=== PATIENT | male | born 1935 | race Caucasian/White ===

== ENCOUNTER 2016-10-04 14:57 | Inpatient (IN) | payer MEDICARE, OTHER ==
[~2016-10-04] VITALS: Ht 172.7 cm; Wt 110.2 kg
[~2016-10-04 14:57] MED LIST: AMLO2.5T PO; ASPI-869 PO; BACL10TA PO; CARV25TA2 PO; DIGO125T PO; DONE10TA4 PO; DUTA0.5C PO; ESOM40CA PO; FURO40TA5 PO; LISI10TA5 PO; METH10TA7 PO; ROSU20TA PO; ZOLP10TA2 PO
--- NOTE | 2016-10-04 15:04 | NUR ---
PT FAUSTINO FROM HOME TO ER BED 09. C/O CHEST PAIN X 3 DAYS. BLE ALSO NOTED. WAS GIVEN ASP AND NITRO ADDRESSING MACHINE OPERATOR W/ NO RELIEFE. GOWNED AND PLACED ON MONITOR. SATTING LOW 90'S. placed O2@2l/min. CHILEAN SPEAKING. AWAITING MD HERR.
--- NOTE | 2016-10-04 15:06 | NUR ---
DR BOB AT BEDSIDE FOR EVAL.
[2016-10-04 15:14] LABS: BASOPHILS # (AUTO) 0.3 /CMM (0.0-0.2); BASOPHILS % (AUTO) 2.5 % (0.0-2.0); EOSINOPHILS # (AUTO) 0.3 /CMM (0.0-0.7); EOSINOPHILS % (AUTO) 3.4 % (0.0-6.0); HEMATOCRIT 55 % (39-51); HEMOGLOBIN 17.7 g/dL (13.5-17.5); LYMPHOCYTES # (AUTO) 1.9 /CMM (0.8-4.8); LYMPHOCYTES % (AUTO) 18.5 % (20.0-44.0); MEAN CORPUSCULAR HEMOGLOBIN 30 PG (26.0-33.0); MEAN CORPUSCULAR HGB CONC 32 g/dl (31.0-36.0); MEAN CORPUSCULAR VOLUME 93 fL (80-96); MONOCYTES # (AUTO) 0.9 /CMM (0.1-1.30); NEUTROPHILS # (AUTO) 6.7 /CMM (1.8-8.9); NEUTROPHILS % (AUTO) 66.6 % (43.0-81.0); PLATELET COUNT (AUTO) 164 /CMM (150-450); RDW COEFFICIENT OF VARIATION 13.3 (11.5-15.0); RED BLOOD CELL COUNT(AUTO) 5.87 MIL/uL (4.5-6.0); WHITE BLOOD COUNT (AUTO) 10.1 K/uL (4.3-11.0)
--- NOTE | 2016-10-04 15:26 | NUR ---
RADIOLOGY AT BEDSIDE FOR CHEST XRAY.
[2016-10-04 15:29] LABS: INR 1.11 (0.87-1.13); PROTHROMBIN TIME 11.6 SECS (9.5-12.7)
[2016-10-04 15:32] LABS: TROPONIN I < 0.017 ng/mL (0.00-0.056)
[2016-10-04 15:37] LABS: ALANINE AMINOTRANSFERASE 27 U/L (12-78); ALBUMIN 3.5 g/dL (3.4-5.0); ALKALINE PHOSPHATASE 83 U/L (46-116); ASPARTATE AMINOTRANSFERASE 19 U/L (15-37); B-TYPE NATRIURETIC PEPTIDE 554 PG/ML (0-125); BILIRUBIN,DIRECT 0.1 mg/dL (0.0-0.2); BILIRUBIN,TOTAL 0.3 mg/dL (0.2-1.0); CALCIUM, SERUM 9.1 mg/dL (8.5-10.1); CARBON DIOXIDE 34 mmol/L (21-32); CHLORIDE 105 mmol/L (98-107); CREATININE 1.4 mg/dL (0.6-1.3); GLUCOSE 106 mg/dL (74-106); POTASSIUM 4.4 mmol/L (3.5-5.1); SODIUM SERUM 142 mmol/L (136-145); TOTAL PROTEIN, SERUM 7.5 g/dL (6.4-8.2); UREA NITROGEN, BLOOD 25 mg/dL (7-18)
[2016-10-04 16:00] VITALS: BP 135/72
[2016-10-04] MEDS ORDERED: FUROSEMIDE 40 MG/4 ML VIAL ONE (16:25)
[2016-10-04] MEDS ORDERED: FUROSEMIDE 40 MG/4 ML VIAL IV ONE (16:30)
--- NOTE | 2016-10-04 16:36 | NUR ---
REPORT GIVEN TO FELI. PT AWAITING TRANSFER TO FLOOR.
[2016-10-04 17:12] VITALS: BP 135/72
--- NOTE | 2016-10-04 17:15 | NUR ---
HYDROELECTRIC COMPONENT MACHINIST INITIAL NOTES RECEIVED REPORT AND PT FROM ER NURSE, A&O X4 CITIZEN OF [place] SPEAKING, ON 4L NC SAT ABOVE 93%, NO SOB OR ACUTE DISTRESS, NO CHEST PAIN NOTED NO WOUNDS PRESENT, ON TELE MON SR WITH HR 78, LT AC 18G IV INTACT, ALL NEEDS MET, SIDE RAILS X2, BED LOW AND LOCKED, CALL LIGHT WITHIN REACH, ADMISSION PACKET COMPELTE WILL CONTINUE TO MONITOR.
[2016-10-04] MEDS ORDERED: ALBUTEROL FS 2.5 MG/0.5 ML VIAL.NEB NEB PRN (18:00)
[2016-10-04] MEDS ORDERED: ACETAMINOPHEN 325 MG TABLET PO PRN (18:00)
[2016-10-04] MEDS ORDERED: MAGNESIUM HYDROXIDE 30 ML UDC PO PRN (18:00)
[2016-10-04] MEDS ORDERED: MAG HYDROX/AL HYDROX/SIMETH 30 ML UDC PO PRN (18:00)
[2016-10-04] MEDS ORDERED: ZOLPIDEM TARTRATE 5 MG TABLET PO PRN (18:00)
[2016-10-04] MEDS ORDERED: HYDROCODONE/APAP 5/325MG 1 EACH TABLET PO PRN (18:00)
[2016-10-04] MEDS ORDERED: IPRATROPIUM NEB FS 0.5 MG/2.5 ML AMPUL.NEB NEB PRN (18:00)
[2016-10-04] MEDS ORDERED: ONDANSETRON HCL/PF 4 MG/2 ML VIAL IVP PRN (18:00)
[2016-10-04] MEDS ORDERED: Z GUARD REMEDY 2 OZ OINT TP PRN (18:00)
[2016-10-04] MEDS ORDERED: WARF2TAB57 PO (18:03)
[2016-10-04] MEDS ORDERED: OLME1TAB2 PO (18:04)
[2016-10-04] MEDS ORDERED: NEBI10TA2 PO (18:09)
--- NOTE | 2016-10-04 18:21 | NUR ---
AUTOMATION SPECIALIST ENDING NOTES PT STABLE WITH NO ACUTE CHANGES NOTED, ALL NEEDS MET, WILL ENDORSE TO PM NURSE.
[2016-10-04] MEDS: FUROSEMIDE 40 MG/4 ML VIAL IV SCH (18:43)
--- NOTE | 2016-10-04 19:35 | NUR ---
POWDERED SUGAR SUPERVISOR INITIAL NOTE PT RECEIVED SLEEPING IN BED AND EASILY AROUSABLE. A/O X4 AND DANISH/SOUTH AFRICAN SPEAKING. ON 4L OF O2 VIA NC, WELL TOLERATED AND SATING WELL. TELE-SINUS RHYTHM 80'S. NO C/O CHEST NOTED AT THIS TIME. NO SOB NOTED. IV SITE LAC #18 SL, FLUSHING WELL, INTACT AND CLEAN. CALL LIGHT WITHIN REACH AT ALL TIMES. WILL CONTINUE TO MONITOR.
[2016-10-04 20:00] VITALS: BP 117/81
[2016-10-04] MEDS: DIGOXIN 0.125 MG TABLET PO SCH (20:40)
[2016-10-04] MEDS: ZOLPIDEM TARTRATE 10 MG TABLET PO SCH (22:05)
[2016-10-04] MEDS: ATORVASTATIN 40 MG TABLET PO SCH (22:05)
[2016-10-04] MEDS: ENOXAPARIN SODIUM 40 MG/0.4 ML DISP.SYRIN SQ SCH (22:06)
[2016-10-05] VITALS (7 sets, daily range): BP systolic 101–146; BP diastolic 54–89
--- NOTE | 2016-10-05 06:30 | NUR ---
CRM ADMINISTRATOR CLOSING NOTE PT REMAINED STABLE DURING SHIFT. SATING WELL. NO SOB NOTED. NO C/O PAIN AT THIS TIME. CALL LIGHT WITHIN REACH AT ALL TIMES. WILL ENDORSE TO NEXT SHIFT FOR WENDY.
--- NOTE | 2016-10-05 07:15 | NUR ---
BOAT DISPATCHER INITIAL NOTES RECEIVED REPORT FROM PM NURSE, A&O X4 AUSTRALIAN AND SPEAKING, NO SOB OR ACUTE DISTRESS, ON 4L NC SAT ABOVE 92%, ON TELE MON ST 115, LT AC 18 G IV SITE INTACT AND PATENT, ALL NEEDS MET, ALL SAFETY MEASURES INITIATED, SIDE RAILS X2, BED LOW AND LOCKED,CALL LIGHT WITHIN REACH, WILL CONTINUE TO MONITOR.
[2016-10-05 08:04] LABS: BASOPHILS % (AUTO) 0.3 % (0.0-2.0); EOSINOPHILS # (AUTO) 0.2 /CMM (0.0-0.7); EOSINOPHILS % (AUTO) 1.8 % (0.0-6.0); HEMATOCRIT 55 % (39-51); HEMOGLOBIN 17.2 g/dL (13.5-17.5); LYMPHOCYTES # (AUTO) 1.2 /CMM (0.8-4.8); MEAN CORPUSCULAR HEMOGLOBIN 30 PG (26.0-33.0); MEAN CORPUSCULAR HGB CONC 32 g/dl (31.0-36.0); MEAN CORPUSCULAR VOLUME 95 fL (80-96); MONOCYTES # (AUTO) 0.8 /CMM (0.1-1.30); MONOCYTES % (AUTO) 7.6 % (2.0-12.0); NEUTROPHILS # (AUTO) 8.1 /CMM (1.8-8.9); NEUTROPHILS % (AUTO) 78.3 % (43.0-81.0); PLATELET COUNT (AUTO) 160 /CMM (150-450); RDW COEFFICIENT OF VARIATION 13.9 (11.5-15.0); RED BLOOD CELL COUNT(AUTO) 5.71 MIL/uL (4.5-6.0); WHITE BLOOD COUNT (AUTO) 10.4 K/uL (4.3-11.0)
[2016-10-05 08:24] LABS: CALCIUM, SERUM 8.7 mg/dL (8.5-10.1); CREATININE 1.4 mg/dL (0.6-1.3); MAGNESIUM 1.9 mg/dL (1.8-2.4); PHOSPHORUS 4.5 mg/dL (2.5-4.9)
[2016-10-05 08:29] LABS: THYROID STIMULATING HORMONE 0.377 uIU/mL (0.358-3.74)
--- NOTE | 2016-10-05 08:51 | NUR ---
G REMAINS PENDING FROM 10/04/16 @ 7484. REPORTED TO NURSE, LINDA. STATES SHE WILL FOLLOW UP WITH .
[2016-10-05] MEDS: ASPIRIN EC 325 MG TABLET.DR PO SCH (09:00)
[2016-10-05] MEDS: DIGOXIN 0.125 MG TABLET PO SCH (09:00)
[2016-10-05] MEDS: FUROSEMIDE 40 MG/4 ML VIAL IV SCH ×2 (09:01→16:14)
[2016-10-05] MEDS: PANTOPRAZOLE 40 MG TABLET.DR PO SCH (09:02)
[2016-10-05] MEDS: DUTASTERIDE (0.5 MG) 0.5 MG CAPSULE PO SCH (09:02)
[2016-10-05] MEDS: METHIMAZOLE (5MG) 5 MG TABLET PO SCH (09:03)
[2016-10-05] MEDS: LISINOPRIL (10MG) 10 MG TABLET PO SCH (09:03)
[2016-10-05 09:28] LABS: ABG BASE EXCESS 6.7 mmol/L; ABG OXYGEN SATURATION 94.2 % (92.0-98.5); ABG PH 7.299 (7.350-7.450); ABG PO2 74.1 mmHg (75.0-100.0); ABG TOTAL HEMOGLOBIN 17.6 G/dL (13.5-18.0); AaDO2 93.3 mmHg; COHb 1.8 % (0.5-1.5); MetHb 0.4 % (0.0-1.5); O2Hb 92.1 % (94.0-97.0); SITE, ABG Right Radial; VENT MODE, BG nasal cannula
--- NOTE | 2016-10-05 09:33 | NUR ---
ABG results reported to nurse.
--- NOTE | 2016-10-05 18:54 | NUR ---
RN MS ENDING NOTES PT STABLE WITH NO ACUTE DISTRESS, ALL DUE MEDS GIVEN, ALL NEEDS MET, IV SITE INTACT, WILL ENDORSE TO PM NURSE.
--- NOTE | 2016-10-05 20:00 | NUR ---
MS RN NOTES , RECEIVED PTS ON BED AWAKE ALERT , BULGARIAN SPEAKING , ABLE TO MAKE NEEDS KNOWN ,AMBULATORY NO SOB NO DISTRESS NOTED DENIES PAIN AT THIS TIME,ON O2 AT 4LITERS VIA NC TOLERATING WELL WITH O2 SAT OF 94%, V/S STABLE AFEBRILE. HOB ELEVATED FOR ASPIRATION PRECAUTION, ALL DUE MEDS GIVEN ORDERED , ALL NEEDS ATTENDED TOO CALL LIGHT WITHIN REACH, KEPT PTS SAFE ,CLEAN DRY AND COMFORTABLE.WILL CONTINUE TO MONITOR PTS.
[2016-10-05] MEDS: ENOXAPARIN SODIUM 40 MG/0.4 ML DISP.SYRIN SQ SCH (20:46)
[2016-10-05] MEDS: ATORVASTATIN 40 MG TABLET PO SCH (21:09)
[2016-10-05] MEDS: ZOLPIDEM TARTRATE 10 MG TABLET PO SCH (23:37)
[2016-10-06 04:00] VITALS: BP 119/59
--- NOTE | 2016-10-06 06:36 | NUR ---
MS RN NOTES PTS ON BED AWAKE AND RESPONSIVE , REMAINS ON 02 AT 4 LITERS VIA NC . NO SOB NO DISTRESS NOTED DENIES PAIN at this time, v/s stable afebrile ,no significant change noted , will endorse torn day shift for continuity of care.
--- NOTE | 2016-10-06 07:30 | NUR ---
RN NOTE RECEIVED PT FROM PM NURSE. PT A/O X4 PT ON NC 4L. IV L AC G# 18 FLUSHED PATENT AND INTACT. WILL CONTINUE TO MONITOR. ALL SAFETY MEASURES IN PLACE.
[2016-10-06 08:00] VITALS: BP 128/67
[2016-10-06] MEDS: FUROSEMIDE 40 MG/4 ML VIAL IV SCH (08:38)
[2016-10-06 08:39] VITALS: BP 128/67
[2016-10-06] MEDS: LISINOPRIL (10MG) 10 MG TABLET PO SCH (08:39)
[2016-10-06] MEDS: DUTASTERIDE (0.5 MG) 0.5 MG CAPSULE PO SCH (08:39)
[2016-10-06] MEDS: METHIMAZOLE (5MG) 5 MG TABLET PO SCH (08:39)
[2016-10-06] MEDS: DIGOXIN 0.125 MG TABLET PO SCH (08:39)
[2016-10-06] MEDS: ASPIRIN EC 325 MG TABLET.DR PO SCH (08:39)
[2016-10-06] MEDS: PANTOPRAZOLE 40 MG TABLET.DR PO SCH (08:40)
[2016-10-06] MEDS ORDERED: methylPREDNISolone SOD SUCC 40 MG/ML VIAL IV SCH (10:00)
[2016-10-06] MEDS ORDERED: LEVOFLOXACIN 750 MG /D5W 150ML 750 MG in PREMIX 1 EA IV SCH (11:00)
[2016-10-06] MEDS ORDERED: LEVO750T21 PO (12:16)
[2016-10-06] MEDS ORDERED: PRED20TA PO (12:16)
[2016-10-06] MEDS ORDERED: IV NS 0.9% 250 ML IV ONE (13:29)
[2016-10-06] MEDS ORDERED: IV SET PRIMARY PUMP SET 1 EA INFUS.SET MC ONE (13:30)
[2016-10-06] MEDS ORDERED: SECONDARY IV SET 1 EA INFUS.SET MC ONE (13:30)
--- NOTE | 2016-10-06 16:21 | NUR ---
TILE SETTER NOTE PT DC TO HOME AT BEDSIDE. PT TRANSFERRED VIA PRIVATE CAR. IV REMOVED ID BAND REMOVED. ALL DC INSTRUCTIONS GIVEN TO . BELONGINGS LIST SIGNED AND ALL QUESTIONS ANSWERED. PT CLEAN AND DRY, CHANGED INTO PERSONAL CLOTHING AND WHEELED OUT
== END 2016-10-06 16:13 | disposition home or self-care (01) | DRG 291 ==
LOC: ER 14:58 → TELE1 17:02 → MEDSG1 10-05 15:45
DX: I13.0 Hypertensive heart and chronic kidney disease with heart failure and stage 1 through stage 4 chronic kidney disease, or unspecified chronic kidney disease (principal); I50.43 Acute on chronic combined systolic (congestive) and diastolic (congestive) heart failure; N17.0 Acute kidney failure with tubular necrosis; J96.21 Acute and chronic respiratory failure with hypoxia; J96.22 Acute and chronic respiratory failure with hypercapnia; J44.1 Chronic obstructive pulmonary disease with (acute) exacerbation; E87.4 Mixed disorder of acid-base balance; N18.9 Chronic kidney disease, unspecified; E11.22 Type 2 diabetes mellitus with diabetic chronic kidney disease; F17.210 Nicotine dependence, cigarettes, uncomplicated; K21.9 Gastro-esophageal reflux disease without esophagitis; E78.5 Hyperlipidemia, unspecified; Z90.5 Acquired absence of kidney; Z86.718 Personal history of other venous thrombosis and embolism; E66.9 Obesity, unspecified; Z95.2 Presence of prosthetic heart valve
CPT/HCPCS: 36415; 36600; 71010-TC; 80048-TC; 80061-TC; 80076-TC; 80162-TC; 83735-TC; 83880; 84100-TC; 84443-TC; 84484-TC; 85025-TC; 85730-TC; 93307-TC; 97001-TC; A4216; A4606; J1650; J1940; J1956; J2920; J7050; Z7610

== ENCOUNTER 2016-11-17 16:25 | Inpatient (IN) | payer MEDICARE, OTHER ==
[~2016-11-17] VITALS: Ht 165.1 cm; Wt 111.6 kg
[~2016-11-17 16:25] MED LIST changes: -CARV25TA2 PO; +LEVO750T21 PO; +NEBI10TA2 PO; +OLME1TAB2 PO; +PRED20TA PO; +WARF2TAB57 PO
[2016-11-17] MEDS ORDERED: NITROGLYCERIN PACKET 1 GM PACKET TD ONE (16:30)
[2016-11-17] MEDS ORDERED: ASPIRIN 325 MG TABLET PO ONE (16:30)
[2016-11-17] MEDS ORDERED: FUROSEMIDE 40 MG/4 ML VIAL IV ONE (16:30)
--- NOTE | 2016-11-17 16:30 | NUR ---
PT BIBA C/O SOB X 1 WEEK, PT IS A/OX4 HAVING DIFFICULTY BREATHING, PT WAS GIVEN 1 SPRAY OF NITRO PRIOR TO ARRIVAL BY EMS, IV PLACED PRIRO TO ARRIVAL, PT ON MONITOR, RT AND MD AT BEDSIDE, PT IN GOWN, LAB IN ROOM TO DRAW, MD MADE AWARE WILL CONTINUE TO MONITOR.
[2016-11-17] MEDS ORDERED: ASPIRIN 325 MG TABLET ONE (16:35)
[2016-11-17] MEDS ORDERED: FUROSEMIDE 40 MG/4 ML VIAL ONE (16:35)
[2016-11-17] MEDS ORDERED: NITROGLYCERIN PACKET 1 GM PACKET ONE (16:35)
[2016-11-17 16:51] LABS: CALCIUM, SERUM 8.8 mg/dL (8.5-10.1); CARBON DIOXIDE 32 mmol/L (21-32); CHLORIDE 105 mmol/L (98-107); CREATININE 1.5 mg/dL (0.6-1.3); GLUCOSE 188 mg/dL (74-106); POTASSIUM 4.1 mmol/L (3.5-5.1); SODIUM SERUM 142 mmol/L (136-145); UREA NITROGEN, BLOOD 30 mg/dL (7-18)
[2016-11-17 16:53] LABS: BASOPHILS % (AUTO) 0.2 % (0.0-2.0); EOSINOPHILS # (AUTO) 0.2 /CMM (0.0-0.7); EOSINOPHILS % (AUTO) 1.7 % (0.0-6.0); HEMATOCRIT 46 % (39-51); HEMOGLOBIN 15.2 g/dL (13.5-17.5); LYMPHOCYTES # (AUTO) 1.4 /CMM (0.8-4.8); LYMPHOCYTES % (AUTO) 13.1 % (20.0-44.0); MEAN CORPUSCULAR HEMOGLOBIN 30 PG (26.0-33.0); MEAN CORPUSCULAR HGB CONC 33 g/dl (31.0-36.0); MEAN CORPUSCULAR VOLUME 92 fL (80-96); MONOCYTES % (AUTO) 9.4 % (2.0-12.0); NEUTROPHILS % (AUTO) 75.6 % (43.0-81.0); PLATELET COUNT (AUTO) 128 /CMM (150-450); RDW COEFFICIENT OF VARIATION 14.6 (11.5-15.0); RED BLOOD CELL COUNT(AUTO) 5.04 MIL/uL (4.5-6.0); WHITE BLOOD COUNT (AUTO) 10.6 K/uL (4.3-11.0)
[2016-11-17 16:57] LABS: INR 1.14 (0.87-1.13)
[2016-11-17 16:58] LABS: TROPONIN I < 0.017 ng/mL (0.00-0.056)
[2016-11-17 17:03] LABS: ALANINE AMINOTRANSFERASE 24 U/L (12-78); ALKALINE PHOSPHATASE 62 U/L (46-116); ASPARTATE AMINOTRANSFERASE 18 U/L (15-37); B-TYPE NATRIURETIC PEPTIDE 663 PG/ML (0-125); BILIRUBIN,DIRECT 0.1 mg/dL (0.0-0.2); BILIRUBIN,TOTAL 0.4 mg/dL (0.2-1.0); TOTAL PROTEIN, SERUM 6.9 g/dL (6.4-8.2)
[2016-11-17] MEDS ORDERED: DUTA1CPM PO (17:10)
--- NOTE | 2016-11-17 17:15 | NUR ---
PT BP DROPPED, MADE AWARE, MD LEDBETTER STATES TO DC THE NITRO PASTE, NITRO PASTE TAKEN OFF, PT ON MONTIOR, PT FAMILY AT BEDSIDE WILL CONTINUE TO MONITOR.
--- NOTE | 2016-11-17 17:22 | NUR ---
CALLED NURSING SUP. FOR TELE BED
--- NOTE | 2016-11-17 17:49 | NUR ---
TELE1/RN REPORT FROM ER ERECIVED REPORT FROM ER NURSE CANDACE MARTINEZ PT TO BE ADMITTED FOR CHF, UNDER THE CARE OF DR. LYNCH. AWAITING FOR PT'S ARRIVAL.
[2016-11-17 19:00] VITALS: BP 111/73
--- NOTE | 2016-11-17 19:02 | NUR ---
TELE1/STREAMING MEDIA SPECIALIST TO TELE1 PT ARRIVED VIA GURNEY FROM ER. PT AMBULATED WITH STEADY GAIT TO BED. A/O X 4, GREEK SPEAKING. PT REFUSED OXYGEN, SATURATING @ 86%, WITH DIMINISHED LUNG SOUNDS. ON TELE WITH SINUS RHYTHM, HR 93. IV FLUSHED PATENT WITH GOOD BLOOD RETURN, PATENT WITH NO S/S OF INFECTION. PT NOTED WITH BILATERAL LOWER NON-PITTING EDEMA. ADMISSION PROTOCOLS COMPLETED. CL WITHIN REACHED AND SAFETY MAINTAINED. PT SEEN & EXAMINED BY DR. LYNCH WITH VERBAL ORDERS TO START PT ON HEPARIN DRIP FOR NON ACUTE CORONARY SYNDROMES, NO BOLUS AND BLOOD DRAW IN AM FOR TSH. ORDERS NOTED AND CARRIED. Addendum: 11/17/16 at 1920 by JOSUÉ DWYER RN ADDENDUM: DR. LYNCH WANTS TO START PT ON HEPARIN DRIP, NO BOLUS, TO START BASE ON 90 KG EVEN PT IS OVER 100 KG AND SIGNED OFF INFUSION SCALE.
--- NOTE | 2016-11-17 19:20 | NUR ---
TELE1/RN AM SHIFT END NOTES NO ACUTE CHANGE OF CONDITION NOTED SINCE PT ARRIVED THIS EVENING, WAS SEEN BY DR. LYNCH. PT TO START ON HEPARIN DRIP IN PM SHIFT. NEEDS MET. PT ENDORSED TO PM NURSE TO CONTINUE CARE. CL WITHIN REACHED AND SAFETY MAINTAINED.
[2016-11-17] MEDS: FUROSEMIDE 40 MG/4 ML VIAL IV SCH (19:45)
[2016-11-17] MEDS: WARFARIN SODIUM 5 MG TABLET PO SCH (19:47)
--- NOTE | 2016-11-17 19:50 | NUR ---
RN INITIAL NOTES RECEIVED REPORT FROM PREVIOUS SHIFT. PATIENT ADMITTED FOR CHF WITH HX OF AORTIC VALVE REPLACEMENT AND TO START ON HEPARIN GTT ORDERED BY DR. LYNCH. ADMINISTERED LASIX TO PATIENT AND COUMADIN ORDERED. WILL MONITOR PATIENT'S I&O CLOSELY. PATIENT ABLE TO COMPLY WITH USE OF O2 THERAPY VIA NC AT 2LPM, PATIENT'S SATURATION MONITORED AND NOTED TO BE 95%, PATIENT'S LUNGS ARE CLEAR ON AUSCULTATION. SR ON TELE, HR OF 95. PATIENT IS DIAPHORETIC, AFEBRILE AT 98.1, ROOM CHANGES MADE APPROPRIATE. L HAND G18, FLUSHED, PATENT WITH NO SIGNS OF INFILTRATION. PATIENT'S NEEDS ANTICIPATED AND MET. SAFETY AND COMFORT ENSURED. BED IN LOW AND LOCKED POSITION. CALL LIGHT IN REACH. WILL MONITOR.
[2016-11-17 20:00] VITALS: BP 115/74
--- NOTE | 2016-11-17 20:00 | NUR ---
RN NOTES FOLLOWED UP AND COORDINATED WITH PHARMACY REGARDING THE PATIENT'S HEPARIN GTT ORDERED. SPOKE WITH MICHELLE. FAXED OVER THE HEPARIN INFUSION PROTOCOL SHEET SIGNED BY DR. LYNCH.
[2016-11-17] MEDS ORDERED: IV SET PRIMARY PUMP SET 1 EA INFUS.SET MC ONE (20:31)
[2016-11-17] MEDS: HEPARIN INFUSION/D5W 500 ML IV PRN (20:37)
--- NOTE | 2016-11-17 20:50 | NUR ---
RN NOTES HEPARIN GTT STARTED ORDERED AT 1600u/hr, 32ml/hr ON PATIENT'S L HAND G18. PATIENT IN BED SLEEPING COMFORTABLY. SATURATING AT 95% ON 2LPM OF O2 VIA NC. VS: 110/64, 98. EASILY AROUSABLE WITH VERBAL AND TACTILE STIMULI. PTT ORDERED PER PROTOCOL.
[2016-11-18] VITALS: BP 110/71
[2016-11-18 02:46] LABS: BASOPHILS # (AUTO) 0.1 /CMM (0.0-0.2); BASOPHILS % (AUTO) 0.5 % (0.0-2.0); EOSINOPHILS # (AUTO) 0.3 /CMM (0.0-0.7); EOSINOPHILS % (AUTO) 2.7 % (0.0-6.0); HEMATOCRIT 46 % (39-51); HEMOGLOBIN 15.2 g/dL (13.5-17.5); LYMPHOCYTES # (AUTO) 1.6 /CMM (0.8-4.8); LYMPHOCYTES % (AUTO) 16.3 % (20.0-44.0); MEAN CORPUSCULAR HEMOGLOBIN 30 PG (26.0-33.0); MEAN CORPUSCULAR HGB CONC 33 g/dl (31.0-36.0); MEAN CORPUSCULAR VOLUME 93 fL (80-96); MONOCYTES # (AUTO) 0.9 /CMM (0.1-1.30); MONOCYTES % (AUTO) 9.5 % (2.0-12.0); NEUTROPHILS # (AUTO) 6.9 /CMM (1.8-8.9); PLATELET COUNT (AUTO) 124 /CMM (150-450); RED BLOOD CELL COUNT(AUTO) 4.99 MIL/uL (4.5-6.0); WHITE BLOOD COUNT (AUTO) 9.7 K/uL (4.3-11.0)
[2016-11-18 03:03] LABS: CHOLESTEROL 256 mg/dL (<200); CREATINE KINASE, TOTAL 49 U/L (39-308); HDL CHOLESTEROL 42 mg/dL (40-60); LDL 184 mg/dL (0-99); TRIGLYCERIDES 99 mg/dL (30-150)
[2016-11-18 03:04] LABS: ALANINE AMINOTRANSFERASE 28 U/L (12-78); ALBUMIN 2.9 g/dL (3.4-5.0); ALKALINE PHOSPHATASE 59 U/L (46-116); ASPARTATE AMINOTRANSFERASE 16 U/L (15-37); BILIRUBIN,TOTAL 0.6 mg/dL (0.2-1.0); CALCIUM, SERUM 8.7 mg/dL (8.5-10.1); CARBON DIOXIDE 36 mmol/L (21-32); CHLORIDE 104 mmol/L (98-107); CREATININE 1.5 mg/dL (0.6-1.3); GLUCOSE 137 mg/dL (74-106); POTASSIUM 4.2 mmol/L (3.5-5.1); SODIUM SERUM 145 mmol/L (136-145); TOTAL PROTEIN, SERUM 6.8 g/dL (6.4-8.2); TROPONIN I < 0.017 ng/mL (0.00-0.056); UREA NITROGEN, BLOOD 29 mg/dL (7-18)
[2016-11-18] MEDS: HEPARIN INFUSION/D5W 500 ML IV PRN ×2 (03:17→12:33)
--- NOTE | 2016-11-18 03:26 | NUR ---
RN NOTES PATIENT'S PTT RESULTED AT 0300. PTT VALUE AT 41. INCREASED HEPARIN GTT BY 200u/hr. PATIENT IS NOW RECEIVING HEPARIN AT 1800u/hr, 36ml/hr. COSIGNED BY ANOTHER RN, ASHLYN.
[2016-11-18 04:00] VITALS: BP 95/59
--- NOTE | 2016-11-18 06:26 | NUR ---
RN CLOSING NOTES PATIENT MONITORED CLOSELY OVERNIGHT. PATIENT'S O2 TITRATED ACCORDINGLY PER PATIENT'S NEEDS. PATIENT CURRENTLY ON 3LPM OF O2 VIA NC, SATURATION AT 97%. PATIENT OBSERVED TO OCCASIONALLY REMOVE O2 THERAPY AND PATIENT DESATURATES TO THE HIGH 80s%, ENCOURAGED COMPLIANCE WITH O2 THERAPY WITH HELP. HEPARIN AT 1800u/hr AT 36ml/hr. I&O MONITORED, NOTED. REMAINS SR AT HR OF 90s. PATIENT'S NEEDS ANTICIPATED AND MET. SAFETY AND COMFORT ENSURED. BED IN LOW AND LOCKED POSITION. CALL LIGHT IN REACH. WILL ENDORSE ACCORDINGLY FOR CONTINUITY OF CARE.
[2016-11-18 08:00] VITALS: BP 107/64
[2016-11-18] MEDS: FUROSEMIDE 40 MG/4 ML VIAL IV SCH (08:03)
[2016-11-18] MEDS: SPIRONOLACTONE 25 MG TABLET PO SCH (08:03)
[2016-11-18] MEDS ORDERED: FUROSEMIDE 40 MG TABLET PO SCH (09:00)
[2016-11-18 09:31] LABS: INR 1.11 (0.87-1.13)
[2016-11-18 12:00] VITALS: BP 97/50
[2016-11-18] MEDS ORDERED: HEPARIN SODIUM,PORCINE/PF 50 UNIT/5 ML DISP.SYRIN IV ONE (12:30)
[2016-11-18] MEDS ORDERED: HEPARIN SODIUM, PORCINE 5000 UNITS/1 ML VIAL IV ONE (13:00)
--- NOTE | 2016-11-18 13:45 | NUR ---
-reviewed heparin order and protocol with dr. Magdalena dr. confirmed ok to give bolus 3600 units and increase to 2000 units/hr. no bleeding noted from any orifices. -also gave pharmacy 3 home medications, receipt in chart.
[2016-11-18 16:00] VITALS: BP 106/72
[2016-11-18] MEDS: WARFARIN SODIUM 5 MG TABLET PO SCH (16:49)
--- NOTE | 2016-11-18 18:44 | NUR ---
ENTERED ORDER FOR WRONG PATIENT
[2016-11-18 18:47] LABS: INR 1.14 (0.87-1.13); PROTHROMBIN TIME 12.3 SECS (9.5-12.7)
--- NOTE | 2016-11-18 19:21 | NUR ---
decreased heparin drip to 1820 units/hr at this time, per protocol and order to recheck coag study at 0120 for ptt result of 73
[2016-11-18] MEDS: DUTASTERIDE PO SCH (19:25)
[2016-11-18] MEDS: TAMSULOSIN HCL PO SCH (19:25)
--- NOTE | 2016-11-18 19:30 | NUR ---
REVENUE CYCLE ADMINISTRATOR INITIAL NOTES RECEIVED PATIENT AWAKE A/OX4, ABLE TO MAKE NEEDS KNOWN. DENIES PAIN OR DISCOMFORT AT THIS TIME. NO RESPIRATORY DISTRESS NOTED ON 2LPMO2 VIA NC. ON TELE MONITOR SINUS RHYTHM 90. ON HEPARIN DRIP AT 1820 UNITS/HR. NO S/S OF BLEEDING NOTED. HOB ELEVATED. SIDE RAILS UP AND LOCKED. BED KEPT AT LOWEST POSITION. CALL LIGHT KEPT WITHIN EASY REACH, WILL CONTINUE TO MONITOR.
[2016-11-18 20:00] VITALS: BP_SYST 113; BP_DIAS 68; BP_DIAS 74
[2016-11-19] VITALS: BP 105/67
[2016-11-19 02:00] LABS: INR 1.13 (0.87-1.13); PROTHROMBIN TIME 12.2 SECS (9.5-12.7)
--- NOTE | 2016-11-19 02:00 | NUR ---
RECEIVED PTT RESULT OF 64, ON HEPARIN DRIP AT 1820 UNITS/HR. NO CHANGE IN RATE PER PROTOCOL, VERIFIED WITH CHARGE NURSE.
[2016-11-19] MEDS: HEPARIN INFUSION/D5W 500 ML IV PRN ×2 (02:19→16:42)
[2016-11-19 04:00] VITALS: BP 111/56
--- NOTE | 2016-11-19 06:08 | NUR ---
GROUP LEADER SEMICONDUCTOR TESTING NOTES PATIENT C/O HEADACHE, NO PRN PAIN MEDICATION NOTED. INFORMED DR. PARIKH, WITH ORDERS FOR TYLENOL 650MG PO Q6H PRN.
[2016-11-19] MEDS ORDERED: ACETAMINOPHEN 325 MG TABLET ONE (06:10)
[2016-11-19] MEDS: ACETAMINOPHEN 325 MG TABLET PO PRN ×2 (06:16→20:18)
--- NOTE | 2016-11-19 07:30 | NUR ---
PERINATAL TECH INITIAL NOTES REPORT RECEIVED VIA PM RN/ PT PRESENTS AWAKE A/OX4, ABLE TO MAKE NEEDS KNOWN. PT AMBULATES WITHOUT DISTRESS. PT DENIES PAIN OR DISCOMFORT AT THIS TIME. NO RESPIRATORY DISTRESS NOTED ON 2L WITH MIST O2 VIA NC. ON TELE MONITOR SINUS RHYTHM 97. ON HEPARIN DRIP AT 1820 UNITS/HR SETTING NOT CHANGED VIA PROTOCOL. NO S/S OF BLEEDING NOTED. HOB ELEVATED. SIDE RAILS UP AND LOCKED. BED KEPT AT LOWEST POSITION. CALL LIGHT KEPT WITHIN EASY REACH, WILL CONTINUE TO MONITOR.
[2016-11-19 08:00] VITALS: BP 92/57
[2016-11-19 08:04] LABS: ALANINE AMINOTRANSFERASE 27 U/L (12-78); ALBUMIN 2.8 g/dL (3.4-5.0); ALKALINE PHOSPHATASE 57 U/L (46-116); ASPARTATE AMINOTRANSFERASE 14 U/L (15-37); BASOPHILS % (AUTO) 0.5 % (0.0-2.0); BILIRUBIN,TOTAL 0.5 mg/dL (0.2-1.0); CALCIUM, SERUM 8.6 mg/dL (8.5-10.1); CARBON DIOXIDE 33 mmol/L (21-32); CHLORIDE 100 mmol/L (98-107); CREATININE 1.3 mg/dL (0.6-1.3); EOSINOPHILS # (AUTO) 0.2 /CMM (0.0-0.7); EOSINOPHILS % (AUTO) 2.6 % (0.0-6.0); GLUCOSE 125 mg/dL (74-106); HEMATOCRIT 45 % (39-51); HEMOGLOBIN 15.1 g/dL (13.5-17.5); LYMPHOCYTES # (AUTO) 1.2 /CMM (0.8-4.8); LYMPHOCYTES % (AUTO) 14.6 % (20.0-44.0); MAGNESIUM 1.9 mg/dL (1.8-2.4); MEAN CORPUSCULAR HEMOGLOBIN 31 PG (26.0-33.0); MEAN CORPUSCULAR HGB CONC 33 g/dl (31.0-36.0); MEAN CORPUSCULAR VOLUME 92 fL (80-96); MONOCYTES # (AUTO) 0.8 /CMM (0.1-1.30); MONOCYTES % (AUTO) 9.7 % (2.0-12.0); NEUTROPHILS # (AUTO) 5.7 /CMM (1.8-8.9); NEUTROPHILS % (AUTO) 72.6 % (43.0-81.0); PHOSPHORUS 3.4 mg/dL (2.5-4.9); PLATELET COUNT (AUTO) 132 /CMM (150-450); POTASSIUM 4.6 mmol/L (3.5-5.1); RDW COEFFICIENT OF VARIATION 13.8 (11.5-15.0); RED BLOOD CELL COUNT(AUTO) 4.88 MIL/uL (4.5-6.0); SODIUM SERUM 140 mmol/L (136-145); TOTAL PROTEIN, SERUM 6.9 g/dL (6.4-8.2); UREA NITROGEN, BLOOD 28 mg/dL (7-18); WHITE BLOOD COUNT (AUTO) 7.9 K/uL (4.3-11.0)
[2016-11-19] MEDS: OLMESARTAN PO SCH (08:59)
[2016-11-19] MEDS: FUROSEMIDE 40 MG/4 ML VIAL IV SCH (08:59)
[2016-11-19] MEDS: NEBIVOLOL HCL 10 MG PO SCH (08:59)
[2016-11-19] MEDS: HYDROCHLOROTHIAZIDE PO SCH (08:59)
[2016-11-19] MEDS: SPIRONOLACTONE 25 MG TABLET PO SCH (08:59)
[2016-11-19] MEDS: TAMSULOSIN HCL PO SCH (09:00)
[2016-11-19] MEDS: DUTASTERIDE PO SCH (09:00)
[2016-11-19 16:00] VITALS: BP 104/62
[2016-11-19] MEDS: WARFARIN SODIUM 5 MG TABLET PO SCH (16:40)
--- NOTE | 2016-11-19 18:51 | NUR ---
BEATER TENDER CLOSING NOTES PT AWAKE A/OX4, ABLE TO MAKE NEEDS KNOWN THROUGHOUT SHIFT. PT AMBULATES WITHOUT DISTRESS. PT DENIES PAIN OR DISCOMFORT AT THIS TIME. NO RESPIRATORY DISTRESS NOTED ON 2L WITH MIST O2 VIA NC. ON TELE MONITOR SINUS RHYTHM 98. ON HEPARIN DRIP AT 1820 UNITS/HR SETTING NOT CHANGED VIA PROTOCOL. NO S/S OF BLEEDING NOTED. HOB ELEVATED PT SUPINE . SIDE RAILS UP AND LOCKED. BED KEPT AT LOWEST POSITION. CALL LIGHT KEPT WITHIN EASY REACH, WILL CONTINUE TO MONITOR.
--- NOTE | 2016-11-19 19:42 | NUR ---
RN INITIAL NOTE RECEIVED PT IN NO ACUTE DISTRESS IN BED. PT IS A/O X 4 AND ABLE TO MAKE NEEDS KNOWN. PT IS ON O2 VIA NC @ 3LPM AND TOLERATING WELL WITH O2 SAT @ 95%. PT DENIES ANY SOB, DIFFICULTY BREATHING OR PAIN AT THIS TIME. PT HAS L HAND 18G THAT IS CLEAN DRY INTACT AND PATENT WITH HEPARINE GTT @ 1820 UNITS/HR. NO S/S OF BLEEDING NOTED. BED IN LOW LOCK POSITION WITH RIALS UP X 2. CALL LIGHT WITHIN REACH AND ALL SAFETY MEASURES ENSURED AND CARRIED OUT. WILL CONTINUE TO MONITOR FOR ANY CHANGES IN CONDITION.
[2016-11-19 20:00] VITALS: BP 100/50
[2016-11-20 02:34] LABS: INR 1.12 (0.87-1.13); PROTHROMBIN TIME 12.1 SECS (9.5-12.7)
[2016-11-20 04:00] VITALS: BP 94/45
--- NOTE | 2016-11-20 06:53 | NUR ---
RN CLOSING NOTE RECEIVED PT IN NO ACUTE DISTRESS IN BED. PT DID NOT HAVE ANY SIGNIFICANT CHANGE IN CONDITION DURING SHIFT. PT REMOVED MULTIPLE IV'S AND RAIN CATHETER. REQUESTED AND RECEIVED ORDERS FOR SITTER AT BEDSIDE. WILL ENDORSE TO AM RN FOR CONTINUITY OF CARE. Addendum: 11/20/16 at 0656 by ADAN MAYBERRY RN CHARTED FOR WRONG PT. PLEASE DISMISS NOTE
--- NOTE | 2016-11-20 06:56 | NUR ---
RN CLOSING NOTE PT REMAINS IN NO ACUTE DISTRESS IN BED. PT DID NOT HAVE ANY SIGNIFICANT CHANGE IN CONDITION DURING SHIFT. ALL NEEDS MET ALL ORDERS CARRIED OUT. WILL ENDORSE TO AM RN FOR CONTINUITY OF CARE.
[2016-11-20 07:06] LABS: CALCIUM, SERUM 8.7 mg/dL (8.5-10.1); CARBON DIOXIDE 36 mmol/L (21-32); CHLORIDE 101 mmol/L (98-107); CREATININE 1.5 mg/dL (0.6-1.3); GLUCOSE 121 mg/dL (74-106); MAGNESIUM 2.2 mg/dL (1.8-2.4); PHOSPHORUS 4.1 mg/dL (2.5-4.9); POTASSIUM 4.5 mmol/L (3.5-5.1); SODIUM SERUM 139 mmol/L (136-145); UREA NITROGEN, BLOOD 30 mg/dL (7-18)
[2016-11-20 07:12] LABS: BASOPHILS % (AUTO) 0.3 % (0.0-2.0); EOSINOPHILS # (AUTO) 0.3 /CMM (0.0-0.7); EOSINOPHILS % (AUTO) 3.9 % (0.0-6.0); HEMATOCRIT 45 % (39-51); LYMPHOCYTES # (AUTO) 1.7 /CMM (0.8-4.8); MEAN CORPUSCULAR HEMOGLOBIN 31 PG (26.0-33.0); MEAN CORPUSCULAR HGB CONC 33 g/dl (31.0-36.0); MEAN CORPUSCULAR VOLUME 93 fL (80-96); MONOCYTES # (AUTO) 0.8 /CMM (0.1-1.30); MONOCYTES % (AUTO) 9.5 % (2.0-12.0); NEUTROPHILS # (AUTO) 5.3 /CMM (1.8-8.9); NEUTROPHILS % (AUTO) 65.3 % (43.0-81.0); PLATELET COUNT (AUTO) 136 /CMM (150-450); RDW COEFFICIENT OF VARIATION 14.4 (11.5-15.0); RED BLOOD CELL COUNT(AUTO) 4.87 MIL/uL (4.5-6.0); WHITE BLOOD COUNT (AUTO) 8.2 K/uL (4.3-11.0)
[2016-11-20] MEDS: HEPARIN INFUSION/D5W 500 ML IV PRN ×2 (07:23→22:07)
--- NOTE | 2016-11-20 07:30 | NUR ---
RN INITIAL NOTE. RECEIVED REPORT FROM ADAN JONES SHIFT. PT A/O X4 BURUNDIAN SPEAKING. PT MS. NC @3 L NO S/S OF SOB. L HAND #18G HEPARIN DRIP RUNNING @ 1820 UNITS/HR . NPO- AWAITING LEXISCAN . WILL CONTINUE TO MONITOR CLOSELY. ALL SAFETY MEASURES IN PLACE.
[2016-11-20 08:00] VITALS: BP 120/63
[2016-11-20] MEDS ORDERED: REGADENOSON 0.4 MG/5 ML DISP.SYRIN IVP ONE (08:00)
--- NOTE | 2016-11-20 09:00 | NUR ---
RN NOTE LEXISCAN CANCELLED TODAY DUE TO PT EATING BREAKFAST. PT AND AWARE.
[2016-11-20] MEDS: HYDROCHLOROTHIAZIDE PO SCH (09:02)
[2016-11-20] MEDS: SPIRONOLACTONE 25 MG TABLET PO SCH (09:02)
[2016-11-20] MEDS: DUTASTERIDE PO SCH (09:02)
[2016-11-20] MEDS: NEBIVOLOL HCL 10 MG PO SCH (09:02)
[2016-11-20] MEDS: OLMESARTAN PO SCH (09:02)
[2016-11-20] MEDS: FUROSEMIDE 40 MG/4 ML VIAL IV SCH (09:02)
[2016-11-20] MEDS: TAMSULOSIN HCL PO SCH (09:02)
[2016-11-20 12:00] VITALS: BP 91/53
--- NOTE | 2016-11-20 13:26 | NUR ---
RN NOTE SPOKE TO DR. TSE DOES NOT WANT HEPARIN DRIP TO BE STOPPED FOR REST TEST TODAY AND LEXISCAN TOMORROW.
--- NOTE | 2016-11-20 13:45 | NUR ---
RN NOTE ACCOMPANIED PT VIA WHEELCHAIR FOR REST TEST WITH [facility]. IV INTACT HEPARIN RUNNING.
--- NOTE | 2016-11-20 14:05 | NUR ---
RN NOTE RETURNED FROM REST TEST. PT RESTING COMFORTABLY.
[2016-11-20 16:00] VITALS: BP 110/55
[2016-11-20] MEDS: WARFARIN SODIUM 5 MG TABLET PO SCH (17:51)
--- NOTE | 2016-11-20 19:26 | NUR ---
RN CLOSING NOTE REPORT GIVEN TO FERNANDA MALONE PM SHIFT FOR WENDY. PT A/O X4 MALTESE SPEAKING. PT MS. NC @3 L NO S/S OF SOB. L HAND #18G HEPARIN DRIP RUNNING @ 1820 UNITS/HR . ALL SAFETY MEASURES IN PLACE. ALL ORDERS CARRIED OUT AND ALL MEDICATION GIVEN.
[2016-11-20 20:43] VITALS: BP 107/61
[2016-11-21 02:01] LABS: INR 1.17 (0.87-1.13); PROTHROMBIN TIME 12.6 SECS (9.5-12.7)
[2016-11-21 04:00] VITALS: BP 97/60
[2016-11-21 07:04] LABS: CALCIUM, SERUM 9.1 mg/dL (8.5-10.1); CARBON DIOXIDE 36 mmol/L (21-32); CHLORIDE 99 mmol/L (98-107); CREATININE 1.3 mg/dL (0.6-1.3); GLUCOSE 112 mg/dL (74-106); POTASSIUM 4.5 mmol/L (3.5-5.1); SODIUM SERUM 141 mmol/L (136-145); UREA NITROGEN, BLOOD 28 mg/dL (7-18)
[2016-11-21 08:00] VITALS: BP 113/68
--- NOTE | 2016-11-21 08:00 | NUR ---
MS1/RN AM SHIFT INITIAL NOTES RECEIVED PT AWAKE SITTING IN BED. NO ACUTE CHANGE OF CONDITION NOTED. PT A/O X 4, CITIZEN OF [place] SPEAKING, UNDERSTANDS [place]LE [place], DENIES ANY DISCOMFORT. PT ON 2L O2 DAVION N/C SATURATING @ 95%, LUNG SOUNDS CLEAR. WITH ON GOING IV INFUSION OF HEPARIN @ 1820 UNITS/HR. IV SITE IS PATENT WITH N O S/S OF INFECTION. PT ON NPO STATUS FOR A SCHEDULED LEXISCAN THIS MORNING. PT IS COMFORTABLE. SCHEDULED P.O MEDS TO BE HELD UNTIL THE FIRST PART OF THE TEST IS COMPLETED. CL WITHIN REACHED AND SAFETY MAINTAINED. ON GOING MONITORING.
[2016-11-21] MEDS: FUROSEMIDE 40 MG/4 ML VIAL IV SCH (08:22)
[2016-11-21] MEDS: NEBIVOLOL HCL 10 MG PO SCH (09:59)
[2016-11-21] MEDS: SPIRONOLACTONE 25 MG TABLET PO SCH (09:59)
[2016-11-21] MEDS: HYDROCHLOROTHIAZIDE PO SCH (09:59)
[2016-11-21] MEDS: DUTASTERIDE PO SCH (09:59)
[2016-11-21] MEDS: TAMSULOSIN HCL PO SCH (09:59)
[2016-11-21] MEDS: OLMESARTAN PO SCH (09:59)
--- NOTE | 2016-11-21 12:00 | NUR ---
MS1/RN STRESS TEST - COMPLETED STRESS TEST COMPLETED, PT BACK TO ROOM. TOLERATED PROCEDURE. ON GOING MONITORING.
[2016-11-21] MEDS: FUROSEMIDE 80 MG TABLET PO SCH (12:08)
[2016-11-21] MEDS: HEPARIN INFUSION/D5W 500 ML IV PRN (13:11)
--- NOTE | 2016-11-21 15:29 | NUR ---
MS1/CHIP SILO TENDER - HELD DISCHARGE HELD D/T PT'S INR HAS NOT REACHED THERAPEUTIC RANGE. LAB DRAW SCHEDULED IN AM. MONITORING CONTINUED.
[2016-11-21 16:00] VITALS: BP 105/63
[2016-11-21] MEDS: WARFARIN SODIUM 5 MG TABLET PO SCH (16:13)
[2016-11-21 20:00] VITALS: BP 90/59
--- NOTE | 2016-11-22 01:44 | NUR ---
MS-1/FAISAL REPORT TO [facility] FOR CONT OF CARE.
[2016-11-22] MEDS ORDERED: IV SET PRIMARY PUMP SET 1 EA INFUS.SET MC ONE (03:12)
[2016-11-22] MEDS: HEPARIN INFUSION/D5W 500 ML IV PRN ×2 (03:31→16:18)
[2016-11-22 04:00] VITALS: BP 102/67
[2016-11-22 06:43] LABS: BASOPHILS % (AUTO) 0.4 % (0.0-2.0); EOSINOPHILS # (AUTO) 0.4 /CMM (0.0-0.7); EOSINOPHILS % (AUTO) 4.7 % (0.0-6.0); HEMATOCRIT 45 % (39-51); LYMPHOCYTES # (AUTO) 1.5 /CMM (0.8-4.8); MEAN CORPUSCULAR HEMOGLOBIN 31 PG (26.0-33.0); MEAN CORPUSCULAR HGB CONC 33 g/dl (31.0-36.0); MEAN CORPUSCULAR VOLUME 92 fL (80-96); MONOCYTES # (AUTO) 0.7 /CMM (0.1-1.30); MONOCYTES % (AUTO) 9.7 % (2.0-12.0); NEUTROPHILS # (AUTO) 4.8 /CMM (1.8-8.9); NEUTROPHILS % (AUTO) 65.2 % (43.0-81.0); PLATELET COUNT (AUTO) 182 /CMM (150-450); RDW COEFFICIENT OF VARIATION 14.4 (11.5-15.0); WHITE BLOOD COUNT (AUTO) 7.4 K/uL (4.3-11.0)
[2016-11-22 06:49] LABS: INR 1.35 (0.87-1.13); PROTHROMBIN TIME 14.7 SECS (9.5-12.7)
[2016-11-22 07:00] LABS: CALCIUM, SERUM 9.6 mg/dL (8.5-10.1); CARBON DIOXIDE 37 mmol/L (21-32); CHLORIDE 100 mmol/L (98-107); CREATININE 1.3 mg/dL (0.6-1.3); GLUCOSE 118 mg/dL (74-106); POTASSIUM 4.1 mmol/L (3.5-5.1); SODIUM SERUM 143 mmol/L (136-145); UREA NITROGEN, BLOOD 31 mg/dL (7-18)
--- NOTE | 2016-11-22 07:15 | NUR ---
RN INITIAL NOTE PT RECEIVED IN BED RESTING. AWAKE, ALERT AND ORIENTED. NO S/S OF PAIN OR DISCOMFORT. PRIMARILY INDONESIAN/ THAI SPEAKING. ABLE TO MAKE NEEDS KNOWN. RESPIRATIONS ARE EVEN AND UNLABORED. NO S/S OF RESPIRATORY DISTRESS OR SOB. SATING WELL ON ROOM AIR. SKIN IS WARM AND DRY TO TOUCH. IV SITES FLUSHED AND PATENT. DRESSING C/D/I. SAFETY PRECAUTIONS IN PLACE, BED IN LOCKED, LOW POSITION WITH TWO SIDE RAILS UP. CALL LIGHT AND BELONGINGS WITHIN EASY REACH. WILL CONTINUE TO MONITOR
--- NOTE | 2016-11-22 07:32 | NUR ---
RN NOTES REMAINED IN STABLE CONDITION CONTINUE ON HEPARIN DRIP ORDERED. NO SIGNIFICANT CHANGES SHOWS. KEPT PT CLEAN AND DRY. ENDORSED CONTINUITY OF CARE TO AM NURSE
[2016-11-22 08:00] VITALS: BP 100/65
[2016-11-22] MEDS: SPIRONOLACTONE 25 MG TABLET PO SCH (08:34)
[2016-11-22] MEDS: FUROSEMIDE 80 MG TABLET PO SCH (08:34)
[2016-11-22] MEDS: NEBIVOLOL HCL 10 MG PO SCH (12:42)
[2016-11-22] MEDS: TAMSULOSIN HCL PO SCH (12:42)
[2016-11-22] MEDS: HYDROCHLOROTHIAZIDE PO SCH (12:42)
[2016-11-22] MEDS: OLMESARTAN PO SCH (12:42)
[2016-11-22] MEDS: DUTASTERIDE PO SCH (12:42)
[2016-11-22 16:00] VITALS: BP_SYST 83; BP_SYST 91; BP_DIAS 50; BP_DIAS 57
[2016-11-22] MEDS: WARFARIN SODIUM 5 MG TABLET PO SCH (16:20)
--- NOTE | 2016-11-22 19:28 | NUR ---
RN CLOSING NOTE ALL MD ORDERS CARRIED OUT. PATIENT KEPT CLEAN AND DRY. SAFETY PRECAUTIONS IN PLACE AT ALL TIMES. REPORT WILL BE GIVEN TO PM RN FOR WENDY
[2016-11-22 20:00] VITALS: BP 85/59
--- NOTE | 2016-11-22 20:00 | NUR ---
MS RN NOTES BP 85/49. PLACED IN [place] POSITION. DENIES ANY PAIN OR DISCOMFORT AT THIS TIME. PT HAD DIURETICS AND BP MEDS DURING THE DAY. AUTOMOTIVE LOT ATTENDANT NOTIFIED. WILL CONTINUE TO MONITOR.
[2016-11-23 04:00] VITALS: BP 84/51
--- NOTE | 2016-11-23 04:00 | NUR ---
MS RN NOTES BP 84/51. PLACED IN [place] POSITION. DENIES ANY PAIN OR DISCOMFORT AT THIS TIME. [employer] INTERNS[employer] NOTIFIED. WILL CONTINUE TO MONITOR.
[2016-11-23 06:22] LABS: BASOPHILS % (AUTO) 0.4 % (0.0-2.0); EOSINOPHILS # (AUTO) 0.4 /CMM (0.0-0.7); HEMATOCRIT 46 % (39-51); LYMPHOCYTES # (AUTO) 1.7 /CMM (0.8-4.8); LYMPHOCYTES % (AUTO) 22.5 % (20.0-44.0); MEAN CORPUSCULAR HEMOGLOBIN 30 PG (26.0-33.0); MEAN CORPUSCULAR HGB CONC 33 g/dl (31.0-36.0); MEAN CORPUSCULAR VOLUME 93 fL (80-96); MONOCYTES # (AUTO) 0.8 /CMM (0.1-1.30); MONOCYTES % (AUTO) 11.2 % (2.0-12.0); NEUTROPHILS # (AUTO) 4.5 /CMM (1.8-8.9); NEUTROPHILS % (AUTO) 60.9 % (43.0-81.0); PLATELET COUNT (AUTO) 193 /CMM (150-450); RED BLOOD CELL COUNT(AUTO) 4.95 MIL/uL (4.5-6.0); WHITE BLOOD COUNT (AUTO) 7.4 K/uL (4.3-11.0)
[2016-11-23 06:32] LABS: CALCIUM, SERUM 9.5 mg/dL (8.5-10.1); CARBON DIOXIDE 37 mmol/L (21-32); CHLORIDE 100 mmol/L (98-107); CREATININE 1.4 mg/dL (0.6-1.3); GLUCOSE 117 mg/dL (74-106); POTASSIUM 4.4 mmol/L (3.5-5.1); SODIUM SERUM 141 mmol/L (136-145); UREA NITROGEN, BLOOD 33 mg/dL (7-18)
--- NOTE | 2016-11-23 06:38 | NUR ---
MS RN NOTES AWAKE & RESPONSIVE. NOT IN ANY DISTRESS. NO SOB NOTED. DENIES ANY PAIN OR DISCOMFORT AT THIS TIME. WITH HEPARIN DRIP INFUSING WELL. MONITORED ACCORDINGLY. CALL LIGHT WITHIN REACH. BED IN LOWEST POSITION. SR UP X 2 FOR SAFETY. WILL ENDORSE TO NEXT SHIFT.
[2016-11-23 06:39] LABS: INR 1.51 (0.87-1.13); PROTHROMBIN TIME 16.6 SECS (9.5-12.7)
[2016-11-23] MEDS: HEPARIN INFUSION/D5W 500 ML IV PRN (07:06)
[2016-11-23 08:00] VITALS: BP_SYST 85; BP_SYST 95; BP_DIAS 57
[2016-11-23] MEDS: SPIRONOLACTONE 25 MG TABLET PO SCH (09:00)
[2016-11-23] MEDS: NEBIVOLOL HCL 10 MG PO SCH (09:00)
[2016-11-23] MEDS: OLMESARTAN PO SCH (09:00)
[2016-11-23] MEDS: HYDROCHLOROTHIAZIDE PO SCH (09:00)
[2016-11-23] MEDS: DUTASTERIDE PO SCH (09:42)
[2016-11-23] MEDS: TAMSULOSIN HCL PO SCH (09:42)
[2016-11-23] MEDS: ACETAMINOPHEN 325 MG TABLET PO PRN (09:47)
[2016-11-23] MEDS ORDERED: IV NS 0.9% 1,000 ML IV PRN (11:18)
[2016-11-23] MEDS ORDERED: RIVA10TA PO (11:22)
[2016-11-23] MEDS ORDERED: SPIR25TA PO (11:22)
[2016-11-23 12:00] VITALS: BP 72/41
[2016-11-23] MEDS ORDERED: IV NS 0.9% 500 ML IV ONE (12:00)
[2016-11-23] MEDS ORDERED: IV SET PRIMARY PUMP SET 1 EA INFUS.SET MC ONE (12:08)
[2016-11-23 14:00] VITALS: BP 90/42
[2016-11-23 16:00] VITALS: BP 87/47
[2016-11-23] MEDS ORDERED: PNEUMOCOCCAL 23-VAL P-SAC VAC 0.5 ML VIAL SQ ONE (16:00)
[2016-11-23 17:00] VITALS: BP 90/42
[2016-11-23] MEDS: WARFARIN SODIUM 5 MG TABLET PO SCH (17:02)
--- NOTE | 2016-11-23 17:30 | NUR ---
RN NOTES PT DISCHARGED HOME WITH ON ROOM AIR, AMBULATORY, STABLE, PRESCRIPTION LIST AND DISCHARGE INSTRUCTIONS PROVIDED TO PT AND , THAT PT NEEDS TO F/UP WITH TAILORING TEACHER AND PCP, VERBALIZED UNDERSTANDING. EXIT CARE DONE, PNEUMONIA VACCINE GIVEN, BELONGINGS AND HOME MEDS PROVIDED, BELONGINGS LIST SIGN, IV LINES AND ID BAND REMOVED, PT VOIDED. LEFT VIA OWN TRANSPORTATION.
== END 2016-11-23 18:19 | disposition home or self-care (01) | DRG 291 ==
LOC: ER 16:27 → TELE1 17:46 → MEDSG1 11-19 10:07
PROVIDERS: ADMIT Internal Medicine; ATTEND Internal Medicine
DX: I13.0 Hypertensive heart and chronic kidney disease with heart failure and stage 1 through stage 4 chronic kidney disease, or unspecified chronic kidney disease (principal); I50.33 Acute on chronic diastolic (congestive) heart failure; D68.59 Other primary thrombophilia; Z68.41 Body mass index [BMI] 40.0-44.9, adult; N18.9 Chronic kidney disease, unspecified; E66.01 Morbid (severe) obesity due to excess calories; I25.10 Atherosclerotic heart disease of native coronary artery without angina pectoris; Z86.718 Personal history of other venous thrombosis and embolism; G47.33 Obstructive sleep apnea (adult) (pediatric); Z95.2 Presence of prosthetic heart valve; Z90.5 Acquired absence of kidney; Z86.73 Personal history of transient ischemic attack (TIA), and cerebral infarction without residual deficits; N40.0 Benign prostatic hyperplasia without lower urinary tract symptoms; I48.91 Unspecified atrial fibrillation; J44.9 Chronic obstructive pulmonary disease, unspecified; K21.9 Gastro-esophageal reflux disease without esophagitis; F17.210 Nicotine dependence, cigarettes, uncomplicated; Z79.899 Other long term (current) drug therapy; Z95.1 Presence of aortocoronary bypass graft; Z79.01 Long term (current) use of anticoagulants; E05.80 Other thyrotoxicosis without thyrotoxic crisis or storm
CPT/HCPCS: 36415; 71010-TC; 80048-TC; 80053-TC; 80061-TC; 80076-TC; 82306; 82550-TC; 83735-TC; 83880; 84100-TC; 84439-TC; 84443-TC; 84484-TC; 85025-TC; 85610-TC; 85730-TC; 90732; 94799-TC; 97001-TC; A4606; A9502; J1642; J1644; J1940; J2785; J7040; Z7610

== ENCOUNTER 2017-01-15 13:13 | Inpatient (IN) | payer MEDICARE, OTHER ==
[~2017-01-15] VITALS: Ht 162.6 cm; Wt 115.2 kg
[~2017-01-15 13:13] MED LIST changes: -AMLO2.5T PO; -ASPI-869 PO; -BACL10TA PO; -DIGO125T PO; -DONE10TA4 PO; -DUTA0.5C PO; +DUTA1CPM PO; -ESOM40CA PO; -FURO40TA5 PO; -LEVO750T21 PO; -LISI10TA5 PO; -METH10TA7 PO; -NEBI10TA2 PO; -PRED20TA PO; +RIVA10TA PO; -ROSU20TA PO; +SPIR25TA PO; -WARF2TAB57 PO; -ZOLP10TA2 PO
[2017-01-15] MEDS ORDERED: NITROGLYCERIN PACKET 1 GM PACKET ONE (13:44)
[2017-01-15] MEDS ORDERED: FUROSEMIDE 40 MG/4 ML VIAL ONE (13:44)
[2017-01-15] MEDS ORDERED: ASPIRIN 81 MG TAB.CHEW ONE (13:45)
[2017-01-15 13:46] LABS: BASOPHILS % (AUTO) 0.6 % (0.0-2.0); EOSINOPHILS # (AUTO) 0.3 /CMM (0.0-0.7); EOSINOPHILS % (AUTO) 3.3 % (0.0-6.0); HEMATOCRIT 49 % (39-51); HEMOGLOBIN 15.5 g/dL (13.5-17.5); LYMPHOCYTES # (AUTO) 1.7 /CMM (0.8-4.8); LYMPHOCYTES % (AUTO) 20.6 % (20.0-44.0); MEAN CORPUSCULAR HEMOGLOBIN 30 PG (26.0-33.0); MEAN CORPUSCULAR HGB CONC 32 g/dl (31.0-36.0); MEAN CORPUSCULAR VOLUME 95 fL (80-96); MONOCYTES # (AUTO) 0.6 /CMM (0.1-1.30); MONOCYTES % (AUTO) 7.9 % (2.0-12.0); NEUTROPHILS # (AUTO) 5.5 /CMM (1.8-8.9); NEUTROPHILS % (AUTO) 67.6 % (43.0-81.0); PLATELET COUNT (AUTO) 201 /CMM (150-450); RDW COEFFICIENT OF VARIATION 14.6 (11.5-15.0); RED BLOOD CELL COUNT(AUTO) 5.16 MIL/uL (4.5-6.0); WHITE BLOOD COUNT (AUTO) 8.1 K/uL (4.3-11.0)
[2017-01-15 13:57] LABS: CALCIUM, SERUM 8.5 mg/dL (8.5-10.1); CARBON DIOXIDE 33 mmol/L (21-32); CHLORIDE 108 mmol/L (98-107); CREATININE 1.6 mg/dL (0.6-1.3); GLUCOSE 124 mg/dL (74-106); POTASSIUM 4.5 mmol/L (3.5-5.1); SODIUM SERUM 145 mmol/L (136-145); UREA NITROGEN, BLOOD 34 mg/dL (7-18)
[2017-01-15 13:59] LABS: INR 1.05 (0.87-1.13); PROTHROMBIN TIME 10.9 SECS (9.5-12.7)
[2017-01-15] MEDS ORDERED: NITROGLYCERIN PACKET 1 GM PACKET TD ONE (14:00)
[2017-01-15] MEDS ORDERED: FUROSEMIDE 40 MG/4 ML VIAL IV ONE (14:00)
[2017-01-15] MEDS ORDERED: ASPIRIN 81 MG TAB.CHEW PO ONE (14:00)
[2017-01-15 14:05] LABS: TROPONIN I < 0.017 ng/mL (0.00-0.056)
[2017-01-15 14:10] LABS: ALANINE AMINOTRANSFERASE 37 U/L (12-78); ALBUMIN 3.5 g/dL (3.4-5.0); ALKALINE PHOSPHATASE 69 U/L (46-116); ASPARTATE AMINOTRANSFERASE 18 U/L (15-37); B-TYPE NATRIURETIC PEPTIDE 412 PG/ML (0-125); BILIRUBIN,DIRECT 0.1 mg/dL (0.0-0.2); BILIRUBIN,TOTAL 0.5 mg/dL (0.2-1.0); TOTAL PROTEIN, SERUM 6.9 g/dL (6.4-8.2)
[2017-01-15] MEDS ORDERED: ZOLPIDEM TARTRATE 5 MG TABLET PO PRN (15:30)
[2017-01-15] MEDS ORDERED: ACETAMINOPHEN 325 MG TABLET PO PRN (15:30)
[2017-01-15] MEDS ORDERED: MAGNESIUM HYDROXIDE 30 ML UDC PO PRN (15:30)
[2017-01-15] MEDS ORDERED: ONDANSETRON HCL/PF 4 MG/2 ML VIAL IVP PRN (15:30)
[2017-01-15] MEDS ORDERED: MAG HYDROX/AL HYDROX/SIMETH 30 ML UDC PO PRN (15:30)
[2017-01-15] MEDS ORDERED: HYDROCODONE/APAP 5/325MG 1 EACH TABLET PO PRN (15:30)
[2017-01-15] MEDS ORDERED: Z GUARD REMEDY 2 OZ OINT TP PRN (15:30)
[2017-01-15 17:00] VITALS: BP 99/65
[2017-01-15 20:00] VITALS: BP 97/56
[2017-01-16] VITALS: BP 104/54
[2017-01-16 04:00] VITALS: BP 120/70
[2017-01-16 07:39] LABS: BASOPHILS % (AUTO) 0.3 % (0.0-2.0); EOSINOPHILS # (AUTO) 0.3 /CMM (0.0-0.7); EOSINOPHILS % (AUTO) 2.9 % (0.0-6.0); HEMATOCRIT 46 % (39-51); HEMOGLOBIN 14.8 g/dL (13.5-17.5); LYMPHOCYTES # (AUTO) 1.9 /CMM (0.8-4.8); LYMPHOCYTES % (AUTO) 21.2 % (20.0-44.0); MEAN CORPUSCULAR HEMOGLOBIN 31 PG (26.0-33.0); MEAN CORPUSCULAR HGB CONC 33 g/dl (31.0-36.0); MEAN CORPUSCULAR VOLUME 95 fL (80-96); MONOCYTES # (AUTO) 0.7 /CMM (0.1-1.30); MONOCYTES % (AUTO) 7.8 % (2.0-12.0); NEUTROPHILS # (AUTO) 6.1 /CMM (1.8-8.9); NEUTROPHILS % (AUTO) 67.8 % (43.0-81.0); PLATELET COUNT (AUTO) 169 /CMM (150-450); RDW COEFFICIENT OF VARIATION 15.1 (11.5-15.0); WHITE BLOOD COUNT (AUTO) 8.9 K/uL (4.3-11.0)
[2017-01-16 07:42] LABS: CALCIUM, SERUM 8.4 mg/dL (8.5-10.1); CARBON DIOXIDE 34 mmol/L (21-32); CHLORIDE 107 mmol/L (98-107); CREATININE 1.4 mg/dL (0.6-1.3); GLUCOSE 112 mg/dL (74-106); MAGNESIUM 1.9 mg/dL (1.8-2.4); PHOSPHORUS 3.9 mg/dL (2.5-4.9); POTASSIUM 4.7 mmol/L (3.5-5.1); SODIUM SERUM 145 mmol/L (136-145); UREA NITROGEN, BLOOD 30 mg/dL (7-18)
[2017-01-16 07:46] LABS: CHOLESTEROL 231 mg/dL (<200); HDL CHOLESTEROL 40 mg/dL (40-60); LDL 176 mg/dL (0-99); TRIGLYCERIDES 127 mg/dL (30-150)
[2017-01-16 08:00] VITALS: BP 106/79
[2017-01-16] MEDS: PANTOPRAZOLE 40 MG TABLET.DR PO SCH (08:05)
[2017-01-16] MEDS ORDERED: ALBUTEROL FS 2.5 MG/3 ML VIAL.NEB NEB PRN (08:30)
[2017-01-16] MEDS ORDERED: SPIRONOLACTONE 25 MG TABLET PO SCH (09:00)
[2017-01-16] MEDS ORDERED: RIVAROXABAN 10 MG TABLET PO SCH (09:00)
[2017-01-16] MEDS: CARVEDILOL 3.125 MG TABLET PO SCH ×2 (09:38→21:17)
[2017-01-16] MEDS: ASPIRIN 81 MG TAB.CHEW PO SCH (09:51)
[2017-01-16] MEDS: FUROSEMIDE 40 MG/4 ML VIAL IV SCH (09:52)
[2017-01-16 12:00] VITALS: BP 120/65
[2017-01-16] MEDS: methylPREDNISolone SOD SUCC 40 MG/ML VIAL IV SCH ×2 (12:32→16:38)
[2017-01-16] MEDS: BENICAR HCT PO SCH (12:32)
[2017-01-16 16:00] VITALS: BP 108/62
[2017-01-16] MEDS ORDERED: RIVAROXABAN 15 MG TABLET PO SCH (17:00)
[2017-01-16 20:00] VITALS: BP 119/61
[2017-01-16] MEDS ORDERED: ATORVASTATIN 40 MG TABLET PO SCH (22:00)
[2017-01-17] VITALS: BP 103/65
[2017-01-17 07:15] LABS: HEMATOCRIT 46 % (39-51); HEMOGLOBIN 15.3 g/dL (13.5-17.5); LYMPHOCYTES % (AUTO) 7.5 % (20.0-44.0); MEAN CORPUSCULAR HEMOGLOBIN 31 PG (26.0-33.0); MEAN CORPUSCULAR HGB CONC 33 g/dl (31.0-36.0); MEAN CORPUSCULAR VOLUME 95 fL (80-96); MONOCYTES # (AUTO) 0.2 /CMM (0.1-1.30); MONOCYTES % (AUTO) 1.6 % (2.0-12.0); NEUTROPHILS # (AUTO) 11.6 /CMM (1.8-8.9); NEUTROPHILS % (AUTO) 90.9 % (43.0-81.0); PLATELET COUNT (AUTO) 170 /CMM (150-450); RED BLOOD CELL COUNT(AUTO) 4.88 MIL/uL (4.5-6.0); WHITE BLOOD COUNT (AUTO) 12.8 K/uL (4.3-11.0)
[2017-01-17] MEDS: PANTOPRAZOLE 40 MG TABLET.DR PO SCH (07:30)
[2017-01-17 07:49] LABS: CALCIUM, SERUM 8.6 mg/dL (8.5-10.1); CARBON DIOXIDE 34 mmol/L (21-32); CHLORIDE 105 mmol/L (98-107); CREATININE 1.5 mg/dL (0.6-1.3); GLUCOSE 159 mg/dL (74-106); MAGNESIUM 1.8 mg/dL (1.8-2.4); PHOSPHORUS 2.7 mg/dL (2.5-4.9); POTASSIUM 4.7 mmol/L (3.5-5.1); SODIUM SERUM 143 mmol/L (136-145); UREA NITROGEN, BLOOD 34 mg/dL (7-18)
[2017-01-17 08:00] VITALS: BP 95/53
[2017-01-17 09:00] VITALS: BP 95/53
[2017-01-17] MEDS: CARVEDILOL 3.125 MG TABLET PO SCH (09:00)
[2017-01-17] MEDS: ASPIRIN 81 MG TAB.CHEW PO SCH (09:00)
[2017-01-17] MEDS: methylPREDNISolone SOD SUCC 40 MG/ML VIAL IV SCH ×2 (09:00→12:23)
[2017-01-17] MEDS: FUROSEMIDE 40 MG/4 ML VIAL IV SCH (09:00)
[2017-01-17] MEDS: BENICAR HCT PO SCH (09:00)
[2017-01-17] MEDS ORDERED: JALYN PO SCH (13:00)
[2017-01-17] MEDS ORDERED: FURO-145 PO (13:54)
== END 2017-01-17 15:45 | disposition home or self-care (01) | DRG 291 ==
LOC: ER 13:21 → TELE 14:46
PROVIDERS: ADMIT Internal Medicine; ATTEND Internal Medicine
DX: I13.0 Hypertensive heart and chronic kidney disease with heart failure and stage 1 through stage 4 chronic kidney disease, or unspecified chronic kidney disease (principal); I50.33 Acute on chronic diastolic (congestive) heart failure; J96.21 Acute and chronic respiratory failure with hypoxia; N17.0 Acute kidney failure with tubular necrosis; E44.0 Moderate protein-calorie malnutrition; J44.1 Chronic obstructive pulmonary disease with (acute) exacerbation; Z68.41 Body mass index [BMI] 40.0-44.9, adult; E66.9 Obesity, unspecified; E78.5 Hyperlipidemia, unspecified; F17.210 Nicotine dependence, cigarettes, uncomplicated; G47.33 Obstructive sleep apnea (adult) (pediatric); I25.10 Atherosclerotic heart disease of native coronary artery without angina pectoris; N40.0 Benign prostatic hyperplasia without lower urinary tract symptoms; N18.9 Chronic kidney disease, unspecified; K21.9 Gastro-esophageal reflux disease without esophagitis; Z86.718 Personal history of other venous thrombosis and embolism; Z90.5 Acquired absence of kidney; Z95.2 Presence of prosthetic heart valve
CPT/HCPCS: 36415; 71010-TC; 80048-TC; 80061-TC; 80076-TC; 83735-TC; 83880; 84100-TC; 84484-TC; 85025-TC; 85730-TC; 87081-TC; 97001-TC; A4606; J1940; J2920; Z7610

== ENCOUNTER 2017-05-31 09:19 | Inpatient (IN) | payer MEDICARE, OTHER ==
[~2017-05-31] VITALS: Ht 165.1 cm; Wt 109.3 kg
[~2017-05-31 09:19] MED LIST changes: +FURO-145 PO; +OLME1TAB19 PO; -OLME1TAB2 PO
--- NOTE | 2017-05-31 09:19 | NUR ---
L SIDED CHEST PAIN, RADIATING TO THE NECK X 2 DAYS. NAD NOTED. PT AAO X4, AMB WITH STEADY GAIT. RR EVEN AND UNLABORED. PENDING MD HERR.
[2017-05-31] MEDS ORDERED: ASPIRIN 81 MG TAB.CHEW PO ONE (10:00)
[2017-05-31] MEDS ORDERED: NITROGLYCERIN 0.4 MG/TAB BOTTLE SL ONE (10:00)
[2017-05-31 10:05] LABS: BASOPHILS % (AUTO) 0.1 % (0.0-2.0); EOSINOPHILS # (AUTO) 0.2 /CMM (0.0-0.7); EOSINOPHILS % (AUTO) 2.6 % (0.0-6.0); HEMATOCRIT 47 % (39-51); HEMOGLOBIN 15.1 g/dL (13.5-17.5); LYMPHOCYTES # (AUTO) 2.3 /CMM (0.8-4.8); LYMPHOCYTES % (AUTO) 30.1 % (20.0-44.0); MEAN CORPUSCULAR HEMOGLOBIN 30 PG (26.0-33.0); MEAN CORPUSCULAR HGB CONC 32 g/dl (31.0-36.0); MEAN CORPUSCULAR VOLUME 92 fL (80-96); MONOCYTES # (AUTO) 0.5 /CMM (0.1-1.30); MONOCYTES % (AUTO) 6.2 % (2.0-12.0); NEUTROPHILS # (AUTO) 4.7 /CMM (1.8-8.9); PLATELET COUNT (AUTO) 146 /CMM (150-450); RDW COEFFICIENT OF VARIATION 16.1 (11.5-15.0); RED BLOOD CELL COUNT(AUTO) 5.07 MIL/uL (4.5-6.0); WHITE BLOOD COUNT (AUTO) 7.7 K/uL (4.3-11.0)
[2017-05-31] MEDS ORDERED: ASPIRIN 81 MG TAB.CHEW ONE (10:12)
[2017-05-31] MEDS ORDERED: NITROGLYCERIN 0.4 MG/TAB BOTTLE ONE (10:12)
[2017-05-31 10:13] LABS: CALCIUM, SERUM 9.2 mg/dL (8.5-10.1); CARBON DIOXIDE 31 mmol/L (21-32); CHLORIDE 106 mmol/L (98-107); CREATININE 1.4 mg/dL (0.6-1.3); GLUCOSE 74 mg/dL (74-106); POTASSIUM 4.2 mmol/L (3.5-5.1); SODIUM SERUM 144 mmol/L (136-145); UREA NITROGEN, BLOOD 31 mg/dL (7-18)
[2017-05-31 10:20] LABS: ALANINE AMINOTRANSFERASE 36 U/L (12-78); ALBUMIN 3.1 g/dL (3.4-5.0); ALKALINE PHOSPHATASE 86 U/L (46-116); ASPARTATE AMINOTRANSFERASE 17 U/L (15-37); BILIRUBIN,DIRECT 0.1 mg/dL (0.0-0.2); BILIRUBIN,TOTAL 0.3 mg/dL (0.2-1.0); TOTAL PROTEIN, SERUM 7.4 g/dL (6.4-8.2)
[2017-05-31 10:24] LABS: INR 0.97 (0.87-1.13); PROTHROMBIN TIME 10.1 SECS (9.5-12.7)
[2017-05-31 10:29] LABS: TROPONIN I < 0.017 ng/mL (0.00-0.056)
[2017-05-31] MEDS ORDERED: LISI10TA5 PO (10:52)
[2017-05-31] MEDS ORDERED: SPIR25TA4 PO (10:52)
[2017-05-31] MEDS ORDERED: METH10TA7 PO (10:52)
[2017-05-31] MEDS ORDERED: UMEC1BLS IH (10:52)
[2017-05-31] MEDS ORDERED: RIVA10TA PO (10:52)
[2017-05-31] MEDS ORDERED: MECL12.582 PO (10:52)
[2017-05-31] MEDS ORDERED: COLC0.6T67 PO (10:52)
[2017-05-31] MEDS ORDERED: DIGO125T PO (10:52)
[2017-05-31] MEDS ORDERED: GLIM1TAB2 PO (10:52)
[2017-05-31] MEDS ORDERED: NEBI10TA2 PO (10:52)
[2017-05-31] MEDS ORDERED: DONE10TA44 PO (10:52)
[2017-05-31] MEDS ORDERED: FURO-144 PO (10:52)
[2017-05-31] MEDS ORDERED: OMEP1CAP25 PO (10:52)
[2017-05-31] MEDS ORDERED: ROSU20TA PO (10:52)
[2017-05-31] MEDS ORDERED: FUROSEMIDE 40 MG/4 ML VIAL ONE (10:58)
[2017-05-31 11:00] VITALS: BP 101/60
[2017-05-31] MEDS ORDERED: FUROSEMIDE 40 MG/4 ML VIAL IV ONE (11:00)
--- NOTE | 2017-05-31 11:05 | NUR ---
REPORT GIVEN TO RAMSEY DANG FOR WENDY
--- NOTE | 2017-05-31 11:06 | NUR ---
LASIX GIVEN ORDERED BP 134/82
[2017-05-31 11:40] VITALS: BP 128/70
--- NOTE | 2017-05-31 11:40 | NUR ---
RN NOTES: PATIENT ADMITTED FROM ED. NO SIGNS OF DISTRESS. PATIENT ALERT ORIENTED X3, KENYAN AND GIBRALTARIAN SPEAKING. SLIGHT SOB NOTED ON ROOM AIR. SPO2 AT 90-91. PATIENT IMPROVED WITH 2 L OF NASAL CANNULA WITH SPO2 OF 96%. PATIENT STATES HAVING MILD CHEST PAIN WELL ON THE NIPPLES. PATIENT SAYS NO WHEN ASKED IF "IT IS LIKE PRESSURE?" VS WNL. PATIENT AMBULATORY AND STEADY.
[2017-05-31] MEDS ORDERED: HYDROCODONE/APAP 5/325MG 1 EACH TABLET PO PRN (13:00)
[2017-05-31] MEDS ORDERED: Z GUARD REMEDY 2 OZ OINT TP PRN (13:00)
[2017-05-31] MEDS ORDERED: ACETAMINOPHEN 325 MG TABLET PO PRN (13:00)
[2017-05-31] MEDS ORDERED: MAG HYDROX/AL HYDROX/SIMETH 30 ML UDC PO PRN (13:00)
[2017-05-31] MEDS ORDERED: MECLIZINE HCL 12.5 MG TABLET PO PRN (13:00)
[2017-05-31] MEDS ORDERED: MAGNESIUM HYDROXIDE 30 ML UDC PO PRN (13:00)
[2017-05-31] MEDS ORDERED: ONDANSETRON HCL/PF 4 MG/2 ML VIAL IVP PRN (13:00)
--- NOTE | 2017-05-31 13:00 | NUR ---
RN NOTES: SPOKE WITH DAUGHTER AND PATIENT. PATIENT STATED HE WOULD LIKE TO BE FULL CODE. BENEFITS AND RISKS EXPLAINED AT LENGTH. ORDER CHANGED. DR ROSS IS AWARE.
--- NOTE | 2017-05-31 13:34 | NUR ---
RN NOTES: SPOKE WITH DAUGHTER AND PATIENT. PATIENT STATED HE WOULD LIKE TO BE FULL CODE. BENEFITS AND RISKS EXPLAINED AT LENGTH
[2017-05-31] MEDS: TAMSULOSIN 0.4 MG CAP.SR.24H PO SCH (14:00)
[2017-05-31] MEDS: DUTASTERIDE (0.5 MG) 0.5 MG CAPSULE PO SCH (14:00)
[2017-05-31] MEDS ORDERED: METHIMAZOLE 10 MG TABLET PO SCH (14:00)
[2017-05-31 16:00] VITALS: BP 110/69
--- NOTE | 2017-05-31 16:04 | NUR ---
RN NOTES: PATIENT STATES THAT CHEST PAIN HAS GOTTEN "WORSE" AND THAT IT IS STILL RADIATING TO LEFT SHOULDER. SR ON TELE MONITOR. VS WNL. NO SHORTNESS OF BREATH. PATIENT SWEATING PROFUSELY. BLOOD SUGAR [address] ROSS NOTIFIED. ORDERED TO GIVE PATIENT NITRO
[2017-05-31 16:26] VITALS: BP 105/65
--- NOTE | 2017-05-31 16:26 | NUR ---
RN NOTES: NITRO 0.4 MG SL GIVEN TO PATIENT AT 1621, AT 1626 PAIN ASSESSED, PATIENT STATES "FEELING BETTER" STATES THAT HE FEELS RELIEVED AND PAIN IS DECREASED TO 2/10 STILL SLIGHTLY RADIATING TO SHOULDER.
[2017-05-31] MEDS ORDERED: NITROGLYCERIN 0.4 MG/TAB BOTTLE SL PRN (16:30)
[2017-05-31] MEDS: DIGOXIN 0.125 MG TABLET PO SCH (16:45)
--- NOTE | 2017-05-31 17:51 | NUR ---
RN NOTES: PATIENT REFUSED FLOMAX AND DUTASTERIDE,STATING HE DOES NOT TAKE IT AT HOME. BENEFITS AND RISKS EXPLAINED. ATTEMPTED TO CONTACT PATIENT'S PRIMARY CARE PROVIDER VIA PHONE NUMBER OFFERED BY . NO ANSWER
--- NOTE | 2017-05-31 18:00 | NUR ---
RN NOTES: PATIENT EDUCATED DURING SHIFT TO URINATE IN URINAL FOR STRICT I&oS
[2017-05-31] MEDS: RIVAROXABAN 10 MG TABLET PO SCH (18:05)
[2017-05-31] MEDS: BLOOD SUGAR DIAGNOSTIC 1 EACH STRIP IN SCH ×2 (18:08→22:14)
--- NOTE | 2017-05-31 19:10 | NUR ---
RN NOTES: PATIENT AOX3. NO SIGNS OF DISTRESS. NONLBAORED BREATHING ON ROOM AIR. NO SIGNS OF DISTRESS. DENIES CHEST PAIN AT THE MOMENT. PATIENT CONSUMED DINNER. NO NAUSEA OR VOMITTING NOTED DURING SHIFT. NO SWEATING NOTED. SR ON TELE MONITOR. PATIENT ENCOURAGED TO TURN AND REPOSITION DURING SHIFT. KEPT CLEAN AND DRY. ACCORDING TO PATIENT AND , PATIENT DOES NOT TAKE INSULIN AT HOME. HE IS CURRENTLY REFUSING INSULIN. HE WOULD LIKE FOR HIS BLOOD SUGAR TO BE CHECKED ONLY. IV SITE ON RIGHT UPPER EXTREMITY PATENT AND INTACT. BED IN LOWEST LOCKED POSITION. ENDORSED TO NEXT SHIFT.
--- NOTE | 2017-05-31 19:40 | NUR ---
CONTRACT AGENT OPENING NOTES RECEIVED PATIENT RESTING IN BED, A & O X 4, NO SOB, NO DISTRESS NOTED. RESP EVEN & NON LABORED. ON O2 @ 2LPM FOR EASY BREATHING. BED IN [place] POSITION. ON TELE MONITORING WITH SINUS TACHYCARDIA 104/MINUTE. IV ACCESS TO RAC, INTACT PATENT. AMBULATORY, BRP TOLERATED. NO SWEATING, NO C/O CHEST PAIN OR ANY OTHER PAIN VERBALIZED BY THE PATIENT @ THIS TIME. BED IN LOWEST LOCKED POSITION. CALL LIGHT WITHIN REACH. OBSERVING CLOSELY.
[2017-05-31 20:00] VITALS: BP 94/60
[2017-05-31 20:15] VITALS: BP 109/68
[2017-05-31] MEDS ORDERED: ZOLPIDEM TARTRATE 5 MG TABLET PO PRN (22:00)
[2017-06-01] VITALS: BP 113/73
[2017-06-01 04:00] VITALS: BP 109/69
--- NOTE | 2017-06-01 06:29 | NUR ---
PRN TYLENOL GIVEN PT C/O HEADACHE, PRN TYLENOL GIVEN. WILL MONITOR FOR EFFECTIVENESS.
--- NOTE | 2017-06-01 06:52 | NUR ---
SCENIC DESIGNER CLOSING NOTES PT SLEPT INTERMITTENTLY, A & O X 4, NO SOB, NO DISTRESS NOTED. RESP EVEN & NON LABORED. ON O2 @ 2LPM FOR EASY BREATHING. BED IN [place] POSITION. PRN TYLENOL GIVEN FOR HEADACHE. ON TELE MONITORING WITH SINUS TACHYCARDIA 98/MINUTE. IV ACCESS TO RAC, INTACT PATENT. AMBULATORY, BRP TOLERATED. NO SWEATING, NO C/O CHEST PAIN NOTED. BED IN LOWEST LOCKED POSITION. CALL LIGHT WITHIN REACH. OBSERVING CLOSELY.
--- NOTE | 2017-06-01 07:00 | NUR ---
CLOSING NOTES WILL ENDORSE CONTINUITY OF CARE TO AM RN.
--- NOTE | 2017-06-01 07:30 | NUR ---
TREE DRILLER INITIAL NOTES RECEIVED PATIENT IN BED, AOX3, ROMANIAN SPEAKING WITH SOME [place], ON NASAL CANNULA 2L, STATED PAIN WHEN BREATHING, TEACHING DONE TO ELEVATE HEAD OF THE BED FOR EASIER BREATHIN AND OXYGEN, IV RAC 20 SL, CLEAN AND PATENT, ABLE TO AMBULATE, BED IN LOW AND LOCKED POSITION, CALL LIGHT WITHIN REACH, WILL CONTINUE TO MONITOR.
[2017-06-01 07:47] LABS: BASOPHILS % (AUTO) 0.1 % (0.0-2.0); EOSINOPHILS # (AUTO) 0.2 /CMM (0.0-0.7); HEMATOCRIT 46 % (39-51); HEMOGLOBIN 14.5 g/dL (13.5-17.5); LYMPHOCYTES # (AUTO) 1.6 /CMM (0.8-4.8); LYMPHOCYTES % (AUTO) 20.5 % (20.0-44.0); MEAN CORPUSCULAR HEMOGLOBIN 30 PG (26.0-33.0); MEAN CORPUSCULAR HGB CONC 32 g/dl (31.0-36.0); MEAN CORPUSCULAR VOLUME 94 fL (80-96); MONOCYTES # (AUTO) 0.5 /CMM (0.1-1.30); MONOCYTES % (AUTO) 6.2 % (2.0-12.0); NEUTROPHILS # (AUTO) 5.5 /CMM (1.8-8.9); NEUTROPHILS % (AUTO) 70.2 % (43.0-81.0); PLATELET COUNT (AUTO) 148 /CMM (150-450); RDW COEFFICIENT OF VARIATION 16.5 (11.5-15.0); RED BLOOD CELL COUNT(AUTO) 4.89 MIL/uL (4.5-6.0); WHITE BLOOD COUNT (AUTO) 7.9 K/uL (4.3-11.0)
[2017-06-01] MEDS: BLOOD SUGAR DIAGNOSTIC 1 EACH STRIP IN SCH ×4 (07:52→22:39)
--- NOTE | 2017-06-01 07:56 | NUR ---
WOUND CARE CONSULT: PT PRESENTS WITH LEFT LATERAL FOOT INTACT DEEP TISSUE INJURY AND LEFT LATERAL HEEL DRY ULCER, PRESENT ON ADMISSION. RECOMMENDATIONS MADE FOR SKIN PROTECTION AND CARE. DISCUSSED WITH NURSING STAFF. RECOMMEND DPM CONSULT. WILL SEE PRN. SMALLS IN AGREEMENT WITH PLAN OF CARE. Addendum: 06/01/17 at 0758 by ZARA HARRIS WNDNU Amended: Links added. Addendum: 06/01/17 at 0804 by ZARA HARRIS WNDNU CORRECTION: ABOVE SHOULD READ RT LATERAL FOOT AND RT LATERAL HEEL. PT COMPLAINS OF DISCOMFORT TO LEFT HALLUX. RECOMMEND DPM CONSULT.
[2017-06-01 08:00] VITALS: BP_SYST 100; BP_SYST 98; BP_DIAS 62; BP_DIAS 65
[2017-06-01 08:07] LABS: CHOLESTEROL 239 mg/dL (<200); HDL CHOLESTEROL 60 mg/dL (40-60); LDL 171 mg/dL (0-99); TRIGLYCERIDES 60 mg/dL (30-150)
[2017-06-01 08:09] LABS: CALCIUM, SERUM 9.3 mg/dL (8.5-10.1); CARBON DIOXIDE 33 mmol/L (21-32); CHLORIDE 105 mmol/L (98-107); CREATININE 1.2 mg/dL (0.6-1.3); GLUCOSE 103 mg/dL (74-106); MAGNESIUM 1.9 mg/dL (1.8-2.4); POTASSIUM 4.4 mmol/L (3.5-5.1); SODIUM SERUM 144 mmol/L (136-145); UREA NITROGEN, BLOOD 28 mg/dL (7-18)
[2017-06-01] MEDS ORDERED: LEVALBUTEROL HCL NEB 1.25 MG/0.5 ML VIAL.NEB IH SCH (08:30)
[2017-06-01] MEDS ORDERED: FUROSEMIDE 40 MG/4 ML VIAL IV SCH (09:00)
[2017-06-01] MEDS: LISINOPRIL (10MG) 10 MG TABLET PO SCH (09:00)
[2017-06-01] MEDS: SPIRONOLACTONE 25 MG TABLET PO SCH (09:00)
[2017-06-01] MEDS: TAMSULOSIN 0.4 MG CAP.SR.24H PO SCH (09:09)
[2017-06-01] MEDS: METHIMAZOLE (5MG) 5 MG TABLET PO SCH (09:09)
[2017-06-01] MEDS: DUTASTERIDE (0.5 MG) 0.5 MG CAPSULE PO SCH (09:09)
[2017-06-01] MEDS: GLIMEPIRIDE 1 MG TABLET PO SCH (09:09)
[2017-06-01] MEDS: ATORVASTATIN 40 MG TABLET PO SCH (09:10)
[2017-06-01] MEDS: DONEPEZIL 5 MG TABLET PO SCH (09:10)
[2017-06-01] MEDS: PANTOPRAZOLE 40 MG TABLET.DR PO SCH (09:10)
[2017-06-01] MEDS: FLUTICASONE/VILANTEROL 1 EACH BLST.W.DEV IH SCH (09:16)
--- NOTE | 2017-06-01 09:20 | NUR ---
MAINTENANCE DEPARTMENT TECHNICIAN NOTES PATIENT BLOOD PRESSURE MEDICATION HELD DUE TO DECREASED BP, PATIENT STATED HE IS SCARED TO OVERDOSE AND DOES NOT WANT TO TAKE. PER DR CARMENCITA OCHOA TO VERONICA ROMAN.
[2017-06-01] MEDS: IPRATROPIUM NEB FS 0.5 MG/2.5 ML AMPUL.NEB NEB SCH ×4 (11:48→23:31)
[2017-06-01] MEDS: ALBUTEROL FS 2.5 MG/3 ML VIAL.NEB NEB SCH ×4 (11:48→23:31)
[2017-06-01] MEDS: DIGOXIN 0.125 MG TABLET PO SCH (14:53)
[2017-06-01 16:00] VITALS: BP 95/66
[2017-06-01] MEDS: RIVAROXABAN 10 MG TABLET PO SCH (17:05)
--- NOTE | 2017-06-01 18:36 | NUR ---
STREETCAR CONDUCTOR NOTES PATIENT RESTING IN BED, NO SIGNS OF DISTRESS, ALL NEEDS ATTENDED TO ALL QUESTIONS ANSWERED, WILL IN ENDORSE TO WET SILK HANGER FOR CONTINUITY OF CARE.
--- NOTE | 2017-06-01 19:50 | NUR ---
RN INITIAL NOTES: RECEIVED REPORT FROM DAY RN NEEL. PT IN BED, AWAKE, A/O X4, RECEIVED PT WITH 8L VIA NC BUT NOTED THAT NASAL TUBING NOT CONNECTED TO THE FLOW METER. CLARIFIED ORDER FOR O2, PLACED PT ON 2L VIA NC, RESPIRATION EVEN AND UNLABORED. DENIES ANY CHEST PAIN AT THIS TIME, PT HAS IV ACCESS PATENT AND FLUSHING WELL ON HL. [place] DONE TODAY, PER AIR CONDITIONING INSTALLER SUPERVISOR NOTES "NEED OUTSIDE RECORD RE: CATH THORACIC SX". INFORMED PT REGARDING DVT PROPHYLAXIS, SCD, BUT PT REFUSED, SAFETY PRECAUTIONS FOR FALL INITIATED CALL LIGHT IN REACH WILL CONTINUE TO MONITOR
[2017-06-01 20:00] VITALS: BP 111/64
[2017-06-01] MEDS: ALBUTEROL FS 2.5 MG/0.5 ML VIAL.NEB NEB SCH ×2 (20:33→23:31)
--- NOTE | 2017-06-01 22:40 | NUR ---
BLOOD SUGAR CHECK: PERFORMED BLOOD SUGAR CHECK AND OBTAINED RESULT OF 188, NO COVERAGE GIVEN PER MD AND PER REPORT PT AND PT'S FAMILY DOESNT WANT INSULIN , EDUCATION PROVIDED TO THE PT.
[2017-06-02] MEDS: IPRATROPIUM NEB FS 0.5 MG/2.5 ML AMPUL.NEB NEB SCH ×5 (03:11→20:03)
[2017-06-02] MEDS: ALBUTEROL FS 2.5 MG/3 ML VIAL.NEB NEB SCH ×6 (03:11→20:04)
[2017-06-02] MEDS: BLOOD SUGAR DIAGNOSTIC 1 EACH STRIP IN SCH ×5 (06:16→23:54)
--- NOTE | 2017-06-02 06:16 | NUR ---
BLOOD SUGAR CHECK: BLOOD SUGAR CHECK AND OBTAIN RESULT OF 93, NO INSULIN COVERAGE PER MD, NO S/S OF HYPOGLYCEMIA NOTED ON THE PT. WILL CONTINUE TO MONITOR
--- NOTE | 2017-06-02 06:56 | NUR ---
RN CLOSING NOTES: PT IN BED, REMAINS A/O X4, ON 2L VIA NC, DENIES ANY SOB, NO CHEST PAIN REPORTED THROUGHOUT THE SHIFT. IV ACCESS REMAINS PATENT AND FLUSHING WELL, ON HL. VSS. AWAITING PODIATRY CONSULT. DRESSING REMAINS C/D/I. NEEDS ATTENDED. SAFETY PRECAUTIONS FOR FALL REMAINS ENGAGED, CALL LIGHT IN REACH, WILL ENDORSE TO DAY RN FOR WENDY.
--- NOTE | 2017-06-02 07:31 | NUR ---
RN OPENING NOTES RECEIVED PATIENT RESTING COMFORTABLY IN BED. AOX3 CYPRIOT/AMERICAN SPEAKING. ON 3LPM SATURATING AT 96%. RESPIRATIONS EVEN AND UNLABORED. COMPLAINING OF MILD CHEST PAIN. COMPLAINING OF MILD SOB. NO COMPLAINING OF ANY OTHER PAIN. RAC 18G PATENT AND INTACT. BED LOCKED IN THE LOWEST POSITION WITH SIDERAILS UP X2. CALL LIGHT WITHIN REACH, WILL CONTINUE TO MONITOR, ASSESS AND EDUCATE PATIENT THROUGHOUT SHIFT.
[2017-06-02 07:40] LABS: BASOPHILS % (AUTO) 0.1 % (0.0-2.0); EOSINOPHILS # (AUTO) 0.1 /CMM (0.0-0.7); EOSINOPHILS % (AUTO) 2.3 % (0.0-6.0); HEMATOCRIT 44 % (39-51); LYMPHOCYTES # (AUTO) 1.3 /CMM (0.8-4.8); LYMPHOCYTES % (AUTO) 21.7 % (20.0-44.0); MEAN CORPUSCULAR HEMOGLOBIN 30 PG (26.0-33.0); MEAN CORPUSCULAR HGB CONC 32 g/dl (31.0-36.0); MEAN CORPUSCULAR VOLUME 94 fL (80-96); MONOCYTES # (AUTO) 0.4 /CMM (0.1-1.30); NEUTROPHILS # (AUTO) 4.3 /CMM (1.8-8.9); NEUTROPHILS % (AUTO) 68.9 % (43.0-81.0); PLATELET COUNT (AUTO) 154 /CMM (150-450); RDW COEFFICIENT OF VARIATION 16.3 (11.5-15.0); RED BLOOD CELL COUNT(AUTO) 4.72 MIL/uL (4.5-6.0); WHITE BLOOD COUNT (AUTO) 6.2 K/uL (4.3-11.0)
[2017-06-02] MEDS ORDERED: LIDOCAINE 1% INJ 50 ML MDV IJ STA (07:53)
[2017-06-02 07:54] LABS: CALCIUM, SERUM 9.6 mg/dL (8.5-10.1); CARBON DIOXIDE 36 mmol/L (21-32); CHLORIDE 105 mmol/L (98-107); CREATININE 1.2 mg/dL (0.6-1.3); GLUCOSE 98 mg/dL (74-106); POTASSIUM 4.4 mmol/L (3.5-5.1); SODIUM SERUM 145 mmol/L (136-145); UREA NITROGEN, BLOOD 26 mg/dL (7-18)
[2017-06-02 08:00] VITALS: BP 153/86
[2017-06-02] MEDS ORDERED: NEBIVOLOL 10 MG PO SCH (08:00)
--- NOTE | 2017-06-02 08:00 | NUR ---
RN NOTES PATIENT TO HAVE RIGHT HEEL WOUND DEBRIDEMENT WITH DR. SANCHEZ. CONSENT SIGNED.
[2017-06-02 08:34] LABS: THYROID STIMULATING HORMONE 0.23 uIU/mL (0.358-3.74)
[2017-06-02] MEDS: ALBUTEROL FS 2.5 MG/0.5 ML VIAL.NEB NEB SCH ×4 (08:34→20:03)
[2017-06-02] MEDS ORDERED: methylPREDNISolone SOD SUCC 125 MG/2ML VIAL IV SCH (09:00)
[2017-06-02] MEDS: DONEPEZIL 5 MG TABLET PO SCH (11:21)
[2017-06-02] MEDS: GLIMEPIRIDE 1 MG TABLET PO SCH (11:22)
[2017-06-02] MEDS: DUTASTERIDE (0.5 MG) 0.5 MG CAPSULE PO SCH (11:22)
[2017-06-02] MEDS: LISINOPRIL (10MG) 10 MG TABLET PO SCH (11:22)
[2017-06-02] MEDS: SPIRONOLACTONE 25 MG TABLET PO SCH (11:22)
[2017-06-02] MEDS: ATORVASTATIN 40 MG TABLET PO SCH (11:22)
[2017-06-02] MEDS: PANTOPRAZOLE 40 MG TABLET.DR PO SCH (11:22)
[2017-06-02] MEDS: TAMSULOSIN 0.4 MG CAP.SR.24H PO SCH (11:22)
[2017-06-02] MEDS: FLUTICASONE/VILANTEROL 1 EACH BLST.W.DEV IH SCH (11:31)
[2017-06-02] MEDS: METHIMAZOLE (5MG) 5 MG TABLET PO SCH (11:32)
--- NOTE | 2017-06-02 12:00 | NUR ---
RN NOTES BS CHECK 205. NO COVERAGE GIVEN PER MD AND PER REPORT PT
--- NOTE | 2017-06-02 12:00 | NUR ---
RN NOTES DISCUSSED TO ADMIN Q4 2.5/3ML DOSE OF ALBUTEROL AND HOLD Q6 DOSE.
[2017-06-02] MEDS: DIGOXIN 0.125 MG TABLET PO SCH (12:54)
[2017-06-02 16:00] VITALS: BP 107/57
--- NOTE | 2017-06-02 18:00 | NUR ---
RN NOTES BS CHECK 311. NO COVERAGE GIVEN PER MD AND PER REPORT PT
[2017-06-02] MEDS: RIVAROXABAN 10 MG TABLET PO SCH (18:11)
--- NOTE | 2017-06-02 19:32 | NUR ---
RN CLOSING NOTES PATIENT RESTING COMFORTABLY IN BED. AOX3. IV ACCESS PATENT AND INTACT. NO ACUTE SIDSTRESS. SATURATING ADEQUATELY ON 3LPM. RESPIRATIONS EVEN AND UNLABORED. DR. ROSS UPDATED FAMILY. FAMILY AWARE OF CARE. BED LOCKED IN THE LOWEST POSITION WILL SIDE RAILS UPX2. CALL LIGHT WITHIN REACH. WILL ENDORSE TO NIGHT RN FOR WENDY.
--- NOTE | 2017-06-02 19:35 | NUR ---
MS RN OPENING NOTES RECEIVED PT ALERT, AWAKE,VERBALLY RESPONSIVE,ON O2 VIA N/C 3L/MIN, O2SAT 98%. DENIES ANY PAIN OR DISCOMFORT AT THIS TIME. IV ACCES INTACT,PATENT,NO S/SX OF INFILTRATION NOTED. CALL LIGHT WITHIN REACH.KEPT CLEAN AND COMFORTABLE.ATTENDED ALL NEEDS.WILL CONTINUE TO MONITOR ACCORDINGLY.
[2017-06-02 20:00] VITALS: BP 103/57
[2017-06-02 22:00] VITALS: BP 103/57
--- NOTE | 2017-06-02 22:00 | NUR ---
MS RN NOTES BLOOD GLUCOSE 379, NOTIFIED FLAKO VILLEGAS WITH NEW ORDER RECEIVED FOR MILD SLIDING SCALE, ORDER NOTED AND CARRIED OUT,PT REFUSING,OFFERED X3 EXPLAINED RISKS AND BENEFITS TO THE PATIENT,STILL REFUSING,PT ALERT,ORIENTED X4.WILL CONTINUE TO MONITOR ACCORDINGLY
[2017-06-02] MEDS ORDERED: INSULIN REGULAR, HUMAN 100 UNIT/ML 3 ML VIAL SQ PRN (23:00)
[2017-06-02] MEDS ORDERED: DEXTROSE 50%-WATER 50 ML DISP.SYRIN IV PRN (23:00)
[2017-06-03] MEDS: ALBUTEROL FS 2.5 MG/3 ML VIAL.NEB NEB SCH ×4 (00:15→10:51)
[2017-06-03] MEDS: IPRATROPIUM NEB FS 0.5 MG/2.5 ML AMPUL.NEB NEB SCH ×4 (00:15→10:51)
[2017-06-03] MEDS: ALBUTEROL FS 2.5 MG/0.5 ML VIAL.NEB NEB SCH ×2 (01:30→07:52)
[2017-06-03] MEDS: BLOOD SUGAR DIAGNOSTIC 1 EACH STRIP IN SCH ×2 (06:45→07:23)
[2017-06-03] MEDS: PANTOPRAZOLE 40 MG TABLET.DR PO SCH (06:45)
--- NOTE | 2017-06-03 06:55 | NUR ---
MS RN CLOSING NOTES IA IN BED AWAKE,ALERT,VERBALLY RESPONSIVE,ON O2 VIA NC AT 3L/MIN ,O2SAT 98%.DENIES ANY PAIN OT DISCOMFORT AT THIS TIME. BLOOD GLUCOSE 150,REFUSED ADMINISTRATION OF INSULIN,OFFEREDx3 EXPLAINED BENEFITS STILL REFUSING STATED "I AM OK"CALL LIGHT WITHIN REACH. WILL CONTINUE TO MONITOR ACCORDINGLY
[2017-06-03 07:39] LABS: BASOPHILS % (AUTO) 0.2 % (0.0-2.0); EOSINOPHILS % (AUTO) 0.2 % (0.0-6.0); HEMATOCRIT 41 % (39-51); HEMOGLOBIN 13.3 g/dL (13.5-17.5); LYMPHOCYTES # (AUTO) 0.9 /CMM (0.8-4.8); LYMPHOCYTES % (AUTO) 10.8 % (20.0-44.0); MEAN CORPUSCULAR HEMOGLOBIN 30 PG (26.0-33.0); MEAN CORPUSCULAR HGB CONC 32 g/dl (31.0-36.0); MEAN CORPUSCULAR VOLUME 93 fL (80-96); MONOCYTES # (AUTO) 0.4 /CMM (0.1-1.30); MONOCYTES % (AUTO) 5.2 % (2.0-12.0); NEUTROPHILS # (AUTO) 6.8 /CMM (1.8-8.9); NEUTROPHILS % (AUTO) 83.6 % (43.0-81.0); PLATELET COUNT (AUTO) 159 /CMM (150-450); RDW COEFFICIENT OF VARIATION 15.9 (11.5-15.0); RED BLOOD CELL COUNT(AUTO) 4.46 MIL/uL (4.5-6.0); WHITE BLOOD COUNT (AUTO) 8.1 K/uL (4.3-11.0)
[2017-06-03 07:56] LABS: CALCIUM, SERUM 9.5 mg/dL (8.5-10.1); CARBON DIOXIDE 31 mmol/L (21-32); CHLORIDE 105 mmol/L (98-107); CREATININE 1.1 mg/dL (0.6-1.3); GLUCOSE 133 mg/dL (74-106); POTASSIUM 4.7 mmol/L (3.5-5.1); SODIUM SERUM 140 mmol/L (136-145); UREA NITROGEN, BLOOD 28 mg/dL (7-18)
[2017-06-03 08:00] VITALS: BP 132/80
--- NOTE | 2017-06-03 08:12 | NUR ---
MS RN: INITIAL NOTE RECEIVED PT A/OX4. ZIMBABWEAN SPEAKING. CONTINENT BRP. AMBULATORY. S/P RIGHT FOOT DEBRIDEMENT ON 06/02/17. RT AC #18. NO IV FLUIDS RUNNING. SITE CLEAR AND PATENT. ON CARDIAC DIET. PER MORNING SHIFT. REFUSED INSULIN COVERAGE. ON TYLER AIR SATING AT 97%. NO DISTRESS NOTED. NO SOB NOTED. NO PAIN NOTED. RESTING COMFORTABLY IN BED. CALL LIGHT WITHIN REACH.
[2017-06-03 08:44] VITALS: BP 132/80
[2017-06-03] MEDS: GLIMEPIRIDE 1 MG TABLET PO SCH (08:44)
[2017-06-03] MEDS: SPIRONOLACTONE 25 MG TABLET PO SCH (08:44)
[2017-06-03] MEDS: TAMSULOSIN 0.4 MG CAP.SR.24H PO SCH (08:44)
[2017-06-03] MEDS: METHIMAZOLE (5MG) 5 MG TABLET PO SCH (08:44)
[2017-06-03] MEDS: LISINOPRIL (10MG) 10 MG TABLET PO SCH (08:44)
[2017-06-03] MEDS: FLUTICASONE/VILANTEROL 1 EACH BLST.W.DEV IH SCH (08:44)
[2017-06-03] MEDS: ATORVASTATIN 40 MG TABLET PO SCH (08:44)
[2017-06-03] MEDS: DUTASTERIDE (0.5 MG) 0.5 MG CAPSULE PO SCH (08:44)
[2017-06-03] MEDS: DONEPEZIL 5 MG TABLET PO SCH (08:45)
[2017-06-03] MEDS ORDERED: predniSONE 20 MG TABLET PO SCH (09:00)
[2017-06-03] MEDS ORDERED: IPRA0.2S9 NEB (09:20)
[2017-06-03] MEDS ORDERED: PRED20TA PO (09:20)
[2017-06-03] MEDS ORDERED: ALBU2.5V13 NEB (09:20)
--- NOTE | 2017-06-03 11:21 | NUR ---
MS RN: DISCHARGE NOTE PT D/C HOME WITH SELF CARE. A/OX4. TOOK ALL MEDICATIONS ON TIME. NO ADVERSE REACTIONS NOTED. NO PAIN NOTED. NO SOB NOTED. WOUND ON R FOOT DRESSING CHANGES AND COVERED ORDERED. POST DEBRIDEMENT PICTURES TAKEN AND PLACED IN CHART BEFORE D/C. RT AC #22 IV REMOVED. SITE CLEAR. NO REDNESS NOTED. NO INFILTRATION NOTED. ALL DISCHARGE INFORMATION EXPLAINED TO AND PATIENT. ALL DISCHARGE INFORMATIONS SIGNED BY . LEFT FACILITY WITH PRIVATE CAR. AMBULATORY WITH OUT ASSIST. ALL VALUABLES ACCOUNTED FOR.
== END 2017-06-03 11:45 | disposition home or self-care (01) | DRG 166 ==
LOC: ER 09:22 → TELE 10:57 → MED 06-01 09:58
PROVIDERS: ADMIT Family Medicine; ATTEND Family Medicine
PROC: 0JBQ0ZZ Excision of Right Foot Subcutaneous Tissue and Fascia, Open Approach (ICD-10-PCS; principal; 2017-06-02)
DX: R09.1 Pleurisy (principal); N17.0 Acute kidney failure with tubular necrosis; I50.33 Acute on chronic diastolic (congestive) heart failure; E11.51 Type 2 diabetes mellitus with diabetic peripheral angiopathy without gangrene; E11.621 Type 2 diabetes mellitus with foot ulcer; D68.9 Coagulation defect, unspecified; E44.1 Mild protein-calorie malnutrition; I11.0 Hypertensive heart disease with heart failure; E78.5 Hyperlipidemia, unspecified; E05.90 Thyrotoxicosis, unspecified without thyrotoxic crisis or storm; Z79.01 Long term (current) use of anticoagulants; L97.509 Non-pressure chronic ulcer of other part of unspecified foot with unspecified severity; Z79.899 Other long term (current) drug therapy; Z86.718 Personal history of other venous thrombosis and embolism; Z95.2 Presence of prosthetic heart valve; Z95.1 Presence of aortocoronary bypass graft; K21.9 Gastro-esophageal reflux disease without esophagitis; I25.10 Atherosclerotic heart disease of native coronary artery without angina pectoris; G47.33 Obstructive sleep apnea (adult) (pediatric); E66.01 Morbid (severe) obesity due to excess calories; J40 Bronchitis, not specified as acute or chronic; L60.0 Ingrowing nail
CPT/HCPCS: 36415; 71010-TC; 80048-TC; 80061-TC; 80076-TC; 80162-TC; 82306; 82962-TC; 83735-TC; 83880; 84100-TC; 84439-TC; 84443-TC; 84484-TC; 85025-TC; 85730-TC; 87081-TC; 93307-TC; 94799-TC; A6402; J1815; J1940; J2930; J3490; Z7610

== ENCOUNTER 2017-10-26 07:56 | Inpatient (IN) | payer MEDICARE, OTHER ==
[~2017-10-26] VITALS: Ht 165.1 cm; Wt 114.1 kg
[~2017-10-26 07:56] MED LIST changes: +ALBU2.5V13 NEB; +COLC0.6T67 PO; +DIGO125T PO; +DONE10TA44 PO; +FURO-144 PO; -FURO-145 PO; +GLIM1TAB2 PO; +IPRA0.2S9 NEB; +LISI10TA5 PO; +MECL12.582 PO; +METH10TA7 PO; +NEBI10TA2 PO; -OLME1TAB19 PO; +OMEP1CAP25 PO; +PRED20TA PO; +ROSU20TA PO; -SPIR25TA PO; +SPIR25TA6 PO; +UMEC1BLS IH
--- NOTE | 2017-10-26 08:02 | NUR ---
AAOX3, BIB C/O ON/OFF CHEST PAIN RADIATES TO BILATERAL SHOULDER FOR ABOUT 4-5 MONTHS. SPO2=88% ON RA UPON ARRIVAL TO ER. MILD RESP DISTRESS NOTED. SKIN IS WARM AND DRY. PLACED ON THE MONITOR AND NC AT 2L/MIN. AWAITING MD FOR EVAL.
--- NOTE | 2017-10-26 08:10 | NUR ---
NEW IV STARTED ON LEFT HAND, 20G. BLOOD DRAWN AND SENT TO LAB.
[2017-10-26] MEDS ORDERED: ASPIRIN 81 MG TAB.CHEW ONE (08:13)
[2017-10-26] MEDS ORDERED: NITROGLYCERIN 0.4 MG/TAB BOTTLE ONE (08:13)
[2017-10-26 08:20] LABS: BASOPHILS % (AUTO) 0.5 % (0.0-2.0); HEMATOCRIT 44 % (39-51); HEMOGLOBIN 14.5 g/dL (13.5-17.5); LYMPHOCYTES # (AUTO) 1.7 /CMM (0.8-4.8); LYMPHOCYTES % (AUTO) 21.1 % (20.0-44.0); MEAN CORPUSCULAR HGB CONC 33 g/dl (31.0-36.0); MEAN CORPUSCULAR VOLUME 92 fL (80-96); MONOCYTES # (AUTO) 0.7 /CMM (0.1-1.30); MONOCYTES % (AUTO) 9.1 % (2.0-12.0); NEUTROPHILS # (AUTO) 5.4 /CMM (1.8-8.9); NEUTROPHILS % (AUTO) 66.3 % (43.0-81.0); PLATELET COUNT (AUTO) 174 /CMM (150-450); RDW COEFFICIENT OF VARIATION 14.3 (11.5-15.0); RED BLOOD CELL COUNT(AUTO) 4.78 MIL/uL (4.5-6.0); WHITE BLOOD COUNT (AUTO) 8.1 K/uL (4.3-11.0)
--- NOTE | 2017-10-26 08:20 | NUR ---
BP 92/53, NITRO HELD AT THIS TIME. Addendum: 10/26/17 at 0829 by DON ONLY 1 DOSE GIVEN.
[2017-10-26 08:28] LABS: CARBON DIOXIDE 33 mmol/L (21-32); CHLORIDE 104 mmol/L (98-107); CREATININE 1.2 mg/dL (0.6-1.3); GLUCOSE 133 mg/dL (74-106); POTASSIUM 4.1 mmol/L (3.5-5.1); SODIUM SERUM 140 mmol/L (136-145); UREA NITROGEN, BLOOD 21 mg/dL (7-18)
[2017-10-26] MEDS ORDERED: ASPIRIN 325 MG TABLET PO ONE (08:30)
[2017-10-26] MEDS ORDERED: NITROGLYCERIN 0.4 MG/TAB BOTTLE SL ONE (08:30)
[2017-10-26 08:36] LABS: TROPONIN I < 0.017 ng/mL (0.00-0.056)
[2017-10-26 08:41] LABS: ALANINE AMINOTRANSFERASE 20 U/L (12-78); ALBUMIN 3.4 g/dL (3.4-5.0); ALKALINE PHOSPHATASE 69 U/L (46-116); ASPARTATE AMINOTRANSFERASE 11 U/L (15-37); B-TYPE NATRIURETIC PEPTIDE 285 PG/ML (0-125); BILIRUBIN,DIRECT 0.1 mg/dL (0.0-0.2); BILIRUBIN,TOTAL 0.5 mg/dL (0.2-1.0); TOTAL PROTEIN, SERUM 7.2 g/dL (6.4-8.2)
[2017-10-26] MEDS ORDERED: FUROSEMIDE 40 MG/4 ML VIAL ONE (08:53)
[2017-10-26] MEDS ORDERED: FUROSEMIDE 40 MG/4 ML VIAL IV ONE (09:00)
--- NOTE | 2017-10-26 10:32 | NUR ---
Report given to jolanta olmedo for argelia upon admission.
--- NOTE | 2017-10-26 10:40 | NUR ---
PATIENT TRANSPORTED TO [facility] VIA ACLS PROTOCOL. RNYORDAN TO PROVIDE WEND[facility].
[2017-10-26 11:00] VITALS: BP 115/68
[2017-10-26] MEDS ORDERED: HYDROCODONE/APAP 5/325MG 1 EACH TABLET PO PRN (11:00)
[2017-10-26] MEDS ORDERED: MAGNESIUM HYDROXIDE 30 ML UDC PO PRN (11:00)
[2017-10-26] MEDS ORDERED: ACETAMINOPHEN 325 MG TABLET PO PRN (11:00)
[2017-10-26] MEDS ORDERED: Z GUARD REMEDY 2 OZ OINT TP PRN (11:00)
[2017-10-26] MEDS ORDERED: ONDANSETRON HCL/PF 4 MG/2 ML VIAL IVP PRN (11:00)
--- NOTE | 2017-10-26 11:00 | NUR ---
TELE/RN OPENING NOTE PATIENT ALERT AND ORIENTED X4. DENIES SOB. RESPIRATION REGULAR AND UNLABORED. DENIES PAIN. ORIENTATION TO ROOM AND FLOOR IS PROVIDED. PATIENT VERBALIZED UNDERSTANDING. LEFT HAND G 20 PATENT AND SALINE LOCKED. BED LOW AND LOCKED. SIDE RAILS UP X2. CALL LIGHT WITHIN REACH. WILL CONTINUE TO MONITOR.
[2017-10-26] MEDS ORDERED: DIGOXIN 0.125 MG TABLET PO SCH (11:30)
[2017-10-26] MEDS ORDERED: MECLIZINE HCL 12.5 MG TABLET PO PRN (11:30)
[2017-10-26] MEDS ORDERED: BUMETANIDE INJ 4 MG in IV NS 0.9% 24 ML IV ONE (12:00)
[2017-10-26] MEDS: GLIMEPIRIDE 1 MG TABLET PO SCH (12:03)
[2017-10-26] MEDS ORDERED: BUMETANIDE INJ 8 MG in IV NS 0.9% 48 ML IV ONE (13:00)
[2017-10-26] MEDS: DIGOXIN 0.125 MG TABLET PO SCH (13:39)
[2017-10-26] MEDS: IPRATROPIUM NEB FS 0.5 MG/2.5 ML AMPUL.NEB NEB SCH ×2 (13:56→19:37)
[2017-10-26] MEDS: ALBUTEROL FS 2.5 MG/0.5 ML VIAL.NEB NEB SCH ×2 (13:56→19:37)
[2017-10-26 16:00] VITALS: BP 118/67
[2017-10-26 16:07] VITALS: BP 118/67
[2017-10-26] MEDS: RIVAROXABAN 10 MG TABLET PO SCH (16:21)
--- NOTE | 2017-10-26 18:31 | NUR ---
TELE/RN CLOSING NOTE PATIENT ALERT AND ORIENTED X4. DENIES SOB. RESPIRATION REGULAR AND UNLABORED. PATIENT ON O2 VIA NC AND SATURATION AT 98%. DENIES PAIN. CONTINENT ON BOWEL AND BLADDER. AMBULATES WITH STAND BY ASSIST. LEFT HAND G 20 PATENT AND SALINE LOCKED. BED LOW AND LOCKED. SIDE RAILS UP X2. CALL LIGHT WITHIN REACH. WILL CONTINUE TO MONITOR.
--- NOTE | 2017-10-26 19:40 | NUR ---
AS400 ANALYST NOTE: PATIENT RESTING IN BED, NO ACUTE DISTRESS NOTED. BREATHING EVEN AND UNLABORED, NO SOB NOTED. TELE READING SR 76. IV TO LEFT HAND IN PLACE. PATIENT DENIES CHEST PAIN AT THIS TIME. BED LOCKED AND IN LOWEST POSITION, CALL LIGHT IN REACH. WILL CONTINUE TO MONITOR.
[2017-10-26 20:00] VITALS: BP 134/76
[2017-10-27] VITALS: BP 115/68
[2017-10-27] MEDS: IPRATROPIUM NEB FS 0.5 MG/2.5 ML AMPUL.NEB NEB SCH ×4 (00:45→19:27)
[2017-10-27] MEDS: ALBUTEROL FS 2.5 MG/0.5 ML VIAL.NEB NEB SCH ×4 (00:45→19:27)
--- NOTE | 2017-10-27 03:00 | NUR ---
INTERNAL MEDICINE NURSE NOTE: PATIENT SLEEPING IN BED, NO ACUTE DISTRESS NOTED. BREATHING EVEN AND UNLABORED, NO SOB NOTED. BED LOCKED AND IN LOWEST POSITION, CALL LIGHT IN REACH. WILL CONTINUE TO MONITOR.
[2017-10-27 04:00] VITALS: BP 115/69
--- NOTE | 2017-10-27 06:10 | NUR ---
AUDIO VISUAL MANAGER NOTE: PATIENT RESTING IN BED, NO ACUTE DISTRESS NOTED. BREATHING EVEN AND UNLABORED, NO SOB NOTED. TELE READING SR 70'S. IV TO LEFT HAND IN PLACE. BED LOCKED AND IN LOWEST POSITION, CALL LIGHT IN REACH. WILL ENDORSE TO DAY NURSE TO CONTINUE WITH PLAN OF CARE.
[2017-10-27 06:43] LABS: BASOPHILS % (AUTO) 0.3 % (0.0-2.0); HEMATOCRIT 46 % (39-51); HEMOGLOBIN 15.3 g/dL (13.5-17.5); LYMPHOCYTES # (AUTO) 1.7 /CMM (0.8-4.8); LYMPHOCYTES % (AUTO) 19.1 % (20.0-44.0); MEAN CORPUSCULAR HGB CONC 33 g/dl (31.0-36.0); MEAN CORPUSCULAR VOLUME 93 fL (80-96); MONOCYTES # (AUTO) 0.8 /CMM (0.1-1.30); MONOCYTES % (AUTO) 8.9 % (2.0-12.0); NEUTROPHILS # (AUTO) 6.4 /CMM (1.8-8.9); NEUTROPHILS % (AUTO) 69.7 % (43.0-81.0); PLATELET COUNT (AUTO) 178 /CMM (150-450); RDW COEFFICIENT OF VARIATION 14.4 (11.5-15.0); RED BLOOD CELL COUNT(AUTO) 4.98 MIL/uL (4.5-6.0); WHITE BLOOD COUNT (AUTO) 9.1 K/uL (4.3-11.0)
--- NOTE | 2017-10-27 07:15 | NUR ---
RN OPEN NOTES RECEIVED REPORT FROM ORTHODONTIC TREATMENT COORDINATOR NURSE. PATIENT IS BED, AWAKE. NAURUAN / GREEK SPEAKING ONLY. NO SIGNS AND SYMPTOMS OF DISTRESS. BED IN LOW POSITION, LOCKED AND TWO SIDE RAILS ARE UP. CALL LIGHT WITHIN REACH FOR SAFETY. WILL CONTINUE TO ASSESS AND MONITOR PATIENT.
[2017-10-27 07:23] LABS: CALCIUM, SERUM 8.9 mg/dL (8.5-10.1); CARBON DIOXIDE 36 mmol/L (21-32); CHLORIDE 100 mmol/L (98-107); CREATININE 1.3 mg/dL (0.6-1.3); GLUCOSE 140 mg/dL (74-106); MAGNESIUM 1.6 mg/dL (1.8-2.4); PHOSPHORUS 4.8 mg/dL (2.5-4.9); POTASSIUM 3.9 mmol/L (3.5-5.1); SODIUM SERUM 142 mmol/L (136-145); UREA NITROGEN, BLOOD 29 mg/dL (7-18)
[2017-10-27 07:27] LABS: CHOLESTEROL 216 mg/dL (<200); HDL CHOLESTEROL 60 mg/dL (40-60); LDL 154 mg/dL (0-99); TRIGLYCERIDES 136 mg/dL (30-150)
[2017-10-27 08:00] VITALS: BP 112/79
[2017-10-27] MEDS: GLIMEPIRIDE 1 MG TABLET PO SCH (08:58)
[2017-10-27] MEDS: COLCHICINE 0.6 MG TABLET PO SCH (08:58)
[2017-10-27] MEDS: LISINOPRIL (10MG) 10 MG TABLET PO SCH (08:59)
[2017-10-27] MEDS: Magnesium 1GM/D5W 100ML PREMIX 100 ML IV SCH ×2 (09:58→10:57)
[2017-10-27] MEDS ORDERED: BUMETANIDE INJ 8 MG in IV NS 0.9% 48 ML IV ONE (10:00)
[2017-10-27] MEDS: ATORVASTATIN 10 MG TABLET PO SCH (10:09)
[2017-10-27] MEDS: DIGOXIN 0.125 MG TABLET PO SCH (12:02)
[2017-10-27 16:06] VITALS: BP 101/50
[2017-10-27] MEDS: RIVAROXABAN 10 MG TABLET PO SCH (17:17)
--- NOTE | 2017-10-27 18:06 | NUR ---
DR TSE MADE AWARE OF I&O. (500 ML INPUT. 400ML OUTPUT, PATIENT IS AT POSITIVE 100ML) NO NEW ORDERS RECEIVED.
--- NOTE | 2017-10-27 18:32 | NUR ---
RN CLOSING NOTES PATIENT IS IN BED. ALERT AND ORIENTED TO NAME, PLACE AND TIME. NO SIGNS AND SYMPTOMS OF DISTRESS. NO PAIN. RESPIRATION REGULAR AND UNLABORED. LEFT HAND 20G IS INTACT AND PATENT. PATIENT KEPT DRY, CLEAN AND SAFE. ALL NURSING CARE ANTICIPATED AND ATTENDED FOR. BED IS IN LOW POSITION, LOCKED AND TWO SIDE RAILS ARE UP. CALL LIGHT WITHIN REACH FOR SAFETY. WILL ENDORSE TO AVIATION ELECTRICAL TECHNICIAN NURSE TO [facility].
--- NOTE | 2017-10-27 19:45 | NUR ---
MS/RN OPENING NOTES PT RECEIVED AWAKE, RESTING COMFORTABLY IN BED. ON ROOM AIR, BREATHING EVEN AND UNLABORED. NO S/S OF SOB OR PAIN NOTED AT THIS TIME. BARBADIAN/SAMMARINESE SPEAKING ONLY. IV TO LEFT HAND PATENT AND INTACT. ON STRICT I&O. BED IN LOW/LOCKED POSITION WITH CALL LIGHT IN REACH. SIDE RAILS UPX2. WILL CONTINUE TO MONITOR
[2017-10-27 20:00] VITALS: BP 106/57
--- NOTE | 2017-10-27 23:39 | NUR ---
MS/RN NOTES PT C/O GENERALIZED PAIN. RECEIVED NORCO ORDERED. NOTIFIED DR. MARIA, NO NEW ORDERS.
[2017-10-28] MEDS: ALBUTEROL FS 2.5 MG/0.5 ML VIAL.NEB NEB SCH ×3 (01:23→13:30)
[2017-10-28] MEDS: IPRATROPIUM NEB FS 0.5 MG/2.5 ML AMPUL.NEB NEB SCH ×3 (01:23→13:30)
--- NOTE | 2017-10-28 07:01 | NUR ---
MS/RN CLOSING NOTES PT AWAKE, SITTING AT THE EDGE OF THE BED. REMAINS ON 3L O2 VIA NC, BREATHING EVEN AND UNLABORED. NO COMPLAINTS OF PAIN DURING REST OF THE SHIFT AFTER ADMINISTRATION OF NORCO. IV TO LEFT HAND PATENT AND INTACT. INTAKE AND OUTPUT NOTED AND RECORDED. NO SIGNIFICANT CHANGES OVERNIGHT. ALL NEEDS MET. SLEPT WELL DURING SHIFT. BED REMAINS IN LOW/LOCKED POSITION WITH CALL LIGHT IN REACH. SIDE RAILS UPX2. WILL ENDORSE TO DAY SHIFT RN WENDY.
[2017-10-28 07:12] LABS: CALCIUM, SERUM 8.9 mg/dL (8.5-10.1); CARBON DIOXIDE 34 mmol/L (21-32); CHLORIDE 99 mmol/L (98-107); CREATININE 1.9 mg/dL (0.6-1.3); GLUCOSE 125 mg/dL (74-106); MAGNESIUM 2.3 mg/dL (1.8-2.4); POTASSIUM 3.7 mmol/L (3.5-5.1); SODIUM SERUM 140 mmol/L (136-145); UREA NITROGEN, BLOOD 44 mg/dL (7-18)
--- NOTE | 2017-10-28 07:34 | NUR ---
RN OPEN NOTES RECEIVED REPORT FROM WINDOW COVERING SALES CONSULTANT NURSE. PATIENT IS BED, AWAKE. TANZANIAN / KITTITIAN SPEAKING ONLY. NO SIGNS AND SYMPTOMS OF DISTRESS. BED IN LOW POSITION, LOCKED AND TWO SIDE RAILS ARE UP. CALL LIGHT WITHIN REACH FOR SAFETY. WILL CONTINUE TO ASSESS AND MONITOR PATIENT.
[2017-10-28] MEDS: ATORVASTATIN 10 MG TABLET PO SCH (08:25)
[2017-10-28] MEDS: COLCHICINE 0.6 MG TABLET PO SCH (08:25)
[2017-10-28] MEDS: GLIMEPIRIDE 1 MG TABLET PO SCH (08:25)
[2017-10-28] MEDS: LISINOPRIL (10MG) 10 MG TABLET PO SCH (08:26)
[2017-10-28 08:45] VITALS: BP 99/62
[2017-10-28] MEDS ORDERED: CELECOXIB 100 MG CAPSULE PO SCH (09:30)
[2017-10-28] MEDS: DIGOXIN 0.125 MG TABLET PO SCH (11:59)
--- NOTE | 2017-10-28 14:29 | NUR ---
CONSULTANT NOTES DISCHARGE ORDER RECEIVED AND CARRIED OUT. PATIENT IS LEAVING IN A STABLE CONDITION. NO SIGNS AND SYMPTOMS OF DISTRESS. DENIED CHEST PAIN. ALL DISCHARGE INSTRUCTIONS EXPLAINED TO PATIENT AND . BOTH VERBALIZED UNDERSTANDING. ALL PERSONAL BELONGING WITH PATIENT AT TIME OF DISCHARGE. PATIENT SIGNED BOTH FORMS; PLACED IN THE CHART. MULTIDISCIPLINARY CLINIC APPOINTMENT SCHEDULED FOR 10/30 AT 1300. PATIENT ALREADY HAVE AN APPOINTMENT WITH DR TORRES AND WILL FOLLOW UP WITH HIS PRIMARY CARE PHYSICIAN WELL. NO NEW CONCERNS UPON DISCHARGE. IV SITE REMOVED. ID BAND REMOVED. PATIENT PICKED UP BY HIS VIA A PRIVATE CAR.
--- NOTE | 2017-10-28 15:28 | NUR ---
Pt on cardiac diet, BMI 41.6, class III obese. No family around during RD visit. Provided cardiac diet and weight management nutrition handouts at pt's bedside. Pt discharged today.
== END 2017-10-28 14:30 | disposition home or self-care (01) | DRG 291 ==
LOC: ER 07:57 → TELE 10:19 → MED 10-27 09:49
PROVIDERS: ADMIT Nurse Practitioner Acute Care; ATTEND Nurse Practitioner Acute Care
DX: I11.0 Hypertensive heart disease with heart failure (principal); E43 Unspecified severe protein-calorie malnutrition; E11.51 Type 2 diabetes mellitus with diabetic peripheral angiopathy without gangrene; Z79.01 Long term (current) use of anticoagulants; Z68.41 Body mass index [BMI] 40.0-44.9, adult; Z95.2 Presence of prosthetic heart valve; I25.10 Atherosclerotic heart disease of native coronary artery without angina pectoris; I50.33 Acute on chronic diastolic (congestive) heart failure; F17.200 Nicotine dependence, unspecified, uncomplicated; Z79.84 Long term (current) use of oral hypoglycemic drugs; K21.9 Gastro-esophageal reflux disease without esophagitis; E78.5 Hyperlipidemia, unspecified; M79.629 Pain in unspecified upper arm; T50.905A Adverse effect of unspecified drugs, medicaments and biological substances, initial encounter; Y92.009 Unspecified place in unspecified non-institutional (private) residence as the place of occurrence of the external cause; N64.4 Mastodynia; G47.33 Obstructive sleep apnea (adult) (pediatric); E66.01 Morbid (severe) obesity due to excess calories
CPT/HCPCS: 36415; 71045-TC; 80048-TC; 80061-TC; 80076-TC; 83735-TC; 83880; 84100-TC; 84484-TC; 85025-TC; 85652-TC; 87081-TC; 93307-TC; 94799-TC; A4216; A4606; J1940; J3475; J3490; J7030; J7050; Z7610

== ENCOUNTER 2017-10-30 13:08 | Outpatient (CLI) | payer MEDICARE, OTHER ==
[~2017-10-30 13:08] MED LIST changes: -PRED20TA PO
[2017-10-30 13:27] VITALS: BP 101/68
== END 2017-10-30 23:59 | disposition home or self-care (01) ==
LOC: MSC 13:08
PROVIDERS: ATTEND Internal Medicine
DX: J96.11 Chronic respiratory failure with hypoxia (principal); Z99.81 Dependence on supplemental oxygen; I11.0 Hypertensive heart disease with heart failure; I50.32 Chronic diastolic (congestive) heart failure; J44.9 Chronic obstructive pulmonary disease, unspecified; I25.10 Atherosclerotic heart disease of native coronary artery without angina pectoris; E78.5 Hyperlipidemia, unspecified; Z98.890 Other specified postprocedural states; E66.01 Morbid (severe) obesity due to excess calories; M10.9 Gout, unspecified; E05.90 Thyrotoxicosis, unspecified without thyrotoxic crisis or storm; E11.9 Type 2 diabetes mellitus without complications

== ENCOUNTER 2018-12-03 16:03 | Inpatient (IN) | payer MEDICARE, OTHER ==
[~2018-12-03] VITALS: Ht 165.1 cm; Wt 118.4 kg
[~2018-12-03 16:03] MED LIST changes: -ROSU20TA PO; +ROSU20TA2 PO
--- NOTE | 2018-12-03 16:30 | NUR ---
PER FAMILY, GLF X 3 LAST NIGHT DUE TO GENERALIZED WEAKNESS ALSO C/O SOB. ON 02@2L/MIN AT HOME PER . PT AAOX4, VSS. DENIES CP, DIZZINESS, N/V, NUMBNESS/TINGLING SENSATION AT THIS TIME. PT SEEN & EVAL'D BY DR. WILLIAM & WILL CONT TO MONITOR.
[2018-12-03 16:32] LABS: BASOPHILS % (AUTO) 0.7 % (0.0-2.0); EOSINOPHILS % (AUTO) 3.1 % (0.0-6.0); HEMATOCRIT 52 % (39-51); HEMOGLOBIN 17.5 g/dL (13.5-17.5); LYMPHOCYTES # (AUTO) 1.3 /CMM (0.8-4.8); LYMPHOCYTES % (AUTO) 18.6 % (20.0-44.0); MEAN CORPUSCULAR HGB CONC 33 g/dl (31.0-36.0); MEAN CORPUSCULAR VOLUME 96 fL (80-96); MONOCYTES # (AUTO) 0.6 /CMM (0.1-1.30); MONOCYTES % (AUTO) 8.3 % (2.0-12.0); NEUTROPHILS # (AUTO) 4.9 /CMM (1.8-8.9); NEUTROPHILS % (AUTO) 69.3 % (43.0-81.0); PLATELET COUNT (AUTO) 149 /CMM (150-450); RED BLOOD CELL COUNT(AUTO) 5.45 MIL/uL (4.5-6.0)
[2018-12-03 16:47] LABS: CALCIUM, SERUM 8.9 mg/dL (8.5-10.1); CARBON DIOXIDE 36 mmol/L (21-32); CHLORIDE 105 mmol/L (98-107); CREATININE 1.3 mg/dL (0.6-1.3); GLUCOSE 189 mg/dL (74-106); POTASSIUM 3.9 mmol/L (3.5-5.1); SODIUM SERUM 145 mmol/L (136-145); UREA NITROGEN, BLOOD 19 mg/dL (7-18)
[2018-12-03 16:51] LABS: ALANINE AMINOTRANSFERASE 23 U/L (12-78); ALBUMIN 3.2 g/dL (3.4-5.0); ALKALINE PHOSPHATASE 81 U/L (46-116); ASPARTATE AMINOTRANSFERASE 16 U/L (15-37); B-TYPE NATRIURETIC PEPTIDE 368 PG/ML (0-125); BILIRUBIN,DIRECT 0.1 mg/dL (0.0-0.2); BILIRUBIN,TOTAL 0.3 mg/dL (0.2-1.0)
--- NOTE | 2018-12-03 17:59 | NUR ---
[id number] TELE DX SYNCOPE ANABELLE
--- NOTE | 2018-12-03 18:14 | NUR ---
REPORT GIVEN TO ALTON HARRIS FOR CONT OF CARE.
[2018-12-03] MEDS ORDERED: Z GUARD REMEDY 2 OZ OINT TP PRN (19:30)
[2018-12-03] MEDS ORDERED: MAGNESIUM HYDROXIDE 30 ML UDC PO PRN (19:30)
[2018-12-03] MEDS ORDERED: HYDROCODONE/APAP 5/325MG 1 EACH TABLET PO PRN (19:30)
[2018-12-03] MEDS ORDERED: ONDANSETRON HCL/PF 4 MG/2 ML VIAL IVP PRN (19:30)
[2018-12-03] MEDS ORDERED: MAG HYDROX/AL HYDROX/SIMETH 30 ML UDC PO PRN (19:30)
[2018-12-03] MEDS ORDERED: ZOLPIDEM TARTRATE 5 MG TABLET PO PRN (19:30)
[2018-12-03 20:00] VITALS: BP_SYST 115; BP_SYST 129; BP_SYST 132; BP_DIAS 69; BP_DIAS 72; BP_DIAS 84
--- NOTE | 2018-12-03 20:00 | NUR ---
RN ADMITTING/OPENING NOTES RECEIVED Pt ON FLOOR. REPORT GIVEN BY BRONSON RNSTEVEN. FOUND Pt AWAKE, RESTING IN BED. NO S/S OF ACUTE DISTRESS OR SOB NOTED. ON 2L NC. RESPIRATIONS EVEN AND UNLABORED, WITH EQUAL CHEST RISE AND FALL. ON TELE MONITOR, SR 88. IV ACCESS ON RAC #20G, SL. SAFETY MEASURES IN PLACE. BED LOW, LOCKED, HOB ELEVATED, SIDE RAILS UP, CALL LIGHT AND BEDSIDE TABLE WITHIN REACH. WILL CONTINUE TO MONITOR Pt's CONDITION AND SAFETY THROUGHOUT THE SHIFT.
--- NOTE | 2018-12-03 20:30 | NUR ---
RN NOTES ORTHOSTATIC BP: FLAT - 132/84; HR 89 SITTING - 129/72; HR 87 STANDING - 115/69; HR 97
[2018-12-03] MEDS ORDERED: ENOXAPARIN SODIUM 40 MG/0.4 ML DISP.SYRIN SQ SCH (21:00)
--- NOTE | 2018-12-03 23:00 | NUR ---
RN NOTES BLOOD GLUCOSE CHECK @PM: 129. NO INSULIN COVERAGE NEEDED AT THIS TIME.
[2018-12-04] VITALS: BP 108/70
[2018-12-04] MEDS ORDERED: DEXTROSE 50%-WATER 50 ML DISP.SYRIN IV PRN (02:30)
--- NOTE | 2018-12-04 06:50 | NUR ---
RN NOTES AC ACCUCHECK B. ADMINISTERED 2UN OF INSULIN PER SLIDING SCALE.
[2018-12-04] MEDS: BLOOD SUGAR DIAGNOSTIC 1 EACH STRIP IN SCH ×4 (06:52→22:17)
[2018-12-04] MEDS: INSULIN REGULAR, HUMAN 100 UNIT/ML 3 ML VIAL SQ PRN ×2 (06:55→22:25)
--- NOTE | 2018-12-04 06:55 | NUR ---
RN CLOSING NOTES NO SIGNIFICANT CHANGES IN Pt's CONDITION. Pt REMAINS STABLE AT THIS TIME. NO S/S OF ACUTE DISTRESS OR SOB NOTED DURING THE NIGHT. Pt IS ASLEEP IN BED, RESPIRATIONS EVEN AND UNLABORED, WITH EQUAL CHEST RISE AND FALL. TELE READING SR 96 WITH PVC's. SAFETY MEASURES IN PLACE. BED LOW, LOCKED, HOB ELEVATED, SIDE RAILS UP, CALL LIGHT AND BEDSIDE TABLE WITHIN REACH. BED ALARM ON. WILL ENDORSE TO DAYSHIFT RN FOR Pt's WENDY.
--- NOTE | 2018-12-04 07:35 | NUR ---
POLICY OFFICER NOTES PATIENT RECEIVED RESTING INSIDE ROOM. AWAKE, ALERT AND ORIENTED X 3, VERBALLY RESPONSIVE AND RESPONDS TO VERBAL AND TACTILE STIMULI. NO ACUTE DISTRESS. DENIES ANY PAIN OR DISCOMFORT AT THIS TIME. PATIENT CALM AND RELAXED. CONTINUE ON TELEMETRY, MAINTENANCE SCHEDULER IN PLACE. WILL CONTINUE TO MONITOR. BED LOCKED AND IN LOW POSITION. BILATERAL UPPER SIDE RAILS UP AND LOCKED. CALL LIGHT WITHIN EASY REACH
[2018-12-04] MEDS ORDERED: IV NS 0.9% 1,000 ML IV PRN (08:04)
[2018-12-04 08:05] VITALS: BP_SYST 102; BP_SYST 88; BP_SYST 94; BP_DIAS 64; BP_DIAS 68; BP_DIAS 70
--- NOTE | 2018-12-04 08:06 | NUR ---
CUPOLA REPAIRER NOTES ORTHOSTATIC BP TAKEN, DR TSE AND DR AHN PRESENT AT UNIT, BOTH MADE AWARE. WILL CONTINUE TO MONITOR
[2018-12-04 08:21] LABS: BASOPHILS % (AUTO) 0.7 % (0.0-2.0); EOSINOPHILS % (AUTO) 2.6 % (0.0-6.0); HEMATOCRIT 53 % (39-51); LYMPHOCYTES # (AUTO) 1.2 /CMM (0.8-4.8); LYMPHOCYTES % (AUTO) 18.7 % (20.0-44.0); MEAN CORPUSCULAR HGB CONC 32 g/dl (31.0-36.0); MEAN CORPUSCULAR VOLUME 97 fL (80-96); MONOCYTES # (AUTO) 0.6 /CMM (0.1-1.30); MONOCYTES % (AUTO) 9.3 % (2.0-12.0); NEUTROPHILS # (AUTO) 4.5 /CMM (1.8-8.9); NEUTROPHILS % (AUTO) 68.7 % (43.0-81.0); PLATELET COUNT (AUTO) 130 /CMM (150-450); WHITE BLOOD COUNT (AUTO) 6.5 K/uL (4.3-11.0)
[2018-12-04 08:52] LABS: CHOLESTEROL 207 mg/dL (<200); HDL CHOLESTEROL 35 mg/dL (40-60); LDL 154 mg/dL (0-99); TRIGLYCERIDES 154 mg/dL (30-150)
[2018-12-04 08:53] LABS: CALCIUM, SERUM 8.9 mg/dL (8.5-10.1); CARBON DIOXIDE 33 mmol/L (21-32); CHLORIDE 106 mmol/L (98-107); CREATININE 1.2 mg/dL (0.6-1.3); GLUCOSE 126 mg/dL (74-106); MAGNESIUM 1.8 mg/dL (1.8-2.4); PHOSPHORUS 4.1 mg/dL (2.5-4.9); POTASSIUM 4.3 mmol/L (3.5-5.1); SODIUM SERUM 145 mmol/L (136-145); UREA NITROGEN, BLOOD 18 mg/dL (7-18)
[2018-12-04] MEDS ORDERED: LISINOPRIL (10MG) 10 MG TABLET PO SCH (09:00)
[2018-12-04] MEDS ORDERED: FUROSEMIDE 40 MG TABLET PO SCH (09:00)
[2018-12-04] MEDS ORDERED: SPIRONOLACTONE 25 MG TABLET PO SCH (09:00)
[2018-12-04] MEDS: ALBUTEROL FS 2.5 MG/0.5 ML VIAL.NEB NEB SCH ×3 (09:11→20:03)
[2018-12-04] MEDS: IPRATROPIUM NEB FS 0.5 MG/2.5 ML AMPUL.NEB NEB SCH ×3 (09:11→20:03)
[2018-12-04] MEDS: RIVAROXABAN 10 MG TABLET PO SCH (09:35)
[2018-12-04] MEDS: PANTOPRAZOLE 40 MG TABLET.DR PO SCH (09:35)
[2018-12-04] MEDS: COLCHICINE 0.6 MG TABLET PO SCH (09:35)
[2018-12-04] MEDS: METHIMAZOLE (5MG) 5 MG TABLET PO SCH (09:36)
[2018-12-04] MEDS: GLIMEPIRIDE 1 MG TABLET PO SCH (09:36)
[2018-12-04] MEDS: ATORVASTATIN 40 MG TABLET PO SCH (09:36)
[2018-12-04 16:00] VITALS: BP 116/76
--- NOTE | 2018-12-04 16:05 | NUR ---
MS RN NOTES PATIENT REQUESTED TO HAVE EARLY DINNER. FSBS TAKEN PRIOR MEAL WITH RESULT OF 98. NO INSULIN PER SS. WILL CONTINUE TO MONITOR
--- NOTE | 2018-12-04 18:27 | NUR ---
MS RN NOTES PATIENT RESTING INSIDE ROOM. AWAKE, ALERT AND ORIENTED X 3, VERBALLY RESPONSIVE AND RESPONDS TO VERBAL AND TACTILE STIMULI. BREATHING EVEN AND UNLABORED. NO ACUTE DISTRESS. PATIENT DENIES ANY PAIN OR DISCOMFORT. NO CHANGES IN LOC NOTED AT THIS TIME. WILL ENDORSE TO INCOMING SHIFT FOR WENDY. BED LOCKED AND IN LOW POSITION. BILATERAL UPPER SIDE RAILS UP AND LOCKED. CALL LIGHT WITHIN EASY REACH
--- NOTE | 2018-12-04 19:35 | NUR ---
MS RN NOTES RECEIVED ON BED SLEEPING,AROUSABLE TO VERBAL STIMULI.IVF NS AT 100ML/HR RATE IN PROGRESS VIA IV PUMP,SITE PATENT ON RIGHT AC.O2 IN USED AT 2L/NC,AMBULATE WITH WALKER.CALL LIGHT IN REACH,NEEDS ANTICIPATED.
[2018-12-04 20:00] VITALS: BP 110/72
--- NOTE | 2018-12-04 22:00 | NUR ---
MS RN NOTES ACCU-CHECK BLOOD SUGAR CHECK 162,HUMULIN R 3 UNITS ADMINISTER SQ ON LEFT LOWER ABDOMEN.SNACKS PROVIDED AT BEDSIDE.
[2018-12-05] MEDS: IPRATROPIUM NEB FS 0.5 MG/2.5 ML AMPUL.NEB NEB SCH ×3 (00:49→12:49)
[2018-12-05] MEDS: ALBUTEROL FS 2.5 MG/0.5 ML VIAL.NEB NEB SCH ×3 (00:49→12:49)
--- NOTE | 2018-12-05 01:00 | NUR ---
MS RN NOTES SOUND ASLEEP,KEPT WARM AND COMFORTABLE.
[2018-12-05] MEDS: ACETAMINOPHEN 325 MG TABLET PO PRN ×2 (05:48→16:12)
--- NOTE | 2018-12-05 05:48 | NUR ---
MS RN NOTES C/O HEADACHE,TYLENOL 650MG PO GIVEN PER PATIENT REQUEST.
[2018-12-05 06:14] VITALS: BP_SYST 107; BP_SYST 144; BP_SYST 97; BP_DIAS 59; BP_DIAS 72; BP_DIAS 84
--- NOTE | 2018-12-05 06:29 | NUR ---
MS RN NOTES HEADACHE IMPROVED,AMBULATE WITH WALKER,NO FALL,NO INJURY.CALL LIGHT IN REACH,NEEDS ATTENDED.WILL ENDORSE TO DAY NURSE FOR WENDY.
--- NOTE | 2018-12-05 07:37 | NUR ---
MS RN OPENING NOTES PATIENT IS IN BED RESTING, BREATHING ON OXYGEN NC AT 2L. PATIENT IS ALERT AND ORIENTED X4. PATIENT BREATHING IS EVEN AND UNLABORED. PATIENT IN NO ACUTE DISTRESS. NO SOB NOTED. PATIENT URINAL AT BEDSIDE. PATIENT WALKER AT THE BEDSIDE. PATIENT IS NO PAIN AT THIS TIME . BED IS LOCKED AND IN LOWEST POSITION. CALL LIGHT WITHIN REACH. WILL CONTINUE TO MONITOR.
[2018-12-05] MEDS: BLOOD SUGAR DIAGNOSTIC 1 EACH STRIP IN SCH ×2 (07:47→11:56)
[2018-12-05] MEDS: PANTOPRAZOLE 40 MG TABLET.DR PO SCH (07:47)
[2018-12-05 08:00] VITALS: BP 107/72
[2018-12-05] MEDS: ATORVASTATIN 40 MG TABLET PO SCH (09:06)
[2018-12-05] MEDS: COLCHICINE 0.6 MG TABLET PO SCH (09:06)
[2018-12-05] MEDS: METHIMAZOLE (5MG) 5 MG TABLET PO SCH (09:06)
[2018-12-05] MEDS: GLIMEPIRIDE 1 MG TABLET PO SCH (09:06)
[2018-12-05] MEDS ORDERED: FURO-144 PO (11:44)
[2018-12-05] MEDS: INSULIN REGULAR, HUMAN 100 UNIT/ML 3 ML VIAL SQ PRN (12:01)
[2018-12-05] MEDS: RIVAROXABAN 10 MG TABLET PO SCH (16:12)
[2018-12-05 16:30] VITALS: BP 138/79
--- NOTE | 2018-12-05 17:45 | NUR ---
MS REBRANDER NOTES PATIENT IS STABLE. PATIENT VITAL SIGNS ARE WNL. DC INSTRUCTIONS ARE PROVIDED TO PATIENT AND PATIENTS ERI. DISCHARGE PACKET GIVEN TO PATIENT. PATIENT AND VERBALIZE UNDERSTANDING. IV REMOVED. ID BAND REMOVED. PATIENT BREATHING IS EVEN AND UNLABORED. PATIENT IS IN NO ACUTE DISTRESS. ASSESSED SKIN, NO NEW SKIN BREAKDOWN. PATIENT KEPT CLEAN, DRY, AND COMFORTABLE. MD AWARE OF DC. I WALKED WITH PATIENT WHO USED FRONT WHEEL WALKER TO [employer] CAR FOR TRANSPORT TO HOME. ERI TOOK PATIENT HOME. ALL BELONGINGS WITH PATIENT. BELONGINGS LIST SIGNED AND IN CHART.
== END 2018-12-05 17:30 | disposition home or self-care (01) | DRG 189 ==
LOC: ER 16:08 → TELE 18:24 → MED 12-04 08:38
PROVIDERS: ADMIT Student in an Organized Health Care Education/Training Program; ATTEND Student in an Organized Health Care Education/Training Program
DX: J96.21 Acute and chronic respiratory failure with hypoxia (principal); I50.33 Acute on chronic diastolic (congestive) heart failure; E44.1 Mild protein-calorie malnutrition; J98.11 Atelectasis; Z68.41 Body mass index [BMI] 40.0-44.9, adult; I11.0 Hypertensive heart disease with heart failure; I95.1 Orthostatic hypotension; J44.9 Chronic obstructive pulmonary disease, unspecified; I25.10 Atherosclerotic heart disease of native coronary artery without angina pectoris; Z99.81 Dependence on supplemental oxygen; Z90.5 Acquired absence of kidney; Z95.2 Presence of prosthetic heart valve; Z79.899 Other long term (current) drug therapy; Z79.01 Long term (current) use of anticoagulants; Z79.51 Long term (current) use of inhaled steroids; Z79.84 Long term (current) use of oral hypoglycemic drugs; E78.5 Hyperlipidemia, unspecified; E66.01 Morbid (severe) obesity due to excess calories; E05.90 Thyrotoxicosis, unspecified without thyrotoxic crisis or storm; E11.51 Type 2 diabetes mellitus with diabetic peripheral angiopathy without gangrene; M10.9 Gout, unspecified; K21.9 Gastro-esophageal reflux disease without esophagitis; I70.0 Atherosclerosis of aorta; I48.91 Unspecified atrial fibrillation; G47.33 Obstructive sleep apnea (adult) (pediatric)
CPT/HCPCS: 36415; 70450-TC; 71045-TC; 80048-TC; 80061-TC; 80076-TC; 82962-TC; 83735-TC; 83880; 84100-TC; 84484-TC; 85025-TC; 87081-TC; 93307-TC; 94799-TC; 97116-TC; 97530-TC; G0378; J1650; J1815; J7030

== ENCOUNTER 2019-06-22 16:40 | Inpatient (IN) | payer MEDICARE, OTHER ==
[~2019-06-22] VITALS: Ht 157.5 cm; Wt 116.6 kg
[~2019-06-22 16:40] MED LIST changes: -DONE10TA44 PO; -DUTA1CPM PO; +GLIM1TAB18 PO; -GLIM1TAB2 PO; -MECL12.582 PO; -SPIR25TA6 PO
[2019-06-22 17:13] LABS: BASOPHILS % (AUTO) 0.7 % (0.0-2.0); EOSINOPHILS % (AUTO) 2.7 % (0.0-6.0); HEMATOCRIT 50 % (39-51); LYMPHOCYTES # (AUTO) 1.2 /CMM (0.8-4.8); LYMPHOCYTES % (AUTO) 18.8 % (20.0-44.0); MEAN CORPUSCULAR HGB CONC 32 g/dl (31.0-36.0); MEAN CORPUSCULAR VOLUME 100 fL (80-96); MONOCYTES # (AUTO) 0.6 /CMM (0.1-1.30); MONOCYTES % (AUTO) 9.2 % (2.0-12.0); NEUTROPHILS # (AUTO) 4.5 /CMM (1.8-8.9); NEUTROPHILS % (AUTO) 68.6 % (43.0-81.0); PLATELET COUNT (AUTO) 131 /CMM (150-450); RED BLOOD CELL COUNT(AUTO) 5.01 MIL/uL (4.5-6.0); WHITE BLOOD COUNT (AUTO) 6.6 K/uL (4.3-11.0)
[2019-06-22 17:21] LABS: CALCIUM, SERUM 8.7 mg/dL (8.5-10.1); CARBON DIOXIDE 39 mmol/L (21-32); CHLORIDE 105 mmol/L (98-107); CREATININE 1.3 mg/dL (0.6-1.3); GLUCOSE 153 mg/dL (74-106); POTASSIUM 3.9 mmol/L (3.5-5.1); SODIUM SERUM 147 mmol/L (136-145); UREA NITROGEN, BLOOD 21 mg/dL (7-18)
--- NOTE | 2019-06-22 17:31 | NUR ---
Patient awake alert Bulgarian speaking Khari @ bedside for interpretation patient denies pain @ this time ,patient on monitor
[2019-06-22 17:33] LABS: ALANINE AMINOTRANSFERASE 29 U/L (12-78); ALBUMIN 3.1 g/dL (3.4-5.0); ALKALINE PHOSPHATASE 74 U/L (46-116); ASPARTATE AMINOTRANSFERASE 17 U/L (15-37); B-TYPE NATRIURETIC PEPTIDE 570 PG/ML (0-125); BILIRUBIN,DIRECT 0.1 mg/dL (0.0-0.2); BILIRUBIN,TOTAL 0.4 mg/dL (0.2-1.0); TOTAL PROTEIN, SERUM 6.7 g/dL (6.4-8.2)
[2019-06-22] MEDS ORDERED: FUROSEMIDE 40 MG/4 ML VIAL IV ONE (18:00)
[2019-06-22] MEDS ORDERED: COLC0.6T67 PO (18:01)
[2019-06-22] MEDS ORDERED: ASPI-1169 PO (18:01)
[2019-06-22] MEDS ORDERED: FUROSEMIDE 40 MG/4 ML VIAL ONE (18:01)
[2019-06-22] MEDS ORDERED: LISI10TA5 PO (18:01)
[2019-06-22] MEDS ORDERED: IPRA3AMP23 IH (18:01)
[2019-06-22] MEDS ORDERED: METO-357 PO (18:01)
[2019-06-22] MEDS ORDERED: RIVA10TA PO (18:01)
[2019-06-22] MEDS ORDERED: METH10TA7 PO (18:01)
--- NOTE | 2019-06-22 18:01 | NUR ---
DORMITORY MAID/MED RECON PATIENT UNABLE TO PROVIDE COMPLETE HOME MEDICATION INFORMATION AT THIS TIIME. PER FAMILY/ AT BEDSIDE "I WILL GO HOME AND BRING ALL THE MEDICATION LATER". PRIMARY RN AWARE.
--- NOTE | 2019-06-22 18:45 | NUR ---
Patient awake non distress noted SOb with excertion able to use urinal out 500 ml urine ,urine obtained and send to lab
[2019-06-22] MEDS ORDERED: Z GUARD REMEDY 2 OZ OINT TP PRN (19:00)
[2019-06-22] MEDS ORDERED: HYDROCODONE/APAP 5/325MG 1 EACH TABLET PO PRN (19:00)
[2019-06-22] MEDS ORDERED: ONDANSETRON HCL/PF 4 MG/2 ML VIAL IVP PRN (19:00)
[2019-06-22] MEDS ORDERED: MAGNESIUM HYDROXIDE 30 ML UDC PO PRN (19:00)
[2019-06-22] MEDS ORDERED: ZOLPIDEM TARTRATE 5 MG TABLET PO PRN (19:00)
[2019-06-22] MEDS ORDERED: COLCHICINE 0.6 MG TABLET PO PRN (19:00)
[2019-06-22] MEDS ORDERED: MAG HYDROX/AL HYDROX/SIMETH 30 ML UDC PO PRN (19:00)
[2019-06-22] MEDS ORDERED: Medication Not On Formulary EA (Ipratropium/Albuterol Sulfate (Duoneb 2.5-0.5 Mg/3 Ml So IH PRN (19:00)
--- NOTE | 2019-06-22 19:10 | NUR ---
Transfer care report to Madan DANG
--- NOTE | 2019-06-22 19:40 | NUR ---
report given to jesus at [facility]
[2019-06-22] MEDS ORDERED: IPRATROPIUM NEB FS 0.5 MG/2.5 ML AMPUL.NEB NEB PRN (20:00)
[2019-06-22] MEDS ORDERED: ALBUTEROL FS 2.5 MG/3 ML VIAL.NEB NEB PRN (20:00)
--- NOTE | 2019-06-22 20:35 | NUR ---
RN NOTE PT BROUGHT IN FROM ER VIA GURNEY. PT ON 2L OF O2 VIA NC. NO SOB NOTED. RESPIRATIONS EVEN AND UNLABORED. ALERT AND ORIENTED X 4. MOROCCAN SPEAKING. DENIES PAIN OR DISCOMFORT. AMBULATORY WITH ASSIST. WITH IV ON LEFT HAND 22G. SKIN INTACT. SAFETY MEASURES IMPLEMENTED. CALL LIGHT WITHIN REACH, ALL NEEDS MET AND ATTENDED TO.
--- NOTE | 2019-06-22 20:38 | NUR ---
PT WAS TRANSFERRED TO [facility] UNDER ACLS
[2019-06-22 20:45] VITALS: BP 126/85
[2019-06-23 04:00] VITALS: BP 130/92
[2019-06-23 06:18] LABS: BASOPHILS % (AUTO) 0.6 % (0.0-2.0); EOSINOPHILS % (AUTO) 2.4 % (0.0-6.0); HEMATOCRIT 50 % (39-51); HEMOGLOBIN 16.1 g/dL (13.5-17.5); LYMPHOCYTES # (AUTO) 1.2 /CMM (0.8-4.8); LYMPHOCYTES % (AUTO) 16.5 % (20.0-44.0); MEAN CORPUSCULAR HGB CONC 32 g/dl (31.0-36.0); MEAN CORPUSCULAR VOLUME 99 fL (80-96); MONOCYTES # (AUTO) 0.6 /CMM (0.1-1.30); MONOCYTES % (AUTO) 7.8 % (2.0-12.0); NEUTROPHILS # (AUTO) 5.2 /CMM (1.8-8.9); NEUTROPHILS % (AUTO) 72.7 % (43.0-81.0); PLATELET COUNT (AUTO) 127 /CMM (150-450); RED BLOOD CELL COUNT(AUTO) 5.02 MIL/uL (4.5-6.0); WHITE BLOOD COUNT (AUTO) 7.1 K/uL (4.3-11.0)
[2019-06-23 06:37] LABS: CALCIUM, SERUM 8.7 mg/dL (8.5-10.1); CREATININE 1.2 mg/dL (0.6-1.3); MAGNESIUM 1.7 mg/dL (1.8-2.4); PHOSPHORUS 3.8 mg/dL (2.5-4.9)
--- NOTE | 2019-06-23 07:18 | NUR ---
MS RN OPENING NOTE RECEIVED REPORT FROM NOC SHIFT NURSE. PT ASLEEP IN BED, ON 02 VIA NC 4L/MIN, SATURATING WELL, RESPIRATIONS EVEN AND UNLABORED, NO SIGNS OF RESPIRATORY DISTRESS NOTED. IV SITE ON LEFT HAND G20 INTACT, PATENT, WITH HEP LOCK IN PLACE. BED IN LOW POSITION, LOCKED, CALL LIGHT WITHIN REACH.
--- NOTE | 2019-06-23 07:33 | NUR ---
RN CLOSING NOTE ENDORSED TO MORNING NURSE. PT ASLEEP IN BED BUT EASILY AROUSABLE, ON 02 VIA NC 4L/MIN, SATURATING WELL, RESPIRATIONS EVEN AND UNLABORED, NO SOB NOTED. NO SIGNS OF PAIN OR DISCOMFORT. IV SITE ON LEFT HAND G20 INTACT, PATENT, WITH SALINE LOCK IN PLACE. BED IN LOW POSITION, LOCKED, BED ALARM ON. CALL LIGHT WITHIN REACH.
[2019-06-23 08:00] VITALS: BP 124/72
[2019-06-23] MEDS ORDERED: METHIMAZOLE 10 MG TABLET PO SCH (09:00)
[2019-06-23] MEDS ORDERED: FUROSEMIDE 40 MG/4 ML VIAL IV SCH (09:00)
[2019-06-23] MEDS: ASPIRIN 81 MG TAB.CHEW PO SCH (09:04)
[2019-06-23] MEDS: Magnesium 1GM/D5W 100ML PREMIX 100 ML IV SCH ×2 (09:04→10:02)
[2019-06-23] MEDS: METHIMAZOLE (5MG) 5 MG TABLET PO SCH (09:04)
[2019-06-23] MEDS: METOPROLOL SUCCINATE 50 MG TAB.SR.24H PO SCH (09:05)
[2019-06-23] MEDS: LISINOPRIL (10MG) 10 MG TABLET PO SCH (09:05)
[2019-06-23] MEDS: RIVAROXABAN 10 MG TABLET PO SCH (09:09)
[2019-06-23] MEDS ORDERED: EZET10TA16 PO (12:22)
[2019-06-23] MEDS ORDERED: FURO-144 PO (12:22)
[2019-06-23] MEDS ORDERED: TAMS-12 PO (12:22)
[2019-06-23] MEDS ORDERED: UBID200C32 PO (12:22)
[2019-06-23] MEDS ORDERED: BISA-79 PO (12:22)
[2019-06-23] MEDS ORDERED: ROSU20TA32 PO (12:22)
[2019-06-23 16:00] VITALS: BP 103/67
[2019-06-23] MEDS: FUROSEMIDE 40 MG/4 ML VIAL IV SCH (16:20)
--- NOTE | 2019-06-23 18:30 | NUR ---
MS RN CLOSING NOTE PT AWAKE IN BED, ALERT AND ORIENTED X 4, ON 02 VIA NC 4L/MIN, SATURATING WELL, RESPIRATIONS EVEN AND UNLABORED, NO SIGNS OF RESPIRATORY DISTRESS NOTED. IV SITE ON LEFT HAND G20 INTACT, PATENT, WITH HEP LOCK IN PLACE. BED IN LOW POSITION, LOCKED, CALL LIGHT WITHIN REACH. PROVIDED SAFETY AND COMFORT TO PT THROUGHOUT SHIFT. ALL DUE MEDS GIVEN. WILL ENDORSE TO NOC SHIFT NURSE.
--- NOTE | 2019-06-23 19:25 | NUR ---
RN OPENING NOTES PATIENT RECEIVED FROM ALTON TRIVEDI. PATIENT IS CURRENTLY IN BED, AWAKE. A/O X 4. PATIENT ABLE TO VERBALIZE NEEDS. SINHALA SPEAKING. NO SIGNS OF RESPIRATORY DISTRESS, NO SHORTNESS OF BREATH NOTED. RESPIRATIONS EVEN AND UNLABORED. NO COMPLAINTS OF PAIN OR DISCOMFORT AT THIS TIME. IV SITE LEFT HAND G20 INTACT, PATENT, NO SIGNS OF INFECTION/INFILTRATION. SAFETY PRECAUTIONS IMPLEMENTED; CALL LIGHT WITHIN REACH, BED LOW, BED LOCKED, BILATERAL UPPER SIDE RAILS UP. WILL CONTINUE TO MONITOR.
[2019-06-23 20:00] VITALS: BP 101/65
[2019-06-24 04:00] VITALS: BP_SYST 100; BP_SYST 119; BP_DIAS 60; BP_DIAS 71
[2019-06-24] MEDS: ACETAMINOPHEN 325 MG TABLET PO PRN (05:28)
--- NOTE | 2019-06-24 06:05 | NUR ---
RN CLOSING NOTES PATIENT A/O X 4. ASLEEP IN BED, EASILY AWAKENED. PATIENT CROATIAN SPEAKING. NO SIGNS OF RESPIRATORY DISTRESS. NO SHORTNESS OF BREATH NOTED. RESPIRATIONS EVEN AND UNLABORED. NO SIGNS OF FACIAL GRIMACING INDICATING PAIN OR DISCOMFORT AT THIS TIME. IV SITE LEFT HAND G20 INTACT, PATENT, SL, NO SIGNS OF INFECTION/INFILTRATION. PATIENT KEPT CLEAN DRY AND COMFORTABLE. ALL NEEDS MET ON SHIFT. SAFETY PRECAUTIONS IMPLEMENTED; CALL LIGHT WITHIN REACH, BED LOW, BED LOCKED, BILATERAL UPPER SIDE RAILS UP. WILL ENDORSE TO DAY SHIFT NURSE FOR CONTINUITY OF CARE.
[2019-06-24 06:19] LABS: BASOPHILS % (AUTO) 0.4 % (0.0-2.0); EOSINOPHILS % (AUTO) 3.2 % (0.0-6.0); HEMATOCRIT 48 % (39-51); HEMOGLOBIN 15.5 g/dL (13.5-17.5); LYMPHOCYTES # (AUTO) 1.3 /CMM (0.8-4.8); LYMPHOCYTES % (AUTO) 17.6 % (20.0-44.0); MEAN CORPUSCULAR HGB CONC 32 g/dl (31.0-36.0); MEAN CORPUSCULAR VOLUME 99 fL (80-96); MONOCYTES # (AUTO) 0.7 /CMM (0.1-1.30); MONOCYTES % (AUTO) 9.2 % (2.0-12.0); NEUTROPHILS # (AUTO) 5.3 /CMM (1.8-8.9); NEUTROPHILS % (AUTO) 69.6 % (43.0-81.0); PLATELET COUNT (AUTO) 126 /CMM (150-450); RED BLOOD CELL COUNT(AUTO) 4.87 MIL/uL (4.5-6.0); WHITE BLOOD COUNT (AUTO) 7.6 K/uL (4.3-11.0)
[2019-06-24 06:30] LABS: CREATININE 1.2 mg/dL (0.6-1.3); MAGNESIUM 1.9 mg/dL (1.8-2.4); POTASSIUM 3.9 mmol/L (3.5-5.1)
--- NOTE | 2019-06-24 07:46 | NUR ---
RN OPENING NOTES RECEIVED PATIENT SLEEPING IN BED COMFORTABLY, EASILY AROUSED. HE IS AOX3, VERBAL, AND AMBULATORY WITH ASSIST. HE IS ON 4L OF OXYGEN VIA NC, TOLERATING WELL, NO S/SX OF RESP DISTRESS OR SOB. SKIN IS INTACT. LUNGS SOUND DIMINISHED UPON AUSCULTATION. HE IS ON CARDIAC DIET, TOLERATING WELL. LHAND 20G SL IS PATENT AND INTACT. SAFETY MEASURES HAVE BEEN IMPLEMENTED, CALL LIGHT IS WITHIN REACH, SIDE RAILS UP X2, BED IS IN LOWEST AND LOCKED POSITION, WILL CONTINUE TO MONITOR FOR ANY CHANGES.
[2019-06-24 08:00] VITALS: BP 114/65
[2019-06-24] MEDS: FUROSEMIDE 40 MG/4 ML VIAL IV SCH ×2 (08:50→16:24)
[2019-06-24] MEDS: LISINOPRIL (10MG) 10 MG TABLET PO SCH (08:50)
[2019-06-24] MEDS: METHIMAZOLE (5MG) 5 MG TABLET PO SCH (08:50)
[2019-06-24] MEDS: RIVAROXABAN 10 MG TABLET PO SCH (08:51)
[2019-06-24] MEDS: ASPIRIN 81 MG TAB.CHEW PO SCH (08:51)
[2019-06-24] MEDS: METOPROLOL SUCCINATE 50 MG TAB.SR.24H PO SCH (08:52)
[2019-06-24 16:00] VITALS: BP 115/69
--- NOTE | 2019-06-24 19:15 | NUR ---
RN PM OPENING NOTES BEDSIDE REPORT RECIEVED FROM BRE DANG. PATIENT SITTING AT SIDE OF BED AT THIS TIME, DENIES PAIN OR DISCOMFORT. PT ON 4L OF O2 VIA NC, CHEST RISES AND FALLS EVENLY IN NO APPARENT DISTRESS. PT AXO 4 GHANAIAN SAFETY MEASURES HAVE BEEN IMPLEMENTED, CALL LIGHT IS WITHIN REACH, BED IS IN LOWEST AND LOCKED POSITION, SIDE RAILS UP X2. WILL CONT TO MONITOR
--- NOTE | 2019-06-24 19:25 | NUR ---
RN CLOSING NOTES PATIENT IS RESTING COMFORTABLY IN BED AT THIS TIME, DENIES ANY PAIN OR DISCOMFORT. PT ON 4L OF O2 VIA NC, CHEST RISES AND FALLS EVENLY. PT NEEDS HAVE BEEN MET, VITAL SIGNS ARE STABLE, NO ACUTE CHANGES OCCURRED THROUGHOUT THE SHIFT. SAFETY MEASURES HAVE BEEN IMPLEMENTED, CALL LIGHT IS WITHIN REACH, BED IS IN LOWEST AND LOCKED POSITION, SIDE RAILS UP X2, PT HAS BEEN ENDORSED TO NIGHTSHIFT RN FOR CONTINUITY OF CARE.
[2019-06-24 20:00] VITALS: BP 106/62
--- NOTE | 2019-06-24 20:19 | NUR ---
PT HAD HOME MEDS AT THE BED SIDE PT FOUND TO HAVE HIS HOME MEDS AT THE BEDSIDE. SEEN TAKING PILLS OUT OF THE BOTTLES. MEDICATION CONFISCATED. PT INQUIRED TO WHAT HE WAS DOING. STATES HE WANTED TO SHOW THE DOCTOR WHAT MEDICATIONS HE WAS TAKING AT HOME. PT DID NOT THINK MD NEW WHAT MEDICINE HE WAS TAKING AT HOME. MEDICATION REVIEWED AND MED REC TO BE UPDATED IF ANY DIFFERENCES ARE NOTED BETWEEN BOTTLES AND MEDICATIONS.
[2019-06-24 23:36] VITALS: BP 108/54
[2019-06-25] VITALS: BP 100/51
[2019-06-25 05:47] LABS: CALCIUM, SERUM 8.9 mg/dL (8.5-10.1); CHLORIDE 100 mmol/L (98-107); CREATININE 1.4 mg/dL (0.6-1.3); GLUCOSE 150 mg/dL (74-106); POTASSIUM 3.8 mmol/L (3.5-5.1); SODIUM SERUM 146 mmol/L (136-145); UREA NITROGEN, BLOOD 24 mg/dL (7-18)
[2019-06-25 06:15] LABS: BASOPHILS % (AUTO) 0.5 % (0.0-2.0); EOSINOPHILS % (AUTO) 3.2 % (0.0-6.0); HEMATOCRIT 50 % (39-51); HEMOGLOBIN 15.9 g/dL (13.5-17.5); LYMPHOCYTES # (AUTO) 1.7 /CMM (0.8-4.8); LYMPHOCYTES % (AUTO) 21.4 % (20.0-44.0); MEAN CORPUSCULAR HGB CONC 32 g/dl (31.0-36.0); MEAN CORPUSCULAR VOLUME 99 fL (80-96); MONOCYTES # (AUTO) 0.7 /CMM (0.1-1.30); MONOCYTES % (AUTO) 9.1 % (2.0-12.0); NEUTROPHILS # (AUTO) 5.3 /CMM (1.8-8.9); NEUTROPHILS % (AUTO) 65.8 % (43.0-81.0); PLATELET COUNT (AUTO) 135 /CMM (150-450); RED BLOOD CELL COUNT(AUTO) 5.03 MIL/uL (4.5-6.0)
[2019-06-25 06:30] LABS: CARBON DIOXIDE 43 mmol/L (21-32)
--- NOTE | 2019-06-25 06:42 | NUR ---
0642 FLAKO RALPH NOTIFIED OF CRITICAL CO2 43. AWAITING CALL BACK.
--- NOTE | 2019-06-25 06:55 | NUR ---
0626 FLAKO RALPH CALLED BACK WITH ORDER TO TITRATE O2 DOWN. ORDER NOTED AND CARRIED OUT.
--- NOTE | 2019-06-25 07:00 | NUR ---
RN CLOSING NOTES PATIENT IS RESTING COMFORTABLY IN BED AT THIS TIME, DENIES ANY PAIN OR DISCOMFORT. PT ON 3L OF O2 VIA NC, CHEST RISES AND FALLS EVENLY PT HAD CO2 AT CRITICAL HIGH SO ORDERS ARE TO BEGIN WEANING PATIENT. PATIENT INITALLY TURNED DOWN TO 2LNC BUT APPEARED TO BE SOB SO READJUSTED TO 3LNC. NOW PT IS BREATHING EVEN AND UNLABORED WITH SPO2 OF 95%. . VITAL SIGNS ARE STABLE, PT CONCERNED WITH BLOODY STOOL THAT OCCURED EARLY THIS AM. PT REPORTS HE HAD A LARGE BM AND REPORTS THAT THERE WAS BLOOD . SAFETY MEASURES HAVE BEEN IMPLEMENTED, CALL LIGHT IS WITHIN REACH, BED IS IN LOWEST AND LOCKED POSITION, SIDE RAILS UP X2, PT HAS BEEN ENDORSED TO NIGHTSHIFT RN FOR CONTINUITY OF CARE.
[2019-06-25 08:00] VITALS: BP 130/83
--- NOTE | 2019-06-25 08:57 | NUR ---
WOUND CARE CONSULT: PT PRESENTS AMBULATORY AND CONTINENT WITH SCAB TO POSTERIOR SCALP. DIFFICULT TO COMMUNICATE WITH PT EVEN WITH PRUDENCIO MCDANIELS. DEFER TO MD. SPOKE WITH RN AND MEDICAL DIRECTOR REGARDING SCAB/LESION. WILL SEE PRN. Addendum: 06/25/19 at 1105 by ZARA HARRIS WNDNU SPOKE WITH MERLYN BENNETT DNP REGARDING SCALP SCAB. HE STATED WILL LOOK INTO IT.
[2019-06-25] MEDS: RIVAROXABAN 10 MG TABLET PO SCH (09:00)
[2019-06-25] MEDS: LISINOPRIL (10MG) 10 MG TABLET PO SCH (09:00)
[2019-06-25] MEDS: FUROSEMIDE 40 MG TABLET PO SCH ×2 (09:32→17:53)
[2019-06-25] MEDS: ASPIRIN 81 MG TAB.CHEW PO SCH (09:32)
[2019-06-25] MEDS: METOPROLOL SUCCINATE 50 MG TAB.SR.24H PO SCH (09:32)
[2019-06-25] MEDS: METHIMAZOLE (5MG) 5 MG TABLET PO SCH (09:33)
[2019-06-25 16:00] VITALS: BP 126/69
[2019-06-25 16:46] VITALS: BP 130/76
--- NOTE | 2019-06-25 17:30 | NUR ---
RN NOTES RECEIVED PATIENT MID SHIFT TO CONTINUE MONITORING. PT IN STABLE CONDITION. MOVED TO [facility] DUE TO PCO2 BEING ELEVATED IN THE 90S. WILL CONTINUE TO MONITOR CLOSELY FOR ANY CHANGE IN CONDITION. SAFETY MAINTAINED. CALL LIGHT WITHIN REACH. WILL CONTINUE TO MONITOR .
[2019-06-25 17:35] LABS: ABG BASE EXCESS 13.7 mmol/L; ABG OXYGEN SATURATION 92.4 % (92.0-98.5); ABG PCO2 96.3 mmHg (35.0-45.0); ABG PH 7.296 (7.350-7.450); ABG PO2 66.5 mmHg (75.0-100.0); AaDO2 78.5 mmHg; COHb 1.2 % (0.5-1.5); MetHb 0.3 % (0.0-1.5); SITE, ABG Right Radial; VENT MODE, BG 4L N/C
--- NOTE | 2019-06-25 19:15 | NUR ---
[facility] RN OPENING NOTE RECEIVED PATIENT SITTING UP IN BED,WATCHING TV. A&O X 4. ON 3L O2 VIA NC. BREATHING IS EVEN AND NON LABORED. NO SOB NOTED AT THIS TIME. IN NO APPARENT DISTRESS NOTED AT THIS TIME. BED LOWERED AND LOCKED FOR SAFETY. CALL LIGHT IS WITHIN EASY REACH. WILL CONTINUE TO MONITOR.
--- NOTE | 2019-06-25 19:31 | NUR ---
RN CLOSING NOTES NO ACUTE CHANGES TO PATIENT CONDITION DURING MY SHIFT. PATIENT IN STABLE CONDITION. ALL NEEDS MET. ENDORSED PATIENT TO TRANSFER OPERATOR NURSE TO CONTINUE CARE. SAFETY MAINTAINED. CALL LIGHT WITHIN REACH. PM NURSE WILL CONTINUE CARE.
[2019-06-25] MEDS: IPRATROPIUM NEB FS 0.5 MG/2.5 ML AMPUL.NEB NEB SCH (19:46)
[2019-06-25] MEDS: ALBUTEROL FS 2.5 MG/3 ML VIAL.NEB NEB SCH (19:46)
[2019-06-25 20:00] VITALS: BP 105/63
[2019-06-26] VITALS (17 sets, daily range): BP systolic 87–135; BP diastolic 49–77
[2019-06-26] MEDS: ALBUTEROL FS 2.5 MG/3 ML VIAL.NEB NEB SCH ×4 (01:38→19:38)
[2019-06-26] MEDS: IPRATROPIUM NEB FS 0.5 MG/2.5 ML AMPUL.NEB NEB SCH ×4 (01:38→19:38)
--- NOTE | 2019-06-26 05:16 | NUR ---
RN NOTES COMPLAINED OF FEELING NAUSEOUS- ZOFRAN 4MG IV GIVEN ORDERED
[2019-06-26 06:28] LABS: BASOPHILS % (AUTO) 0.5 % (0.0-2.0); EOSINOPHILS % (AUTO) 3.4 % (0.0-6.0); HEMATOCRIT 48 % (39-51); HEMOGLOBIN 15.7 g/dL (13.5-17.5); LYMPHOCYTES # (AUTO) 1.5 /CMM (0.8-4.8); LYMPHOCYTES % (AUTO) 23.1 % (20.0-44.0); MEAN CORPUSCULAR HGB CONC 33 g/dl (31.0-36.0); MEAN CORPUSCULAR VOLUME 99 fL (80-96); MONOCYTES # (AUTO) 0.7 /CMM (0.1-1.30); MONOCYTES % (AUTO) 10.1 % (2.0-12.0); NEUTROPHILS # (AUTO) 4.2 /CMM (1.8-8.9); NEUTROPHILS % (AUTO) 62.9 % (43.0-81.0); PLATELET COUNT (AUTO) 127 /CMM (150-450); RED BLOOD CELL COUNT(AUTO) 4.88 MIL/uL (4.5-6.0); WHITE BLOOD COUNT (AUTO) 6.7 K/uL (4.3-11.0)
--- NOTE | 2019-06-26 06:36 | NUR ---
[facility] RN CLOSING NOTE PATIENT IS IN BED RESTING WITH HOB ELEVATED. BREATHING IS EVEN AND NON LABORED. NO SOB NOTED AT THIS TIME. ON O2 3L VIA NC, TOLERATED WELL. PATIENT IS A&O X4. RESPONSIVE TO NAME AND LIGHT TOUCH. AMBULATORY TO BATHROOM WITH MINIMAL ASSISTANCE. PATIENT IS KEPT CLEAN, DRY, AND COMFORTABLE. CALL LIGHT IS WITHIN EASY REACH. WILL ENDORSE TO AM SHIFT RN.
[2019-06-26 06:58] LABS: ALBUMIN 3.2 g/dL (3.4-5.0); BILIRUBIN,TOTAL 0.5 mg/dL (0.2-1.0); CREATININE 1.1 mg/dL (0.6-1.3); MAGNESIUM 1.8 mg/dL (1.8-2.4); POTASSIUM 3.9 mmol/L (3.5-5.1); TOTAL PROTEIN, SERUM 6.7 g/dL (6.4-8.2)
--- NOTE | 2019-06-26 07:08 | NUR ---
[facility] RN OPENING NOTE RECEIVED REPORT FROM NOC SHIFT NURSE. PT ASLEEP IN BED,ON 02 VIA NC 3L/MIN, SATURATING WELL, RESPIRATIONS EVEN AND UNLABORED, NO SIGNS OF RESPIRATORY DISTRESS NOTED. IV SITE ON LEFT HAND G20 INTACT, PATENT, WITH HEP LOCK IN PLACE. ON TELE MONITOR SINUS RHYTHM, SINUS TACH WITH PVC. BED IN LOW POSITION, LOCKED, CALL LIGHT WITHIN REACH.
--- NOTE | 2019-06-26 07:16 | NUR ---
RECEIVED PHONE CALL FROM LAB WITH CRITICAL RESULT OF [id number] SPOKE WITH NAYELY
[2019-06-26] MEDS: METHIMAZOLE (5MG) 5 MG TABLET PO SCH ×2 (08:23→08:34)
[2019-06-26] MEDS: RIVAROXABAN 10 MG TABLET PO SCH ×2 (08:25→08:34)
[2019-06-26] MEDS: ASPIRIN 81 MG TAB.CHEW PO SCH ×2 (08:25→08:34)
[2019-06-26] MEDS: METOPROLOL SUCCINATE 50 MG TAB.SR.24H PO SCH ×2 (08:25→08:34)
[2019-06-26] MEDS: FUROSEMIDE 40 MG TABLET PO SCH ×3 (08:25→17:00)
[2019-06-26] MEDS: LISINOPRIL (10MG) 10 MG TABLET PO SCH ×2 (08:25→08:34)
--- NOTE | 2019-06-26 08:35 | NUR ---
PT AWAKE IN BED, ALERT AND ORIENTED TO NAME AND PLACE ONLY, CONFUSED ABOUT TIME- STATES THE YEAR IS 1968. PT REFUSES TO TAKE HIS MEDICATION.
--- NOTE | 2019-06-26 08:41 | NUR ---
CALLED [facility] TO [address] BENNETT. WAITING FOR CALL BACK
--- NOTE | 2019-06-26 08:49 | NUR ---
NOTIFIED DR. ROY OF PT'S MENTAL STATUS CHANGE AND OF ABG pCO2 LEVEL 96.3 FROM 06/25/19. DR. ALLEN ORDERED STAT ABG.
[2019-06-26 09:35] LABS: ABG BASE EXCESS 17.6 mmol/L; ABG OXYGEN SATURATION 86.7 % (92.0-98.5); ABG PCO2 121.3 mmHg (35.0-45.0); ABG PH 7.254 (7.350-7.450); ABG PO2 54.6 mmHg (75.0-100.0); AaDO2 9.3 mmHg; COHb 1.2 % (0.5-1.5); MetHb 0.8 % (0.0-1.5); SITE, ABG Left Radial
--- NOTE | 2019-06-26 09:35 | NUR ---
RECEIVED CALL FROM DR. ROY WITH ORDERS TO TRANSFER PT TO ICU, PLACE PT ON BIPAP 25 OVER 8, WITH BACKUP RESPIRATORY 16. REPEAT ABG IN 2 HOURS.
--- NOTE | 2019-06-26 10:15 | NUR ---
TRANSFERRED PT TO ICU VIA ACLS PROTOCOL, GAVE REPORT TO MIGDALIA DANG FOR WENDY
--- NOTE | 2019-06-26 10:16 | NUR ---
AUTOMOTIVE LIGHT MECHANIC Receiving Received patient from [facility]. Placed on BiPAP per MD orders. No distress noted. Vitals stable. Attached to bedside monitor.Will continue to monitor
--- NOTE | 2019-06-26 12:00 | NUR ---
PROJECT ENG Note requesting BiPAP to be removed so patient can drink water and eat lunch. Removed, placed patient on 2L O2 via NC, no SOB or distress, SPO2 90-92%. assisting in translation - patient is now alert and oriented x4.
[2019-06-26 15:26] LABS: ABG BASE EXCESS 14.3 mmol/L; ABG OXYGEN SATURATION 94.7 % (92.0-98.5); ABG PCO2 96.7 mmHg (35.0-45.0); ABG PH 7.298 (7.350-7.450); ABG PO2 77.2 mmHg (75.0-100.0); AaDO2 96.8 mmHg; COHb 1.4 % (0.5-1.5); MetHb 0.4 % (0.0-1.5); PEEP,BG 8 cm H2O; SITE, ABG Left Radial
--- NOTE | 2019-06-26 19:19 | NUR ---
ENVIRONMENTAL CONSERVATION PROFESSOR Closing Bedside report given to ALTON Wright. Patient's family members came to visit for dinner - patient ate and conversed - remains A/Ox4 at this time. On BiPAP, SPO2 92%, no SOB or signs of respiratory distress noted. Commode at bedside, bed alarm on, call light within reach, endorsed F/U ABG in am
[2019-06-27] VITALS (33 sets, daily range): BP systolic 91–133; BP diastolic 29–87
[2019-06-27] MEDS: ALBUTEROL FS 2.5 MG/3 ML VIAL.NEB NEB SCH ×4 (01:26→19:32)
[2019-06-27] MEDS: IPRATROPIUM NEB FS 0.5 MG/2.5 ML AMPUL.NEB NEB SCH ×4 (01:27→19:32)
[2019-06-27 05:13] LABS: BASOPHILS % (AUTO) 0.5 % (0.0-2.0); HEMATOCRIT 47 % (39-51); HEMOGLOBIN 15.1 g/dL (13.5-17.5); LYMPHOCYTES # (AUTO) 1.3 /CMM (0.8-4.8); LYMPHOCYTES % (AUTO) 18.2 % (20.0-44.0); MEAN CORPUSCULAR HGB CONC 32 g/dl (31.0-36.0); MEAN CORPUSCULAR VOLUME 99 fL (80-96); MONOCYTES # (AUTO) 0.6 /CMM (0.1-1.30); MONOCYTES % (AUTO) 8.9 % (2.0-12.0); NEUTROPHILS % (AUTO) 69.4 % (43.0-81.0); PLATELET COUNT (AUTO) 122 /CMM (150-450); RED BLOOD CELL COUNT(AUTO) 4.78 MIL/uL (4.5-6.0); WHITE BLOOD COUNT (AUTO) 7.3 K/uL (4.3-11.0)
[2019-06-27 05:25] LABS: CREATININE 1.2 mg/dL (0.6-1.3); MAGNESIUM 1.8 mg/dL (1.8-2.4); PHOSPHORUS 3.4 mg/dL (2.5-4.9)
--- NOTE | 2019-06-27 05:57 | NUR ---
RN NOTES RECEIVED PATIENT COMFORTABLY RESTING IN BED WITH NO DISTRESS NOTED. BREATHING EVEN AND UNLABORED. NO COMPLAINT OF PAIN OR DISCOMFORT . PATIENT ON BIPAP TOLERATING WELL. KEPT CLEAN AND DRY. ALERT AND ORIENTED, VERBALLY ABLE TO COMMUNICATE NEEDS (SLOVAK SPEAKING) MUMTAZ FROM LAB CALLED AT 0600 INFORMING OF CRITICAL LAB FOR CO2 IS 49, FROM 42 CALLED MALENA DIE DESIGNER APPRENTICE, WAITING FOR RESPONSE BACK.. WILL ENDORSE TO NEXT SHIFT FOR CONTINUITY OF CARE
--- NOTE | 2019-06-27 07:40 | NUR ---
APPLE CHECKER: pt is A/Ox2, rest, no pain, no SOB, no laboring, on Bipap, 40% FiO2, O2sat WNL, CO2 49, MD news correspondent was called(see night nurse note), RT is in room/updated, SR with trigeminy, SBP is over 100, voids, ABG on 06/26 pH 7.29/96/77/46, I/O negative last 2 days
[2019-06-27] MEDS: ASPIRIN 81 MG TAB.CHEW PO SCH (08:27)
[2019-06-27] MEDS: METHIMAZOLE (5MG) 5 MG TABLET PO SCH (08:27)
[2019-06-27] MEDS: FUROSEMIDE 40 MG TABLET PO SCH ×2 (08:27→16:17)
[2019-06-27] MEDS: LISINOPRIL (10MG) 10 MG TABLET PO SCH (08:28)
[2019-06-27] MEDS: METOPROLOL SUCCINATE 50 MG TAB.SR.24H PO SCH (08:28)
[2019-06-27] MEDS: RIVAROXABAN 10 MG TABLET PO SCH (08:29)
[2019-06-27 09:11] LABS: ABG BASE EXCESS 14.1 mmol/L; ABG OXYGEN SATURATION 92.3 % (92.0-98.5); ABG PCO2 81.2 mmHg (35.0-45.0); ABG PH 7.355 (7.350-7.450); ABG PO2 63.2 mmHg (75.0-100.0); AaDO2 128.6 mmHg; COHb 1.1 % (0.5-1.5); MetHb 0.4 % (0.0-1.5); O2Hb 90.9 % (94.0-97.0); SITE, ABG Right Radial; VENT MODE, BG ST 25/8 40%
[2019-06-27 10:07] LABS: PTH, INTACT 90 pg/mL (15-65)
--- NOTE | 2019-06-27 11:00 | NUR ---
TAXI DANCER: is in room, updated with pt.current condition, VS, Trigeminy, ABG, still on Bipap, I/O, meds, low BP episodes
--- NOTE | 2019-06-27 11:15 | NUR ---
RT NOTE PT PLACED ON NC @ 4L PER PELEG ORDER. SPO2 CURRENTLY 91% HR 99. RN NOTIFIED. NO DISTRESS NOTED AT MOMENT. BIPAP STANDBY. Addendum: 06/27/19 at 1116 by MADDIE WILLIAM RT Amended: Links added.
--- NOTE | 2019-06-27 11:16 | NUR ---
JOURNALISM PROFESSOR: got ABG, pH 7.35, pCO2 81, pO2 63, bicarb 44, ordered: place pt on n/c, titrate O2 88-90%, ABG in 2 hrs, RT notified
--- NOTE | 2019-06-27 11:50 | NUR ---
CABLE TELEVISION INSTALLER: pt.removed n/c, was instructed to be cooperative and re Dx, POC, meds, orders, ABG, risks, O2sat 89-90%, no SOB
[2019-06-27] MEDS ORDERED: Magnesium 1GM/D5W 100ML PREMIX 100 ML IV ONE (12:00)
--- NOTE | 2019-06-27 12:27 | NUR ---
OBIEE ARCHITECT: pt is tolerated well on N/c 4L, O2 sat. 90-93%, no SOB, SR, voids, pt. updated with pt.condition, vs, POC, ABG in 30 mins
[2019-06-27 13:16] LABS: ABG BASE EXCESS 15.8 mmol/L; ABG OXYGEN SATURATION 93.1 % (92.0-98.5); ABG PCO2 75.7 mmHg (35.0-45.0); ABG PH 7.395 (7.350-7.450); ABG PO2 64.4 mmHg (75.0-100.0); AaDO2 133.7 mmHg; COHb 1.2 % (0.5-1.5); MetHb 0.6 % (0.0-1.5); O2Hb 91.4 % (94.0-97.0); SITE, ABG Right Radial; VENT MODE, BG NC 4L
--- NOTE | 2019-06-27 13:47 | NUR ---
FINISHER HOT STRIP: updated with ABG pH7.39/75/64/45 : continue monitoring, nocturnal Bipap
[2019-06-27 15:06] LABS: *SPE A/G RATIO 1.3 (0.7-1.7); *SPE ALBUMIN 3.7 g/dL (2.9-4.4); *SPE ALPHA-1-GLOBULIN 0.2 g/dL (0.0-0.4); *SPE ALPHA-2-GLOBULIN 0.6 g/dL (0.4-1.0); *SPE BETA GLOBULIN 1.1 g/dL (0.7-1.3); *SPE GLOBULIN, TOTAL 2.8 g/dL (2.2-3.9); *SPE M-SPIKE Not Observed g/dL (Not Observed); *SPEGAMMA GLOBULIN 0.8 g/dL (0.4-1.8)
--- NOTE | 2019-06-27 15:49 | NUR ---
CHICKEN HANDLER: changed Bipap setting I/E 04/04, notified RT
--- NOTE | 2019-06-27 16:52 | NUR ---
HOSPITAL NURSING ASSISTANT: pt.is tolerated well for N/C 4 L, O2sat, 90-92%, no SOB, SR/ST max 110, SBP over 90 below 150, less PVC episodes, no pain, no c/o, ok feeling with sit position, reoriented again for fall prevention measures, POC, Dx, orders
--- NOTE | 2019-06-27 19:49 | NUR ---
RN NOTES RECEIVED PATIENT AWAKE ALERT ORIENTED X 4, SMILING, SITTING AND EATING ON THE BED ESTONIAN SPEAKING. DENIES PAIN OR CHEST PAIN NO SOB OR ACUTE RESPIRATORY DISTRESS. AFEBRILE. SATURATION 92%. EMMANUEL. UPPER LOBE IS CLEAR LOWER LOBE DIMINISHED. TELE MONITOR REVEALS ST 101. USED URINAL AT BEDSIDE. IV SITE ON LEFT HAND G 20 INTACT AND PATENT. KEPT PT CLEAN AND DRY. REMINDED TO USE CALL LIGHT FOR ASSISTANCE AND DEMONSTRATED WELL. WILL CLOSELY MONITOR.
--- NOTE | 2019-06-27 23:40 | NUR ---
RN NOTES BIPAP PLACED BY RT RATE 04/04
[2019-06-28] VITALS (20 sets, daily range): BP systolic 84–149; BP diastolic 48–84
--- NOTE | 2019-06-28 | NUR ---
RN NOTE PATIENT IV SITE INFILTRATED PATIENT ALWAYS MOVING. NOTED PATIENT HAS NO IV MEDICINE OF NOW. WILL TRY IN TO PLACED AN IV SPOKE TO FAMILY AND EXPLAINED TO PATIENT VIA PHONE PATIENT AGREED TO DO IT IN THE MORNING.
[2019-06-28] MEDS: IPRATROPIUM NEB FS 0.5 MG/2.5 ML AMPUL.NEB NEB SCH ×4 (01:26→19:53)
[2019-06-28] MEDS: ALBUTEROL FS 2.5 MG/3 ML VIAL.NEB NEB SCH ×4 (01:27→19:53)
[2019-06-28 05:13] LABS: BASOPHILS % (AUTO) 0.5 % (0.0-2.0); EOSINOPHILS % (AUTO) 3.1 % (0.0-6.0); HEMATOCRIT 46 % (39-51); HEMOGLOBIN 15.2 g/dL (13.5-17.5); LYMPHOCYTES # (AUTO) 1.1 /CMM (0.8-4.8); LYMPHOCYTES % (AUTO) 14.6 % (20.0-44.0); MEAN CORPUSCULAR HGB CONC 33 g/dl (31.0-36.0); MEAN CORPUSCULAR VOLUME 98 fL (80-96); MONOCYTES # (AUTO) 0.7 /CMM (0.1-1.30); MONOCYTES % (AUTO) 9.3 % (2.0-12.0); NEUTROPHILS # (AUTO) 5.4 /CMM (1.8-8.9); NEUTROPHILS % (AUTO) 72.5 % (43.0-81.0); PLATELET COUNT (AUTO) 116 /CMM (150-450); RED BLOOD CELL COUNT(AUTO) 4.74 MIL/uL (4.5-6.0); WHITE BLOOD COUNT (AUTO) 7.4 K/uL (4.3-11.0)
[2019-06-28 05:32] LABS: POTASSIUM 3.5 mmol/L (3.5-5.1)
--- NOTE | 2019-06-28 06:50 | NUR ---
RN NOTES PATIENT REMAINED STABLE NO SIGNIFICANT CHANGES THROUGHOUT THE SHIFT. AFEBRILE. VSS. SATURATION KEPT >92%. O2 4LPM VIA NC AND BIPAP TOLERATED WELL. TELE MONITOR REVEALS SR/ST WITH OCCASIONAL BIGEMINY AND TRIGEMINY. DENIES CHEST PAIN. SLEPT WELL. ASSISTED TO COMMODE FOR BOWEL. USE URINAL FOR BLADDER BED BATH DONE AND TOLERATED WELL. KEPT PT CLEAN AND DRY. WILL ENDORSED CONTINUITY OF CARE TO AM NURSE.
[2019-06-28] MEDS ORDERED: acetaZOLAMIDE SODIUM 500 MG/VIAL VIAL IV ONE (07:00)
--- NOTE | 2019-06-28 07:50 | NUR ---
RESTAURANT MANAGER: pt is A/Ox3, no pain now, no c/o, was on Bipap over night, now on 4L n/c, O2sat. 90-94%, no SOB, no distress, ABG at 0900, SR/ST max 110 with PVCs, SBP over 100 below 150, L.hand PIVL got infiltrated by report, multiple attempts to place new PIVL were unsuccessful d/t very deep veins, charge nurse is aware for possible midline placement, ordered Diamox, CO2 43
--- NOTE | 2019-06-28 08:10 | NUR ---
PHYSICIAN GYNECOLOGIST: pt.is agree for midline placement, needs IV meds
[2019-06-28] MEDS: METHIMAZOLE (5MG) 5 MG TABLET PO SCH (08:24)
[2019-06-28] MEDS: METOPROLOL SUCCINATE 50 MG TAB.SR.24H PO SCH (08:24)
[2019-06-28] MEDS: LISINOPRIL (10MG) 10 MG TABLET PO SCH (08:24)
[2019-06-28] MEDS: ASPIRIN 81 MG TAB.CHEW PO SCH (08:24)
[2019-06-28] MEDS: RIVAROXABAN 10 MG TABLET PO SCH (08:26)
[2019-06-28 08:52] LABS: ABG OXYGEN SATURATION 93.3 % (92.0-98.5); ABG PCO2 71.2 mmHg (35.0-45.0); ABG PH 7.417 (7.350-7.450); ABG PO2 66.4 mmHg (75.0-100.0); AaDO2 107.7 mmHg; COHb 1.4 % (0.5-1.5); MetHb 0.3 % (0.0-1.5); O2Hb 91.7 % (94.0-97.0); SITE, ABG Right Radial; VENT MODE, BG N/C 4LPM
--- NOTE | 2019-06-28 09:03 | NUR ---
HUMAN RESOURCES SERVICES SPECIALIST: is in room, updated with pt.current condition, ABG, VS, I/O, meds, see new order
--- NOTE | 2019-06-28 11:15 | NUR ---
TELEGRAPHIC TYPEWRITER OPERATOR: L.upper arm midline placed in/good blood return, pt. is in room, got detailed information re VS, orders, meds, labs, POC
--- NOTE | 2019-06-28 11:23 | NUR ---
OBSERVER ELECTRICAL PROSPECTING: confirmed: continue nocturnal Bipap, notified RT
--- NOTE | 2019-06-28 16:13 | NUR ---
COMPREHENSIVE ADVISOR: updated with pt.current condition, VS, ABG, respiratory status, I/O, labs, history of head furunculosis/occipital small eschar/scab now, agree to transfer pt., see new orders
--- NOTE | 2019-06-28 17:00 | NUR ---
MIGUEL RN NOTE RECEIVED REPORT FROM BULMARO DANG FOR WENDY.PATIENT AXOX3.INDONESIAN SPEAKING.ABLE TO MAKE NEEDS KNOWN.NO SOB NO DISTRESS NOTED.ON O2 4L VIA NASAL CANULA.WES MIDLINE .INTACT AND PATENT.ALL BELONGINGS CHECKED AND AT PATENT BEDSIDE.BED IS LOW AND IN LOCKED POSITION.CALL LIGHT IN REACH.BED ALARM ON.SRX3.VITAL SIGNS STABLE.WILL CONTINUE TO MONITOR.
--- NOTE | 2019-06-28 19:12 | NUR ---
TECHNOLOGY SOLUTIONS ARCHITECT NOTE ENDORSED TO PM NURSE FOR WENDY.PATIENT IN STABLE CONDITION.VSS.
--- NOTE | 2019-06-28 19:25 | NUR ---
TELE-TD/RN notes Patient received in bed, Awake, A/O x4 Sierra Leonean speaking. In no acute distress, breathing even and unlabored. No SOB noted. denies any pain or discomfort at this time. Sinus tachy on monitor. midline in place, patent. Safety maintained, bed at the lowest locked position. Call light within reach. Will continue to monitor as per plan of care.
--- NOTE | 2019-06-28 23:21 | NUR ---
PLACED PT ON NOCTURNAL BIPAP, RN PADMINI NOTIFIED. NO RESPIRATORY DISTRESS NOTED AT THIS TIME
[2019-06-29] VITALS: BP 126/72
[2019-06-29] MEDS: ALBUTEROL FS 2.5 MG/3 ML VIAL.NEB NEB SCH ×4 (01:33→19:59)
[2019-06-29] MEDS: IPRATROPIUM NEB FS 0.5 MG/2.5 ML AMPUL.NEB NEB SCH ×4 (01:33→19:59)
[2019-06-29 04:00] VITALS: BP 112/68
[2019-06-29 06:53] LABS: BASOPHILS % (AUTO) 0.4 % (0.0-2.0); HEMATOCRIT 48 % (39-51); HEMOGLOBIN 15.1 g/dL (13.5-17.5); LYMPHOCYTES # (AUTO) 1.2 /CMM (0.8-4.8); LYMPHOCYTES % (AUTO) 16.6 % (20.0-44.0); MEAN CORPUSCULAR HGB CONC 32 g/dl (31.0-36.0); MEAN CORPUSCULAR VOLUME 99 fL (80-96); MONOCYTES # (AUTO) 0.7 /CMM (0.1-1.30); MONOCYTES % (AUTO) 9.7 % (2.0-12.0); NEUTROPHILS # (AUTO) 5.2 /CMM (1.8-8.9); NEUTROPHILS % (AUTO) 69.3 % (43.0-81.0); PLATELET COUNT (AUTO) 126 /CMM (150-450); RED BLOOD CELL COUNT(AUTO) 4.81 MIL/uL (4.5-6.0); WHITE BLOOD COUNT (AUTO) 7.5 K/uL (4.3-11.0)
[2019-06-29 07:12] LABS: CALCIUM, SERUM 9.4 mg/dL (8.5-10.1); CREATININE 1.2 mg/dL (0.6-1.3); MAGNESIUM 2.2 mg/dL (1.8-2.4); PHOSPHORUS 3.9 mg/dL (2.5-4.9)
--- NOTE | 2019-06-29 07:25 | NUR ---
TELE-TD/RN notes Patient remained in bed, Awake, A/O x4 Tanzanian speaking. In no acute distress, breathing even and unlabored. No SOB noted. Sinus rhythm on monitor with PVC, PAC's . midline in place, patent. tolerated BIPAP well at night, On NC with o2 4LPM saturation 96%. Safety maintained, bed at the lowest locked position. Call light within reach. endorse to AM shift nurse for WENDY.
[2019-06-29 08:00] VITALS: BP 105/61
--- NOTE | 2019-06-29 08:00 | NUR ---
TD/RN AM SHIFT INITIAL NOTES RECEIVED PT AWAKE IN BED, PT A/O X 4, BRITISH VIR[place] ISLANDER SPEAKING DENIES ANY SYMPTOMS, NO ACUTE RESPIRATORY DISTRESS, ON 4L O2 VIA N/C SATURATING @ 100%, RESPIRATIONS EVEN & UNLABORED, NOTED RHONCHI LUNG SOUNDS. ON TELE WITH SINUS RHYTHM WITH PVCs & PACs, HR 85. IV SITE FLUSHED, PATENT, NO S/S OF INFECTION, SL. PT IS COMFORTABLE, SCHEDULED AM MEDS TO BE GIVEN. CL WITHIN REACHED AND SAFETY MAINTAINED. ON GOING MONITORING.
[2019-06-29] MEDS: METHIMAZOLE (5MG) 5 MG TABLET PO SCH (08:46)
[2019-06-29] MEDS: ASPIRIN 81 MG TAB.CHEW PO SCH (08:46)
[2019-06-29] MEDS: LISINOPRIL (10MG) 10 MG TABLET PO SCH (08:47)
[2019-06-29] MEDS: METOPROLOL SUCCINATE 50 MG TAB.SR.24H PO SCH (08:47)
[2019-06-29] MEDS: RIVAROXABAN 10 MG TABLET PO SCH (08:48)
--- NOTE | 2019-06-29 11:57 | NUR ---
MS1/STORE PROTECTION SPECIALIST OF CARE REPORT GIVEN TO NURSE DAKSHA PT ENDORSED TO CONTINUE CARE.
[2019-06-29 16:00] VITALS: BP 102/50
--- NOTE | 2019-06-29 18:46 | NUR ---
Assumed care of patient at 1200 pm from ALTON Villarreal. Patient verbalized concern of nasal abrasion. Spoke with respiratory and they will communicate with shift supervisor rn RT to use a nasal mask. made aware. Patient in no respiratory distress and tolerated sitting in chair during most of the shift.
[2019-06-29 20:00] VITALS: BP_SYST 115; BP_SYST 93; BP_DIAS 46; BP_DIAS 68
--- NOTE | 2019-06-29 22:20 | NUR ---
patient placed on bipap but a different model as patient had noted skin sore in the bridge of the nose. will inform the physician in am. continous saturation monitor.
--- NOTE | 2019-06-29 22:45 | NUR ---
asleep with bipap on.o signs of distress noted .saturation stable nut nr goes down to 48/min intermittently and returns back to 68 to 8,s /mo inform physician in m.will continue to moniyot
--- NOTE | 2019-06-29 23:22 | NUR ---
FLAKO Amato paged as the patient is on bipap and continous pulse oxymeter saturation monitor and noted the the heart rate goes ddown to 46 /min but goes back to 60,s and 80,s, message left with the excjamhe, awaiting response
--- NOTE | 2019-06-29 23:30 | NUR ---
awaiting FLAKO Amato to call back Addendum: 06/29/19 at 2335 by FRANCISCO J LEMUS RN called back and with no orders made
[2019-06-30] VITALS: BP 104/47
[2019-06-30] MEDS: ALBUTEROL FS 2.5 MG/3 ML VIAL.NEB NEB SCH ×4 (01:34→19:58)
[2019-06-30] MEDS: IPRATROPIUM NEB FS 0.5 MG/2.5 ML AMPUL.NEB NEB SCH ×4 (01:34→19:58)
[2019-06-30 04:00] VITALS: BP 97/54
--- NOTE | 2019-06-30 07:23 | NUR ---
MS RN OPENING NOTES RECEIVED PATIENT ALERT AND AWAKE IN BED. HOB ELEVATED. NO SOB. ON O2 4L/MIN VIA NC RONIT WELL. DENIES ANY C/O PAIN NOR DISCOMFORT AT THIS TIME.LEFT UPPER ARM MIDLINE INTACT AND PATENT. BED IN LOWEST POSITION, LOCKED. CALL LIGHT WITHIN REACH.
[2019-06-30 07:25] LABS: BASOPHILS % (AUTO) 0.5 % (0.0-2.0); EOSINOPHILS % (AUTO) 3.3 % (0.0-6.0); HEMATOCRIT 47 % (39-51); HEMOGLOBIN 14.9 g/dL (13.5-17.5); LYMPHOCYTES # (AUTO) 1.2 /CMM (0.8-4.8); LYMPHOCYTES % (AUTO) 16.1 % (20.0-44.0); MEAN CORPUSCULAR HGB CONC 32 g/dl (31.0-36.0); MEAN CORPUSCULAR VOLUME 98 fL (80-96); MONOCYTES # (AUTO) 0.7 /CMM (0.1-1.30); MONOCYTES % (AUTO) 9.1 % (2.0-12.0); NEUTROPHILS # (AUTO) 5.4 /CMM (1.8-8.9); PLATELET COUNT (AUTO) 124 /CMM (150-450); RED BLOOD CELL COUNT(AUTO) 4.75 MIL/uL (4.5-6.0); WHITE BLOOD COUNT (AUTO) 7.6 K/uL (4.3-11.0)
--- NOTE | 2019-06-30 07:33 | NUR ---
REFUSED TO BE WEIGHED
[2019-06-30 07:45] LABS: CALCIUM, SERUM 8.8 mg/dL (8.5-10.1); CARBON DIOXIDE 38 mmol/L (21-32); CHLORIDE 103 mmol/L (98-107); CREATININE 1.6 mg/dL (0.6-1.3); GLUCOSE 132 mg/dL (74-106); POTASSIUM 3.9 mmol/L (3.5-5.1); SODIUM SERUM 143 mmol/L (136-145); UREA NITROGEN, BLOOD 39 mg/dL (7-18)
--- NOTE | 2019-06-30 07:49 | NUR ---
WOUND CARE CONSULT ORDERED FOR THE EVALUATION AND TREATMENT OF THE ABRASION TO THE BRIDGE OF NOSE AND POSTERIOR BACK,PICTURES IN CHART
--- NOTE | 2019-06-30 07:51 | NUR ---
AMBULATED TO THE BEDSSIDE WITH MINIMAL ASSIST AND VOIDED FREELY
[2019-06-30 08:00] VITALS: BP 109/64
[2019-06-30] MEDS: LISINOPRIL (10MG) 10 MG TABLET PO SCH (09:00)
[2019-06-30] MEDS: METOPROLOL SUCCINATE 50 MG TAB.SR.24H PO SCH (09:00)
[2019-06-30] MEDS: ASPIRIN 81 MG TAB.CHEW PO SCH (09:51)
[2019-06-30] MEDS: METHIMAZOLE (5MG) 5 MG TABLET PO SCH (09:51)
[2019-06-30] MEDS: RIVAROXABAN 10 MG TABLET PO SCH (09:53)
[2019-06-30 16:00] VITALS: BP_SYST 105; BP_SYST 130; BP_DIAS 63; BP_DIAS 95
--- NOTE | 2019-06-30 18:59 | NUR ---
MS RN CLOSING NOTES ALERT AND ORIENTED X4. HOB ELEVATED. NO S/S OF RESPIRATORY DISTRESS. ON O2 4L/MIN VIA NC RONIT WELL. DENIES ANY C/O PAIN NOR DISCOMFORT AT THIS TIME. AMBULATORY WITH STEADY GAIT. LEFT UPPER ARM MIDLINE INTACT AND PATENT. BED IN LOWEST POSITION, LOCKED. CALL LIGHT WITHIN REACH. PATIENT HAS BEEN ACCEPTED TO [facility]. AWAITING FOR FURTHER ORDERS. BED SIDERAILS UP X2. IN NO APPARENT DISTRESS.
--- NOTE | 2019-06-30 20:20 | NUR ---
MS RN NOTES RECEIVED PATIENT AWAKE IN BED WITH NO DISTRESS NOTED. CALL LIGHT WITHIN REACH. NO C/O PAIN OR DISCOMFORT. PERIPHERAL LINE INTACT AND PATENT. BED IN LOW SETTING WITH BED ALARM ON AND FUNCTIONING PROPERLY. ALL BELONGINGS KEPT NEAR BEDSIDE. WILL CONTINUE TO MONITOR.
[2019-06-30 22:13] VITALS: BP 107/84
--- NOTE | 2019-06-30 23:39 | NUR ---
RT NOTE Late Entry: Pt rec'd on 4lpm nasal cannula. Pt shows no signs of resp distress. Pt placed on bipap NOC per md orders with under the nose bipap mask to scarring on nose. Alarms are set and audible. Vent plugged into red outlet. Ambu bag bedside. Will continue to monitor. Addendum: 07/01/19 at 0633 by HAYDE CORNELL RT Amended: Links added.
[2019-07-01] MEDS: IPRATROPIUM NEB FS 0.5 MG/2.5 ML AMPUL.NEB NEB SCH ×4 (02:34→20:28)
[2019-07-01] MEDS: ALBUTEROL FS 2.5 MG/3 ML VIAL.NEB NEB SCH ×4 (02:34→20:28)
--- NOTE | 2019-07-01 03:34 | NUR ---
RT NOTE Late Entry: Pt taken off bipap and placed on 4LNC per pt request. Will continue to monitor. Addendum: 07/01/19 at 0633 by HAYDE CORNELL RT Amended: Links added.
--- NOTE | 2019-07-01 06:38 | NUR ---
MS RN NOTES PATIENT AWAKE IN BED WITH NO DISTRESS NOTED. CALL LIGHT WITHIN REACH. NO C/O PAIN OR DISCOMFORT. PERIPHERAL LINE INTACT AND PATENT. BED IN LOW SETTING WITH BED ALARM ON AND FUNCTIONING PROPERLY. ALL BELONGINGS KEPT NEAR BEDSIDE. WILL ENDORSE TO ONCOMING SHIFT.
[2019-07-01 06:50] LABS: BASOPHILS % (AUTO) 0.4 % (0.0-2.0); EOSINOPHILS % (AUTO) 3.6 % (0.0-6.0); HEMATOCRIT 47 % (39-51); HEMOGLOBIN 14.8 g/dL (13.5-17.5); LYMPHOCYTES # (AUTO) 1.1 /CMM (0.8-4.8); LYMPHOCYTES % (AUTO) 15.8 % (20.0-44.0); MEAN CORPUSCULAR HGB CONC 32 g/dl (31.0-36.0); MEAN CORPUSCULAR VOLUME 99 fL (80-96); MONOCYTES # (AUTO) 0.7 /CMM (0.1-1.30); MONOCYTES % (AUTO) 9.8 % (2.0-12.0); NEUTROPHILS % (AUTO) 70.4 % (43.0-81.0); PLATELET COUNT (AUTO) 122 /CMM (150-450); RED BLOOD CELL COUNT(AUTO) 4.72 MIL/uL (4.5-6.0)
[2019-07-01 07:02] LABS: CALCIUM, SERUM 9.5 mg/dL (8.5-10.1); CREATININE 1.3 mg/dL (0.6-1.3); MAGNESIUM 2.2 mg/dL (1.8-2.4); PHOSPHORUS 3.5 mg/dL (2.5-4.9); POTASSIUM 4.2 mmol/L (3.5-5.1)
--- NOTE | 2019-07-01 07:50 | NUR ---
known for elevated carbon dioxide, on admission 06/28 43, today 40. will continue to monitor
[2019-07-01 08:00] VITALS: BP 106/50
[2019-07-01] MEDS: METOPROLOL SUCCINATE 50 MG TAB.SR.24H PO SCH (09:00)
--- NOTE | 2019-07-01 09:04 | NUR ---
WOUND CARE CONSULT: PT SEEN FOR LESIONS ON POSTERIOR SCALP, RT SCALP AND NOSE BRIDGE. SOME ANDRADE DRAINAGE NOTED ON PILLOW BUT NO DRAINAGE NOTED FROM NOSE LESION. PT EXAMINED BY DR GUEVARA AT BEDSIDE. PT STATES THAT HE GETS LESIONS FROM TIME TO TIME AND THAT THEY CLEAR UP WITH ANTIBIOTICS. DISCUSSED WITH DRUG INSPECTOR AND NURSING STAFF. RN TO DISCUSS WITH PMD. PT IS AMBULATORY AND CONTINENT. WILL SEE PRN.
[2019-07-01] MEDS: METHIMAZOLE (5MG) 5 MG TABLET PO SCH (09:08)
[2019-07-01] MEDS: ASPIRIN 81 MG TAB.CHEW PO SCH (09:09)
[2019-07-01] MEDS: LISINOPRIL (10MG) 10 MG TABLET PO SCH (09:10)
[2019-07-01] MEDS: RIVAROXABAN 10 MG TABLET PO SCH (09:10)
[2019-07-01 10:00] VITALS: BP 166/50
[2019-07-01] MEDS: FUROSEMIDE 40 MG TABLET PO SCH (12:29)
--- NOTE | 2019-07-01 15:54 | NUR ---
alert, oriented, Japanese speaking only, via an cognos tm1 developer, said he is fine, EXCEPT became sob no slight exertion, ( from bed to bathroom), encouraged to use either urinal or bsc. Seen by wound care nurse, some lesions noted on scalp, one big, oozy one at the back of scalp, yellowish oozage noted on pillow case.( no written order yet for lesions) no c/o pain, appetite all meals 100% Reported by lab, carbon dioxide up to 40 ( compared to 43 on admission 06/28 ) awaiting [facility] to accept, and dr Ortega to continue the care over there
[2019-07-01 16:00] VITALS: BP 134/66
[2019-07-01 22:00] VITALS: BP 113/75
[2019-07-02] MEDS: ALBUTEROL FS 2.5 MG/3 ML VIAL.NEB NEB SCH ×4 (02:00→19:47)
[2019-07-02] MEDS: IPRATROPIUM NEB FS 0.5 MG/2.5 ML AMPUL.NEB NEB SCH ×4 (02:01→19:47)
--- NOTE | 2019-07-02 02:11 | NUR ---
RT PT REFUSING BIPAP. DOES NOT LIKE WEARING MASK. NO SOB OR RESP DISTRESS NOTED. Addendum: 07/02/19 at 0212 by TUSHAR BLANCO RT Amended: Links added.
[2019-07-02 04:00] VITALS: BP 113/61
[2019-07-02 08:00] VITALS: BP 125/82
[2019-07-02] MEDS: METHIMAZOLE (5MG) 5 MG TABLET PO SCH (09:00)
[2019-07-02] MEDS: ASPIRIN 81 MG TAB.CHEW PO SCH (09:01)
[2019-07-02] MEDS: FUROSEMIDE 40 MG TABLET PO SCH (09:01)
[2019-07-02] MEDS: METOPROLOL SUCCINATE 50 MG TAB.SR.24H PO SCH (09:01)
[2019-07-02] MEDS: LISINOPRIL (10MG) 10 MG TABLET PO SCH (09:02)
[2019-07-02] MEDS: RIVAROXABAN 10 MG TABLET PO SCH (09:05)
[2019-07-02 09:20] VITALS: BP 125/82
[2019-07-02 09:39] LABS: CARBON DIOXIDE 37 mmol/L (21-32); CHLORIDE 102 mmol/L (98-107); CREATININE 1.4 mg/dL (0.6-1.3); GLUCOSE 288 mg/dL (74-106); POTASSIUM 4.1 mmol/L (3.5-5.1); SODIUM SERUM 143 mmol/L (136-145); UREA NITROGEN, BLOOD 33 mg/dL (7-18)
[2019-07-02 10:00] VITALS: BP 95/53
[2019-07-02] MEDS: ACETAMINOPHEN 325 MG TABLET PO PRN (13:18)
--- NOTE | 2019-07-02 13:39 | NUR ---
alert, oriented, able to walk from his room to the nursing station, demanded tx for his scalp, with 3 lesions noted. The big one in the back of scalp, no oozage noted. The patient showed lesions to his attending, no new orders given NO SOB noted, keeps on asking whether he has any order to go home, none written yet
[2019-07-02 20:00] VITALS: BP 90/58
[2019-07-03] MEDS: IPRATROPIUM NEB FS 0.5 MG/2.5 ML AMPUL.NEB NEB SCH ×4 (01:30→19:39)
[2019-07-03] MEDS: ALBUTEROL FS 2.5 MG/3 ML VIAL.NEB NEB SCH ×4 (01:30→19:39)
[2019-07-03 04:00] VITALS: BP 106/68
--- NOTE | 2019-07-03 06:15 | NUR ---
MS RN NOTES AWAKE & RESPONSIVE. NOT IN ANY DISTRESS. NO SOB NOTED. DENIES ANY PAIN OR DISCOMFORT AT THIS TIME. WITH IV-HL PATENT & INTACT. MONITORED ACCORDINGLY. CALL LIGHT WITHIN REACH. BED IN LOWEST POSITION. SR UP X 2 FOR SAFETY. WILL ENDORSE TO NEXT SHIFT.
[2019-07-03 07:39] LABS: BASOPHILS # (AUTO) 0.1 /CMM (0.0-0.2); BASOPHILS % (AUTO) 0.8 % (0.0-2.0); EOSINOPHILS % (AUTO) 3.9 % (0.0-6.0); HEMATOCRIT 47 % (39-51); LYMPHOCYTES # (AUTO) 1.2 /CMM (0.8-4.8); MEAN CORPUSCULAR HGB CONC 32 g/dl (31.0-36.0); MEAN CORPUSCULAR VOLUME 98 fL (80-96); MONOCYTES # (AUTO) 0.7 /CMM (0.1-1.30); MONOCYTES % (AUTO) 10.7 % (2.0-12.0); NEUTROPHILS # (AUTO) 4.7 /CMM (1.8-8.9); NEUTROPHILS % (AUTO) 67.6 % (43.0-81.0); PLATELET COUNT (AUTO) 126 /CMM (150-450); RED BLOOD CELL COUNT(AUTO) 4.77 MIL/uL (4.5-6.0)
[2019-07-03 07:52] LABS: CALCIUM, SERUM 9.1 mg/dL (8.5-10.1); CREATININE 1.2 mg/dL (0.6-1.3); POTASSIUM 4.3 mmol/L (3.5-5.1)
[2019-07-03] MEDS: LISINOPRIL (10MG) 10 MG TABLET PO SCH (09:49)
[2019-07-03] MEDS: METHIMAZOLE (5MG) 5 MG TABLET PO SCH (09:50)
[2019-07-03] MEDS: ASPIRIN 81 MG TAB.CHEW PO SCH (09:50)
[2019-07-03] MEDS: METOPROLOL SUCCINATE 50 MG TAB.SR.24H PO SCH (09:52)
[2019-07-03] MEDS: RIVAROXABAN 10 MG TABLET PO SCH (09:53)
[2019-07-03] MEDS: FUROSEMIDE 40 MG TABLET PO SCH (09:54)
[2019-07-03 13:00] VITALS: BP 120/60
[2019-07-03 20:00] VITALS: BP 126/68
[2019-07-04] MEDS: ALBUTEROL FS 2.5 MG/3 ML VIAL.NEB NEB SCH ×2 (01:19→07:35)
[2019-07-04] MEDS: IPRATROPIUM NEB FS 0.5 MG/2.5 ML AMPUL.NEB NEB SCH ×2 (01:19→07:35)
--- NOTE | 2019-07-04 02:20 | NUR ---
MS RN NOTES: PER RT PATIENT REFUSED THE BIPAP MACHINE EARLIER OF THE NIGHT. PATIENT IS ON O2 AT 2L/MIN. URINAL AT THE BEDSIDE. CALL LIGHT WITHIN REACH. BED IN LOWEST AND LOCKED POSITION.HOB ELEVATED AT 30 DEGREES AT ALL TIMES.
[2019-07-04 03:59] VITALS: BP 101/67
[2019-07-04 04:00] VITALS: BP 101/67
[2019-07-04 05:50] VITALS: BP 121/51
--- NOTE | 2019-07-04 05:50 | NUR ---
MS RN OPENING/CLOSING NOTE RECEIVED PATIENT IN BED. A/OX4, KAZAKH SPEAKING, ABLE TO MAKE NEEDS KNOWN. ON OXYGEN 3L/MIN VIA NASAL CANNULA. RESPIRATIONS ARE EVEN AND UNLABORED. NO S/S SOB NOTED. IV ACCESS IN WES MIDLINE PATENT AND SALINE LOCKED. LEFT NEPHROSTOMY TUBE IS PRESENT, DRAINING TO GRAVITY. BED IS LOW AND LOCKED, HOB ELEVATED IN SEMI FOWLERS, SIDE RAILS UP X2, CALL LIGHT WITHIN REACH. WILL ENDORSE TO NEXT SHIFT.
--- NOTE | 2019-07-04 06:00 | NUR ---
REPORTS GIVEN TO CLAUDIA DANG FOR CONTINUITY OF CARE.
--- NOTE | 2019-07-04 07:34 | NUR ---
RN OPENING NOTES Patient received on 3l nasal cannula, no sob noted, a/o x4. WES midline remains intact. Bed at the lowest setting, calll ight within reach, side rails up x2.
[2019-07-04] MEDS: METOPROLOL SUCCINATE 50 MG TAB.SR.24H PO SCH (08:56)
[2019-07-04] MEDS: LISINOPRIL (10MG) 10 MG TABLET PO SCH (08:57)
[2019-07-04] MEDS: FUROSEMIDE 40 MG TABLET PO SCH (08:57)
[2019-07-04] MEDS: ASPIRIN 81 MG TAB.CHEW PO SCH (08:57)
[2019-07-04] MEDS: RIVAROXABAN 10 MG TABLET PO SCH (08:58)
[2019-07-04 10:00] VITALS: BP 121/56
[2019-07-04] MEDS ORDERED: METO50TA7 PO (10:38)
[2019-07-04] MEDS ORDERED: IPRA0.2S9 NEB (10:38)
[2019-07-04] MEDS ORDERED: ALBUT2 NEB (10:38)
[2019-07-04] MEDS: METHIMAZOLE (5MG) 5 MG TABLET PO SCH (10:42)
--- NOTE | 2019-07-04 12:40 | NUR ---
RN VERONICA notes Patient discharged at this time, no sob noted, patient denies pain at this time and remains a/o x4. Patient has all the necessary paperwork at this time and has nothing missing. Photos taken and is in the chart. Patient going to [facility].
[2019-07-05] MEDS ORDERED: METOPROLOL SUCCINATE 50 MG TAB.SR.24H PO SCH (09:00)
== END 2019-07-04 12:35 | DRG 291 ==
LOC: ER 16:47 → TELE1 19:32 → MEDSG1 06-23 00:45 → TELE-TD 06-25 17:54 → ICU 06-26 10:03 → TELE-TD 06-28 16:54 → MEDSG1 06-29 09:00 → MEDSG2 07-04 06:15
PROVIDERS: ADMIT Family Medicine; ATTEND Family Medicine
PROC: 5A09357 Assistance with Respiratory Ventilation, Less than 24 Consecutive Hours, Continuous Positive Airway Pressure (ICD-10-PCS; 2019-06-26)
PROC: 05HF33Z Insertion of Infusion Device into Left Cephalic Vein, Percutaneous Approach (ICD-10-PCS; principal; 2019-06-30)
DX: I13.0 Hypertensive heart and chronic kidney disease with heart failure and stage 1 through stage 4 chronic kidney disease, or unspecified chronic kidney disease (principal); I50.33 Acute on chronic diastolic (congestive) heart failure; N17.0 Acute kidney failure with tubular necrosis; G93.41 Metabolic encephalopathy; J96.22 Acute and chronic respiratory failure with hypercapnia; J96.21 Acute and chronic respiratory failure with hypoxia; E44.1 Mild protein-calorie malnutrition; Z68.42 Body mass index [BMI] 45.0-49.9, adult; E66.2 Morbid (severe) obesity with alveolar hypoventilation; J98.11 Atelectasis; E87.0 Hyperosmolality and hypernatremia; F17.210 Nicotine dependence, cigarettes, uncomplicated; I25.10 Atherosclerotic heart disease of native coronary artery without angina pectoris; I25.2 Old myocardial infarction; E78.5 Hyperlipidemia, unspecified; K21.9 Gastro-esophageal reflux disease without esophagitis; E11.22 Type 2 diabetes mellitus with diabetic chronic kidney disease; E03.9 Hypothyroidism, unspecified; E05.90 Thyrotoxicosis, unspecified without thyrotoxic crisis or storm; Z95.3 Presence of xenogenic heart valve; Z95.1 Presence of aortocoronary bypass graft; E11.65 Type 2 diabetes mellitus with hyperglycemia; Z79.01 Long term (current) use of anticoagulants; Z86.718 Personal history of other venous thrombosis and embolism; I48.0 Paroxysmal atrial fibrillation; N18.9 Chronic kidney disease, unspecified; Z99.81 Dependence on supplemental oxygen; J44.9 Chronic obstructive pulmonary disease, unspecified; D69.6 Thrombocytopenia, unspecified; K64.9 Unspecified hemorrhoids; N62 Hypertrophy of breast; T50.0X5A Adverse effect of mineralocorticoids and their antagonists, initial encounter; Y92.89 Other specified places as the place of occurrence of the external cause; T50.2X5A Adverse effect of carbonic-anhydrase inhibitors, benzothiadiazides and other diuretics, initial encounter; I49.3 Ventricular premature depolarization; Z85.528 Personal history of other malignant neoplasm of kidney; Z91.19 Patient's noncompliance with other medical treatment and regimen
CPT/HCPCS: 36415; 36569; 36600; 70220-TC; 71045-TC; 76770-TC; 80048-TC; 80053-TC; 80061-TC; 80076-TC; 82550-TC; 82803-TC; 82962-TC; 83735-TC; 83880; 83970; 84100-TC; 84155; 84165; 84484-TC; 85025-TC; 85730-TC; 87081-TC; 93307-TC; 94660; 94760-TC; 94762-TC; 94799-TC; 97116-TC; 97530-TC; G0378; J1120; J1940; J2405; J3475

== ENCOUNTER 2020-08-31 15:26 | Inpatient (IN) | payer MEDICARE, OTHER ==
[~2020-08-31] VITALS: Ht 165.1 cm; Wt 113.1 kg
[~2020-08-31 15:26] MED LIST changes: -ALBU2.5V13 NEB; +ALBUT2 NEB; +ASPI-1169 PO; +BISA-79 PO; -COLC0.6T67 PO; -DIGO125T PO; +EZET10TA6 PO; -GLIM1TAB18 PO; +LISI10TA29 PO; -LISI10TA5 PO; +METO50TA7 PO; -NEBI10TA2 PO; -OMEP1CAP25 PO; -ROSU20TA2 PO; +ROSU20TA32 PO; +TAMS-12 PO; +UBID200C32 PO; -UMEC1BLS IH
--- NOTE | 2020-08-31 15:26 | NUR ---
BIB SENIOR FRONT END DEVELOPER C/O SOB AND LOW O2 SAT "AROUND 80% ON NASAL CANNULA AT 2LPM" FOR 3 DAYS AND GEN WEAKNESS. TO ER BED 8, HOOKED TO BOTTLER HELPER, BP CUFF AND POX. PATIENT NOTED O2 SATURATION AT 85%. PLACED ON NC AT 7LPM, O2 SATURATION WENT UP TO 94%. CHANGED TO HOSP GOWN, WARM BLANKET PROVIDED, PATIENT AAO x 4. AWAITING MD HERR
--- NOTE | 2020-08-31 15:40 | NUR ---
ELINA ALVARENGA AT BEDSIDE FOR EKG
--- NOTE | 2020-08-31 15:45 | NUR ---
DR HORTON AT BEDSIDE
--- NOTE | 2020-08-31 15:58 | NUR ---
DIESEL TRUCK TECHNICIAN AT BEDSIDE FOR XRAY
[2020-08-31 16:12] LABS: BASOPHILS % (AUTO) 0.4 % (0.0-2.0); EOSINOPHILS % (AUTO) 1.7 % (0.0-6.0); HEMATOCRIT 54 % (39-51); HEMOGLOBIN 17.3 g/dL (13.5-17.5); LYMPHOCYTES # (AUTO) 1.3 /CMM (0.8-4.8); LYMPHOCYTES % (AUTO) 14.7 % (20.0-44.0); MEAN CORPUSCULAR HGB CONC 32 g/dl (31.0-36.0); MEAN CORPUSCULAR VOLUME 96 fL (80-96); MONOCYTES # (AUTO) 0.8 /CMM (0.1-1.30); MONOCYTES % (AUTO) 8.7 % (2.0-12.0); NEUTROPHILS # (AUTO) 6.4 /CMM (1.8-8.9); NEUTROPHILS % (AUTO) 74.5 % (43.0-81.0); PLATELET COUNT (AUTO) 122 /CMM (150-450); RED BLOOD CELL COUNT(AUTO) 5.64 MIL/uL (4.5-6.0); WHITE BLOOD COUNT (AUTO) 8.6 K/uL (4.3-11.0)
[2020-08-31 16:28] LABS: CALCIUM, SERUM 9.5 mg/dL (8.5-10.1); CHLORIDE 103 mmol/L (98-107); CREATININE 1.4 mg/dL (0.6-1.3); GLUCOSE 153 mg/dL (74-106); SODIUM SERUM 144 mmol/L (136-145); UREA NITROGEN, BLOOD 25 mg/dL (7-18)
[2020-08-31 16:34] LABS: CARBON DIOXIDE 42 mmol/L (21-32)
[2020-08-31 16:42] LABS: ALANINE AMINOTRANSFERASE 28 U/L (12-78); ALBUMIN 3.5 g/dL (3.4-5.0); ALKALINE PHOSPHATASE 89 U/L (46-116); ASPARTATE AMINOTRANSFERASE 12 U/L (15-37); B-TYPE NATRIURETIC PEPTIDE 436 PG/ML (0-125); BILIRUBIN,DIRECT 0.1 mg/dL (0.0-0.2); BILIRUBIN,TOTAL 0.3 mg/dL (0.2-1.0)
[2020-08-31 16:43] LABS: TOTAL PROTEIN, SERUM 7.5 g/dL (6.4-8.2)
--- NOTE | 2020-08-31 16:46 | NUR ---
RAPID COVID SWAB DONE AND SENT TO LAB
[2020-08-31] MEDS ORDERED: OMEP1CAP25 PO (17:24)
[2020-08-31] MEDS ORDERED: CHLO500T3 PO (17:24)
[2020-08-31] MEDS ORDERED: ICOS1CAP PO (17:24)
[2020-08-31] MEDS ORDERED: UMEC1BLS INH (17:24)
[2020-08-31] MEDS ORDERED: SITA50TA PO (17:24)
[2020-08-31] MEDS ORDERED: COLC0.6T67 PO (17:24)
--- NOTE | 2020-08-31 17:40 | NUR ---
MOVE SHEET SUBMITTED.
--- NOTE | 2020-08-31 17:57 | NUR ---
322-1 IS THE ROOM ASSIGNMENT PER NURSING SPACE BUYER.
[2020-08-31] MEDS ORDERED: TEMAZEPAM 15 MG CAPSULE PO PRN (18:00)
[2020-08-31] MEDS ORDERED: DEXTROSE 50%-WATER 50 ML DISP.SYRIN IV PRN (18:00)
[2020-08-31] MEDS ORDERED: HYDROCODONE/APAP 5/325MG TABLET PO PRN (18:00)
[2020-08-31] MEDS ORDERED: MAGNESIUM HYDROXIDE 30 ML UDC PO PRN (18:00)
[2020-08-31] MEDS ORDERED: ONDANSETRON HCL/PF 4 MG/2 ML VIAL IVP PRN (18:00)
[2020-08-31] MEDS ORDERED: MAG HYDROX/AL HYDROX/SIMETH 30 ML UDC PO PRN (18:00)
[2020-08-31] MEDS ORDERED: FUROSEMIDE 20 MG/2 ML VIAL IV ONE (18:00)
[2020-08-31] MEDS ORDERED: Z GUARD REMEDY 2 OZ OINT TP PRN (18:00)
--- NOTE | 2020-08-31 18:30 | NUR ---
REPORT GIVEN TO COLTON DANG OF TELE UNIT
[2020-08-31] MEDS ORDERED: FUROSEMIDE 20 MG/2 ML VIAL ONE (18:31)
--- NOTE | 2020-08-31 18:32 | NUR ---
DOCKING PILOT AT BEDSIDE FOR ARPITA
--- NOTE | 2020-08-31 18:50 | NUR ---
LONG TERM CARE PHLEBOTOMIST NOTE RECEIVED PATIENT FROM ER. PATIENT IS IN NO ACUTE DISTRESS. PATIENT IS ON 7L OXYGEN ON NC. TOLERATING WELL. SAFETY MEASURES ARE ON. BED IN THE LOWEST POSITION, WITH SIDE RAILS UP, CALL LIGHT WITHIN REACH, ENDORSE PATIENT TO OPTOMECHANICAL TECHNICIAN NURSE FOR WENDY.
[2020-08-31 20:00] VITALS: BP 119/72
--- NOTE | 2020-08-31 20:15 | NUR ---
ADMISSION NOTE PT ADMITTED TO FLOOR ARRIVED AT 1849 REPORT RECIEVED FROM COLTON DANG. PT PLACED ON TELEMETRY. HE IS SR. PT ON 2LNC DENIES SOB AT THIS TIME SITTING AT EDGE OF BED. PATIENT IS TURKISH SPEAKING ONLY. PATIENT DEMONSTRATED USE OF CALL LIGHT. ORIENTED TO ROOM. PT ADMITTED FOR CHF EXCACERBATION. NEW ORDERS RECIEVED. WILL CONT TO MONITOR. Addendum: 08/31/20 at 2178 by TOMMY BAUTISTA RN PT ON 7LNC ERROR
[2020-08-31] MEDS: BLOOD SUGAR DIAGNOSTIC 1 EACH STRIP IN SCH (22:40)
[2020-08-31] MEDS: INSULIN REGULAR, HUMAN 100 UNIT/ML 3 ML VIAL SQ PRN (22:40)
--- NOTE | 2020-08-31 23:00 | NUR ---
ADMISSION ASSESSMENT ; MEDICATION REQUEST DROP OFF ADMIT ASESS PERFORMED WITH MED RECORDS AND HELP OF ROOM MATE BRIJESH SIMON STATE PT HAS NO OTHER FAMILY. SHE IS FAMILIAR WITH MEDICAL HISTORY. STATES SHE WILL BE ABLE TO DROP OFF PATIENT HOME MEDICATIONS REQUESTED BY PHARMACY.
[2020-09-01] VITALS (15 sets, daily range): BP systolic 93–133; BP diastolic 59–94
--- NOTE | 2020-09-01 04:33 | NUR ---
EPISODE OF VTACH LASTING FOR 5 SECONDS. PT DENIES CP. PT RESTING IN BED. VS CHECKED AND WNL. CONTACTED AND INFORMED NADEEN STUDIO COORDINATOR. WANTED TO CONTINUE TO MONITOR AND ENSURE BMP AND MG ORDERED FOR AM. CMP AND MAG ALREADY ORDERED. WILL CONT TO MONITOR.
[2020-09-01 05:52] LABS: BILIRUBIN,URINE SMALL (NEGATIVE); COLOR,URINE YELLOW (YELLOW); LEUKOCYTE ESTERASE ,URINE NEGATIVE (NEGATIVE); NITRITE, URINE NEGATIVE (NEGATIVE); PH,URINE 5.5 (5.0-8.0); PROTEIN,URINE 100 mg/dl (NEGATIVE); UGLUCOSE NEGATIVE (NEGATIVE); UROBILINOGEN,URINE 0.2 EU/dL (0.2)
[2020-09-01 06:15] LABS: BACTERIA,URINE Few /HPF (None Seen); MUCUS,URINE Moderate /LPF (None Seen); SQUAMOUS EPITHELIAL CELL,UR Rare /HPF (None Seen)
[2020-09-01 06:16] LABS: HYALINE CASTS, URINE Moderate /LPF (None Seen)
--- NOTE | 2020-09-01 06:53 | NUR ---
informed dr. powers of [facility].
[2020-09-01] MEDS: BLOOD SUGAR DIAGNOSTIC 1 EACH STRIP IN SCH ×4 (06:59→22:30)
[2020-09-01] MEDS: INSULIN REGULAR, HUMAN 100 UNIT/ML 3 ML VIAL SQ PRN ×4 (07:00→22:30)
[2020-09-01 07:01] LABS: BASOPHILS % (AUTO) 0.4 % (0.0-2.0); EOSINOPHILS % (AUTO) 1.1 % (0.0-6.0); HEMATOCRIT 51 % (39-51); HEMOGLOBIN 16.6 g/dL (13.5-17.5); LYMPHOCYTES % (AUTO) 12.3 % (20.0-44.0); MEAN CORPUSCULAR HGB CONC 32 g/dl (31.0-36.0); MEAN CORPUSCULAR VOLUME 97 fL (80-96); MONOCYTES # (AUTO) 0.7 /CMM (0.1-1.30); MONOCYTES % (AUTO) 8.6 % (2.0-12.0); NEUTROPHILS # (AUTO) 6.3 /CMM (1.8-8.9); NEUTROPHILS % (AUTO) 77.6 % (43.0-81.0); PLATELET COUNT (AUTO) 116 /CMM (150-450); WHITE BLOOD COUNT (AUTO) 8.1 K/uL (4.3-11.0)
[2020-09-01 07:16] LABS: ALBUMIN 3.1 g/dL (3.4-5.0); BILIRUBIN,TOTAL 0.4 mg/dL (0.2-1.0); CREATININE 1.3 mg/dL (0.6-1.3); MAGNESIUM 2.1 mg/dL (1.8-2.4); PHOSPHORUS 4.3 mg/dL (2.5-4.9); POTASSIUM 4.6 mmol/L (3.5-5.1); TOTAL PROTEIN, SERUM 6.9 g/dL (6.4-8.2)
[2020-09-01 07:24] LABS: THYROID STIMULATING HORMONE 0.227 uIU/mL (0.358-3.74)
--- NOTE | 2020-09-01 07:55 | NUR ---
SPECIAL EDUCATION TEACHING ASSISTANT NOTE RECEIVED PATIENT LYING IN BED, RESTING. PATIENT IS IN NO ACUTE DISTRESS. PATIENT HAD 3.5 SECOND EPISODE OF VTAC @ 0725. PER TOMMY ([facility] KIRTI AWARE. PATIENT IS ON 5L OXYGEN ON NC. TOLERATING WELL. SAFETY MEASURES ARE ON. BED IN THE LOWEST POSITION, WITH SIDE RAILS UP, CALL LIGHT WITHIN REACH, WILL CONTINUE TO MONITOR.
[2020-09-01] MEDS: PANTOPRAZOLE 40 MG TABLET.DR PO SCH (08:09)
[2020-09-01] MEDS: TAMSULOSIN 0.4 MG CAP.SR.24H PO SCH (08:09)
[2020-09-01] MEDS: COLCHICINE 0.6 MG TABLET PO SCH (08:09)
[2020-09-01] MEDS: ATORVASTATIN 40 MG TABLET PO SCH (08:09)
[2020-09-01] MEDS: METHIMAZOLE (5MG) 5 MG TABLET PO SCH (08:09)
[2020-09-01] MEDS: EZETIMIBE 10 MG TABLET PO SCH (08:09)
[2020-09-01] MEDS: NICOTINE PATCH (21MG) 21 MG PATCH.TD24 TD SCH ×2 (08:10→09:00)
[2020-09-01] MEDS: RIVAROXABAN 10 MG TABLET PO SCH (08:10)
--- NOTE | 2020-09-01 08:26 | NUR ---
LEAF BLENDER NOTE PATIENT IS SOMEWHAT AROUSABLE - OPENS HIS EYES FOR A QUICK SECOND AND THEN FALLS BACK ASLEEP. CO2 LEVEL IS 42. VITALS STABLE. UNABLE TO GIVE MEDICATIONS AT THIS TIME. MD TRUONG AWARE. WILL CONTINUE TO MONITOR.
[2020-09-01] MEDS ORDERED: Medication Not On Formulary EA (Omeprazole/Sodium Bicarbonate (Omeprazole-Bicarb 40-1,10 PO SCH (09:00)
[2020-09-01] MEDS ORDERED: Medication Not On Formulary EA (Icosapent Ethyl (Vascepa) 2 GM) PO SCH (09:00)
[2020-09-01] MEDS: FUROSEMIDE 40 MG/4 ML VIAL IV SCH ×3 (09:14→16:43)
[2020-09-01] MEDS: CARVEDILOL 3.125 MG TABLET PO SCH ×2 (09:14→22:21)
--- NOTE | 2020-09-01 09:15 | NUR ---
MS/RN S/B Denilson Brownlee DIRECTOR ORGANIZATIONAL Seen by DIRECTOR ORGANIZATIONAL - made aware of elevated CO2 level (42). Order given for stat CT head and to place patient on non rebreather mask. Orers noted and carried out. Per DIRECTOR ORGANIZATIONAL, patient is alert and oriented X4.
--- NOTE | 2020-09-01 09:30 | NUR ---
HEALTHCARE SCIENCE SPECIALIST NOTE PT WAS FOUND WALKING AROUND HIS ROOM. MORE ORIENTED, ABLE TO GIVE MEDICATION AND ASSESS ALERTNESS. PATIENT HAS A HARD TIME SIPPING WATER THROUGH A STRAW. HANDS ARE SHAKEY. WILL CONTINUE TO MONITOR.
--- NOTE | 2020-09-01 09:47 | NUR ---
MS/RN CT head Patient back in room following CT head, resulted as negative.
--- NOTE | 2020-09-01 12:00 | NUR ---
MS/RN Blood sugar Blood sugar at 1130 - 263, insulin coverage administered as per sliding scale.
[2020-09-01] MEDS: FLUTICASONE/VILANTEROL 1 EACH BLST.W.DEV IH SCH (16:32)
--- NOTE | 2020-09-01 17:00 | NUR ---
MS/RN Blood sugar Blood sugar at 5p - 145, two units regular insulin administered as per sliding scale.
[2020-09-01 17:58] LABS: ABG BASE EXCESS 13.1 mmol/L; ABG OXYGEN SATURATION 99.5 % (92.0-98.5); ABG PH 7.057 (7.350-7.450); ABG PO2 256.8 mmHg (75.0-100.0); AaDO2 261.2 mmHg; COHb 1.5 % (0.5-1.5); MetHb 0.5 % (0.0-1.5); O2Hb 97.5 % (94.0-97.0); SITE, ABG Right Radial
--- NOTE | 2020-09-01 18:32 | NUR ---
MS/SURVEY WORKER Transfer Patient noted to be more lethargic, although arousable to name. Vital signs within normal range for patient, saturation on NRM >95%. Vargas Brownlee called and order requested to redraw blood gas. Order given and entered into Matilda sykes (RT) called and made aware. ABG result -pH - 7.057 -pCO2 - 195.0 -pO2 - 256.8. Results relaid to FIREPOT OPERATOR AND TENDER, order given to transfer patient to ICU and place on bi-pap. All personal belongings transferred with patient, including cell phone which was in belongings bag placed on bottom shelf of bedside table. Nursing sample supervisor, patient assigned to room 262. Patient transferred via ACLS protocol. Report given to Yuki. Call received from Dr Ortega, explained as to what had happened, ABG result and that patient was still arousable. Informed that orders for bi-pap had already been given to RT.
--- NOTE | 2020-09-01 18:40 | NUR ---
DATA RECOVERY PLANNER TRANSFERRED INTO ICU ROOM 259 BY BED WITH MONITOR FOR ABNORMAL BLOOD GASES. PT AROUSEABLE TO PAINFUL STIMULI. PLACED ON BIPAP ORDERED.
--- NOTE | 2020-09-01 19:30 | NUR ---
RN OPENING NOTES: RECEIVED PT A/OX1-2 IN BED SLEEPING COMFORTABLY. PATIENT IN NO S/SX OF ACUTE DISTRESS AT THIS TIME. NO SOB NOTED. PATIENT'S BREATHING IS EVEN AND UNLABORED. PATIENT ON BIPAP; SETTINGS PRESCRIBED; PT TOLERATED WELL. AMBU BAG AT BED SIDE ALARMS SET PER PROTOCOL AND AUDIBLE. VENT PLUGGED IN TO RED OUTLET. NO DISTRESS NOTED. O2 SAT DURING THE TIME OF RECEIVED WAS 89%. PATIENT ON TELE MONITORING READING SINUS TACHY HR IS @100BPM AT THE TIME OF RECEIVED. PATIENT ON CARDIAC DIET. NOTED IV SITE ON R AC # 18; PATENT, INTACT AND FLUSHING WELL; NO S/S OF INFECTION OR INFILTRATION. SAFETY MEASURES HAVE BEEN PROVIDED AND IMPLEMENTED. PATIENT BED ALARM IS ON. HEAD OF BED ELEVATED. BED IS LOCKED, IN LOWEST POSITION AND SIDE RAILS UP. CALL LIGHT WITHIN REACH OF THE PATIENT. APPLICABLE ISOLATION PRECAUTIONS IN PLACE. WILL CONTINUE TO MONITOR AND REASSESS FOR ANY CHANGES AND WILL CARRY OUT ANY ONGOING AND ACTIVE MD ORDER.
[2020-09-01] MEDS: ALBUTEROL FS 2.5 MG/3 ML VIAL.NEB NEB SCH (19:54)
[2020-09-01] MEDS: IPRATROPIUM NEB FS 0.5 MG/2.5 ML AMPUL.NEB NEB SCH (19:54)
--- NOTE | 2020-09-01 21:00 | NUR ---
RN NOTES PATIENT NOTED TO BE LETHARGIC, MOST RECENT ABG RESULT SENT TO [facility]. MICROFILM EQUIPMENT INSPECTOR MADE AWARE. WILL CONTINUE TO MONITOR AND ASSESS.
--- NOTE | 2020-09-01 21:15 | NUR ---
RN NOTES ANESTHESIOLOGIST (DR. CHAPMAN) CAME IN, ORALLY INTUBATED PATIENT WITH ET TUBE SIZE 8 AT 24CM AT THE LIP AND [facility] WITH INITIAL VENT SETTINGS FOLLOWS: AC 24 TIDAL VOL: 550 FIO2: 100% AND PEEP OF 5. TEMPERATURE REGULATOR PYROMETER WELL AWARE. WILL CONTINUE TO MONITOR , ASSESS AND CARRY OUT MD ORDERS FOR THE PATIENT THROUGHOUT THE SHIFT.
--- NOTE | 2020-09-01 21:15 | NUR ---
RT NOTE PATIENT ORALLY INTUBATED WITH ETT 8.0 SECURED AT 24CM @ THE LIP. BREATH SOUNDS ARE EQUAL AND BILATERAL WITH EQUAL CHEST RISE. COLOR CHANGE ON CO2 DETECTOR NOTED. PATIENT PLACED ON AC24 VT550 100% PEEP+5. NO RESPIRATORY DISTRESS NOTED. ALARMS ARE SET AND AUDIBLE. MECHANICAL VENT IS PLUGGED INTO RED OUTLET. EMERGENCY EQUIPMENT AT PATIENT BEDSIDE. SUCTIONED FOR SMALL, THICK, CLEAR, WHITE SECRETIONS. WILL CONTINUE TO MONITOR PATIENT. PENDING FURTHER ORDERS. Addendum: 09/01/20 at 2155 by AMBER VANG RT Amended: Links added.
--- NOTE | 2020-09-01 21:30 | NUR ---
RN NOTES PATIENT'S FAMILY CALLED TO GET UPDATES. SPOKE WITH ([id number] ), PROVIDED GENERAL UPDATES ABOUT PT'S CONDITION, PT WAS INTUBATED. ADVISED PT'S RELATIVE TO CALLBACK IN THE MORNING TO TALK TO MD FOR MORE SPECIFIC INFO ABOUT TREATMENT PLAN. ASSURED PATIENT RELATIVE THAT WILL KEEP THEM POSTED FOR ANY SUDDEN CHANGES TO PT'S CONDITION. PT'S DAUGHTER ACKNOWLEDGED. DIRECTOR BIOLOGY MADE AWARE.
[2020-09-01] MEDS: PROPOFOL 100 ML IV PRN ×2 (21:38→23:53)
[2020-09-01] MEDS ORDERED: CEFEPIME 1 GM in IV D5W 50 ML IV SCH (22:00)
--- NOTE | 2020-09-01 22:21 | NUR ---
RN NOTES LATE ADMINISTRATION OF 2100 MEDS, ATTENDED PT'S NEED DURING INTUBATION. MANAGER HIV WELL AWARE. WILL CONTINUE TO MONITOR AND ASSESS THROUGHOUT THE SHIFT.
[2020-09-01 22:43] LABS: ABG BASE EXCESS 14.1 mmol/L; ABG OXYGEN SATURATION 83.2 % (92.0-98.5); ABG PCO2 134.4 mmHg (35.0-45.0); ABG PH 7.191 (7.350-7.450); ABG PO2 45.5 mmHg (75.0-100.0); AaDO2 47.8 mmHg; COHb 2.2 % (0.5-1.5); MetHb 0.2 % (0.0-1.5); O2Hb 81.2 % (94.0-97.0); SITE, ABG Right Radial; VENT MODE, BG ST 20/10 RR14 35%
[2020-09-01 22:55] LABS: ABG BASE EXCESS 9.7 mmol/L; ABG OXYGEN SATURATION 96.3 % (92.0-98.5); ABG PCO2 62.4 mmHg (35.0-45.0); ABG PH 7.397 (7.350-7.450); ABG PO2 70.2 mmHg (75.0-100.0); AaDO2 580.4 mmHg; COHb 1.8 % (0.5-1.5); MetHb 0.2 % (0.0-1.5); O2Hb 94.4 % (94.0-97.0); PEEP,BG 5 cm H2O; SITE, ABG Right Radial; VENT MODE, BG AC24 550 100% PEEP+5; VT, ABG 550 mL
[2020-09-01] MEDS ORDERED: CEFEPIME 1 GM VIAL ONE (23:02)
[2020-09-02] VITALS (65 sets, daily range): BP systolic 81–196; BP diastolic 48–104
--- NOTE | 2020-09-02 00:27 | NUR ---
RN OPENING NOTES: RECEIVED PT A/OX1-2 IN BED SLEEPING COMFORTABLY. PATIENT IN NO S/SX OF ACUTE DISTRESS AT THIS TIME. NO SOB NOTED. PATIENT'S BREATHING IS EVEN AND UNLABORED. PATIENT ON BIPAP; SETTINGS PRESCRIBED; PT TOLERATED WELL. AMBU BAG AT BED SIDE ALARMS SET PER PROTOCOL AND AUDIBLE. VENT PLUGGED IN TO RED OUTLET. NO DISTRESS NOTED. O2 SAT DURING THE TIME OF RECEIVED WAS 89%. PATIENT ON TELE MONITORING READING SINUS TACHY HR IS @100BPM AT THE TIME OF RECEIVED. PATIENT ON CARDIAC DIET. NOTED IV SITE ON R AC # 18; PATENT, INTACT AND FLUSHING WELL; NO S/S OF INFECTION OR INFILTRATION. SAFETY MEASURES HAVE BEEN PROVIDED AND IMPLEMENTED. PATIENT BED ALARM IS ON. HEAD OF BED ELEVATED. BED IS LOCKED, IN LOWEST POSITION AND SIDE RAILS UP. CALL LIGHT WITHIN REACH OF THE PATIENT. APPLICABLE ISOLATION PRECAUTIONS IN PLACE. WILL CONTINUE TO MONITOR AND REASSESS FOR ANY CHANGES AND WILL CARRY OUT ANY ONGOING AND ACTIVE MD ORDER. Addendum: 09/02/20 at 0039 by ABIEL LAYNE RN PLEASE DISREGARD WRONG TIME OF ENTRY
[2020-09-02] MEDS: PROPOFOL 100 ML IV PRN ×8 (02:50→23:50)
--- NOTE | 2020-09-02 03:00 | NUR ---
RN NOTES NO CHANGES IN PATIENT CONDITION AT THIS TIME PATIENT VITALS STABLE, NO SIGNS OF ACUTE RESPIRATORY DISTRESS. PATIENT STILL IN BED SLEEPING COMFORTABLY, SAME VENT SETTINGS. NO SIGNS OF PAIN OR ANY DISCOMFORT AT THIS TIME. WILL CONTINUE TO MONITOR AND REASSESS FOR ANY CHANGES THROUGHOUT THE SHIFT.
--- NOTE | 2020-09-02 04:05 | NUR ---
RN NOTES NOTED PT'S TEMP 100.6@0400. PRN MEDS GIVEN AND COOLING MEASURES PROVIDED. MEDICATION ADMNINSTERED THRU OGT, PATENCY AND PLACEMENT VERIFIED VIA AUSCULTATION WITH ANOTHER RN (ALTON NARAYANAN).SERVICE CENTER ASSISTANT MADE AWARE. WILL RE-EVALUATE AFTER 30 MINUTES- 1 HOUR. WILL CONTINUE TO MONITOR AND ASSESS.
[2020-09-02] MEDS: ACETAMINOPHEN 325 MG TABLET PO PRN (04:16)
[2020-09-02 04:22] LABS: BASOPHILS % (AUTO) 0.4 % (0.0-2.0); EOSINOPHILS % (AUTO) 0.9 % (0.0-6.0); HEMATOCRIT 51 % (39-51); LYMPHOCYTES # (AUTO) 1.1 /CMM (0.8-4.8); LYMPHOCYTES % (AUTO) 11.4 % (20.0-44.0); MEAN CORPUSCULAR HGB CONC 32 g/dl (31.0-36.0); MEAN CORPUSCULAR VOLUME 97 fL (80-96); MONOCYTES % (AUTO) 9.9 % (2.0-12.0); NEUTROPHILS # (AUTO) 7.5 /CMM (1.8-8.9); NEUTROPHILS % (AUTO) 77.4 % (43.0-81.0); PLATELET COUNT (AUTO) 107 /CMM (150-450); RED BLOOD CELL COUNT(AUTO) 5.24 MIL/uL (4.5-6.0); WHITE BLOOD COUNT (AUTO) 9.7 K/uL (4.3-11.0)
[2020-09-02 04:40] LABS: ALANINE AMINOTRANSFERASE 19 U/L (12-78); ALBUMIN 2.9 g/dL (3.4-5.0); ALKALINE PHOSPHATASE 70 U/L (46-116); ASPARTATE AMINOTRANSFERASE 12 U/L (15-37); BILIRUBIN,TOTAL 0.9 mg/dL (0.2-1.0); CALCIUM, SERUM 9.1 mg/dL (8.5-10.1); CARBON DIOXIDE 38 mmol/L (21-32); CHLORIDE 102 mmol/L (98-107); CREATININE 1.6 mg/dL (0.6-1.3); GLUCOSE 169 mg/dL (74-106); MAGNESIUM 1.7 mg/dL (1.8-2.4); POTASSIUM 4.1 mmol/L (3.5-5.1); SODIUM SERUM 144 mmol/L (136-145); TOTAL PROTEIN, SERUM 6.4 g/dL (6.4-8.2); UREA NITROGEN, BLOOD 32 mg/dL (7-18)
[2020-09-02 04:58] LABS: PHOSPHORUS 0.6 mg/dL (2.5-4.9)
--- NOTE | 2020-09-02 04:58 | NUR ---
RN NOTES RECEIVED CRITICAL LAB ; PHOS AT 0.6MG/DL ( REF: 2.5-4.9) DIE REPAIR MACHINIST MADE AWARE. WILL COMMUNICATE WITH ONCMAEVE SMALLS TO SECURE FOR ANY ORDERS NEEDED. COMMUNICATED WITH ONCMAEVE SMALLS (KIRTI,SOLE CUTTER) ADVISED ABOUT CRITICAL LAB ; PHOS AT 0.6MG/DL ( REF: 2.5-4.9). AWAITING RESPONSE. DIE REPAIR MACHINIST MADE AWARE.
--- NOTE | 2020-09-02 05:00 | NUR ---
RN NOTES FACILITATED INSERTION OF IV LINE/ACCES @ L THUMB #24. BEAUTY PARLOR CLEANER MADE AWARE. WILL CONTINUE TO MONITOR AND ASSESS
[2020-09-02] MEDS ORDERED: NEUTRA PHOS 1 POWD.PACKET NG ONE (05:30)
[2020-09-02] MEDS ORDERED: Magnesium 1GM/D5W 100ML PREMIX PIGGYBACK IV ONE (05:30)
[2020-09-02] MEDS ORDERED: NOREPINEPHRINE 8MG/250ML RTU 250 ML IV ONE (05:34)
[2020-09-02] MEDS: NOREPINEPHRINE 8 MG in IV NS 0.9% 242 ML IV PRN ×2 (05:40→18:30)
--- NOTE | 2020-09-02 07:06 | NUR ---
MAGNET PLACER CLOSING NOTES PATIENT RESTING IN BED COMFORTABLY,PT SEDATED WELL WITH 45MCG/KG/MIN OF DIPRIVAN. TOLERATING VENT SETTINGS ORDERED. NO SIGNS OF ACUTE DISTRESS. BREATHING EVEN AND UNLABORED. TELE MONITORS READING SR (80S) WITH INVERTED T WAVE. VITAL SIGNS WNL. O/GTUBE INTACT AND IN PLACED, PLACEMENT VERIFIED THRU AUSCULTATION. IV LINES (R AC#18 AND L THUMB #24) REMAINED PATENT AND INTACT WITHIN END OF SHIFT. WITH ONGOING DRIP LEVOPHED @ 0.02 MCG/KG/MIN; MONITORED AND TITRATED PER PROTOCOL. SAFETY PRECAUTIONS IN PLACE WITH BED IN LOWEST POSITION, CALL LIGHT WITHIN REACH, BREAKS ON, SIDE RAILS UP. ALL NEEDS ATTENDED TO; SHIFT ASSESSMENT/BEDBATH/SKIN/WOUND CARE DONE. PATIENT KEPT CLEAN AND DRY. WILL ENDORSE TO ONCOMING SHIFT FOR WENDY WITH ALL PERTINENT INFO REGARDING PATIENT STATUS. WILL ALSO ENDORSE TO MORNING RN TO SECURE CONSENT FOR PICC LINE INSERTION. LASER SYSTEMS ENGINEER MADE AWARE.
[2020-09-02] MEDS: IPRATROPIUM NEB FS 0.5 MG/2.5 ML AMPUL.NEB NEB SCH ×4 (07:35→19:39)
[2020-09-02] MEDS: ALBUTEROL FS 2.5 MG/3 ML VIAL.NEB NEB SCH ×4 (07:35→19:39)
--- NOTE | 2020-09-02 07:37 | NUR ---
CLINICAL LABORATORY MEDICAL DIRECTOR NOTE PATIENT IN BED , ALL NEEDS ATTENDED WITH ETT TUBE TO VENT SETTING ORDERED, SEDATED, ON PROPOFOL AND LEVOPHED DRIP ORDERED, ON TELE MONITOR SR HR 87. WITH RAIN CATH TO GRAVITY WITH YELLOW COLOR URINE , RT AC AND LT THUMP HL INTACT AND FLUSHED WELL , WILL CONT TO MONITOR CLOSELY .BED IN LOWEST AND LOCKED POSITION ,SAFETY MEASURE OBSERVED
[2020-09-02] MEDS: BLOOD SUGAR DIAGNOSTIC 1 EACH STRIP IN SCH ×4 (07:58→21:25)
[2020-09-02 08:23] LABS: ABG BASE EXCESS 11.5 mmol/L; ABG OXYGEN SATURATION 98.8 % (92.0-98.5); ABG PCO2 40.4 mmHg (35.0-45.0); ABG PH 7.555 (7.350-7.450); ABG PO2 95.7 mmHg (75.0-100.0); AaDO2 576.9 mmHg; COHb 1.1 % (0.5-1.5); MetHb 0.2 % (0.0-1.5); O2Hb 97.5 % (94.0-97.0); PEEP,BG 5 cm H2O; SITE, ABG Right Radial; VT, ABG 550 mL
--- NOTE | 2020-09-02 08:38 | NUR ---
vent changes below made per Dr. Ortega: AC 16 vt 500 ml fio2 80% RN notified on vent changes made. Addendum: 09/02/20 at 0839 by ARCHIE CASTRO RT Amended: Links added.
[2020-09-02] MEDS: PANTOPRAZOLE 40 MG TABLET.DR PO SCH (08:46)
[2020-09-02] MEDS: NICOTINE PATCH (21MG) 21 MG PATCH.TD24 TD SCH (08:46)
[2020-09-02] MEDS: METHIMAZOLE (5MG) 5 MG TABLET PO SCH (08:46)
[2020-09-02] MEDS: ATORVASTATIN 40 MG TABLET PO SCH (08:47)
[2020-09-02] MEDS: LINAGLIPTIN 5 MG TABLET PO SCH (08:47)
[2020-09-02] MEDS: COLCHICINE 0.6 MG TABLET PO SCH (08:47)
[2020-09-02] MEDS: FLUTICASONE/VILANTEROL 1 EACH BLST.W.DEV IH SCH (08:48)
[2020-09-02] MEDS: CEFEPIME 2 GM in IV D5W 100 ML IV SCH ×2 (08:48→21:25)
[2020-09-02] MEDS: TAMSULOSIN 0.4 MG CAP.SR.24H PO SCH (08:48)
[2020-09-02] MEDS: NEUTRA PHOS 1 POWD.PACKET PO SCH ×2 (08:50→16:32)
[2020-09-02] MEDS: Magnesium 1GM/D5W 100ML PREMIX 100 ML IV SCH ×2 (08:50→10:49)
[2020-09-02] MEDS: RIVAROXABAN 10 MG TABLET PO SCH (08:51)
[2020-09-02] MEDS: EZETIMIBE 10 MG TABLET PO SCH (08:52)
--- NOTE | 2020-09-02 09:04 | NUR ---
agricultural equipment test engineer note hold breo linta inhaler patient in vent shaina seen by dr castro vent changed to ac 16 ,awaiting for picc line insertion spoke with consent obtained, ,also seen by dr Jose Alberto mathew to hold og feeding , no propofol sedation vocation at this time , patient is not hemodynamically stable abg result reported to dr may by rt Addendum: 09/02/20 at 0943 by SOULEYMANE LACEY RN dr garcia notified about bun 32 creatine 1.6
--- NOTE | 2020-09-02 12:30 | NUR ---
CHARGER TESTER NOTE TURN REPOSITION Q2 HOUR KEEP CLEAN DRY , ON LEVOPHED DRIP AND DIPRIVAN DRIP ORDERED WILL MONITOR
[2020-09-02] MEDS: INSULIN REGULAR, HUMAN 100 UNIT/ML 3 ML VIAL SQ PRN ×2 (12:33→17:23)
--- NOTE | 2020-09-02 15:00 | NUR ---
PHYSICAL THERAPY RESIDENT NOTE TRAC AND ORAL CARE DONE SUCTION ,LARGE AMT OF YELLOW WHITE SECRETION. KEEP CLEAN DRY Addendum: 09/02/20 at 1854 by SOULEYMANE LACEY RN ett and oral care done
[2020-09-02] MEDS: methylPREDNISolone SOD SUCC 40 MG/ML VIAL IV SCH (16:32)
--- NOTE | 2020-09-02 17:29 | NUR ---
agricultural researcher note unable to remove soft restrain, patient still at risk to remove all lines and trach, will f\u Addendum: 09/02/20 at 1854 by SOULEYMANE LACEY RN at risk to remove remove ett tube
--- NOTE | 2020-09-02 18:44 | NUR ---
olericulture teacher note cont on Diprivan drip and Levophed drip as ordered, with vent setting as ordered keep hob elevated at all time, will cont to monitor, oral care done ,ett tube suction done , Addendum: 09/02/20 at 1925 by SOULEYMANE LACEY RN picc line nurse at beside trying to insert picc line
--- NOTE | 2020-09-02 20:00 | NUR ---
RT NOTE Pt rec'd orally intubated via ETT sz #8.0 secured @ 24CM at the lipline. Pt on [facility] vent on AC mode settings as charted. ETT patent and secured. pt has copious sec oral and via ett. tx given. no sob or s/s of resp distress noted. Alarms are set and audible. ambu bag bedside. Vent plugged into red outlet. will continue to monitor closely
[2020-09-03] VITALS (92 sets, daily range): BP systolic 82–137; BP diastolic 45–92
--- NOTE | 2020-09-03 02:15 | NUR ---
ATTEMPTED PT DISCONTINUE LEVO. PATIENT IS ON A LOW DOSE AT 0.01MCG/KG/HR. SBP WAS AT 101. BUT ONCE TURNED OFF BP DROPPED TO 87/55 WITH A MAP OF 55. RESTARTED LEVO AT 0.01MCG/KG/HR.
[2020-09-03] MEDS: PROPOFOL 100 ML IV PRN ×11 (02:58→23:32)
[2020-09-03 04:45] LABS: ALBUMIN 2.4 g/dL (3.4-5.0); BILIRUBIN,TOTAL 1.2 mg/dL (0.2-1.0); CALCIUM, SERUM 7.8 mg/dL (8.5-10.1); CREATININE 1.3 mg/dL (0.6-1.3); MAGNESIUM 2.6 mg/dL (1.8-2.4); PHOSPHORUS 2.9 mg/dL (2.5-4.9); POTASSIUM 4.6 mmol/L (3.5-5.1); TOTAL PROTEIN, SERUM 6.5 g/dL (6.4-8.2)
[2020-09-03 04:49] LABS: BASOPHILS % (AUTO) 0.4 % (0.0-2.0); HEMATOCRIT 49 % (39-51); HEMOGLOBIN 16.4 g/dL (13.5-17.5); LYMPHOCYTES # (AUTO) 0.6 /CMM (0.8-4.8); LYMPHOCYTES % (AUTO) 7.6 % (20.0-44.0); MEAN CORPUSCULAR HGB CONC 34 g/dl (31.0-36.0); MEAN CORPUSCULAR VOLUME 96 fL (80-96); MONOCYTES # (AUTO) 0.3 /CMM (0.1-1.30); MONOCYTES % (AUTO) 3.1 % (2.0-12.0); NEUTROPHILS # (AUTO) 7.3 /CMM (1.8-8.9); NEUTROPHILS % (AUTO) 88.9 % (43.0-81.0); PLATELET COUNT (AUTO) 122 /CMM (150-450); WHITE BLOOD COUNT (AUTO) 8.3 K/uL (4.3-11.0)
[2020-09-03] MEDS: ALBUTEROL FS 2.5 MG/3 ML VIAL.NEB NEB SCH ×4 (07:38→20:05)
[2020-09-03] MEDS: IPRATROPIUM NEB FS 0.5 MG/2.5 ML AMPUL.NEB NEB SCH ×4 (07:38→20:05)
[2020-09-03] MEDS ORDERED: DEXTROSE 50%-WATER 50 ML DISP.SYRIN IV PRN (08:00)
[2020-09-03 08:44] LABS: ABG BASE EXCESS 10.6 mmol/L; ABG OXYGEN SATURATION 96.4 % (92.0-98.5); ABG PCO2 71.3 mmHg (35.0-45.0); ABG PH 7.365 (7.350-7.450); ABG PO2 79.8 mmHg (75.0-100.0); AaDO2 342.7 mmHg; COHb 0.6 % (0.5-1.5); MetHb 0.3 % (0.0-1.5); O2Hb 95.5 % (94.0-97.0); PEEP,BG 5 cm H2O; SITE, ABG Right Radial; VT, ABG 500 mL
[2020-09-03] MEDS: CEFEPIME 2 GM in IV D5W 100 ML IV SCH ×2 (08:56→21:07)
[2020-09-03] MEDS: methylPREDNISolone SOD SUCC 40 MG/ML VIAL IV SCH ×2 (08:57→17:48)
[2020-09-03] MEDS: NICOTINE PATCH (21MG) 21 MG PATCH.TD24 TD SCH (08:57)
[2020-09-03] MEDS: TAMSULOSIN 0.4 MG CAP.SR.24H PO SCH (08:57)
[2020-09-03] MEDS: RIVAROXABAN 10 MG TABLET PO SCH (08:58)
[2020-09-03] MEDS: METHIMAZOLE (5MG) 5 MG TABLET PO SCH (08:59)
[2020-09-03] MEDS: PANTOPRAZOLE 40 MG TABLET.DR PO SCH (08:59)
[2020-09-03] MEDS: LINAGLIPTIN 5 MG TABLET PO SCH (08:59)
[2020-09-03] MEDS: EZETIMIBE 10 MG TABLET PO SCH (08:59)
[2020-09-03] MEDS: COLCHICINE 0.6 MG TABLET PO SCH (08:59)
[2020-09-03] MEDS: ATORVASTATIN 40 MG TABLET PO SCH (08:59)
[2020-09-03] MEDS ORDERED: HYDROCORTISONE SOD SUCCINATE 100 MG/2 ML VIAL IV SCH (09:00)
[2020-09-03] MEDS: BLOOD SUGAR DIAGNOSTIC 1 EACH STRIP IN SCH ×3 (12:58→23:59)
[2020-09-03] MEDS: INSULIN REGULAR, HUMAN 100 UNIT/ML 3 ML VIAL SQ PRN ×3 (13:01→23:57)
--- NOTE | 2020-09-03 13:23 | NUR ---
RAIN CATHETER FLUSHED AT THIS TIME WITH NS. SEDIMENT NOTED, 400 ML OF URINE RETURNED. US SENT TO LAB
[2020-09-03] MEDS: NOREPINEPHRINE 8 MG in IV NS 0.9% 242 ML IV PRN (18:06)
--- NOTE | 2020-09-03 18:39 | NUR ---
END OF SHIFT NOTE: PT HAD AN UNEVENTFUL SHIFT. PT WAKES UP VERY EASILY IF PROPOFOL IS PAUSED TO A VERY SHORT TIME. PER PREVIOUS NOTE RAIN CATHETER WAS FLUSHED, CURRENTLY DRAINING WITHOUT DIFFICULTY. PT CHECKED ON HOURLY AND PRN BY NURSING STAFF.
--- NOTE | 2020-09-03 19:20 | NUR ---
ICU/PURCHASE ORDER CHECKER RECEIVED REPORT FROM DAY NURSE. SEE FLOWSHEET FOR ASSESSMENT.
--- NOTE | 2020-09-03 20:30 | NUR ---
ICU/REINFORCING STEEL PLACER FIO2 WAS DECREASED DOWN TO 45% BY RT, WILL MONITOR THIS PT'S SATURATION.
--- NOTE | 2020-09-03 22:00 | NUR ---
RN NOTE RECEIVED PT IN BED, INTUBATED AND SEDATED ON PROPOFOL 65MCG/KG/MIN AND ON LEVOPHED AT 0.02MCG/KG/MIN, NO SIGNS OF INFILTRATION NOTED. VS STABLE. OGT IN PLACE, CLAMPED. RAIN DRAINING WELL. WILL CONTINUE TO MONITOR.
--- NOTE | 2020-09-03 22:01 | NUR ---
ICU/AGRICULTURAL TECHNICIAN REPORT GIVEN TO NIGHT NURSE.
[2020-09-04] VITALS (77 sets, daily range): BP systolic 90–139; BP diastolic 40–89
[2020-09-04] MEDS: PROPOFOL 100 ML IV PRN ×9 (01:57→21:27)
[2020-09-04 04:49] LABS: BASOPHILS % (AUTO) 0.1 % (0.0-2.0); HEMATOCRIT 50 % (39-51); HEMOGLOBIN 15.8 g/dL (13.5-17.5); LYMPHOCYTES # (AUTO) 0.6 /CMM (0.8-4.8); LYMPHOCYTES % (AUTO) 4.9 % (20.0-44.0); MEAN CORPUSCULAR HGB CONC 31 g/dl (31.0-36.0); MEAN CORPUSCULAR VOLUME 96 fL (80-96); MONOCYTES # (AUTO) 0.6 /CMM (0.1-1.30); MONOCYTES % (AUTO) 5.3 % (2.0-12.0); NEUTROPHILS # (AUTO) 10.7 /CMM (1.8-8.9); NEUTROPHILS % (AUTO) 89.7 % (43.0-81.0); PLATELET COUNT (AUTO) 126 /CMM (150-450); RED BLOOD CELL COUNT(AUTO) 5.23 MIL/uL (4.5-6.0); WHITE BLOOD COUNT (AUTO) 11.9 K/uL (4.3-11.0)
[2020-09-04 05:06] LABS: CALCIUM, SERUM 9.1 mg/dL (8.5-10.1); CARBON DIOXIDE 39 mmol/L (21-32); CHLORIDE 104 mmol/L (98-107); CREATININE 1.4 mg/dL (0.6-1.3); GLUCOSE 187 mg/dL (74-106); SODIUM SERUM 143 mmol/L (136-145); UREA NITROGEN, BLOOD 33 mg/dL (7-18)
--- NOTE | 2020-09-04 05:19 | NUR ---
RT NOTES PT REMAIN ORALLY INTUBATED W/ ETT#8.0 SECURED @ 24CM AT THE LIP LINE ON [facility] VENT ON CHARTED AC MODE SETTINGS. AIRWAY PATENT AND SECURED. TOUR CONSULTANT DONE. PT SUCTIONED. ALARMS ARE SET AND AUDIBLE. VENT PLUGGED INTO RED OUTLET. AMBUBAG AT BEDSIDE. WILL CONT TO MONITOR CLOSELY. Addendum: 09/04/20 at 0551 by ZION CANO RT Amended: Links added.
--- NOTE | 2020-09-04 05:30 | NUR ---
RN NOTE FIO2 TITRATED TO 40 % BY RT. NO RESP DISTRESS NOTED. O2 SAT AT 93
[2020-09-04] MEDS: BLOOD SUGAR DIAGNOSTIC 1 EACH STRIP IN SCH ×3 (05:38→17:16)
[2020-09-04] MEDS: INSULIN REGULAR, HUMAN 100 UNIT/ML 3 ML VIAL SQ PRN ×4 (05:41→23:53)
[2020-09-04 06:14] LABS: TRIGLYCERIDES 124 mg/dL (30-150)
--- NOTE | 2020-09-04 06:38 | NUR ---
RN NOTE PT REMAIN SEDATED ON PROPOFOL AT 60MCG/KG/MIN. TOLERATING VENT SETTINGS. ON BILATERAL SOFT WRIST RESTRAINTS, NO SKIN BREAKDOWN NOTED, GOOD CIRCULATION. LEVOPHED ON 0.01MCG/KG/MIN. VS STABLE. NO SIGNS OF INFILTRATION NOTED. RAIN DRAINING WELL. REMAIN AFEBRILE. KEPT CLEAN AND COMFORTABLE. WILL ENDORSE TO NEXT SHIFT NURSE FOR WENDY.
[2020-09-04 07:02] LABS: BILIRUBIN,URINE NEGATIVE (NEGATIVE); COLOR,URINE DARK YELLOW (YELLOW); LEUKOCYTE ESTERASE ,URINE NEGATIVE (NEGATIVE); NITRITE, URINE NEGATIVE (NEGATIVE); PROTEIN,URINE TRACE mg/dl (NEGATIVE); UGLUCOSE NEGATIVE (NEGATIVE); UROBILINOGEN,URINE 0.2 EU/dL (0.2)
[2020-09-04 07:29] LABS: CREATININE, URINE 163.9 MG/DL (30.0-125.0); URINE TOTAL PROTEIN 47.9 mg/dL (0-11.9)
[2020-09-04] MEDS: IPRATROPIUM NEB FS 0.5 MG/2.5 ML AMPUL.NEB NEB SCH ×4 (07:55→19:42)
[2020-09-04] MEDS: ALBUTEROL FS 2.5 MG/3 ML VIAL.NEB NEB SCH ×4 (07:55→19:42)
--- NOTE | 2020-09-04 07:55 | NUR ---
RT Pt received orally intubated on mechanical ventilation with noted settings. No SOB or respiratory distress noted. Vent is plugged into red outlet, alarms are set and audible. Addendum: 09/04/20 at 1850 by NATASHA ROWE RT Amended: Links added.
[2020-09-04] MEDS: TAMSULOSIN 0.4 MG CAP.SR.24H PO SCH (08:10)
[2020-09-04] MEDS: METHIMAZOLE (5MG) 5 MG TABLET PO SCH (08:10)
[2020-09-04] MEDS: COLCHICINE 0.6 MG TABLET PO SCH (08:10)
[2020-09-04] MEDS: EZETIMIBE 10 MG TABLET PO SCH (08:10)
[2020-09-04] MEDS: NICOTINE PATCH (21MG) 21 MG PATCH.TD24 TD SCH (08:10)
[2020-09-04] MEDS: LINAGLIPTIN 5 MG TABLET PO SCH (08:10)
[2020-09-04] MEDS: ATORVASTATIN 40 MG TABLET PO SCH (08:10)
[2020-09-04] MEDS: methylPREDNISolone SOD SUCC 40 MG/ML VIAL IV SCH ×2 (08:10→16:19)
[2020-09-04] MEDS: PANTOPRAZOLE 40 MG TABLET.DR PO SCH (08:10)
[2020-09-04] MEDS: RIVAROXABAN 10 MG TABLET PO SCH (08:11)
[2020-09-04] MEDS: CEFEPIME 2 GM in IV D5W 100 ML IV SCH ×2 (08:12→20:39)
[2020-09-04 08:25] LABS: BACTERIA,URINE Rare /HPF (None Seen); RBC,URINE 0-2 /HPF (0-2); SQUAMOUS EPITHELIAL CELL,UR Rare /HPF (None Seen); WBC,URINE 0-2 /HPF (0-3)
[2020-09-04 08:26] LABS: URIC ACID CRYSTALS,URINE Moderate /HPF (None Seen)
[2020-09-04 08:41] LABS: EOSINOPHIL,URINE None Seen
--- NOTE | 2020-09-04 11:27 | NUR ---
RN NOTE 0715: Received patient with ETT to vent, tolerated. Sedated on Diprivan @ 65. ST 100's. Daugherty cath intact, noted with dark marva with sediments. OGT intact, clamped. WES midline intact. On Levo 0.01, will titrate as ordered. 0800: Rendered sedation vacation, patient is awake on 45mcg, able to answer yes/no, follows simple commands. placed back on 65 for noted with agitation as evidenced by kicking and, coughing, facial grimace. 0900: S/E by Dr. Price,made aware, patient is able to answer yes/no and follows commands on sedation vacation no new order at this time. 1000: S/E by Torrie ARRIOLA, no new order at this time. 1120: No any significant changes noted at this time. Will continue to monitor.
--- NOTE | 2020-09-04 20:00 | NUR ---
RN NOTE RECEIVED PT IN BED SEDATED. ON MECHANICAL VENTVIA ETT SATING 94%, ON DIPRIVAN RUNNING AT 65 MCG/KG/MIN. PT HAS OG TUBE CLAMPED. SAFETY MEASURES IN PLACE.
[2020-09-05] VITALS (36 sets, daily range): BP systolic 94–128; BP diastolic 55–75
[2020-09-05] MEDS: PROPOFOL 100 ML IV PRN ×12 (00:28→23:47)
[2020-09-05] MEDS: BLOOD SUGAR DIAGNOSTIC 1 EACH STRIP IN SCH ×4 (00:36→17:22)
[2020-09-05 04:43] LABS: BASOPHILS % (AUTO) 0.4 % (0.0-2.0); EOSINOPHILS % (AUTO) 0.1 % (0.0-6.0); HEMATOCRIT 48 % (39-51); HEMOGLOBIN 15.4 g/dL (13.5-17.5); LYMPHOCYTES # (AUTO) 0.6 /CMM (0.8-4.8); LYMPHOCYTES % (AUTO) 6.1 % (20.0-44.0); MEAN CORPUSCULAR HGB CONC 32 g/dl (31.0-36.0); MEAN CORPUSCULAR VOLUME 95 fL (80-96); MONOCYTES # (AUTO) 0.7 /CMM (0.1-1.30); MONOCYTES % (AUTO) 6.7 % (2.0-12.0); NEUTROPHILS # (AUTO) 9.3 /CMM (1.8-8.9); NEUTROPHILS % (AUTO) 86.7 % (43.0-81.0); PLATELET COUNT (AUTO) 115 /CMM (150-450); WHITE BLOOD COUNT (AUTO) 10.7 K/uL (4.3-11.0)
[2020-09-05 05:32] LABS: CALCIUM, SERUM 8.5 mg/dL (8.5-10.1); CHLORIDE 104 mmol/L (98-107); CREATININE 1.5 mg/dL (0.6-1.3); GLUCOSE 177 mg/dL (74-106); POTASSIUM 4.4 mmol/L (3.5-5.1); SODIUM SERUM 143 mmol/L (136-145); UREA NITROGEN, BLOOD 46 mg/dL (7-18)
[2020-09-05 05:43] LABS: CARBON DIOXIDE 42 mmol/L (21-32)
[2020-09-05] MEDS: INSULIN REGULAR, HUMAN 100 UNIT/ML 3 ML VIAL SQ PRN ×3 (06:01→17:26)
--- NOTE | 2020-09-05 06:22 | NUR ---
RECEIVED CRITICAL LAB CO2 42 , DR COTTO INFORMED NO ORDER AT THIS TIME.
--- NOTE | 2020-09-05 07:15 | NUR ---
REPORT GIVEN TO ONCOMING SHIFT FOR WENDY.
--- NOTE | 2020-09-05 07:25 | NUR ---
RN OPENING NOTES RECEIVED PT SEDATED AND INTUBATED. MECHVENT SETTINGS AC16, FIO2 40% WITH PEEP 5. WES MIDLINE, PERIPHERAL IVLINES AT RIGHT AC AND LEFT THUMB, PROPOFOL AT 65MCG/KG IN PROGRESS, RAIN NOTED. APPEARS COMFORTABLE AT THIS TIME. SAFETY CHECKS IN PLACE. WILL CONTINUE TO MONITOR
[2020-09-05] MEDS: IPRATROPIUM NEB FS 0.5 MG/2.5 ML AMPUL.NEB NEB SCH ×4 (08:12→19:36)
[2020-09-05] MEDS: ALBUTEROL FS 2.5 MG/3 ML VIAL.NEB NEB SCH ×4 (08:12→19:36)
[2020-09-05] MEDS: methylPREDNISolone SOD SUCC 40 MG/ML VIAL IV SCH ×2 (08:16→17:21)
[2020-09-05] MEDS: LINAGLIPTIN 5 MG TABLET PO SCH (08:16)
[2020-09-05] MEDS: COLCHICINE 0.6 MG TABLET PO SCH (08:16)
[2020-09-05] MEDS: CEFEPIME 2 GM in IV D5W 100 ML IV SCH ×2 (08:16→20:48)
[2020-09-05] MEDS: EZETIMIBE 10 MG TABLET PO SCH (08:16)
[2020-09-05] MEDS: PANTOPRAZOLE 40 MG TABLET.DR PO SCH (08:16)
[2020-09-05] MEDS: TAMSULOSIN 0.4 MG CAP.SR.24H PO SCH (08:16)
[2020-09-05] MEDS: ATORVASTATIN 40 MG TABLET PO SCH (08:16)
[2020-09-05] MEDS: METHIMAZOLE (5MG) 5 MG TABLET PO SCH (08:17)
[2020-09-05] MEDS: RIVAROXABAN 10 MG TABLET PO SCH (08:18)
[2020-09-05] MEDS: NICOTINE PATCH (21MG) 21 MG PATCH.TD24 TD SCH (08:18)
[2020-09-05 10:00] LABS: ABG BASE EXCESS 5.8 mmol/L; ABG PCO2 64.3 mmHg (35.0-45.0); ABG PH 7.342 (7.350-7.450); ABG PO2 90.7 mmHg (75.0-100.0); AaDO2 266.4 mmHg; COHb 0.5 % (0.5-1.5); MetHb 0.3 % (0.0-1.5); O2Hb 96.2 % (94.0-97.0); PEEP,BG 5 cm H2O; SITE, ABG Left Radial; VT, ABG 500 mL
[2020-09-05] MEDS ORDERED: GLUCERNA 1.2 1,000 ML BOTTLE NG PRN (13:00)
[2020-09-05] MEDS: PROSOURCE / PROSTAT (PYXIS) 30 ML UDC GT SCH (17:21)
--- NOTE | 2020-09-05 19:13 | NUR ---
RN NOTES PT REMAINS SEDATED AND INTUBATED. MECHVENT SETTINGS AC16, FIO2 60% WITH PEEP 5. WES MIDLINE, PERIPHERAL IVLINES AT RIGHT AC AND LEFT THUMB, PROPOFOL AT 65MCG/KG IN PROGRESS, OGT IN PLACE WITH GLUCERNA AT 10ML/HR, RAIN IN PLACE, APPEARS COMFORTABLE AT THIS TIME. SAFETY CHECKS IN PLACE. ENDORSED TO NIGHT RN
--- NOTE | 2020-09-05 20:00 | NUR ---
RN NOTE RECEIVED PT IN BED SEDATED. ON MECHANICAL VENT VIA ETT SATING 96%, ON DIPRIVAN RUNNING AT 65 MCG/KG/MIN. PT HAS OG TUBE IN PLACE, GLUCERNA 1.2 RUNNING AT 10 ML /HR. NO RESIDUAL NOTED, FLUSHED AND CHECKED FOR PLACEMENT. SAFETY MEASURES IN PLACE.
[2020-09-06] VITALS (28 sets, daily range): BP systolic 95–145; BP diastolic 54–102
[2020-09-06] MEDS: BLOOD SUGAR DIAGNOSTIC 1 EACH STRIP IN SCH ×5 (00:05→23:24)
[2020-09-06] MEDS: INSULIN REGULAR, HUMAN 100 UNIT/ML 3 ML VIAL SQ PRN ×5 (00:22→23:26)
[2020-09-06] MEDS: PROPOFOL 100 ML IV PRN ×4 (01:51→07:24)
[2020-09-06 04:37] LABS: BASOPHILS # (AUTO) 0.1 /CMM (0.0-0.2); BASOPHILS % (AUTO) 0.9 % (0.0-2.0); EOSINOPHILS % (AUTO) 0.2 % (0.0-6.0); HEMATOCRIT 47 % (39-51); HEMOGLOBIN 15.6 g/dL (13.5-17.5); LYMPHOCYTES # (AUTO) 0.6 /CMM (0.8-4.8); LYMPHOCYTES % (AUTO) 6.5 % (20.0-44.0); MEAN CORPUSCULAR HGB CONC 33 g/dl (31.0-36.0); MEAN CORPUSCULAR VOLUME 95 fL (80-96); MONOCYTES # (AUTO) 0.8 /CMM (0.1-1.30); MONOCYTES % (AUTO) 7.9 % (2.0-12.0); NEUTROPHILS # (AUTO) 8.3 /CMM (1.8-8.9); NEUTROPHILS % (AUTO) 84.5 % (43.0-81.0); PLATELET COUNT (AUTO) 112 /CMM (150-450); RED BLOOD CELL COUNT(AUTO) 4.98 MIL/uL (4.5-6.0); WHITE BLOOD COUNT (AUTO) 9.9 K/uL (4.3-11.0)
[2020-09-06 04:54] LABS: ALBUMIN 2.6 g/dL (3.4-5.0); BILIRUBIN,TOTAL 0.7 mg/dL (0.2-1.0); CALCIUM, SERUM 8.3 mg/dL (8.5-10.1); CREATININE 1.3 mg/dL (0.6-1.3); PHOSPHORUS 4.2 mg/dL (2.5-4.9); POTASSIUM 4.4 mmol/L (3.5-5.1); TOTAL PROTEIN, SERUM 6.4 g/dL (6.4-8.2)
--- NOTE | 2020-09-06 07:15 | NUR ---
MESS COOK NOTES RECIEVED PATIENT SEDATED , RESPONSIVE TO PAIN STIMULI , NOT IN ACUTE DISTRESS , RESPIRATIONS EVEN AND UNLABORED WITH SPO2 OF 100% VIA MECHANICAL VENT SETTINGS ORDERED , ETT 8.0/[address] , SR 85 ON BEDSIDE MONITOR, FC DRAINING VIA GRAVITY , OGT WITH GLUCERNA @ 10ML/HR TOLERATING WELL , WES PICCLINE WITH DIPRIVAN @ 65MCG/KG/MIN INFUSING WELL , NS @ TKO , ALL NEEDS ATTENDED , HOB @ 45 WILL CONTINUE TO MONITOR .
--- NOTE | 2020-09-06 07:20 | NUR ---
RN NOTE REPORT GIVEN TO ONCOMING SHIFT FOR WENDY.
[2020-09-06] MEDS: IPRATROPIUM NEB FS 0.5 MG/2.5 ML AMPUL.NEB NEB SCH ×4 (07:32→19:30)
[2020-09-06] MEDS: ALBUTEROL FS 2.5 MG/3 ML VIAL.NEB NEB SCH ×4 (07:32→19:30)
--- NOTE | 2020-09-06 08:30 | NUR ---
FABRIC WORKER FOREMAN NOTES OFF DIPRIVAN FOR SEDATION VACATION , PT CALM AND COOPERATIVE , ABLE TO FOLLOW COMMANDS , BILATERAL SOFT WRIST RESTRAINTS IN PLACE , WILL CONTINUE TO MONITOR,.
[2020-09-06] MEDS: CEFEPIME 2 GM in IV D5W 100 ML IV SCH (08:37)
[2020-09-06] MEDS: PROSOURCE / PROSTAT (PYXIS) 30 ML UDC GT SCH ×3 (08:37→15:19)
[2020-09-06] MEDS: PANTOPRAZOLE 40 MG TABLET.DR PO SCH (08:38)
[2020-09-06] MEDS: COLCHICINE 0.6 MG TABLET PO SCH (08:38)
[2020-09-06] MEDS: TAMSULOSIN 0.4 MG CAP.SR.24H PO SCH (08:38)
[2020-09-06] MEDS: EZETIMIBE 10 MG TABLET PO SCH (08:38)
[2020-09-06] MEDS: NICOTINE PATCH (21MG) 21 MG PATCH.TD24 TD SCH (08:38)
[2020-09-06] MEDS: ATORVASTATIN 40 MG TABLET PO SCH (08:38)
[2020-09-06] MEDS: LINAGLIPTIN 5 MG TABLET PO SCH (08:38)
[2020-09-06] MEDS: METHIMAZOLE (5MG) 5 MG TABLET PO SCH (08:38)
[2020-09-06] MEDS: methylPREDNISolone SOD SUCC 40 MG/ML VIAL IV SCH ×2 (08:38→16:26)
[2020-09-06] MEDS: RIVAROXABAN 10 MG TABLET PO SCH (08:42)
--- NOTE | 2020-09-06 09:26 | NUR ---
on weaning trial wit parameters below per Dr. Ortega: JEFF 4 PS 15 PEEP +5 Addendum: 09/06/20 at 0927 by ARCHIE CASTRO RT Amended: Links added.
[2020-09-06 10:38] LABS: ABG OXYGEN SATURATION 96.9 % (92.0-98.5); ABG PCO2 67.6 mmHg (35.0-45.0); ABG PH 7.342 (7.350-7.450); ABG PO2 90.4 mmHg (75.0-100.0); COHb 0.5 % (0.5-1.5); MetHb 0.3 % (0.0-1.5); O2Hb 96.1 % (94.0-97.0); PEEP,BG 5 cm H2O; SITE, ABG Right Radial; VENT MODE, BG SIMV 4 / PS 15; VT, ABG 500 mL
--- NOTE | 2020-09-06 11:15 | NUR ---
DRILL SHARPENER OPERATOR NOTES PT STABLE S/P EXTUBATION , PLACED ON 2LPM NC TO KEEP SPO2 88-90% PER DR ROY , SUCTION ORALLY , OGT REMOVED , PT AOX1-2 GREEK SPEAKING , RE ORIENT PATIENT TO DATE TIME AND PLACE , ST 117 , SPO2 OF 90% VIA 2LPM NC , BP OF 131/66 , BILATERAL SOFT WRIST RESTRAINS REMOVED . WILL CONTINUE OT MONITOR .
--- NOTE | 2020-09-06 11:15 | NUR ---
pt is awake and following commands extubated as order and placed into nasal cannula @2 lpm o2 flow. pt have strong cough and he can lift his head. spo2 89% RR 16 RR no increase work of breathing noted. Addendum: 09/06/20 at 1346 by ARCHIE CASTRO RT Amended: Links added.
--- NOTE | 2020-09-06 15:20 | NUR ---
placed into venti mask @ 30% fio2 due to mouth breathing and desaturation on nasal cannula. Addendum: 09/06/20 at 1558 by ARCHIE CASTRO RT Amended: Links added.
[2020-09-06 15:41] LABS: ABG BASE EXCESS 5.2 mmol/L; ABG OXYGEN SATURATION 90.3 % (92.0-98.5); ABG PCO2 60.1 mmHg (35.0-45.0); ABG PH 7.358 (7.350-7.450); ABG PO2 57.3 mmHg (75.0-100.0); COHb 0.6 % (0.5-1.5); MetHb 0.2 % (0.0-1.5); O2Hb 89.6 % (94.0-97.0); SITE, ABG Right Radial
--- NOTE | 2020-09-06 19:12 | NUR ---
TIE LAYER NOTES PATIENT STABLE AT THIS TIME , AOX2 ANGUILLAN / ICELANDIC SPEAKING NOT IN ACUTE DISTRESS , DENIES SOB AND DISCOMFORT AT THIS TIME , SPO2 OF 91% VIA VENTURI MASK @ 30% FIO2 , ST 115 ON BEDSIDE MONITOR , FC DRAINING VIA GRAVITY , WES PICC LINE PATENT AND INTACT SL , HOB @ 45 , REPORT GIVEN TO OBED FOR CONTINUITY OF CARE
--- NOTE | 2020-09-06 19:35 | NUR ---
DIRECTOR OF FINANCIAL AID OPENING NOTES: Rec'd pt in bed awake, A&Ox2, Albanian/Pakistani speaking. On 8LPM at 30% venti mask. SR on tele monitor. NPO dx. WES PICC line patent and flushed. Dressing c/d/i. Daugherty cath in place patent and draining urine via gravity. Safety measures in place. Will continue to monitor.
--- NOTE | 2020-09-06 22:30 | NUR ---
PANEL SEWER NOTE: Pt removing mask. Explained importance, risks and benefits of keeping mask on. Pt confirmed understanding. Will continue to monitor.
--- NOTE | 2020-09-06 23:45 | NUR ---
nasotracheal suctioned for a small amount of thick milner secretions. pt refusing bipap at this time. Addendum: 09/07/20 at 0519 by NAMRATA LEARY RT Amended: Links added.
--- NOTE | 2020-09-06 23:47 | NUR ---
BARREL RIB MATTING MACHINE OPERATOR NOTE: Pt refused bipap w/ RT. Risks and benefits explained. Continued to refuse. Will attempt again at later time.
[2020-09-07] VITALS (25 sets, daily range): BP systolic 115–171; BP diastolic 61–94
--- NOTE | 2020-09-07 02:00 | NUR ---
pt placed on bipap per md order Addendum: 09/07/20 at 0516 by NAMRATA WILSON Amended: Links added.
--- NOTE | 2020-09-07 02:14 | NUR ---
SUMMONS SERVER NOTE: Pt placed on bipap 20/10 rate: 12. Will continue to monitor.
[2020-09-07 04:45] LABS: CALCIUM, SERUM 9.2 mg/dL (8.5-10.1); CREATININE 1.1 mg/dL (0.6-1.3); MAGNESIUM 2.8 mg/dL (1.8-2.4); PHOSPHORUS 2.6 mg/dL (2.5-4.9); POTASSIUM 4.1 mmol/L (3.5-5.1)
[2020-09-07 05:18] LABS: BASOPHILS % (AUTO) 0.1 % (0.0-2.0); HEMATOCRIT 50 % (39-51); HEMOGLOBIN 16.3 g/dL (13.5-17.5); LYMPHOCYTES # (AUTO) 0.8 /CMM (0.8-4.8); LYMPHOCYTES % (AUTO) 7.9 % (20.0-44.0); MEAN CORPUSCULAR HGB CONC 32 g/dl (31.0-36.0); MEAN CORPUSCULAR VOLUME 95 fL (80-96); MONOCYTES # (AUTO) 0.9 /CMM (0.1-1.30); MONOCYTES % (AUTO) 8.6 % (2.0-12.0); NEUTROPHILS # (AUTO) 8.5 /CMM (1.8-8.9); NEUTROPHILS % (AUTO) 83.4 % (43.0-81.0); PLATELET COUNT (AUTO) 117 /CMM (150-450); RED BLOOD CELL COUNT(AUTO) 5.28 MIL/uL (4.5-6.0); WHITE BLOOD COUNT (AUTO) 10.1 K/uL (4.3-11.0)
[2020-09-07] MEDS: BLOOD SUGAR DIAGNOSTIC 1 EACH STRIP IN SCH ×4 (05:19→23:37)
[2020-09-07] MEDS: INSULIN REGULAR, HUMAN 100 UNIT/ML 3 ML VIAL SQ PRN ×4 (05:19→23:45)
--- NOTE | 2020-09-07 05:24 | NUR ---
ACTIVE DIRECTORY SYSTEMS ADMINISTRATOR NOTE: RT took pt off bipap and placed back on venturi mask. O2 sat WNL, will continue to monitor.
--- NOTE | 2020-09-07 07:10 | NUR ---
RN NOTES RECEIVED PT ON BED, RWANDAN/ VATICAN CITIZEN SPEAKING , A/Ox1-2, ON 30% VENTI MASK, O2 SAT WNL, ON TELE SR HR 90'S , L UPPER ARM PICC LINE SITE CLEAN, DRY AND INTACT, RAIN DRAINING TO GRAVITY, SR UP x3, CALL LIGHT WITHIN EASY REACH, BED LOCKED AND IN LOWEST POSITION, CONTINUE TO MONITOR .
[2020-09-07] MEDS: ALBUTEROL FS 2.5 MG/3 ML VIAL.NEB NEB SCH ×4 (07:49→20:18)
[2020-09-07] MEDS: IPRATROPIUM NEB FS 0.5 MG/2.5 ML AMPUL.NEB NEB SCH ×4 (07:49→20:18)
[2020-09-07] MEDS: TAMSULOSIN 0.4 MG CAP.SR.24H PO SCH (08:24)
[2020-09-07] MEDS: NICOTINE PATCH (21MG) 21 MG PATCH.TD24 TD SCH (08:24)
[2020-09-07] MEDS: LINAGLIPTIN 5 MG TABLET PO SCH (08:24)
[2020-09-07] MEDS: PANTOPRAZOLE 40 MG TABLET.DR PO SCH (08:24)
[2020-09-07] MEDS: methylPREDNISolone SOD SUCC 40 MG/ML VIAL IV SCH ×2 (08:24→16:41)
[2020-09-07] MEDS: COLCHICINE 0.6 MG TABLET PO SCH (08:25)
[2020-09-07] MEDS: EZETIMIBE 10 MG TABLET PO SCH (08:25)
[2020-09-07] MEDS: METHIMAZOLE (5MG) 5 MG TABLET PO SCH (08:26)
[2020-09-07] MEDS: RIVAROXABAN 10 MG TABLET PO SCH (08:26)
[2020-09-07] MEDS: ATORVASTATIN 40 MG TABLET PO SCH (08:26)
[2020-09-07] MEDS: PROSOURCE / PROSTAT (PYXIS) 30 ML UDC GT SCH ×3 (08:27→16:41)
[2020-09-07] MEDS ORDERED: BUMETANIDE INJ 4 MG in IV D5W 24 ML IV ONE (09:30)
--- NOTE | 2020-09-07 12:00 | NUR ---
RN NOTES LARGE ELVIE FORM BM NOTED, PT STATED FEELS BETTER , CONTINUE TO MONITOR .
--- NOTE | 2020-09-07 18:00 | NUR ---
RN NOTES PT REMANINS ON 6L O2 N/C , O2 SAT 90-92%, ON TELE SR-ST , TOLERATING CARDIAC PUREE DIET WELL, L UPPER ARM PICC LINE SITE CLEAN ,DRY AND INTACT, RAIN DRAINING TO GRAVITY, SR UP X3,CALL LIGHT WITHIN EASY REACH, BED LOCKED AND IN LOWEST POSITION, WILL ENDOSE TO FERMENTING CELLARS SUPERVISOR NURSE FOR CONTINUITY OF CARE .
--- NOTE | 2020-09-07 19:36 | NUR ---
REVENUE FIELD AGENT OPENING NOTES: Rec'd pt in bed awake, A&Ox2, Croatian/Gabonese speaking. On 6LPM NC, tolerating well. No resp distress noted at this time. SR on tele monitor. WES PICC line patent and flushed. Dressing c/d/i. Daugherty cath in place patent and draining urine via gravity. Safety measures in place. Will continue to monitor.
--- NOTE | 2020-09-07 22:13 | NUR ---
HYDRO GENERATION MANAGER NOTE: Pt refused bed bath & linen change for tonight. Stated "it is not necessary tonight"
[2020-09-08] VITALS (23 sets, daily range): BP systolic 99–146; BP diastolic 59–112
--- NOTE | 2020-09-08 00:02 | NUR ---
FRONT END DRUPAL DEVELOPER NOTE: Nocturnal bipap placed by RT. O2 sat WNL, will continue to monitor.
[2020-09-08 04:28] LABS: BASOPHILS % (AUTO) 0.3 % (0.0-2.0); EOSINOPHILS % (AUTO) 0.2 % (0.0-6.0); HEMATOCRIT 55 % (39-51); HEMOGLOBIN 17.8 g/dL (13.5-17.5); LYMPHOCYTES % (AUTO) 8.8 % (20.0-44.0); MEAN CORPUSCULAR HGB CONC 32 g/dl (31.0-36.0); MEAN CORPUSCULAR VOLUME 94 fL (80-96); MONOCYTES # (AUTO) 0.9 /CMM (0.1-1.30); MONOCYTES % (AUTO) 7.5 % (2.0-12.0); NEUTROPHILS # (AUTO) 9.9 /CMM (1.8-8.9); NEUTROPHILS % (AUTO) 83.2 % (43.0-81.0); PLATELET COUNT (AUTO) 138 /CMM (150-450); RED BLOOD CELL COUNT(AUTO) 5.84 MIL/uL (4.5-6.0); WHITE BLOOD COUNT (AUTO) 11.9 K/uL (4.3-11.0)
[2020-09-08 04:38] LABS: CALCIUM, SERUM 9.8 mg/dL (8.5-10.1); CARBON DIOXIDE 38 mmol/L (21-32); CHLORIDE 103 mmol/L (98-107); CREATININE 1.4 mg/dL (0.6-1.3); GLUCOSE 135 mg/dL (74-106); MAGNESIUM 2.6 mg/dL (1.8-2.4); POTASSIUM 4.1 mmol/L (3.5-5.1); SODIUM SERUM 145 mmol/L (136-145)
[2020-09-08 05:20] LABS: UREA NITROGEN, BLOOD 57 mg/dL (7-18)
[2020-09-08] MEDS: BLOOD SUGAR DIAGNOSTIC 1 EACH STRIP IN SCH ×3 (05:29→17:01)
[2020-09-08] MEDS: INSULIN REGULAR, HUMAN 100 UNIT/ML 3 ML VIAL SQ PRN ×3 (05:47→17:03)
--- NOTE | 2020-09-08 05:58 | NUR ---
STOCK LIFTER NOTE: Pt requesting bipap to be removed. RT at bedside, removed bipap and placed back on NC. O2 WNL. Will continue to monitor.
[2020-09-08] MEDS: ALBUTEROL FS 2.5 MG/3 ML VIAL.NEB NEB SCH ×4 (07:56→19:51)
[2020-09-08] MEDS: IPRATROPIUM NEB FS 0.5 MG/2.5 ML AMPUL.NEB NEB SCH ×4 (07:56→19:51)
--- NOTE | 2020-09-08 08:00 | NUR ---
RN NOTES RECEIVED PATIENT IN THE BED ON O2-6LNC. PATIENT HAS NO ACUTE RESPIRATORY DISTRESS, A/A/Ox3 WOLOF SPEAKER, REFUSED PAIN. PATIENT VSS. DUE MEDICATION ADMINISTERED. ASSIST PATIENT TO SEAT EDGE OF THE BED, AND BREAKFAST TOLERATED 75% SELF. IV ACCESS ON LEFT UA INTACT, INFUSING TKO 10ML/HR. RAIN DRAINING VIA GRAVITY ENCOURAGED TO INCREASE FLUID INTAKE. CALL LIGHT WITHIN TO REACH. WILL MONITORING.
[2020-09-08] MEDS: METHIMAZOLE (5MG) 5 MG TABLET PO SCH (08:28)
[2020-09-08] MEDS: methylPREDNISolone SOD SUCC 40 MG/ML VIAL IV SCH (08:29)
[2020-09-08] MEDS: EZETIMIBE 10 MG TABLET PO SCH (08:29)
[2020-09-08] MEDS: TAMSULOSIN 0.4 MG CAP.SR.24H PO SCH (08:29)
[2020-09-08] MEDS: LINAGLIPTIN 5 MG TABLET PO SCH (08:29)
[2020-09-08] MEDS: PANTOPRAZOLE 40 MG TABLET.DR PO SCH (08:29)
[2020-09-08] MEDS: NICOTINE PATCH (21MG) 21 MG PATCH.TD24 TD SCH (08:29)
[2020-09-08] MEDS: RIVAROXABAN 10 MG TABLET PO SCH (08:30)
[2020-09-08] MEDS: COLCHICINE 0.6 MG TABLET PO SCH (08:31)
[2020-09-08] MEDS: ATORVASTATIN 40 MG TABLET PO SCH (08:31)
[2020-09-08] MEDS: PROSOURCE / PROSTAT (PYXIS) 30 ML UDC GT SCH ×3 (08:32→17:00)
[2020-09-08] MEDS: IV NS 0.9% 250 ML IV PRN ×2 (08:54→21:24)
--- NOTE | 2020-09-08 13:00 | NUR ---
RN NOTES BS- 177MG/DL, COVERAGE GIVEN, TOLERATED LUNCH 50%, HAS BMX1. ASSIST TURN AND REPOSTION Q2 HR. SEEN PT.
[2020-09-08] MEDS: ACETAMINOPHEN 325 MG TABLET PO PRN (18:57)
--- NOTE | 2020-09-08 18:58 | NUR ---
rn notes Administered tylenol 650 mg po prn for generalized pain 09/25, per patient request . patient stable no acute respiratory distress on o2-4LNC.VSS, call light within to reach. endorsed oncoming nurse follow plan of care.
--- NOTE | 2020-09-08 19:30 | NUR ---
RN NOTE PATIENT IN THE BED A/OX2-3. ON O2 4LPM VIA NC. NO ACUTE RESPIRATORY DISTRESS. DENIES ANY PAIN. IV ACCESS ON WES PICC LINE, PATENT AND INTACT. RAIN DRAINING VIA GRAVITY LYDIA URINE. CALL LIGHT WITHIN REACH. WILL CONTINUE TO MONITOR.
--- NOTE | 2020-09-08 20:20 | NUR ---
TRANSFERRED PATIENT FROM ROOM 262 TO ROOM 103 PER ACLS PROTOCOL. IN STABLE CONDITION. ALL BELONGINGS INCLUDING RING, PHONE, AND LEARNING SOLUTIONS SPECIALIST TRANSFERRED WITH PATIENT. REPORT GIVEN TO ANNI DANG.
--- NOTE | 2020-09-08 20:25 | NUR ---
RN NOTE RECEIVED PATIENT FROM ICU VIA MEDICAL BED, ACCOMPANIED BY DAVIS DANG, WITH ICU BEHAVIORAL ASSISTANT PRESENT. PATIENT AWAKE, ALERT AND ORIENTED X2-3, NORWEGIAN SPEAKING, TAIWO DANG ABLE TO HELP WITH TRANSLATION. IN NO S/SX OF ACUTE DISTRESS AT THIS TIME. PATIENT'S BREATHING IS EVEN AND UNLABORED. PATIENT IS ON 4 L OF OXYGEN VIA NC, SATURATION AT 93% AT THE MOMENT. SINUS TACHY WITH PAC'S ON THE MONITOR, HR IS 114. NOTED WES PICC LINE, ALL HUBS PATENT AND FLUSHING, NO S/S OF INFECTION NOTED, WITH NS INFUSING AT TKO. RAIN CATHETER CONNECTED TO URINE BAG IN PLACE, DRAINING TO A CLEAR YELLOW OUTPUT. SAFETY MEASURES IMPLEMENTED. PATIENT BED ALARM IS ON. HEAD OF BED ELEVATED. BED IS LOCKED, IN LOWEST POSITION AND SIDE RAILS UP. CALL LIGHT WITHIN REACH OF THE PATIENT. WILL CONTINUE TO MONITOR AND REASSESS FOR ANY CHANGES.
[2020-09-08] MEDS: MORPHINE SULFATE INJ 2 MG/ML DISP.SYRIN IV PRN (21:51)
--- NOTE | 2020-09-08 22:32 | NUR ---
RN NOTE PATIENT COMPLAINING OF SEVERE PAIN IN THE BACK, AND RIGHT HIP/THIGH AREA. PRN TYLENOL ADMINISTERED 1856, AND NOT YET DUE UNTIL 56. ADVISED PATIENT ONLY MORPHINE WOULD BE AVAILABLE AT THIS TIME, PATIENT AMENABLE. HOWEVER, PATIENT CHANGED HIS MIND AND REFUSED MORPHINE. MORPHINE UNDONE FROM EMAR, BUT DOES NOT SHOW UNDER LIST OF MEDICATIONS ELIGIBLE FOR RETURN IN [facility]. TELEPHONE CALL TO [facility], SPOKE WITH AFTER HOURS OFFICE STAFF, STATED SHE IS UNABLE TO HELP SHE DOES NOT HAVE ACCESS TO [facility]. NURSING PASTE MIXER NOTIFIED. WILL TRY TO VERIFY WITH IN-HOUSE PHARMACY IN AM.
[2020-09-09] VITALS: BP 99/66
[2020-09-09] MEDS: BLOOD SUGAR DIAGNOSTIC 1 EACH STRIP IN SCH ×5 (00:11→23:10)
[2020-09-09] MEDS: ACETAMINOPHEN 325 MG TABLET PO PRN (01:09)
[2020-09-09 04:00] VITALS: BP 102/72
[2020-09-09] MEDS: INSULIN REGULAR, HUMAN 100 UNIT/ML 3 ML VIAL SQ PRN ×5 (05:36→23:12)
[2020-09-09 05:51] LABS: BASOPHILS % (AUTO) 0.4 % (0.0-2.0); EOSINOPHILS % (AUTO) 1.4 % (0.0-6.0); HEMATOCRIT 54 % (39-51); HEMOGLOBIN 17.3 g/dL (13.5-17.5); LYMPHOCYTES # (AUTO) 1.8 /CMM (0.8-4.8); LYMPHOCYTES % (AUTO) 15.2 % (20.0-44.0); MEAN CORPUSCULAR HGB CONC 32 g/dl (31.0-36.0); MEAN CORPUSCULAR VOLUME 94 fL (80-96); MONOCYTES % (AUTO) 8.2 % (2.0-12.0); NEUTROPHILS # (AUTO) 8.7 /CMM (1.8-8.9); NEUTROPHILS % (AUTO) 74.8 % (43.0-81.0); PLATELET COUNT (AUTO) 133 /CMM (150-450); RED BLOOD CELL COUNT(AUTO) 5.68 MIL/uL (4.5-6.0); WHITE BLOOD COUNT (AUTO) 11.7 K/uL (4.3-11.0)
[2020-09-09 06:02] LABS: CALCIUM, SERUM 9.1 mg/dL (8.5-10.1); CREATININE 1.3 mg/dL (0.6-1.3); MAGNESIUM 2.8 mg/dL (1.8-2.4); POTASSIUM 3.6 mmol/L (3.5-5.1)
--- NOTE | 2020-09-09 06:57 | NUR ---
RN NOTE TELEPHONE CALL TO PHARMACY AT EXT [phone], SPOKE TO [facility], TOLD HIM I AM UNABLE TO RETURN MORPHINE 2 MG IT IS NOT SHOWING UNDER THE MEDICATIONS TO RETURN UNDER THIS PATIENT'S NAME. BROUGHT VIAL OF UNOPENED/SEALED MORPHINE 2 MG TO PHARMACY, RECEIVED BY [facility] AT 0700. HEALTH CLUB MANAGER AWARE.
[2020-09-09] MEDS: IPRATROPIUM NEB FS 0.5 MG/2.5 ML AMPUL.NEB NEB SCH ×4 (07:26→19:53)
[2020-09-09] MEDS: ALBUTEROL FS 2.5 MG/3 ML VIAL.NEB NEB SCH ×4 (07:26→19:53)
--- NOTE | 2020-09-09 07:55 | NUR ---
RECEIVED PATIENT IN BED. NO ACUTE DISTRESS NOTED. PATIENT ALERT & ORIENTED X2. PATIENT ON 4L NC, SATURATING WELL >92%. PATIENT ON MIGRATORY WORKER, NSR NOTED, BUT PER REPORT ST WITH PAC ALSO NOTED. PATIENT FC IN PLACE, INTACT, DRAINING TO GRAVITY. PATIENT WES PICC INTACT, PATENT. PATIENT SAFETY MEASURES MAINTAINED. CALL LIGHT WITHIN REACH. WILL CONTINUE TO MONITOR.
[2020-09-09 08:00] VITALS: BP 119/79
[2020-09-09] MEDS: methylPREDNISolone SOD SUCC 40 MG/ML VIAL IV SCH (08:45)
[2020-09-09] MEDS: EZETIMIBE 10 MG TABLET PO SCH (08:45)
[2020-09-09] MEDS: PROSOURCE / PROSTAT (PYXIS) 30 ML UDC GT SCH ×3 (08:45→16:36)
[2020-09-09] MEDS: METHIMAZOLE (5MG) 5 MG TABLET PO SCH (08:45)
[2020-09-09] MEDS: PANTOPRAZOLE 40 MG TABLET.DR PO SCH (08:46)
[2020-09-09] MEDS: NICOTINE PATCH (21MG) 21 MG PATCH.TD24 TD SCH (08:46)
[2020-09-09] MEDS: LINAGLIPTIN 5 MG TABLET PO SCH (08:46)
[2020-09-09] MEDS: COLCHICINE 0.6 MG TABLET PO SCH (08:46)
[2020-09-09] MEDS: TAMSULOSIN 0.4 MG CAP.SR.24H PO SCH (08:46)
[2020-09-09] MEDS: ATORVASTATIN 40 MG TABLET PO SCH (08:46)
[2020-09-09] MEDS: RIVAROXABAN 10 MG TABLET PO SCH (08:47)
[2020-09-09] MEDS ORDERED: BUMETANIDE INJ 8 MG in IV NS 0.9% 48 ML IV ONE (09:00)
[2020-09-09 12:00] VITALS: BP 106/75
[2020-09-09 16:00] VITALS: BP 107/71
--- NOTE | 2020-09-09 18:31 | NUR ---
PATIENT IN BED. NO ACUTE DISTRESS NOTED. PATIENT ALERT & ORIENTED X2. PATIENT ON 4L NC, SATURATING WELL >92%. PATIENT ON NURSE WOUND CARE, NSR NOTED, BUT PER REPORT ST WITH PAC ALSO NOTED. PATIENT FC IN PLACE, INTACT, DRAINING TO GRAVITY. PATIENT PULLED OUT WES PICC LINE. PATIENT SAFETY MEASURES MAINTAINED. CALL LIGHT WITHIN REACH. WILL ENDORSE PLAN OF CARE TO ONCOMING SHIFT
--- NOTE | 2020-09-09 19:30 | NUR ---
RN OPENING NOTES: RECEIVED PT A/OX2; PERSIAN SPEAKING, IN BED RESTING COMFORTABLY. PATIENT IN NO S/SX OF ACUTE DISTRESS AT THIS TIME. NO SOB NOTED. PATIENT'S BREATHING IS EVEN AND UNLABORED. PATIENT IS ON 4L OF OXYGEN VIA NC; TOLERATING WELL. PATIENT ON TELE MONITORING READING SINUS TACHY HR IS @110 AT THE TIME OF RECEIVED. PATIENT ON CARDIAC DIET; TOLERATES WELL. NOTED IV SITE ON L UA PICC LINE; DISLODGED AND REMOVED, WILL FACILITATE INSERTION LATER; HIGH VOLTAGE ELECTRICIAN MADE AWARE. RAIN CATH IN PLACE, MODERATE URINE OUTPUT NOTED. SAFETY MEASURES HAVE BEEN PROVIDED AND IMPLEMENTED. PATIENT BED ALARM IS ON. HEAD OF BED ELEVATED. BED IS LOCKED, IN LOWEST POSITION AND SIDE RAILS UP. CALL LIGHT WITHIN REACH OF THE PATIENT. APPLICABLE ISOLATION PRECAUTIONS IN PLACE. WILL CONTINUE TO MONITOR AND REASSESS FOR ANY CHANGES AND WILL CARRY OUT ANY ONGOING AND ACTIVE MD ORDER.
[2020-09-09 20:00] VITALS: BP 104/59
--- NOTE | 2020-09-09 20:00 | NUR ---
RN NOTES NOTED IV LINE ON L UA PICC LINE TO BE DISLODGED AND HAS BEEN REMOVED . FACILITATED CHANGE AND REINSERTION OF IV LINE @ L HAND #22. CANDY SEPARATOR HARD MADE AWARE. WILL CONTINUE TO MONITOR AND ASSESS
--- NOTE | 2020-09-09 23:00 | NUR ---
RN NOTES NO CHANGE IN PATIENT CONDITION AT THIS TIME PATIENT VITALS STABLE, NO SIGNS OF ACUTE RESPIRATORY DISTRESS. WORKERS' COMPENSATION CLAIMS SUPERVISOR MADE AWARE. WILL CONTINUE TO MONITOR AND REASSESS FOR ANY CHANGES THROUGHOUT THE SHIFT.
--- NOTE | 2020-09-09 23:25 | NUR ---
RN NOTES RT COORDINATED WITH PRIMARY RN THAT PT WAS HOOKED TO HIS NOCTURNAL BIPAP; ACKNOWLEDGED AND CUSTOM FRAME ASSEMBLER MADE AWARE. WILL CONTINUE TO ASSESS AND MONITORED THROUGHOUT THE SHIFT.
[2020-09-10] VITALS: BP 111/71
--- NOTE | 2020-09-10 03:00 | NUR ---
RN NOTES PATIENT REMAINS IN NO ACUTE RESPIRATORY DISTRESS AT THIS TIME, NO CHANGES TO CONDITION/STATUS. MEDICAL CLERICAL ASSISTANT WELL AWARE. WILL CONTINUE TO MONITOR AND REASSESS FOR ANY CHANGES THROUGHOUT THE SHIFT
[2020-09-10 04:00] VITALS: BP 106/74
[2020-09-10] MEDS: BLOOD SUGAR DIAGNOSTIC 1 EACH STRIP IN SCH ×2 (05:08→11:35)
[2020-09-10] MEDS: INSULIN REGULAR, HUMAN 100 UNIT/ML 3 ML VIAL SQ PRN ×2 (05:10→13:08)
[2020-09-10] MEDS: MORPHINE SULFATE INJ 2 MG/ML DISP.SYRIN IV PRN (05:52)
[2020-09-10 05:55] LABS: BASOPHILS # (AUTO) 0.1 /CMM (0.0-0.2); BASOPHILS % (AUTO) 0.4 % (0.0-2.0); EOSINOPHILS % (AUTO) 2.2 % (0.0-6.0); HEMATOCRIT 53 % (39-51); HEMOGLOBIN 17.5 g/dL (13.5-17.5); LYMPHOCYTES % (AUTO) 14.2 % (20.0-44.0); MEAN CORPUSCULAR HGB CONC 33 g/dl (31.0-36.0); MEAN CORPUSCULAR VOLUME 93 fL (80-96); MONOCYTES # (AUTO) 1.3 /CMM (0.1-1.30); MONOCYTES % (AUTO) 9.1 % (2.0-12.0); NEUTROPHILS # (AUTO) 10.2 /CMM (1.8-8.9); NEUTROPHILS % (AUTO) 74.1 % (43.0-81.0); PLATELET COUNT (AUTO) 152 /CMM (150-450); WHITE BLOOD COUNT (AUTO) 13.7 K/uL (4.3-11.0)
[2020-09-10 06:26] LABS: ALANINE AMINOTRANSFERASE 91 U/L (12-78); ALBUMIN 3.1 g/dL (3.4-5.0); ALKALINE PHOSPHATASE 70 U/L (46-116); ASPARTATE AMINOTRANSFERASE 62 U/L (15-37); BILIRUBIN,TOTAL 1.6 mg/dL (0.2-1.0); CALCIUM, SERUM 8.8 mg/dL (8.5-10.1); CARBON DIOXIDE 37 mmol/L (21-32); CHLORIDE 99 mmol/L (98-107); CREATININE 1.6 mg/dL (0.6-1.3); GLUCOSE 127 mg/dL (74-106); MAGNESIUM 2.2 mg/dL (1.8-2.4); POTASSIUM 3.3 mmol/L (3.5-5.1); SODIUM SERUM 142 mmol/L (136-145); TOTAL PROTEIN, SERUM 6.8 g/dL (6.4-8.2); UREA NITROGEN, BLOOD 75 mg/dL (7-18)
--- NOTE | 2020-09-10 06:45 | NUR ---
RN CLOSING NOTE: PATIENT REMAINS IN ROOM RESTING COMFORTABLY.NO SIGNS OF RESPIRATORY DISTRESS PATIENT STILL ON 4L OF O2 VIA NC ;TOLERATTING WELL SATURATING @ >95% SP02.PATIENT IS CLEAN , DRY AND COMFORTABLE THROUGHOUT THE SHIFT. ALL DUE MEDS GIVEN ORDERED ; PATIENT TOLERATED WELL. SAFETY MEASURES IMPLEMENTED, BED IN LOWEST POSITION, LOCKED, SIDE RAILS UP, CALL LIGHT WITHIN REACH. PATIENT ENDORSED TO INCOMING SHIFT RN WITH STABLE VITAL SIGN AND FOR CONTINUITY OF CARE.
--- NOTE | 2020-09-10 07:30 | NUR ---
MIGUEL RN AM NOTES: RECEIVED PT A/OX2; JAPANESE SPEAKING, IN BED RESTING COMFORTABLY. ON 4L OF OXYGEN VIA NC; TOLERATING WELL. PATIENT IN NO S/SX OF ACUTE DISTRESS AT THIS TIME. NO SOB NOTED. RESPIRATION UNLABORED. SINUS RHYTHM TO SINUS TACH IN MONITOR. DENIES ANY PAIN OR CHEST DISCOMFORT, LEFT HAND G 22 IV SITE, FLUSHES WELL, SITE CLEAR, NS AT TKO. SKIN INTACT, CARDIAC DIET. RAIN CATH IN PLACE, MODERATE URINE OUTPUT NOTED. SAFETY MEASURES IN PLACE. HEAD OF BED ELEVATED. BED IS LOCKED, IN LOWEST POSITION AND SIDE RAILS UP. CALL LIGHT WITHIN REACH OF THE PATIENT. PLAN OF CARE DISCUSSED. NEEDS FURTHER TEACHINGS. WILL CONTINUE TO MONITOR AND REASSESS FOR ANY CHANGES AND WILL CARRY OUT ANY ONGOING AND ACTIVE MD ORDER.
[2020-09-10] MEDS: IPRATROPIUM NEB FS 0.5 MG/2.5 ML AMPUL.NEB NEB SCH ×3 (07:38→15:40)
[2020-09-10] MEDS: ALBUTEROL FS 2.5 MG/3 ML VIAL.NEB NEB SCH ×3 (07:38→15:40)
[2020-09-10 08:00] VITALS: BP 91/62
[2020-09-10 08:56] LABS: ABG BASE EXCESS 7.8 mmol/L; ABG OXYGEN SATURATION 91.9 % (92.0-98.5); ABG PCO2 74.4 mmHg (35.0-45.0); ABG PH 7.324 (7.350-7.450); ABG PO2 64.4 mmHg (75.0-100.0); COHb 1.4 % (0.5-1.5); MetHb 0.3 % (0.0-1.5); O2Hb 90.3 % (94.0-97.0); VENT MODE, BG NC L
[2020-09-10] MEDS ORDERED: FUROSEMIDE 40 MG TABLET PO SCH (09:00)
--- NOTE | 2020-09-10 09:30 | NUR ---
RN NOTES DUE MEDS GIVEN
--- NOTE | 2020-09-10 09:54 | NUR ---
RN NOTES DC MIGUEL STATUS. TRANSFER TELEMETRY
[2020-09-10] MEDS: methylPREDNISolone SOD SUCC 40 MG/ML VIAL IV SCH (09:58)
[2020-09-10] MEDS: NICOTINE PATCH (21MG) 21 MG PATCH.TD24 TD SCH (09:59)
[2020-09-10] MEDS: PANTOPRAZOLE 40 MG TABLET.DR PO SCH (09:59)
[2020-09-10] MEDS: LINAGLIPTIN 5 MG TABLET PO SCH (09:59)
[2020-09-10] MEDS: METHIMAZOLE (5MG) 5 MG TABLET PO SCH (10:00)
[2020-09-10] MEDS: COLCHICINE 0.6 MG TABLET PO SCH (10:00)
[2020-09-10] MEDS: ATORVASTATIN 40 MG TABLET PO SCH (10:00)
[2020-09-10] MEDS: PROSOURCE / PROSTAT (PYXIS) 30 ML UDC GT SCH ×3 (10:00→17:16)
[2020-09-10] MEDS: EZETIMIBE 10 MG TABLET PO SCH (10:00)
[2020-09-10] MEDS: TAMSULOSIN 0.4 MG CAP.SR.24H PO SCH (10:04)
[2020-09-10] MEDS: POTASSIUM CHLORIDE 20 MEQ TAB.PRT.SR PO SCH ×3 (10:04→12:17)
[2020-09-10] MEDS: RIVAROXABAN 10 MG TABLET PO SCH (10:06)
[2020-09-10 12:00] VITALS: BP 99/56
--- NOTE | 2020-09-10 12:00 | NUR ---
RN NOTES ACCUCHECK 187 MG/DL. 3 UNITS HUM R GIVEN PER SS
[2020-09-10 16:00] VITALS: BP 109/66
--- NOTE | 2020-09-10 17:48 | NUR ---
PORT CAPTAIN NOTES PATIENT DISCHARGED TO [facility] PER MD IN STABLE CONDITION. PROVIDED DC INSTRUCTIONS, HEALTH TEACHINGS AND MED RECON LIST. PATIENT'S IV ACCESS REMOVED, PRESSURE APPLIED, NO BLEEDING, AND PUT DRESSING IN PLACE. RAIN CATH IN PLACE, PATENT INTACT WITH TOTAL 900 ML OUTPUT. PATIENT TO FOLLOW UP WITH PRIMARY MD AND WILL MAKE OWN APPOINTMENT OR PER FACILITY PROTOCOL. ALL BELONGINGS CHECKED AND RETURNED. ALL PAPERS SIGNED. REPORT GIVEN TO FACILITY STAFF EARLIER BY CHARGE NURSE CORNELL. REPORT GIVEN TO AMBULANCE PERSONNEL AND WILL TAKE PATIENT TO FACILITY VIA AMBULANCE.
[2020-09-11] MEDS ORDERED: POTASSIUM CHLORIDE 20 MEQ TAB.PRT.SR PO SCH (09:00)
== END 2020-09-10 17:48 | DRG 207 ==
LOC: ER 15:31 → TELE 18:19 → ICU 09-01 18:13 → TELE1 09-08 20:07 → TELE-TD 09-08 20:13 → TELE1 09-10 09:55
PROVIDERS: ADMIT Nurse Practitioner Acute Care; ATTEND Nurse Practitioner Family
PROC: 5A1955Z Respiratory Ventilation, Greater than 96 Consecutive Hours (ICD-10-PCS; principal; 2020-09-01)
PROC: 0BH18EZ Insertion of Endotracheal Airway into Trachea, Via Natural or Artificial Opening Endoscopic (ICD-10-PCS; 2020-09-01)
PROC: 02HV33Z Insertion of Infusion Device into Superior Vena Cava, Percutaneous Approach (ICD-10-PCS; 2020-09-02)
PROC: B548ZZA Ultrasonography of Superior Vena Cava, Guidance (ICD-10-PCS; 2020-09-02)
PROC: 5A09357 Assistance with Respiratory Ventilation, Less than 24 Consecutive Hours, Continuous Positive Airway Pressure (ICD-10-PCS; 2020-09-07)
PROC: 5A09357 Assistance with Respiratory Ventilation, Less than 24 Consecutive Hours, Continuous Positive Airway Pressure (ICD-10-PCS; 2020-09-08)
DX: J96.01 Acute respiratory failure with hypoxia (principal); N17.0 Acute kidney failure with tubular necrosis; I50.33 Acute on chronic diastolic (congestive) heart failure; I13.0 Hypertensive heart and chronic kidney disease with heart failure and stage 1 through stage 4 chronic kidney disease, or unspecified chronic kidney disease; D68.69 Other thrombophilia; I47.2 Ventricular tachycardia; Z68.41 Body mass index [BMI] 40.0-44.9, adult; E66.2 Morbid (severe) obesity with alveolar hypoventilation; J96.22 Acute and chronic respiratory failure with hypercapnia; Z20.822 Contact with and (suspected) exposure to COVID-19; E03.9 Hypothyroidism, unspecified; E78.5 Hyperlipidemia, unspecified; F17.200 Nicotine dependence, unspecified, uncomplicated; N18.9 Chronic kidney disease, unspecified; I25.10 Atherosclerotic heart disease of native coronary artery without angina pectoris; Z79.01 Long term (current) use of anticoagulants; Z95.1 Presence of aortocoronary bypass graft; Z95.2 Presence of prosthetic heart valve; K21.9 Gastro-esophageal reflux disease without esophagitis; Z90.5 Acquired absence of kidney; Z85.528 Personal history of other malignant neoplasm of kidney; E83.42 Hypomagnesemia; E83.39 Other disorders of phosphorus metabolism; I95.9 Hypotension, unspecified; E05.90 Thyrotoxicosis, unspecified without thyrotoxic crisis or storm; I35.0 Nonrheumatic aortic (valve) stenosis; E11.22 Type 2 diabetes mellitus with diabetic chronic kidney disease; I48.0 Paroxysmal atrial fibrillation; J44.9 Chronic obstructive pulmonary disease, unspecified; E11.65 Type 2 diabetes mellitus with hyperglycemia; Z99.81 Dependence on supplemental oxygen; Z79.4 Long term (current) use of insulin
CPT/HCPCS: 31720; 36415; 36600; 70450-TC; 71045-TC; 80048-TC; 80053-TC; 80061-TC; 80076-TC; 81001; 82533; 82570-TC; 82803-TC; 82962-TC; 83735-TC; 83880; 84100-TC; 84155-TC; 84300-TC; 84439-TC; 84443-TC; 84478-TC; 84484-TC; 85025-TC; 85378-TC; 85730-TC; 87070-TC; 87081-TC; 87086-TC; 92526; 92611-TC; 93307-TC; 94002-TC; 94003-TC; 94640-TC; 94760-TC; 94762-TC; 94799-TC; 97112-TC; 97116-TC; 97530-TC; 99082-TC; C1751; C9803; G0378; J0692; J1815; J1940; J2270; J2920; J3475; J3490; J7050; J7060

== ENCOUNTER 2020-09-21 20:12 | Inpatient (IN) | payer MEDICARE, OTHER ==
[~2020-09-21] VITALS: Ht 165.1 cm; Wt 118.1 kg
[~2020-09-21 20:12] MED LIST changes: -ALBUT2 NEB; -ASPI-1169 PO; -BISA-79 PO; +CHLO500T3 PO; +COLC0.6T67 PO; -FURO-144 PO; +ICOS1CAP PO; -IPRA0.2S9 NEB; -LISI10TA29 PO; -METO50TA7 PO; +OMEP1CAP25 PO; +SITA50TA PO; -UBID200C32 PO; +UMEC1BLS INH
--- NOTE | 2020-09-21 20:20 | NUR ---
PATIENT TO ER BED 5 BIBWIFE C/O SOB S/P LEAVING HALF-WAY. PATIENT HAS HX OF DM, CHF, NEPHRECTOMY. PATIENT IS 87% ON ROOM AIR. PATIENT ARRIVE WITH HOME OXYGEN. NO HISOTRY OF COVID. PATIENT IS 98% W/ 4L OF N/C. PATIENT IS AAOX4. NO SOB. BREATHING EVENLY AND UNLABORED ON ROOM AIR. CONNECTED TO THE RELEASE OF INFORMATION CLERK.
--- NOTE | 2020-09-21 20:40 | NUR ---
Annetta washington in ED - 09/21/20 at 2202 by HECTOR RT AT BEDSIDE FOR
--- NOTE | 2020-09-21 20:40 | NUR ---
RT AT BEDSIDE FOR
[2020-09-21 21:00] LABS: BASOPHILS # (AUTO) 0.1 /CMM (0.0-0.2); BASOPHILS % (AUTO) 0.9 % (0.0-2.0); EOSINOPHILS % (AUTO) 3.9 % (0.0-6.0); HEMATOCRIT 49 % (39-51); HEMOGLOBIN 15.6 g/dL (13.5-17.5); LYMPHOCYTES # (AUTO) 1.2 /CMM (0.8-4.8); LYMPHOCYTES % (AUTO) 15.3 % (20.0-44.0); MEAN CORPUSCULAR HGB CONC 32 g/dl (31.0-36.0); MEAN CORPUSCULAR VOLUME 94 fL (80-96); MONOCYTES # (AUTO) 0.6 /CMM (0.1-1.30); MONOCYTES % (AUTO) 7.4 % (2.0-12.0); NEUTROPHILS # (AUTO) 5.5 /CMM (1.8-8.9); NEUTROPHILS % (AUTO) 72.5 % (43.0-81.0); PLATELET COUNT (AUTO) 103 /CMM (150-450); RED BLOOD CELL COUNT(AUTO) 5.15 MIL/uL (4.5-6.0); WHITE BLOOD COUNT (AUTO) 7.6 K/uL (4.3-11.0)
--- NOTE | 2020-09-21 21:12 | NUR ---
COVID SWAB RAPID COLLECTED AND SENT TO THE LAB.
[2020-09-21 21:33] LABS: CALCIUM, SERUM 9.4 mg/dL (8.5-10.1); CREATININE 1.2 mg/dL (0.6-1.3); POTASSIUM 3.9 mmol/L (3.5-5.1)
[2020-09-21 21:39] LABS: ALBUMIN 3.1 g/dL (3.4-5.0); BILIRUBIN,DIRECT 0.2 mg/dL (0.0-0.2); BILIRUBIN,TOTAL 0.5 mg/dL (0.2-1.0); TOTAL PROTEIN, SERUM 6.5 g/dL (6.4-8.2)
--- NOTE | 2020-09-21 21:46 | NUR ---
PANEL PAGED PER DR COX'S ORDER
--- NOTE | 2020-09-21 21:59 | NUR ---
COVID NEGATIVE PER LAB
--- NOTE | 2020-09-21 22:08 | NUR ---
PATIENT TO 311-2
[2020-09-21] MEDS ORDERED: MAGNESIUM HYDROXIDE 30 ML UDC PO PRN (22:30)
[2020-09-21] MEDS ORDERED: ZOLPIDEM TARTRATE 5 MG TABLET PO PRN (22:30)
[2020-09-21] MEDS ORDERED: Z GUARD REMEDY 2 OZ OINT TP PRN (22:30)
[2020-09-21] MEDS ORDERED: CHLORZOXAZONE 500 MG TABLET PO PRN (22:30)
[2020-09-21] MEDS ORDERED: ACETAMINOPHEN 325 MG TABLET PO PRN (22:30)
[2020-09-21] MEDS ORDERED: HYDROCODONE/APAP 5/325MG TABLET PO PRN (22:30)
[2020-09-21] MEDS ORDERED: ONDANSETRON HCL/PF 4 MG/2 ML VIAL IVP PRN (22:30)
[2020-09-21] MEDS ORDERED: MAG HYDROX/AL HYDROX/SIMETH 30 ML UDC PO PRN (22:30)
--- NOTE | 2020-09-21 22:50 | NUR ---
Annetta washington in EDM - 09/21/20 at 2250 by HECTOR REPORT GIVEN TO SHARI DANG AT [facility].
[2020-09-21] MEDS ORDERED: FUROSEMIDE 40 MG/4 ML VIAL ONE (22:57)
[2020-09-21] MEDS: FUROSEMIDE 40 MG/4 ML VIAL IV SCH (23:03)
[2020-09-21 23:29] VITALS: BP 144/85
[2020-09-21 23:30] VITALS: BP 144/85
--- NOTE | 2020-09-21 23:30 | NUR ---
palm gathererbetting clerks notes Received Pt from ER nurse ALTON Gr and one EMT. Pt arrived at the unit with a gurney and ACLS protocol. Pt is 84 YO male came from home. Pt is alert and orientedX3. Pt speaks Maori and able to make needs known. Respiration is on 2 L NC. No SOB. No S/S of distress noted. VS is stable. Afebrile. Tele monitor showed Sinus tachy HR at 104. IV site at LAC# 18 is clean, intact, flushes well and SL. Skin assessment is done and performed. Pt has skin rash under abdomen fold. Pt refused skin picture taken. Explained risks and benefits. Pt keep refusing. Wound care consult ordered. Pt's belonging is checked by LEILANI Valdez and signed by Pt. Reorient Pt to the room and the use of call light. Pt verbalized understanding. Safety precautions is maintained. Bed at low position, brakes locked, side rails upX2, hob elevated and call light is within reach. Will continue to monitor.
--- NOTE | 2020-09-21 23:32 | NUR ---
PATIENT TAKEN UP TO ASSIGN ROOM FOR WENDY.
[2020-09-22 00:14] LABS: ABG BASE EXCESS 3.1 mmol/L; ABG OXYGEN SATURATION 95.6 % (92.0-98.5); ABG PCO2 65.7 mmHg (35.0-45.0); ABG PH 7.302 (7.350-7.450); AaDO2 68.3 mmHg; COHb 1.1 % (0.5-1.5); MetHb 0.4 % (0.0-1.5); O2Hb 94.2 % (94.0-97.0); SITE, ABG Left Radial; VENT MODE, BG NC 2L
[2020-09-22 04:00] VITALS: BP 121/73
[2020-09-22 04:05] VITALS: BP 121/73
[2020-09-22 06:31] LABS: BASOPHILS % (AUTO) 0.6 % (0.0-2.0); EOSINOPHILS % (AUTO) 3.8 % (0.0-6.0); HEMATOCRIT 49 % (39-51); HEMOGLOBIN 15.8 g/dL (13.5-17.5); LYMPHOCYTES # (AUTO) 1.2 /CMM (0.8-4.8); MEAN CORPUSCULAR HGB CONC 32 g/dl (31.0-36.0); MEAN CORPUSCULAR VOLUME 95 fL (80-96); MONOCYTES # (AUTO) 0.5 /CMM (0.1-1.30); MONOCYTES % (AUTO) 8.2 % (2.0-12.0); NEUTROPHILS # (AUTO) 4.5 /CMM (1.8-8.9); NEUTROPHILS % (AUTO) 68.4 % (43.0-81.0); PLATELET COUNT (AUTO) 98 /CMM (150-450); RED BLOOD CELL COUNT(AUTO) 5.16 MIL/uL (4.5-6.0); WHITE BLOOD COUNT (AUTO) 6.5 K/uL (4.3-11.0)
--- NOTE | 2020-09-22 06:49 | NUR ---
recreational sports director closing notes Pt is resting in bed comfortably. Pt is alert and orientedX3. Pt speaks Portuguese and able to make needs known. Respiration is on 2 L NC. No SOB. No S/S of distress noted. VS is stable. Afebrile. Tele monitor showed SR with PAC and PVC Hr at 96. IV site at LAC# 18 is clean, intact, flushes well and SL. Kept Pt clean, dry and comfortable. Safety precautions is maintained. Bed at low position, brakes locked, side rails upX2, hob elevated and call light is within reach. Will endorse to morning nurse for WENDY.
[2020-09-22 06:51] LABS: POTASSIUM 3.8 mmol/L (3.5-5.1)
[2020-09-22 07:20] LABS: CALCIUM, SERUM 9.1 mg/dL (8.5-10.1); CREATININE 1.2 mg/dL (0.6-1.3); MAGNESIUM 1.9 mg/dL (1.8-2.4); PHOSPHORUS 5.3 mg/dL (2.5-4.9)
--- NOTE | 2020-09-22 07:28 | NUR ---
SAP TECHNICAL ARCHITECT OPENING NOTES Pt is resting in bed comfortably. Pt is alert and orientedX3. Pt speaks Uzbek and able to make needs known. Respiration is on 2 L NC. No SOB. No S/S of distress noted. VS is stable. Afebrile. Tele monitor showed SR with PAC and PVC Hr at 96. IV site at LAC# 18 is clean, intact, flushes well and SL. Kept Pt clean, dry and comfortable. Safety precautions is maintained. Bed at low position, brakes locked, side rails upX2, hob elevated and call light is within reach.
[2020-09-22] MEDS ORDERED: PANTOPRAZOLE 40 MG TABLET.DR PO SCH (07:30)
--- NOTE | 2020-09-22 07:59 | NUR ---
WOUND CARE CONSULT: PT SEEN FOR ABDOMINAL FOLD REDNESS AND RASH, PRESENT ON ADMISSION. RECOMMENDATIONS MADE FOR SKIN PROTECTION. DISCUSSED WITH NURSING STAFF. PT IS AMBULATORY TO BATHROOM WITH ASSISTANCE. IN AGREEMENT WITH PLAN OF CARE. Addendum: 09/22/20 at 0800 by ZARA HARRIS WNDNU Amended: Links added.
[2020-09-22 08:00] VITALS: BP 121/72
[2020-09-22] MEDS: FUROSEMIDE 40 MG/4 ML VIAL IV SCH ×3 (08:34→16:21)
[2020-09-22] MEDS: METHIMAZOLE (5MG) 5 MG TABLET PO SCH (08:34)
[2020-09-22] MEDS: EZETIMIBE 10 MG TABLET PO SCH (08:35)
[2020-09-22] MEDS: LINAGLIPTIN 5 MG TABLET PO SCH (08:35)
[2020-09-22] MEDS: TAMSULOSIN 0.4 MG CAP.SR.24H PO SCH (08:36)
[2020-09-22] MEDS: ATORVASTATIN 40 MG TABLET PO SCH (08:36)
[2020-09-22] MEDS: COLCHICINE 0.6 MG TABLET PO SCH (08:37)
[2020-09-22] MEDS: RIVAROXABAN 10 MG TABLET PO SCH (08:39)
[2020-09-22] MEDS ORDERED: Medication Not On Formulary EA (Umeclidinium Brm/Vilanterol Tr (Anoro Ellipta 62.5-25 Mc INH SCH (09:00)
[2020-09-22] MEDS ORDERED: Medication Not On Formulary EA (Icosapent Ethyl (Vascepa) 2 GM) PO SCH (09:00)
[2020-09-22] MEDS ORDERED: FUROSEMIDE 20 MG/2 ML VIAL IV SCH (09:00)
[2020-09-22] MEDS: CLOTRIMAZOLE 1% 15 GM TUBE TP SCH ×2 (09:37→16:22)
[2020-09-22] MEDS: POTASSIUM CHLORIDE 20 MEQ TAB.PRT.SR PO SCH ×3 (09:37→11:58)
[2020-09-22] MEDS: IPRATROPIUM NEB FS 0.5 MG/2.5 ML AMPUL.NEB NEB SCH ×4 (11:02→23:30)
[2020-09-22 11:26] LABS: LYMPHOCYTES % (MANUAL) 20 % (16-48); MONOCYTES % (MANUAL) 6 % (0-11.0); NEUTROPHILS % (MANUAL) 74 (42-76)
[2020-09-22 12:00] VITALS: BP 108/70
[2020-09-22] MEDS ORDERED: CYCLOBENZAPRINE 10 MG TABLET PO PRN (12:30)
[2020-09-22 16:00] VITALS: BP 124/78
--- NOTE | 2020-09-22 19:30 | NUR ---
MAT INSPECTOR NOTE PATIENT A/O X 4, PATIENT RESTING IN BED. PATIENT IS ON 2 L OF OXYGEN ON NC. PATIENT DOES NOT HAVE ANY REPORTS OF PAIN/ DISCOMFORT. BREATHING EVEN AND UNLABORED, NO S/SOF RESPIRATORY DISTRESS. TELE MONITOR READS ST ON 115 BPM. SAFETY PRECAUTIONS IN PLACE: BED IN LOCKED AND LOWEST POSITION, CALL LIGHT WITHIN REACH. ENCOURAGED PATIENT TO USE CALL LIGHT IF IN NEED. WILL CLOSELY MONITOR PATIENT.
[2020-09-22 20:00] VITALS: BP 99/54
[2020-09-22 20:21] LABS: BILIRUBIN,URINE NEGATIVE (NEGATIVE); COLOR,URINE YELLOW (YELLOW); LEUKOCYTE ESTERASE ,URINE NEGATIVE (NEGATIVE); NITRITE, URINE NEGATIVE (NEGATIVE); PROTEIN,URINE NEGATIVE (NEGATIVE); UGLUCOSE NEGATIVE (NEGATIVE); UROBILINOGEN,URINE 0.2 EU/dL (0.2)
[2020-09-22 20:30] LABS: CREATININE, URINE 19.9 MG/DL (30.0-125.0)
[2020-09-22 20:37] LABS: URINE TOTAL PROTEIN 4.1 mg/dL (0-11.9)
[2020-09-22 21:38] LABS: EOSINOPHIL,URINE None Seen
[2020-09-23] MEDS: IPRATROPIUM NEB FS 0.5 MG/2.5 ML AMPUL.NEB NEB SCH ×6 (03:30→23:20)
[2020-09-23 04:00] VITALS: BP 92/65
[2020-09-23 05:55] LABS: BASOPHILS % (AUTO) 0.6 % (0.0-2.0); EOSINOPHILS % (AUTO) 4.9 % (0.0-6.0); HEMATOCRIT 48 % (39-51); HEMOGLOBIN 15.4 g/dL (13.5-17.5); LYMPHOCYTES # (AUTO) 1.4 /CMM (0.8-4.8); LYMPHOCYTES % (AUTO) 18.6 % (20.0-44.0); MEAN CORPUSCULAR HGB CONC 32 g/dl (31.0-36.0); MEAN CORPUSCULAR VOLUME 95 fL (80-96); MONOCYTES # (AUTO) 0.7 /CMM (0.1-1.30); MONOCYTES % (AUTO) 9.1 % (2.0-12.0); NEUTROPHILS % (AUTO) 66.8 % (43.0-81.0); PLATELET COUNT (AUTO) 96 /CMM (150-450); RED BLOOD CELL COUNT(AUTO) 5.05 MIL/uL (4.5-6.0); WHITE BLOOD COUNT (AUTO) 7.6 K/uL (4.3-11.0)
--- NOTE | 2020-09-23 06:25 | NUR ---
BATCH TESTER CLOSING NOTE PATIENT A/O X 4, PATIENT RESTING IN BED. PATIENT IS ON 2 L OF OXYGEN ON NC. PATIENT DOES NOT HAVE ANY REPORTS OF PAIN/ DISCOMFORT. BREATHING EVEN AND UNLABORED, NO S/SOF RESPIRATORY DISTRESS. ALL NEEDS MET AND ATTENDED. SAFETY PRECAUTIONS MAINTAINED: BED IN LOCKED AND LOWEST POSITION, CALL LIGHT WITHIN REACH. ENCOURAGED PATIENT TO USE CALL LIGHT IF IN NEED. WILL ENDORSE TO DAY SHIFT NURSE FOR WENDY.
[2020-09-23 06:40] LABS: ALBUMIN 2.8 g/dL (3.4-5.0); BILIRUBIN,TOTAL 0.7 mg/dL (0.2-1.0); CREATININE 1.2 mg/dL (0.6-1.3); MAGNESIUM 1.8 mg/dL (1.8-2.4); POTASSIUM 3.6 mmol/L (3.5-5.1); TOTAL PROTEIN, SERUM 6.2 g/dL (6.4-8.2)
--- NOTE | 2020-09-23 07:31 | NUR ---
FLATBED STITCHER OPENING NOTES PATIENT RECEIVED IN BED AWAKE, A/O X 4. GREEK SPEAKING, DENIES PAIN OR ANY DISCOMFORTS AT THIS TIME. ON 02 VIA N/C AT 2LPM, TOLERATING WELL, BREATHING EVEN AND UNLABORED. ON TELE MONITOR WITH CURRENT READING OF ST WITH HR OF 11, NO C/O CARDIAC DISTRESS VOICED. SAFETY PRECAUTIONS IN PLACE: BED IN LOCKED AND LOWEST POSITION, SIDE-RAILS UP X2 AND CALL LIGHT WITHIN REACH. ENCOURAGED PATIENT TO USE CALL LIGHT FOR ANY ASSISTANCE. WILL CLOSELY MONITOR PATIENT.
[2020-09-23 08:00] VITALS: BP 92/62
[2020-09-23] MEDS: COLCHICINE 0.6 MG TABLET PO SCH (08:09)
[2020-09-23] MEDS: LINAGLIPTIN 5 MG TABLET PO SCH (08:09)
[2020-09-23] MEDS: METHIMAZOLE (5MG) 5 MG TABLET PO SCH (08:09)
[2020-09-23] MEDS: RIVAROXABAN 10 MG TABLET PO SCH (08:10)
[2020-09-23] MEDS: EZETIMIBE 10 MG TABLET PO SCH (08:11)
[2020-09-23] MEDS: ATORVASTATIN 40 MG TABLET PO SCH (08:12)
[2020-09-23] MEDS: TAMSULOSIN 0.4 MG CAP.SR.24H PO SCH (08:12)
[2020-09-23] MEDS: CLOTRIMAZOLE 1% 15 GM TUBE TP SCH ×2 (08:46→16:32)
[2020-09-23 09:14] LABS: THYROID STIMULATING HORMONE 0.521 uIU/mL (0.358-3.74)
[2020-09-23 16:00] VITALS: BP 117/75
--- NOTE | 2020-09-23 18:44 | NUR ---
EDI ARCHITECT CLOSING NOTES PATIENT IN BED AWAKE AND WATCHING TV AT THIS TIME. A/O X 4. MONGOLIAN SPEAKING, UNDERSTANDS MINIMAL LATVIAN. ON 02 VIA N/C AT 2LPM, TOLERATING WELL, BREATHING EVEN AND UNLABORED. ON TELE MONITOR WITH CURRENT READING OF NSR WITH HR OF 98, NO C/O CARDIAC DISTRESS VOICED. IV SL ON LAC G#18 INTACT, PATENT AND FLUSHES WELL. SAFETY PRECAUTIONS MAINTAINED: BED IN LOCKED AND LOWEST POSITION, SIDE-RAILS UP X2 AND CALL LIGHT WITHIN REACH. ENCOURAGED PATIENT TO USE CALL LIGHT FOR ANY ASSISTANCE. WILL ENDORSE WENDY TO KID CLUB ATTENDANT NURSE..
--- NOTE | 2020-09-23 19:15 | NUR ---
rt note unable to scan meds, scanner not scanning.
--- NOTE | 2020-09-23 19:15 | NUR ---
REGIONAL OFFICE COORDINATOR OPENING NOTE PATIENT A/O X 4, PATIENT RESTING IN BED. PATIENT IS ON 2 L OF OXYGEN ON NC, TOLERATING WITH 95% O2 SAT. PATIENT DOES NOT HAVE ANY REPORTS OF PAIN/ DISCOMFORT. BREATHING EVEN AND UNLABORED, NO S/SOF RESPIRATORY DISTRESS. TELE MONITOR READS ST ON 113 BPM. SAFETY PRECAUTIONS IN PLACE: BED IN LOCKED AND LOWEST POSITION, CALL LIGHT WITHIN REACH. ENCOURAGED PATIENT TO USE CALL LIGHT IF IN NEED. WILL CLOSELY MONITOR PATIENT.
[2020-09-23 20:00] VITALS: BP 107/65
[2020-09-24] VITALS: BP 114/65
[2020-09-24] MEDS: IPRATROPIUM NEB FS 0.5 MG/2.5 ML AMPUL.NEB NEB SCH ×4 (03:02→14:56)
[2020-09-24 04:00] VITALS: BP_SYST 126; BP_DIAS 48; BP_DIAS 50
[2020-09-24 06:14] LABS: BASOPHILS % (AUTO) 0.5 % (0.0-2.0); EOSINOPHILS % (AUTO) 5.2 % (0.0-6.0); HEMATOCRIT 47 % (39-51); HEMOGLOBIN 15.1 g/dL (13.5-17.5); LYMPHOCYTES # (AUTO) 1.1 /CMM (0.8-4.8); LYMPHOCYTES % (AUTO) 15.6 % (20.0-44.0); MEAN CORPUSCULAR HGB CONC 32 g/dl (31.0-36.0); MEAN CORPUSCULAR VOLUME 94 fL (80-96); MONOCYTES # (AUTO) 0.6 /CMM (0.1-1.30); MONOCYTES % (AUTO) 8.5 % (2.0-12.0); NEUTROPHILS % (AUTO) 70.2 % (43.0-81.0); PLATELET COUNT (AUTO) 103 /CMM (150-450); RED BLOOD CELL COUNT(AUTO) 4.95 MIL/uL (4.5-6.0); WHITE BLOOD COUNT (AUTO) 7.1 K/uL (4.3-11.0)
--- NOTE | 2020-09-24 06:34 | NUR ---
STORE ASSISTANT CLOSING NOTE PATIENT A/O X 4, PATIENT RESTING IN BED. PATIENT IS ON 2 L OF OXYGEN ON NC, TOLERATING WITH 94% O2 SAT. PATIENT DOES NOT HAVE ANY REPORTS OF PAIN/ DISCOMFORT. BREATHING EVEN AND UNLABORED, NO S/SOF RESPIRATORY DISTRESS. TELE MONITOR READS SR ON 93 BPM. SAFETY PRECAUTIONS IN PLACE: BED IN LOCKED AND LOWEST POSITION, CALL LIGHT WITHIN REACH. ENCOURAGED PATIENT TO USE CALL LIGHT IF IN NEED. WILL ENDORSE TO DAY SHIFT NURSE FOR WENDY.
[2020-09-24 06:41] LABS: ALBUMIN 2.9 g/dL (3.4-5.0); BILIRUBIN,TOTAL 0.7 mg/dL (0.2-1.0); CALCIUM, SERUM 9.2 mg/dL (8.5-10.1); CREATININE 1.2 mg/dL (0.6-1.3); MAGNESIUM 2.1 mg/dL (1.8-2.4); PHOSPHORUS 3.4 mg/dL (2.5-4.9); TOTAL PROTEIN, SERUM 6.3 g/dL (6.4-8.2)
--- NOTE | 2020-09-24 07:15 | NUR ---
AREA REPRESENTATIVE OPENING NOTE RECEIVED PATIENT IN BED. A/O X4. AMHARIC SPEAKING. NC, 02 AT 2 LPM. NO SOB NOTED. NO S/S OF RESPIRATORY DISTRESS. IV ACCESS ON L AC 18 G, INTACT. SAFETY MEASURES MAINTAINED. BED IN LOWEST POSITION. BRAKES LOCKED. SIDE RAILS UP X2. CALL LIGHT WITHIN REACH. WILL CONTINUE PLAN OF CARE.
[2020-09-24] MEDS ORDERED: PANTOPRAZOLE 40 MG TABLET.DR PO SCH (07:30)
[2020-09-24 08:00] VITALS: BP 118/83
[2020-09-24] MEDS: METHIMAZOLE (5MG) 5 MG TABLET PO SCH (08:56)
[2020-09-24] MEDS: ATORVASTATIN 40 MG TABLET PO SCH (08:56)
[2020-09-24] MEDS: EZETIMIBE 10 MG TABLET PO SCH (08:57)
[2020-09-24] MEDS: COLCHICINE 0.6 MG TABLET PO SCH (08:57)
[2020-09-24] MEDS: TAMSULOSIN 0.4 MG CAP.SR.24H PO SCH (08:57)
[2020-09-24] MEDS: LINAGLIPTIN 5 MG TABLET PO SCH (08:58)
[2020-09-24] MEDS: RIVAROXABAN 10 MG TABLET PO SCH (09:03)
[2020-09-24] MEDS: CLOTRIMAZOLE 1% 15 GM TUBE TP SCH (09:06)
[2020-09-24] MEDS ORDERED: IPRA0.2S9 NEB (12:54)
[2020-09-24] MEDS ORDERED: CLOT15CR35 TP (12:54)
[2020-09-24 13:51] LABS: ABG BASE EXCESS 14.7 mmol/L; ABG OXYGEN SATURATION 89.8 % (92.0-98.5); ABG PCO2 90.9 mmHg (35.0-45.0); ABG PH 7.322 (7.350-7.450); ABG PO2 55.7 mmHg (75.0-100.0); AaDO2 66.1 mmHg; COHb 1.6 % (0.5-1.5); MetHb 0.2 % (0.0-1.5); O2Hb 88.2 % (94.0-97.0); SITE, ABG Left Radial
--- NOTE | 2020-09-24 14:56 | NUR ---
SEXER NOTES DISCHARGE REPORT REPORT GIVEN TO ALTON MARIA OF [facility]. ANTICIPATED DC AT 1600.
--- NOTE | 2020-09-24 16:30 | NUR ---
RN DISCHARGED NOTES PATIENT DISCHARGED TO SNF ([facility]) IN A MEDICALLY STABLE CONDITION. REPORT GIVEN TO EMT AT BEDSIDE. NO S/S OF DISTRESS NOR COMPLAINTS OF ANY PAIN ON THE TIME BEING. BELONGINGS CLAIMED AND SIGNED FOR. PATIENT WAS ABLE TO MAKE NEEDS KNOWN. TELE MONITOR AND ID BAND WERE TAKEN OFF OF PATIENT. IV LINE REMAINED IN PLACE PER ALTON WOOD [place] REQUEST. DISCHARGE DOCUMENTS GIVEN TO EMT. LEFT LOBBY AT AROUND 1630.
== END 2020-09-24 16:20 | DRG 291 ==
LOC: ER 20:15 → TELE 22:02
PROVIDERS: ADMIT Family Medicine; ATTEND Student in an Organized Health Care Education/Training Program
DX: I13.0 Hypertensive heart and chronic kidney disease with heart failure and stage 1 through stage 4 chronic kidney disease, or unspecified chronic kidney disease (principal); N17.0 Acute kidney failure with tubular necrosis; I50.33 Acute on chronic diastolic (congestive) heart failure; J96.92 Respiratory failure, unspecified with hypercapnia; J96.91 Respiratory failure, unspecified with hypoxia; E87.0 Hyperosmolality and hypernatremia; E44.1 Mild protein-calorie malnutrition; E66.2 Morbid (severe) obesity with alveolar hypoventilation; K21.9 Gastro-esophageal reflux disease without esophagitis; E11.65 Type 2 diabetes mellitus with hyperglycemia; E78.5 Hyperlipidemia, unspecified; Z20.822 Contact with and (suspected) exposure to COVID-19; I25.119 Atherosclerotic heart disease of native coronary artery with unspecified angina pectoris; E11.22 Type 2 diabetes mellitus with diabetic chronic kidney disease; E11.51 Type 2 diabetes mellitus with diabetic peripheral angiopathy without gangrene; Z95.1 Presence of aortocoronary bypass graft; Z95.2 Presence of prosthetic heart valve; Z99.81 Dependence on supplemental oxygen; E03.9 Hypothyroidism, unspecified; N18.9 Chronic kidney disease, unspecified; Z85.528 Personal history of other malignant neoplasm of kidney; Z90.5 Acquired absence of kidney; Z79.01 Long term (current) use of anticoagulants; Z79.84 Long term (current) use of oral hypoglycemic drugs; E05.90 Thyrotoxicosis, unspecified without thyrotoxic crisis or storm; Z86.79 Personal history of other diseases of the circulatory system; I25.2 Old myocardial infarction; I48.0 Paroxysmal atrial fibrillation; D69.59 Other secondary thrombocytopenia; T45.515A Adverse effect of anticoagulants, initial encounter; Y92.9 Unspecified place or not applicable
CPT/HCPCS: 36415; 36600; 71045-TC; 80048-TC; 80053-TC; 80061-TC; 80076-TC; 82570-TC; 82803-TC; 83690-TC; 83735-TC; 83880; 84100-TC; 84155-TC; 84300-TC; 84439-TC; 84443-TC; 84484-TC; 85025-TC; 87081-TC; 94799-TC; C9803; G0378; J1940

== ENCOUNTER 2022-02-04 22:55 | Inpatient (IN) | payer MEDICARE, OTHER ==
[~2022-02-04] VITALS: Ht 165.1 cm; Wt 129.3 kg
[~2022-02-04 22:55] MED LIST changes: +CLOT15CR35 TP; +EZET10TA16 PO; -EZET10TA6 PO; +IPRA0.2S9 NEB; -OMEP1CAP25 PO
--- NOTE | 2022-02-04 23:17 | NUR ---
BIBFAMILY C/O CP STARTED AT 2PM, LOW 02 ON 3L AT HOME, URINE RETENTION. PATIENT ALERT AND ORIENTED X3 IN BED 06 ON MONITOR AND POX, AWAITING MD HERR.
--- NOTE | 2022-02-04 23:25 | NUR ---
BLOOD COLLECTED AND SENT TO LAB
--- NOTE | 2022-02-04 23:26 | NUR ---
COVID SWAB DONE AND SENT TO LAB
[2022-02-04 23:37] LABS: BASOPHILS # (AUTO) 0.1 K/uL (0.0-0.2); BASOPHILS % (AUTO) 0.5 % (0.0-2.0); EOSINOPHILS % (AUTO) 2.3 % (0.0-6.0); HEMATOCRIT 47 % (39-51); HEMOGLOBIN 15.4 g/dL (13.5-17.5); LYMPHOCYTES % (AUTO) 8.9 % (20.0-44.0); MEAN CORPUSCULAR HGB CONC 33 g/dl (31.0-36.0); MEAN CORPUSCULAR VOLUME 94 fL (80-96); MONOCYTES # (AUTO) 0.8 K/uL (0.1-1.30); NEUTROPHILS # (AUTO) 9.5 K/uL (1.8-8.9); NEUTROPHILS % (AUTO) 81.3 % (43.0-81.0); PLATELET COUNT (AUTO) 134 K/uL (150-450); RED BLOOD CELL COUNT(AUTO) 5.03 MIL/uL (4.5-6.0); WHITE BLOOD COUNT (AUTO) 11.6 K/uL (4.3-11.0)
[2022-02-04 23:50] LABS: CALCIUM, SERUM 8.8 mg/dL (8.5-10.1); CHLORIDE 103 mmol/L (98-107); CREATININE 1.5 mg/dL (0.6-1.3); GLUCOSE 249 mg/dL (74-106); POTASSIUM 4.2 mmol/L (3.5-5.1); SODIUM SERUM 144 mmol/L (136-145); UREA NITROGEN, BLOOD 27 mg/dL (7-18)
--- NOTE | 2022-02-04 23:52 | NUR ---
CRITICAL LAB CO2 43
[2022-02-04] MEDS ORDERED: MORPHINE SULFATE INJ 4 MG/ML DISP.SYRIN ONE (23:53)
[2022-02-05] VITALS (36 sets, daily range): BP systolic 87–149; BP diastolic 52–93
[2022-02-05] MEDS ORDERED: MORPHINE SULFATE INJ 2 MG/ML DISP.SYRIN IV ONE
[2022-02-05] MEDS ORDERED: FUROSEMIDE 40 MG/4 ML VIAL IV ONE
[2022-02-05] MEDS ORDERED: LIDOCAINE 5% (PATCH) 1 EA PATCH TP SCH
--- NOTE | 2022-02-05 | NUR ---
150cc urine output
[2022-02-05 00:06] LABS: ALANINE AMINOTRANSFERASE 16 U/L (12-78); ALBUMIN 2.9 g/dL (3.4-5.0); ALKALINE PHOSPHATASE 77 U/L (46-116); ASPARTATE AMINOTRANSFERASE 8 U/L (15-37); BILIRUBIN,DIRECT 0.1 mg/dL (0.0-0.2); BILIRUBIN,TOTAL 0.3 mg/dL (0.2-1.0); TOTAL PROTEIN, SERUM 6.9 g/dL (6.4-8.2)
[2022-02-05 00:07] LABS: CARBON DIOXIDE 43 mmol/L (21-32)
[2022-02-05 00:19] LABS: ABG PH 7.249 (7.350-7.450); ABG PO2 110.7 mmHg (75.0-100.0); COHb 2.9 % (0.5-1.5); MetHb 0.4 % (0.0-1.5); O2Hb 94.5 % (94.0-97.0); SITE, ABG Left Radial; VENT MODE, BG 10LPM SIMPLE MASK
--- NOTE | 2022-02-05 00:38 | NUR ---
RT NOTE POST ABG RESULTS, PATIENT PLACED ON BIPAP ON SETTINGS OF S/T 18/8 RR18 40% PER MD ORDERS. PATIENT IS TOLERATING CURRENT SETTINGS WELL. NO SIGNS OF RESPIRATORY DISTRESS NOTED. PATIENT IS AWAKE, ALERT AND RESPONSIVE. BIPAP IS PLUGGED INTO RED OUTLET. ALARMS ARE SET AND AUDIBLE. EMERGENCY EQUIPMENT AT PATIENT BEDSIDE. WAITING FOR FURTHER ORDERS. Addendum: 02/05/22 at 0054 by AMBER VANG RT Amended: Links added.
--- NOTE | 2022-02-05 01:10 | NUR ---
ICU/TOP ICER RECEIVED REPORT FROM ER ON PT TO ROOM 254. Addendum: 02/05/22 at 0333 by NURY IVY LVN MARIYA DANG GAVE REPORT
[2022-02-05 01:25] LABS: BILIRUBIN,URINE NEGATIVE (NEGATIVE); COLOR,URINE YELLOW (YELLOW); LEUKOCYTE ESTERASE ,URINE NEGATIVE (NEGATIVE); NITRITE, URINE NEGATIVE (NEGATIVE); PROTEIN,URINE 100 mg/dl (NEGATIVE); UGLUCOSE 100 MG/DL mg/dL (NEGATIVE)
[2022-02-05] MEDS ORDERED: PIPERACILLIN /TAZOBACTAM 3.375 G in IV D5W 50 ML IV ONE (01:30)
[2022-02-05] MEDS ORDERED: VANCOMYCIN 1 GM in IV D5W 250 ML IV ONE (01:30)
--- NOTE | 2022-02-05 01:30 | NUR ---
200cc urine output
[2022-02-05 01:37] LABS: BACTERIA,URINE None seen /HPF (None Seen); RBC,URINE 0-2 /HPF (0-2); SQUAMOUS EPITHELIAL CELL,UR Few /HPF (None Seen); WBC,URINE 0-2 /HPF (0-3)
[2022-02-05] MEDS ORDERED: ONDANSETRON HCL/PF 4 MG/2 ML VIAL IVP PRN (02:00)
[2022-02-05] MEDS ORDERED: ENOXAPARIN SODIUM 40 MG/0.4 ML DISP.SYRIN SQ SCH (02:00)
[2022-02-05] MEDS ORDERED: MAGNESIUM HYDROXIDE 30 ML UDC PO PRN (02:00)
[2022-02-05] MEDS ORDERED: MAG HYDROX/AL HYDROX/SIMETH 30 ML UDC PO PRN (02:00)
[2022-02-05] MEDS ORDERED: CHLORZOXAZONE 500 MG TABLET PO PRN ×2 (02:00→06:30)
[2022-02-05] MEDS ORDERED: Z GUARD REMEDY 4 OZ OINT TP PRN (02:00)
[2022-02-05] MEDS ORDERED: CEFTRIAXONE 1 G in IV D5W 50 ML IV SCH (02:00)
[2022-02-05] MEDS ORDERED: NOREPINEPHRINE 32 MG in IV NS 0.9% 218 ML IV PRN (02:00)
[2022-02-05] MEDS ORDERED: ZOLPIDEM TARTRATE 5 MG TABLET PO PRN (02:00)
--- NOTE | 2022-02-05 02:09 | NUR ---
report given to leandro olmedo for argelia
[2022-02-05] MEDS ORDERED: PIPERACILLIN /TAZOBACTAM 3.375 G VIAL IV ONE (02:27)
[2022-02-05] MEDS ORDERED: VANCOMYCIN 1 GM VIAL ONE (02:27)
[2022-02-05 02:28] LABS: ABG BASE EXCESS 5.8 mmol/L; ABG PCO2 82.2 mmHg (35.0-45.0); ABG PH 7.266 (7.350-7.450); ABG PO2 84.2 mmHg (75.0-100.0); COHb 2.5 % (0.5-1.5); MetHb 0.5 % (0.0-1.5); O2Hb 92.4 % (94.0-97.0); SITE, ABG Right Radial; VENT MODE, BG S/T 18/5 RR18 40%
[2022-02-05] MEDS ORDERED: DEXTROSE 50%-WATER 50 ML DISP.SYRIN IV PRN (02:30)
[2022-02-05] MEDS ORDERED: CEFTRIAXONE 1 G VIAL ONE (02:55)
--- NOTE | 2022-02-05 03:03 | NUR ---
PT TRANSPORTED TO ICU WITH RT
[2022-02-05] MEDS: IPRATROPIUM NEB FS 0.5 MG/2.5 ML AMPUL.NEB NEB SCH ×6 (03:30→23:30)
--- NOTE | 2022-02-05 03:30 | NUR ---
RT NOTE HHN TX HELD DUE TO COVID R/O
--- NOTE | 2022-02-05 03:30 | NUR ---
ICU/CASHIER OFFICE PT CAME UP FROM ER. PT PLACED INTO BED. CALL LIGHT WITHIN REACH. NO ACUTE DISTRESS SEEN. PT IS CURRENTLY ON BIPAP. TOLERATING SETTINGS WELL Addendum: 02/05/22 at 0332 by NURY IVY LVN CAME UP FROM ER @0535
--- NOTE | 2022-02-05 03:41 | NUR ---
#[id number] BAG THAT WENT TO SAFE IN NURSING OFFICE HAD 37X $100 AND YELLOW METAL RING WITH CLEAR STONES WITNESS WAS YOLI Kent RN AND JUDY, RT
[2022-02-05] MEDS: IV NS 0.9% 250 ML IV PRN (03:45)
--- NOTE | 2022-02-05 04:30 | NUR ---
ICU/START UP SPECIALIST PHOTO OF HEAD TAKEN AND PLACED IN CHART
--- NOTE | 2022-02-05 05:13 | NUR ---
ICU/GEOMETRICIAN PCR NASAL SWAB WAS DONE, SENT TO LAB
[2022-02-05 05:43] LABS: ABG BASE EXCESS 9.1 mmol/L; ABG OXYGEN SATURATION 95.8 % (92.0-98.5); ABG PCO2 93.4 mmHg (35.0-45.0); ABG PH 7.261 (7.350-7.450); ABG PO2 85.9 mmHg (75.0-100.0); AaDO2 91.9 mmHg; COHb 2.5 % (0.5-1.5); MetHb 0.3 % (0.0-1.5); O2Hb 93.1 % (94.0-97.0); SITE, ABG Left Radial; VENT MODE, BG S/T 20/5 RR18 40%
--- NOTE | 2022-02-05 05:53 | NUR ---
ICU/PAPER TWISTER ABG DONE SENT TO [facility], NO NEW ORDERS.
--- NOTE | 2022-02-05 08:00 | NUR ---
RN NOTES SEEN PATIENT ON BIPAP SETTING IS 20/5/ 40%. PATIENT A/O X4, ON BEDSIDE MONITOR SHOWS 02-97%, HR IS 88. DISTENDED ABDOMEN, OBESE. PATIENT MOSOTHO SPEAKER, WAS COMPLAINING OF PAIN ON BACK OF THE NECK LESIONS. PATIENT NPO BECAUSE OF BIPAP, ISOLATION OF PENDING PCR TEST RESULT. PATIENT USING URINAL. CALL LIGHT WITHIN TO REACH. DUE MEDICATION ADMINISTERED. WILL FOLLOW UP.
[2022-02-05] MEDS: EZETIMIBE 10 MG TABLET PO SCH (08:34)
[2022-02-05] MEDS: LINAGLIPTIN 5 MG TABLET PO SCH (08:34)
[2022-02-05] MEDS: COLCHICINE 0.6 MG TABLET PO SCH (08:34)
[2022-02-05] MEDS: TAMSULOSIN 0.4 MG CAP.SR.24H PO SCH (08:34)
[2022-02-05] MEDS: METHIMAZOLE (5MG) 5 MG TABLET PO SCH (08:35)
[2022-02-05] MEDS: BLOOD SUGAR DIAGNOSTIC 1 EACH STRIP VI SCH ×4 (08:36→22:30)
[2022-02-05] MEDS: RIVAROXABAN 10 MG TABLET PO SCH (08:36)
[2022-02-05] MEDS: CLOTRIMAZOLE 1% 15 GM TUBE TP SCH ×2 (08:39→19:02)
[2022-02-05] MEDS: ATORVASTATIN 40 MG TABLET PO SCH (08:41)
[2022-02-05] MEDS ORDERED: Medication Not On Formulary EA (Umeclidinium Brm/Vilanterol Tr (Anoro Ellipta 62.5-25 Mc INH SCH (09:00)
--- NOTE | 2022-02-05 09:55 | NUR ---
RT NOTE ABG STAT ORDER NOT DONE DUE TO ANOTHER PROCEDURE.
[2022-02-05] MEDS ORDERED: BUMETANIDE INJ 8 MG in IV NS 0.9% 48 ML IV ONE (10:00)
[2022-02-05] MEDS ORDERED: ALBUTEROL SULFATE 8 GM HFA.AER.AD IH PRN (10:00)
[2022-02-05] MEDS ORDERED: AZITHROMYCIN 250 MG TABLET PO ONE (10:30)
[2022-02-05] MEDS ORDERED: CEFTRIAXONE 1 G VIAL IM ONE (10:30)
[2022-02-05 11:03] LABS: ABG BASE EXCESS 9.1 mmol/L; ABG OXYGEN SATURATION 96.6 % (92.0-98.5); ABG PCO2 98.8 mmHg (35.0-45.0); ABG PH 7.242 (7.350-7.450); ABG PO2 94.1 mmHg (75.0-100.0); AaDO2 151.3 mmHg; COHb 2.5 % (0.5-1.5); MetHb 0.2 % (0.0-1.5); SITE, ABG Right Radial; VENT MODE, BG SIMPLE MASK
[2022-02-05] MEDS: CEFEPIME 2 GM in IV D5W 100 ML IV SCH ×2 (11:48→22:34)
--- NOTE | 2022-02-05 12:23 | NUR ---
rn notes bs-160mg/dl coverage not given because patient refused lunch. due medication administered. patient on face mask 8l, o2-96% on bedside monitor. needs attended and anticipated. call light within to reach. will follow up.
[2022-02-05 14:32] LABS: THYROID STIMULATING HORMONE 0.444 uIU/mL (0.358-3.74)
--- NOTE | 2022-02-05 18:30 | NUR ---
rn notes bs-179 mg/dl coverage given, patient tolerated dinner 50%, assist sitting in the edge of the bed. due medication administered. call light within to reach. patient using urinal. endorsed oncoming nurse argelia.
[2022-02-05] MEDS: INSULIN REGULAR, HUMAN 100 UNIT/ML 3 ML VIAL SQ PRN (19:04)
--- NOTE | 2022-02-05 19:05 | NUR ---
RN OPENING NOTES RECEIVED PATIENT ON BED, A/0 X 4, ON BIPAP WITH SETTINGS 20/5, RATE-18, FIO2-40% SATING WITH 95%. RESPIRATORY EVEN AND UNLABORED. NO SOB NOTED. PATIENT WITH RAC #20 AND LAC #18 PERIPHERAL LINE, FLUSHED WITH NS, NO S/S OF INFILTRATION NOTED. ALL SAFETY PRECAUTION PROVIDED. REPOSITION Q2HRS. BED IN LOWEST POSITION. LOCKED. BED ALARM ARMED. CONTINUE TO MONITOR.
--- NOTE | 2022-02-05 21:00 | NUR ---
rt called to pt bedside for low spo2 alarm. pt on n/c 5l. pt appeared to be sleeping with the spo2 monitor reading below 85% at this time. pt placed on bipap noc per dr tristan notes. Addendum: 02/06/22 at 0216 by NAMRATA LEARY RT Amended: Links added.
[2022-02-05] MEDS: *INSULIN REGULAR(HUMULIN R)HUM 100 UNIT/ML VIAL SQ PRN (22:33)
[2022-02-06] VITALS (49 sets, daily range): BP systolic 70–179; BP diastolic 18–109
[2022-02-06] MEDS: VANCOMYCIN 1.25 GM in IV D5W 250 ML IV SCH (02:54)
[2022-02-06] MEDS: IPRATROPIUM NEB FS 0.5 MG/2.5 ML AMPUL.NEB NEB SCH ×6 (03:30→23:30)
[2022-02-06 04:24] LABS: BASOPHILS % (AUTO) 0.3 % (0.0-2.0); EOSINOPHILS % (AUTO) 1.7 % (0.0-6.0); HEMATOCRIT 48 % (39-51); HEMOGLOBIN 15.4 g/dL (13.5-17.5); LYMPHOCYTES # (AUTO) 0.7 K/uL (0.8-4.8); LYMPHOCYTES % (AUTO) 7.3 % (20.0-44.0); MEAN CORPUSCULAR HGB CONC 32 g/dl (31.0-36.0); MEAN CORPUSCULAR VOLUME 96 fL (80-96); MONOCYTES # (AUTO) 0.9 K/uL (0.1-1.30); MONOCYTES % (AUTO) 9.8 % (2.0-12.0); NEUTROPHILS # (AUTO) 7.5 K/uL (1.8-8.9); NEUTROPHILS % (AUTO) 80.9 % (43.0-81.0); PLATELET COUNT (AUTO) 119 K/uL (150-450); RED BLOOD CELL COUNT(AUTO) 5.05 MIL/uL (4.5-6.0); WHITE BLOOD COUNT (AUTO) 9.3 K/uL (4.3-11.0)
[2022-02-06 04:43] LABS: ALANINE AMINOTRANSFERASE 12 U/L (12-78); ALBUMIN 2.8 g/dL (3.4-5.0); ALKALINE PHOSPHATASE 68 U/L (46-116); ASPARTATE AMINOTRANSFERASE 8 U/L (15-37); BILIRUBIN,TOTAL 0.6 mg/dL (0.2-1.0); CALCIUM, SERUM 8.8 mg/dL (8.5-10.1); CHLORIDE 102 mmol/L (98-107); CREATININE 1.6 mg/dL (0.6-1.3); GLUCOSE 148 mg/dL (74-106); MAGNESIUM 1.9 mg/dL (1.8-2.4); PHOSPHORUS 4.3 mg/dL (2.5-4.9); SODIUM SERUM 144 mmol/L (136-145); TOTAL PROTEIN, SERUM 6.7 g/dL (6.4-8.2); UREA NITROGEN, BLOOD 28 mg/dL (7-18)
[2022-02-06 04:45] LABS: CARBON DIOXIDE 42 mmol/L (21-32)
[2022-02-06] MEDS: IV NS 0.9% 250 ML IV PRN (05:27)
--- NOTE | 2022-02-06 05:29 | NUR ---
pt on bipap throughout shift. fio2 adjusted throughout to maintain spo2 88-94% Addendum: 02/06/22 at 0530 by NAMRATA WILSON Amended: Links added.
--- NOTE | 2022-02-06 07:20 | NUR ---
WOUND CARE CONSULT: REVIEWED CHART, NURSING DOCUMENTATION AND PHOTO WHICH INDICATES WHITE LESIONS TO SCALP, PRESENT ON ADMISSION. DEFER TO PMD FOR LESIONS. RECOMMENDATIONS MADE FOR SKIN PROTECTION. DISCUSSED WITH NURSING STAFF. MD IN AGREEMENT WITH PLAN OF CARE.
--- NOTE | 2022-02-06 08:00 | NUR ---
RN NOTES SEEN PATIENT ON BIPAP AT THIS TIME RESTING. NO ACUTE RESPIRATORY DISTRESS. CALL LIGHT WITHIN TO REACH. PATIENT A/O X4, REFUSED PAIN. CALL LIGHT WITHIN TO REACH. WILL FOLLOW UP.
--- NOTE | 2022-02-06 08:20 | NUR ---
RT PATIENT REC'D AWAKE, RESPONSIVE, ON 5L N/C WITH NO SOB AT THIS TIME. PER DR ROY BIPAP TO BE WORN NOC AND FOR RESCUE.
--- NOTE | 2022-02-06 08:30 | NUR ---
RN NOTES PATIENT ON NC @5L SITTING EDGE OF THE BED, BS-129MG/DL, DUE MEDICATION ADMINISTERED, VSS, TOLERATED BREAKFAST WELL. PER DR ROY CHANGE BIPAP SETTING 20/10 NIGHT TIME. PATIENT USING URINAL, NEED MINIMAL ASSIST . CALL LIGHT WITHIN TO REACH. INFUSIN TKO ON LAC AREA INTACT.
[2022-02-06 08:46] LABS: ABG BASE EXCESS 5.6 mmol/L; ABG OXYGEN SATURATION 89.3 % (92.0-98.5); ABG PCO2 83.6 mmHg (35.0-45.0); ABG PH 7.257 (7.350-7.450); ABG PO2 58.4 mmHg (75.0-100.0); AaDO2 130.7 mmHg; MetHb 0.3 % (0.0-1.5); O2Hb 87.2 % (94.0-97.0); SITE, ABG Left Radial; VENT MODE, BG 5 LPM NC
--- NOTE | 2022-02-06 09:13 | NUR ---
SS consult requested for advanced directive. SW will follow up at a later time.
[2022-02-06] MEDS: BLOOD SUGAR DIAGNOSTIC 1 EACH STRIP VI SCH ×4 (09:22→22:37)
[2022-02-06] MEDS: COLCHICINE 0.6 MG TABLET PO SCH (09:27)
[2022-02-06] MEDS: EZETIMIBE 10 MG TABLET PO SCH (09:27)
[2022-02-06] MEDS: TAMSULOSIN 0.4 MG CAP.SR.24H PO SCH (09:27)
[2022-02-06] MEDS: ATORVASTATIN 40 MG TABLET PO SCH (09:27)
[2022-02-06] MEDS: METHIMAZOLE (5MG) 5 MG TABLET PO SCH (09:28)
[2022-02-06] MEDS: LINAGLIPTIN 5 MG TABLET PO SCH (09:28)
[2022-02-06] MEDS: RIVAROXABAN 10 MG TABLET PO SCH (09:28)
[2022-02-06] MEDS: CLOTRIMAZOLE 1% 15 GM TUBE TP SCH ×2 (09:29→16:01)
[2022-02-06] MEDS ORDERED: BUMETANIDE INJ 16 MG in IV NS 0.9% 16 ML IV ONE (10:00)
--- NOTE | 2022-02-06 10:25 | NUR ---
RN NOTES PATIENT GETTING US OF KIDNEY, AND BLADDER AT THIS TIME.
--- NOTE | 2022-02-06 10:46 | NUR ---
SS consult requested for advance directive. Pt. is an 86-year-old male who was admitted to [facility] on 02/05/2022 due to Hypoxia. Upon SS consult, pt. is alert and oriented x4. Pt. appears unkempt. Pt. appears with a normal mood and provides appropriate eye contact. Pt. was cooperative. search planner was unable to conduct the interview due to language barrier. Pt.s nurse Patricia was bedside and provided translation during the consult. search planner provided advance directive paperwork and instructions. Per Patricia, pt. stated he was not interested in an advance directive. search planner will remain available as needed.
[2022-02-06] MEDS: CEFEPIME 2 GM in IV D5W 100 ML IV SCH ×2 (11:20→23:10)
[2022-02-06] MEDS: INSULIN REGULAR, HUMAN 100 UNIT/ML 3 ML VIAL SQ PRN (11:24)
--- NOTE | 2022-02-06 11:34 | NUR ---
RT RESP TX'S ARE BEING HELD UNTIL COVID PCR RESULTS SHOW PATIENT IS NEGATIVE FOR COVID. PATIENT IN NO DISTRESS, DIM BREATH SOUNDS.
[2022-02-06] MEDS: ACETAMINOPHEN 325 MG TABLET PO PRN ×2 (12:14→19:44)
--- NOTE | 2022-02-06 12:14 | NUR ---
RN NOTES ADMINISTERED TYLENOL 650 MG PO PRN FOR WOUND PAIN BACK OF THE HEAD 09/25 PER PATIENT REQUEST.
[2022-02-06] MEDS: methylPREDNISolone SOD SUCC 125 MG/2ML VIAL IV SCH (16:00)
--- NOTE | 2022-02-06 18:30 | NUR ---
RN NOTES BS-126MG/DL, DUE MEDICATION ADMINISTERED, PATIENT ON L4WI-2G , ON BEDSIDE MONITOR SHOWS 96%. PATIENT COMPLAINING OF BACK OF NECK CONSTANT PAIN 2/10 PER PAIN SCALE. PATIENT SITTING ON EDGE OF THE BED. TOLERATED DINER WELL, USING URINAAAL. MINIMAL ASSIST TO CARE. CALL LIGHT WITHIN TO REACH. WILL FOLLOW UP.
--- NOTE | 2022-02-06 19:51 | NUR ---
ORCHID HAND. INITIAL ASSESSMENT. RECEIVED THE PT REST IN BED. AWAKE, ALERT, FOLLOW COMMANDS. MANAGER BUSINESS DEVELOP[facility] HOSPICE SHOWING S TACH. OXYGEN 2L VIA NASAL CANNULA. SAT 98%. NO ACUTE DISTRESS NOTED. IV LT HAND 18G. TKO RUNNING, WILL CONTINUE TO MONITOR VITALS.
[2022-02-06] MEDS: *INSULIN REGULAR(HUMULIN R)HUM 100 UNIT/ML VIAL SQ PRN (22:39)
[2022-02-07] VITALS (25 sets, daily range): BP systolic 90–141; BP diastolic 61–108
[2022-02-07] MEDS: VANCOMYCIN 1.25 GM in IV D5W 250 ML IV SCH (02:42)
[2022-02-07] MEDS: IPRATROPIUM NEB FS 0.5 MG/2.5 ML AMPUL.NEB NEB SCH ×6 (03:30→23:30)
[2022-02-07 03:51] LABS: BASOPHILS % (AUTO) 0.3 % (0.0-2.0); HEMATOCRIT 47 % (39-51); LYMPHOCYTES # (AUTO) 0.4 K/uL (0.8-4.8); LYMPHOCYTES % (AUTO) 6.3 % (20.0-44.0); MEAN CORPUSCULAR HGB CONC 32 g/dl (31.0-36.0); MEAN CORPUSCULAR VOLUME 94 fL (80-96); MONOCYTES # (AUTO) 0.1 K/uL (0.1-1.30); MONOCYTES % (AUTO) 1.5 % (2.0-12.0); NEUTROPHILS # (AUTO) 6.4 K/uL (1.8-8.9); NEUTROPHILS % (AUTO) 91.9 % (43.0-81.0); PLATELET COUNT (AUTO) 131 K/uL (150-450); RED BLOOD CELL COUNT(AUTO) 4.93 MIL/uL (4.5-6.0)
[2022-02-07 04:19] LABS: CALCIUM, SERUM 8.9 mg/dL (8.5-10.1); CHLORIDE 101 mmol/L (98-107); CREATININE 1.6 mg/dL (0.6-1.3); GLUCOSE 219 mg/dL (74-106); MAGNESIUM 2.1 mg/dL (1.8-2.4); PHOSPHORUS 2.6 mg/dL (2.5-4.9); POTASSIUM 4.6 mmol/L (3.5-5.1); SODIUM SERUM 141 mmol/L (136-145); UREA NITROGEN, BLOOD 36 mg/dL (7-18)
[2022-02-07 04:23] LABS: CARBON DIOXIDE 41 mmol/L (21-32)
--- NOTE | 2022-02-07 06:35 | NUR ---
RN NOTES PATIENT REMOVED HIS BIPAP, REFUSED TO REAPPLY, EXPLAINED RISK AND BENEFITS OFFER 3X STILL REFUSED. PUT PATIENT ON NASAL CANULA @ 5LPM SATING AT 91%. RT NOTIFIED, SPOKE TO DOT.
--- NOTE | 2022-02-07 07:24 | NUR ---
RN NOTES PATIENT REMAIN STABLE. RESPIRATORY EVEN AND UNLABORED. NO SOB NOTED. ALL DUE MEDS GIVEN ORDERED. ALL SAFETY PRECAUTION PROVIDED. REPOSITION Q2HRS. BED IN LOWEST POSITION. LOCKED. BED ALARM ARMED. REPORT GIVEN TO MORNING SHIFT NURSE FOR WENDY.
--- NOTE | 2022-02-07 07:45 | NUR ---
RT RESP TX'S ARE BEING HELD UNTIL COVID PCR RESULTS SHOW PATIENT IS NEGATIVE FOR COVID. PATIENT IN NO DISTRESS, DIM BREATH SOUNDS.
[2022-02-07] MEDS: BLOOD SUGAR DIAGNOSTIC 1 EACH STRIP VI SCH ×4 (07:50→21:58)
--- NOTE | 2022-02-07 08:00 | NUR ---
RN NOTES RECEIVED PATIENT SITTING IN THE CHAIR, ON O2-945LNC. PATIENT STABLE REFUSED PAIN, NO SOB, RESPIRATION EVEN AND UNLABORED, BS-230MG/DL COVERAGE GIVEN, DUE MEDS GIVEN ORDERED. CINTIA MIDLINE INTACT INFUSING TKO @10ML/HR. PATIENT USING URINAL. CALL LIGHT WITHIN TO REACH. SAFETY PRECAUTION MAINTAINED ALL THE TIME. WILL FOLLOW UP.
[2022-02-07] MEDS: EZETIMIBE 10 MG TABLET PO SCH (09:10)
[2022-02-07] MEDS: methylPREDNISolone SOD SUCC 125 MG/2ML VIAL IV SCH (09:10)
[2022-02-07] MEDS: LINAGLIPTIN 5 MG TABLET PO SCH (09:10)
[2022-02-07] MEDS: METHIMAZOLE (5MG) 5 MG TABLET PO SCH (09:11)
[2022-02-07] MEDS: VASCEPA 1 GM PO SCH ×2 (09:11→17:37)
[2022-02-07] MEDS: TAMSULOSIN 0.4 MG CAP.SR.24H PO SCH (09:11)
[2022-02-07] MEDS: COLCHICINE 0.6 MG TABLET PO SCH (09:11)
[2022-02-07] MEDS: ATORVASTATIN 40 MG TABLET PO SCH (09:12)
[2022-02-07] MEDS: RIVAROXABAN 10 MG TABLET PO SCH (09:13)
[2022-02-07] MEDS: CLOTRIMAZOLE 1% 15 GM TUBE TP SCH ×2 (09:15→17:50)
[2022-02-07] MEDS: INSULIN REGULAR, HUMAN 100 UNIT/ML 3 ML VIAL SQ PRN ×2 (09:18→17:46)
[2022-02-07] MEDS: CEFEPIME 2 GM in IV D5W 100 ML IV SCH ×2 (10:17→22:03)
--- NOTE | 2022-02-07 11:18 | NUR ---
RN NOTES TRANSFERRED PATIENT TO THE [facility] UNIT ROOM 104 ON STABLE CONDITION, NO SOB, BS-263 MG/DL. PATIENT A/O X3. BEDSIDE REPORT GIVEN MIGUEL RN FOLLOW PLAN OF CARE. RN VERBALIZED UNDERSTANDING. BELONGING WITH THE PATIENT.
--- NOTE | 2022-02-07 19:42 | NUR ---
TD RN CLOSING NOTED: PT SITTING ON THE CHAIR, ALERT AND ORIENTED X 4, ON OXYGEN VIAL NASAL CANULA TA 5LITER/HR, SATTING 92-95%,DENIED ANY PAIN OR DISCOMFORT, ALL DUE MEDS ARE GIVEN ORDERED, CSLL LIGHT WITHIN REACH, BED IN LOW AND LOCKED POSITION, SIDE RAILS UP ENDORSED RO WELCOME CENTER AGENT RN TO CONTINUE TO MONITOR
[2022-02-07 20:14] LABS: ABG BASE EXCESS 9.5 mmol/L; ABG OXYGEN SATURATION 92.2 % (92.0-98.5); ABG PCO2 76.8 mmHg (35.0-45.0); ABG PH 7.328 (7.350-7.450); ABG PO2 63.6 mmHg (75.0-100.0); AaDO2 133.3 mmHg; COHb 1.9 % (0.5-1.5); MetHb 0.3 % (0.0-1.5); O2Hb 90.2 % (94.0-97.0); SITE, ABG Left Radial; VENT MODE, BG 5 LPM NC
[2022-02-07] MEDS ORDERED: acetaZOLAMIDE SODIUM 500 MG/VIAL VIAL IV ONE (21:30)
[2022-02-07] MEDS: *INSULIN REGULAR(HUMULIN R)HUM 100 UNIT/ML VIAL SQ PRN (22:02)
[2022-02-07] MEDS ORDERED: acetaZOLAMIDE SODIUM 500 MG/VIAL VIAL ONE ×2 (22:48→23:00)
[2022-02-08] VITALS: BP 130/64
[2022-02-08] MEDS: VANCOMYCIN 1.25 GM in IV D5W 250 ML IV SCH (02:54)
[2022-02-08] MEDS: IPRATROPIUM NEB FS 0.5 MG/2.5 ML AMPUL.NEB NEB SCH ×5 (03:08→19:35)
[2022-02-08 04:00] VITALS: BP 133/84
--- NOTE | 2022-02-08 06:52 | NUR ---
CLOSING RN NOTE: ALERT AND ORIENTED TIMES FOUR. 5 LITERS NASAL CANNULA, ON NOCTURNAL BIPAP, NO RESPIRATORY DISTRESS. NO C/O PAIN NOTED. SINUS TACHYCARDIA HR IN THE 120'S ON TELE MONITOR. BLOOD GLUCOSE MONITOR COVERAGE PER SLIDING SCALE. ABX GIVEN ORDERED. DIAMOX GIVEN TIMES ONE. PENDING GRAM STAIN WOUND CULTURE OF THE HEAD AND GENITALS. ABGS TO BE DRAWN THIS AM.
--- NOTE | 2022-02-08 07:29 | NUR ---
RN NOTE PT RECEIVED IN BED, AWAKE, A&OX4. PT ON BIPAP AT THIS TIME, SCHEDULED TO BE TAKEN OFF BIPAP AND PLACED ON 5L O2 NC FOR THE DAY. PT DOES NOT REPORT CHEST PAIN AT THIS TIME. RIGHT UA MIDLINE AND RIGHT AC 20G IN PLACE. BED LOCKED AND IN LOWEST POSITION, CALL LIGHT WITHIN REACH, 2 SIDE RAILS UP.
[2022-02-08 07:35] LABS: BASOPHILS % (AUTO) 0.2 % (0.0-2.0); EOSINOPHILS % (AUTO) 0.1 % (0.0-6.0); HEMATOCRIT 44 % (39-51); HEMOGLOBIN 14.2 g/dL (13.5-17.5); LYMPHOCYTES # (AUTO) 0.7 K/uL (0.8-4.8); LYMPHOCYTES % (AUTO) 5.5 % (20.0-44.0); MEAN CORPUSCULAR HGB CONC 33 g/dl (31.0-36.0); MEAN CORPUSCULAR VOLUME 94 fL (80-96); MONOCYTES # (AUTO) 0.8 K/uL (0.1-1.30); MONOCYTES % (AUTO) 6.4 % (2.0-12.0); NEUTROPHILS # (AUTO) 11.2 K/uL (1.8-8.9); NEUTROPHILS % (AUTO) 87.8 % (43.0-81.0); PLATELET COUNT (AUTO) 135 K/uL (150-450); RED BLOOD CELL COUNT(AUTO) 4.63 MIL/uL (4.5-6.0); WHITE BLOOD COUNT (AUTO) 12.7 K/uL (4.3-11.0)
[2022-02-08] MEDS: BLOOD SUGAR DIAGNOSTIC 1 EACH STRIP VI SCH ×4 (07:49→21:59)
[2022-02-08 08:00] VITALS: BP 132/84
[2022-02-08] MEDS: METHIMAZOLE (5MG) 5 MG TABLET PO SCH (08:22)
[2022-02-08] MEDS: COLCHICINE 0.6 MG TABLET PO SCH (08:22)
[2022-02-08] MEDS: TAMSULOSIN 0.4 MG CAP.SR.24H PO SCH (08:23)
[2022-02-08] MEDS: ATORVASTATIN 40 MG TABLET PO SCH (08:23)
[2022-02-08] MEDS: EZETIMIBE 10 MG TABLET PO SCH (08:23)
[2022-02-08] MEDS: CLOTRIMAZOLE 1% 15 GM TUBE TP SCH ×2 (08:23→16:28)
[2022-02-08] MEDS: VASCEPA 1 GM PO SCH ×2 (08:23→16:28)
[2022-02-08] MEDS: LINAGLIPTIN 5 MG TABLET PO SCH (08:23)
[2022-02-08] MEDS: methylPREDNISolone SOD SUCC 125 MG/2ML VIAL IV SCH (08:24)
[2022-02-08] MEDS: INSULIN REGULAR, HUMAN 100 UNIT/ML 3 ML VIAL SQ PRN ×3 (08:25→17:44)
[2022-02-08] MEDS: RIVAROXABAN 10 MG TABLET PO SCH (08:26)
--- NOTE | 2022-02-08 08:30 | NUR ---
RN NOTE CRITICAL LAB VALUE OF CO2 [address] AHN NOTIFIED.
[2022-02-08 08:42] LABS: MAGNESIUM 2.2 mg/dL (1.8-2.4); PHOSPHORUS 2.7 mg/dL (2.5-4.9)
--- NOTE | 2022-02-08 08:45 | NUR ---
RN NOTE BP 84/49. PT GIVEN BREAKFAST WITH FLUID. BP 108/65. Addendum: 02/08/22 at 0954 by MEGHANA GARRIDO RN WRONG PT
[2022-02-08 08:50] LABS: CALCIUM, SERUM 9.1 mg/dL (8.5-10.1); CHLORIDE 101 mmol/L (98-107); CREATININE 1.4 mg/dL (0.6-1.3); GLUCOSE 216 mg/dL (74-106); POTASSIUM 4.5 mmol/L (3.5-5.1); SODIUM SERUM 141 mmol/L (136-145); UREA NITROGEN, BLOOD 39 mg/dL (7-18)
[2022-02-08 09:04] LABS: CARBON DIOXIDE 41 mmol/L (21-32)
[2022-02-08] MEDS: CEFEPIME 2 GM in IV D5W 100 ML IV SCH ×2 (10:07→22:02)
[2022-02-08 12:00] VITALS: BP 153/82
[2022-02-08 12:31] LABS: ABG BASE EXCESS 8.8 mmol/L; ABG OXYGEN SATURATION 94.5 % (92.0-98.5); ABG PCO2 75.1 mmHg (35.0-45.0); ABG PH 7.326 (7.350-7.450); ABG PO2 75.3 mmHg (75.0-100.0); AaDO2 123.5 mmHg; COHb 1.2 % (0.5-1.5); MetHb 0.3 % (0.0-1.5); O2Hb 93.1 % (94.0-97.0); SITE, ABG Right Radial; VENT MODE, BG 5l nc
[2022-02-08 16:00] VITALS: BP 100/49
--- NOTE | 2022-02-08 18:35 | NUR ---
RN NOTE PT REMAINS IN BED, AWAKE, A&OX4. PT ON 3.5L O2 NC WITH NO SIGNS OF LABORED BREATHING AT THIS TIME. PT DID NOT REPORT CHEST PAIN THROUGHOUT SHIFT. RIGHT UA MIDLINE AND RIGHT AC 20G IN PLACE. ALL NEEDS ATTENDED DURING SHIFT. BED LOCKED AND IN LOWEST POSITION, CALL LIGHT WITHIN REACH, 2 SIDE RAILS UP. WILL ENDORSE TO MANAGEMENT ANALYST NURSE FOR WENDY.
[2022-02-08 20:00] VITALS: BP 112/70
--- NOTE | 2022-02-08 20:07 | NUR ---
RN NOTE RECEIVED PT SITTING AT BEDSIDE CHAIR. AOX4. ON O2 AT 3.5L VIA NC. DENIES ANY CHEST PAIN OR SOB. RECEIVING BREATHING TX AT THIS TIME. ST ON TELE MONITOR WITH HR 108. ALL SAFETY MEASURES IN PLACE, REMINDED REGARDING USING CALL LIGHT. WILL CONTINUE TO MONITOR.
[2022-02-08] MEDS: *INSULIN REGULAR(HUMULIN R)HUM 100 UNIT/ML VIAL SQ PRN (22:01)
--- NOTE | 2022-02-08 23:14 | NUR ---
PT PLACED ON NOC BIPAP RN NOTIFIED. Addendum: 02/08/22 at 2314 by PORTER GOMEZ RT Amended: Links added.
--- NOTE | 2022-02-08 23:55 | NUR ---
RN NOTE PT TOLERATING BIPAP. NOT IN ANY DISTRESS. WILL CONTINUE TO MONITOR.
[2022-02-09] VITALS: BP 114/74
[2022-02-09] MEDS: IPRATROPIUM NEB FS 0.5 MG/2.5 ML AMPUL.NEB NEB SCH ×4 (01:40→19:51)
[2022-02-09] MEDS: VANCOMYCIN 1.25 GM in IV D5W 250 ML IV SCH (03:37)
[2022-02-09 04:00] VITALS: BP 114/73
--- NOTE | 2022-02-09 05:27 | NUR ---
Pt taken off NOC BiPAP and placed on 4L NC RN notified.
--- NOTE | 2022-02-09 07:26 | NUR ---
RN NOTE PT BACK ON O2 AT 4L VIA NC. DENIES ANY SOB OR PAIN. NOW SITTING ON BEDSIDE CHAIR. NOT IN ANY DISTRESS. PT REMAIN AFEBRILE. DUE ATBS GIVEN ORDERED. ENDORSED TO ALTON KOWALSKI FOR WENDY.
[2022-02-09] MEDS: BLOOD SUGAR DIAGNOSTIC 1 EACH STRIP VI SCH ×4 (07:42→21:27)
--- NOTE | 2022-02-09 07:45 | NUR ---
RN NOTE PT RECEIVED SITTING ON THE CHAIR, AWAKE, A&OX4. PT ON 4L O2 NC WITH NO SIGNS OF LABORED BREATHING. PT DOES NOT REPORT CHEST PAIN AT THIS TIME. RIGHT UA MIDLINE AND RIGHT AC 20G IN PLACE. BED LOCKED AND IN LOWEST POSITION, CALL LIGHT WITHIN REACH, 2 SIDE RAILS UP.
[2022-02-09 08:00] VITALS: BP 128/71
[2022-02-09] MEDS: METHIMAZOLE (5MG) 5 MG TABLET PO SCH (08:51)
[2022-02-09] MEDS: TAMSULOSIN 0.4 MG CAP.SR.24H PO SCH (08:51)
[2022-02-09] MEDS: LINAGLIPTIN 5 MG TABLET PO SCH (08:51)
[2022-02-09] MEDS: methylPREDNISolone SOD SUCC 125 MG/2ML VIAL IV SCH (08:51)
[2022-02-09] MEDS: COLCHICINE 0.6 MG TABLET PO SCH (08:51)
[2022-02-09] MEDS: EZETIMIBE 10 MG TABLET PO SCH (08:51)
[2022-02-09] MEDS: VASCEPA 1 GM PO SCH ×2 (08:51→17:35)
[2022-02-09] MEDS: ATORVASTATIN 40 MG TABLET PO SCH (08:51)
[2022-02-09] MEDS: RIVAROXABAN 10 MG TABLET PO SCH (08:53)
[2022-02-09] MEDS: INSULIN REGULAR, HUMAN 100 UNIT/ML 3 ML VIAL SQ PRN ×3 (08:54→18:26)
[2022-02-09 08:55] LABS: BASOPHILS % (AUTO) 0.2 % (0.0-2.0); EOSINOPHILS % (AUTO) 0.2 % (0.0-6.0); HEMATOCRIT 46 % (39-51); HEMOGLOBIN 14.5 g/dL (13.5-17.5); LYMPHOCYTES % (AUTO) 7.8 % (20.0-44.0); MEAN CORPUSCULAR HGB CONC 31 g/dl (31.0-36.0); MEAN CORPUSCULAR VOLUME 95 fL (80-96); MONOCYTES # (AUTO) 0.9 K/uL (0.1-1.30); MONOCYTES % (AUTO) 6.6 % (2.0-12.0); NEUTROPHILS # (AUTO) 11.1 K/uL (1.8-8.9); NEUTROPHILS % (AUTO) 85.2 % (43.0-81.0); PLATELET COUNT (AUTO) 153 K/uL (150-450); RED BLOOD CELL COUNT(AUTO) 4.89 MIL/uL (4.5-6.0); WHITE BLOOD COUNT (AUTO) 13.1 K/uL (4.3-11.0)
[2022-02-09] MEDS: CLOTRIMAZOLE 1% 15 GM TUBE TP SCH ×2 (09:05→17:38)
[2022-02-09 09:37] LABS: CALCIUM, SERUM 8.9 mg/dL (8.5-10.1); CARBON DIOXIDE 39 mmol/L (21-32); CHLORIDE 103 mmol/L (98-107); CREATININE 1.5 mg/dL (0.6-1.3); GLUCOSE 206 mg/dL (74-106); MAGNESIUM 2.4 mg/dL (1.8-2.4); PHOSPHORUS 3.5 mg/dL (2.5-4.9); POTASSIUM 4.3 mmol/L (3.5-5.1); SODIUM SERUM 142 mmol/L (136-145); UREA NITROGEN, BLOOD 40 mg/dL (7-18)
[2022-02-09] MEDS: CEFEPIME 2 GM in IV D5W 100 ML IV SCH (11:26)
[2022-02-09 12:00] VITALS: BP 117/66
--- NOTE | 2022-02-09 14:42 | NUR ---
received report from Debra DANG. patient is alert and oriented x4. patient is sitting comfortably in chair with family at bedside. patient is on 4l nasal cannula tolerating well. all safety measures in place. call light within reach. bed locked at lowest position.will continue to assess throughout shift
[2022-02-09 16:00] VITALS: BP 113/57
--- NOTE | 2022-02-09 19:30 | NUR ---
telecommunications switch technician closing note patient is alert and oriented x4. patient is sitting in chair near bedside.patient is on 4l nasal cannula tolerating well at 99%. patient has right upper arm midline. iv intact and patent.all safety measures in place. call light within reach. bed locked at lowest position. all needs met. endorsed to canadian bacon tier rn
[2022-02-09 20:00] VITALS: BP 123/63
--- NOTE | 2022-02-09 20:00 | NUR ---
RN NOTE RECEIVED PT SITTING AT BEDSIDE CHAIR. AOX4. ON O2 AT 4L VIA NC. DENIES ANY CHEST PAIN OR SOB. SR ON TELE MONITOR WITH HR 98. ALL SAFETY MEASURES IN PLACE, REMINDED REGARDING USING CALL LIGHT. WILL CONTINUE TO MONITOR.
--- NOTE | 2022-02-09 20:05 | NUR ---
Pt recvd awake and alert on 4 lpm humidified O2 via NC. Diminished bilateral BS, neb tx given and sharron well, no adverse reaction noted at this time.
[2022-02-09] MEDS: AMOXICILLIN TRIHYDRATE 250 MG CAPSULE PO SCH (21:21)
[2022-02-09] MEDS: *INSULIN REGULAR(HUMULIN R)HUM 100 UNIT/ML VIAL SQ PRN (21:30)
[2022-02-09] MEDS: DOXYCYCLINE HYCLATE (100 MG) 100 MG TABLET PO SCH (21:40)
--- NOTE | 2022-02-09 23:00 | NUR ---
RN NOTE PT PLACED ON BIPAP BY RT. TOLERATING, WILL CONTINUE TO MONITOR.
[2022-02-10] MEDS: IPRATROPIUM NEB FS 0.5 MG/2.5 ML AMPUL.NEB NEB SCH ×3 (01:44→13:12)
[2022-02-10 04:00] VITALS: BP 125/80
[2022-02-10] MEDS: AMOXICILLIN TRIHYDRATE 250 MG CAPSULE PO SCH ×2 (05:53→13:11)
--- NOTE | 2022-02-10 06:40 | NUR ---
RN NOTE OFF NOC BIPAP. BACK ON 4L O2 VIA NC. TOLERATING. DENIES ANY PAIN OR SOB. NOW SITTING AT BEDSIDE CHAIR, WATCHING TV. REMAIN AFEBRILE, SR ON TELE MONITOR. DUE ATBS GIVEN ORDERED. CALL LIGHT WITHIN REACH AT ALL TIMES. WILL ENDORSE TO NEXT SHIFT NURSE FOR WENDY.
[2022-02-10 06:44] LABS: BASOPHILS % (AUTO) 0.3 % (0.0-2.0); EOSINOPHILS % (AUTO) 0.3 % (0.0-6.0); HEMATOCRIT 46 % (39-51); HEMOGLOBIN 14.7 g/dL (13.5-17.5); LYMPHOCYTES # (AUTO) 1.5 K/uL (0.8-4.8); LYMPHOCYTES % (AUTO) 13.5 % (20.0-44.0); MEAN CORPUSCULAR HGB CONC 32 g/dl (31.0-36.0); MEAN CORPUSCULAR VOLUME 94 fL (80-96); MONOCYTES # (AUTO) 0.9 K/uL (0.1-1.30); MONOCYTES % (AUTO) 7.8 % (2.0-12.0); NEUTROPHILS % (AUTO) 78.1 % (43.0-81.0); PLATELET COUNT (AUTO) 147 K/uL (150-450); RED BLOOD CELL COUNT(AUTO) 4.89 MIL/uL (4.5-6.0); WHITE BLOOD COUNT (AUTO) 11.5 K/uL (4.3-11.0)
[2022-02-10 07:12] LABS: CALCIUM, SERUM 8.9 mg/dL (8.5-10.1); CREATININE 1.3 mg/dL (0.6-1.3); MAGNESIUM 2.3 mg/dL (1.8-2.4); PHOSPHORUS 3.4 mg/dL (2.5-4.9); POTASSIUM 4.3 mmol/L (3.5-5.1)
[2022-02-10 08:00] VITALS: BP 131/80
[2022-02-10] MEDS: BLOOD SUGAR DIAGNOSTIC 1 EACH STRIP VI SCH ×3 (08:19→18:28)
[2022-02-10] MEDS ORDERED: methylPREDNISolone SOD SUCC 40 MG/ML VIAL IV SCH (09:00)
[2022-02-10] MEDS: METHIMAZOLE (5MG) 5 MG TABLET PO SCH (09:08)
[2022-02-10] MEDS: VASCEPA 1 GM PO SCH ×2 (09:08→17:22)
[2022-02-10] MEDS: ATORVASTATIN 40 MG TABLET PO SCH (09:08)
[2022-02-10] MEDS: EZETIMIBE 10 MG TABLET PO SCH (09:08)
[2022-02-10] MEDS: RIVAROXABAN 10 MG TABLET PO SCH (09:09)
[2022-02-10] MEDS: COLCHICINE 0.6 MG TABLET PO SCH (09:10)
[2022-02-10] MEDS: TAMSULOSIN 0.4 MG CAP.SR.24H PO SCH (09:10)
[2022-02-10] MEDS: DOXYCYCLINE HYCLATE (100 MG) 100 MG TABLET PO SCH (09:10)
[2022-02-10] MEDS: LINAGLIPTIN 5 MG TABLET PO SCH (09:10)
[2022-02-10] MEDS: CLOTRIMAZOLE 1% 15 GM TUBE TP SCH ×2 (09:10→17:22)
[2022-02-10] MEDS: INSULIN REGULAR, HUMAN 100 UNIT/ML 3 ML VIAL SQ PRN ×2 (09:39→13:00)
[2022-02-10 12:00] VITALS: BP 124/70
[2022-02-10] MEDS ORDERED: LIDO30AD10 TP (14:44)
[2022-02-10] MEDS ORDERED: IPRA0.2S9 NEB (14:44)
[2022-02-10] MEDS ORDERED: METH4TAB3 PO (14:44)
[2022-02-10] MEDS ORDERED: DOXY100T2 PO (14:44)
[2022-02-10 16:00] VITALS: BP 122/66
--- NOTE | 2022-02-10 17:31 | NUR ---
DISCHARGE NOTE PATIENT BELONGINGS WERE GIVEN $3600 GRIFFITH AND HIS RING
--- NOTE | 2022-02-10 19:30 | NUR ---
RN CLOSING NOTE PATIENT IS A/O X1. ON ROOM AIR O2SAT 94%. NS RUNNING AT RATE 75ML /HR. CARDIAC SR. DIET ACHS. PATIENT COMPLAINS OF LOWER BACK PAIN 8/10. MORPHINE 4MG ADMINISTERED TODAY AT 1200. PAIN RATED 4/10 AFTER MORPHINE ADMINISTRATION AROUND 1600. BED AT LOWEST POSITION, CALL LIGHT WITHIN REACH, BED ALARM ON. GOING TO ENDORSE THE PATIENT TO THE NIGHT SIFT FOR WENDY.
== END 2022-02-10 19:48 | disposition hospice, home (50) | DRG 193 ==
LOC: ER 23:22 → ICU 02-05 02:02 → TELE1 02-07 11:35 → TELE-TD 02-07 11:38 → TELE1 02-08 08:51
PROVIDERS: ADMIT Nurse Practitioner Acute Care; ATTEND Student in an Organized Health Care Education/Training Program
PROC: 5A09557 Assistance with Respiratory Ventilation, Greater than 96 Consecutive Hours, Continuous Positive Airway Pressure (ICD-10-PCS; principal; 2022-02-05)
PROC: 05HD33Z Insertion of Infusion Device into Right Cephalic Vein, Percutaneous Approach (ICD-10-PCS; 2022-02-06)
DX: J15.9 Unspecified bacterial pneumonia (principal); I50.43 Acute on chronic combined systolic (congestive) and diastolic (congestive) heart failure; J96.21 Acute and chronic respiratory failure with hypoxia; N17.0 Acute kidney failure with tubular necrosis; J96.22 Acute and chronic respiratory failure with hypercapnia; I13.0 Hypertensive heart and chronic kidney disease with heart failure and stage 1 through stage 4 chronic kidney disease, or unspecified chronic kidney disease; E44.0 Moderate protein-calorie malnutrition; E66.2 Morbid (severe) obesity with alveolar hypoventilation; J44.0 Chronic obstructive pulmonary disease with (acute) lower respiratory infection; Z68.41 Body mass index [BMI] 40.0-44.9, adult; N18.9 Chronic kidney disease, unspecified; Z28.310 Unvaccinated for COVID-19; Z95.2 Presence of prosthetic heart valve; K21.9 Gastro-esophageal reflux disease without esophagitis; Z85.528 Personal history of other malignant neoplasm of kidney; Z20.822 Contact with and (suspected) exposure to COVID-19; I25.10 Atherosclerotic heart disease of native coronary artery without angina pectoris; Z98.890 Other specified postprocedural states; Z95.1 Presence of aortocoronary bypass graft; Z90.5 Acquired absence of kidney; E78.5 Hyperlipidemia, unspecified; Z99.81 Dependence on supplemental oxygen; E03.9 Hypothyroidism, unspecified; Z79.84 Long term (current) use of oral hypoglycemic drugs; Z79.01 Long term (current) use of anticoagulants; Z79.899 Other long term (current) drug therapy; E11.22 Type 2 diabetes mellitus with diabetic chronic kidney disease; Z51.5 Encounter for palliative care; Z79.51 Long term (current) use of inhaled steroids; E05.90 Thyrotoxicosis, unspecified without thyrotoxic crisis or storm; L98.9 Disorder of the skin and subcutaneous tissue, unspecified; Z87.891 Personal history of nicotine dependence; L02.831 Carbuncle of head [any part, except face]; L02.821 Furuncle of head [any part, except face]; E88.09 Other disorders of plasma-protein metabolism, not elsewhere classified; E86.1 Hypovolemia; K76.9 Liver disease, unspecified; K80.20 Calculus of gallbladder without cholecystitis without obstruction; L73.9 Follicular disorder, unspecified; Z86.19 Personal history of other infectious and parasitic diseases; N28.81 Hypertrophy of kidney; N40.1 Benign prostatic hyperplasia with lower urinary tract symptoms; R33.8 Other retention of urine
CPT/HCPCS: 36415; 36600; 71045-TC; 71250-TC; 76770-TC; 80048-TC; 80053-TC; 80076-TC; 80202-TC; 81001; 82803-TC; 82962-TC; 83605-TC; 83735-TC; 83880; 84100-TC; 84439-TC; 84443-TC; 84484-TC; 85025-TC; 85378-TC; 86592; 86593; 87040-TC; 87070-TC; 87186-TC; 87806; 93307-TC; 94660; 94799-TC; 99082-TC; A4217; C9803; G0378; J0692; J0696; J1120; J1650; J1815; J1940; J2270; J2543; J2920; J2930; J3370; J3490; J7042; J7050; J7060; U0003

== ENCOUNTER 2022-03-01 11:34 | Inpatient (IN) | payer MEDICARE, OTHER ==
[~2022-03-01] VITALS: Ht 165.1 cm; Wt 118.8 kg
[2022-03-01] VITALS (30 sets, daily range): BP systolic 51–144; BP diastolic 31–91
[~2022-03-01 11:34] MED LIST changes: +DOXY100T2 PO; +LIDO30AD10 TP; +METH4TAB3 PO
--- NOTE | 2022-03-01 11:40 | NUR ---
[place] TO ER, C/O SOB X 2 DAYS. BROUGHT IN VIA WHEELCHAIR, PLACED IN BED, AAOX4, DYSPNEIC RR- 20, SATURATING AT 85% WITH 4LIT O2 VIA NC. APPLIED SIMPLE MASK AT 10LIT O2 SATURATING AT 96%.
[2022-03-01] MEDS ORDERED: NITROGLYCERIN 0.4 MG/TAB BOTTLE SL ONE (12:00)
[2022-03-01] MEDS ORDERED: FUROSEMIDE 40 MG/4 ML VIAL IV ONE ×2 (12:00→16:00)
--- NOTE | 2022-03-01 12:00 | NUR ---
RT NOTE RT CALLED TO BEDSIDE TO PLACE PATIENT ON BIPAP WITH SETTINGS PER MD ORDER. BIPAP SETTINGS: 15/5, BUR 18, 50%. ABG IN ONE HOUR POST INITIAL BIPAP SET UP. RN NOTIFIED AND AWARE.
--- NOTE | 2022-03-01 12:05 | NUR ---
BLOOD DRAWN AND SWAB FOR COVID19 SENT TO LAB
[2022-03-01] MEDS ORDERED: FUROSEMIDE 40 MG/4 ML VIAL ONE (12:11)
[2022-03-01] MEDS ORDERED: NITROGLYCERIN 0.4 MG/TAB BOTTLE ONE (12:11)
--- NOTE | 2022-03-01 12:12 | NUR ---
MOVE SHEET SUBMITTED.
[2022-03-01 12:52] LABS: BASOPHILS % (AUTO) 0.3 % (0.0-2.0); EOSINOPHILS % (AUTO) 1.3 % (0.0-6.0); HEMATOCRIT 48 % (39-51); HEMOGLOBIN 15.1 g/dL (13.5-17.5); LYMPHOCYTES # (AUTO) 0.8 K/uL (0.8-4.8); LYMPHOCYTES % (AUTO) 12.6 % (20.0-44.0); MEAN CORPUSCULAR HGB CONC 32 g/dl (31.0-36.0); MEAN CORPUSCULAR VOLUME 95 fL (80-96); MONOCYTES # (AUTO) 0.6 K/uL (0.1-1.30); MONOCYTES % (AUTO) 8.4 % (2.0-12.0); NEUTROPHILS # (AUTO) 5.1 K/uL (1.8-8.9); NEUTROPHILS % (AUTO) 77.4 % (43.0-81.0); PLATELET COUNT (AUTO) 94 K/uL (150-450); WHITE BLOOD COUNT (AUTO) 6.6 K/uL (4.3-11.0)
[2022-03-01 12:52] LABS: CALCIUM, SERUM 9.3 mg/dL (8.5-10.1); CARBON DIOXIDE 37 mmol/L (21-32); CHLORIDE 105 mmol/L (98-107); CREATININE 1.2 mg/dL (0.6-1.3); GLUCOSE 147 mg/dL (74-106); POTASSIUM 5.3 mmol/L (3.5-5.1); SODIUM SERUM 143 mmol/L (136-145); UREA NITROGEN, BLOOD 23 mg/dL (7-18)
[2022-03-01 13:02] LABS: ALANINE AMINOTRANSFERASE 26 U/L (12-78); ALBUMIN 3.3 g/dL (3.4-5.0); ALKALINE PHOSPHATASE 72 U/L (46-116); ASPARTATE AMINOTRANSFERASE 29 U/L (15-37); BILIRUBIN,TOTAL 0.5 mg/dL (0.2-1.0); TOTAL PROTEIN, SERUM 7.9 g/dL (6.4-8.2)
[2022-03-01] MEDS ORDERED: PROPOFOL 100 ML ONE (13:27)
[2022-03-01] MEDS ORDERED: ETOMIDATE 2 MG/ML VIAL IV ONE ×2 (13:30→15:56)
[2022-03-01] MEDS ORDERED: ROCURONIUM BROMIDE 100 MG/10 ML VIAL IV ONE (13:30)
--- NOTE | 2022-03-01 13:30 | NUR ---
PATIENT INTUBATED BY DR NORIEGA WITH ETOMIDATE-15MG, ROCC-120MG, ET-TUBE-7.5 AT 30LIP ATTACHED TO VENTILATOR AC/PRVC- FIO2-60%, VT-500, RATE-22, PEEP-5 SATURATING AT 100%.
[2022-03-01 13:36] LABS: BASOPHILS % (MANUAL) 0 % (0.0-2.0); EOSINOPHILS % (MANUAL) 1 % (0-4); LYMPHOCYTES % (MANUAL) 23 % (16-48); MONOCYTES % (MANUAL) 4 % (0-11.0); NEUTROPHILS % (MANUAL) 72 (42-76)
--- NOTE | 2022-03-01 13:40 | NUR ---
RT NOTE POST ABG RESULTS SHOWN TO DR. NORIEGA. PATIENT ORALLY INTUBATED WITH 7.5 ETT, 30 CM AT THE LIP. HOSPICE HOME HEALTH AIDE DONE. ETT SECURED BY ANCHOR FAST. POSITIVE CO2 COLOR CHANGE. BILATERAL BREATH SOUNDS ON AUSCULTATION. PLACED PATIENT ON [facility] VENT WITH SETTINGS PER MD ORDER. VENT SETTINGS: AC 22, 500, 60%, +5. SUCTIONED SMALL AMOUNTS OF THICK, WHITE SECRETIONS. VENT PLUGGED INTO RED OUTLET. ALARMS ON AND FUNCTIONING PROPERLY. NO SOB NOTED AT THIS TIME. AMBU BAG AT HEAD OF BED. WILL CONTINUE TO MONITOR THE PATIENT FOR ANY CHANGES. Addendum: 03/01/22 at 1541 by MAYNOR NIEVES RT Amended: Links added.
--- NOTE | 2022-03-01 13:47 | NUR ---
STARTED ON PROPOFOL INF. AT 5MCG/KG/MIN BP-113/83, AL-118
--- NOTE | 2022-03-01 13:55 | NUR ---
PROPOFOL INF INCREASE TO 10MCG/KG/MIN
[2022-03-01] MEDS ORDERED: CHLORZOXAZONE 500 MG TABLET PO PRN (14:00)
--- NOTE | 2022-03-01 14:00 | NUR ---
PROPOFOL INF. INCREASED TO 15MCG/KG/MIN
--- NOTE | 2022-03-01 14:04 | NUR ---
Pt assigned to ICU 260
[2022-03-01 14:10] LABS: BILIRUBIN,DIRECT 0.1 mg/dL (0.0-0.2)
--- NOTE | 2022-03-01 14:10 | NUR ---
PROPOFOL INCREASED TO 20MCG/KG/MIN. BP- 115/80, MS-105
[2022-03-01] MEDS: PHENYLEPHRINE 100 MG in IV NS 0.9% 240 ML IV PRN ×3 (14:59→16:36)
[2022-03-01] MEDS ORDERED: IPRATROPIUM NEB FS 0.5 MG/2.5 ML AMPUL.NEB NEB SCH (15:30)
--- NOTE | 2022-03-01 15:30 | NUR ---
REPORT GIVEN TO DANIEL DANG ROOM 260 FOR WENDY
[2022-03-01] MEDS ORDERED: ROCURONIUM BROMIDE 50 MG/5 ML IV ONE (15:56)
[2022-03-01] MEDS: PROPOFOL 100 ML IV PRN ×3 (16:00→22:23)
--- NOTE | 2022-03-01 16:00 | NUR ---
[employer] NOTES PATIENT RECEIVED FROM ER INTUBATED, ETT SETTING IS AC-22, PEEP-5, FIO2-50, TV-500. OGT INSERTED, PATIENT SEDATED NO ACUTE RESPIRATORY DISTRESS. INFUSING NEOSYNEPHRINE 0.2 MCG/KG/MIN, AND DIPRIVAN 50MCG/KG/MIN INTACT. PATIENT GET INSERTED PICC LINE BRISEYDA CHAMBERLAIN VIA GRAVITY, SKIN ASSESSMENT DONE INTACT. CALLED FAMILY AND LEFT MASSAGE ABOUT PATIENT CONDITION. ASSIST TURN AND REPOSITION Q 2 HR. PICC LINE CONSENT FORM WILL SIGN VIA HOSPITALIST PIPPA NEON GLASS BLOWER.
--- NOTE | 2022-03-01 16:27 | NUR ---
rn notes patient get picc line inserted on juana at this time , get order stat x-ray for placement.
[2022-03-01] MEDS: VANCOMYCIN 1.5 GM in IV D5W 500 ML IV SCH (16:28)
[2022-03-01] MEDS ORDERED: DEXTROSE 50%-WATER 50 ML DISP.SYRIN IV PRN (16:30)
[2022-03-01] MEDS ORDERED: PROPOFOL 10MG/ML 50ML 50 ML IV PRN ×2 (16:30)
[2022-03-01] MEDS: LIDOCAINE 5% (PATCH) 1 EA PATCH TP SCH (16:38)
[2022-03-01] MEDS ORDERED: Medication Not On Formulary EA (Icosapent Ethyl (Vascepa) 2 GM) PO SCH (17:00)
[2022-03-01] MEDS ORDERED: PROPOFOL 100 ML IV PRN ×2 (17:00→17:30)
[2022-03-01 17:03] LABS: ABG BASE EXCESS 3.6 mmol/L; ABG PCO2 103.9 mmHg (35.0-45.0); ABG PH 7.165 (7.350-7.450); ABG PO2 95.4 mmHg (75.0-100.0); COHb 5.4 % (0.5-1.5); MetHb 0.4 % (0.0-1.5); O2Hb 90.7 % (94.0-97.0); SITE, ABG Right Radial
--- NOTE | 2022-03-01 17:31 | NUR ---
ET TUBE ADJUSTED 3 CM (OUT) FROM 28 CM LIPLINE TO 26 CM LIPLINE. BREATH SOUNDS CLEAR BILATERAL POST ET TUBE ADJUSTMENT. Addendum: 03/01/22 at 1738 by ARCHIE CASTRO RT Amended: Links added.
[2022-03-01] MEDS: BLOOD SUGAR DIAGNOSTIC 1 EACH STRIP IN SCH (18:07)
[2022-03-01] MEDS: PIPERACILLIN /TAZOBACTAM 3.375 G in IV D5W 50 ML IV SCH (18:09)
[2022-03-01] MEDS: CLOTRIMAZOLE 1% 15 GM TUBE TP SCH (18:09)
--- NOTE | 2022-03-01 18:19 | NUR ---
FIO2 TITRATE DOWN FROM 60% TO 50% DUE TO 100% SPO2 Addendum: 03/01/22 at 1819 by ARCHIE CASTRO RT Amended: Links added.
[2022-03-01] MEDS: INSULIN REGULAR, HUMAN 100 UNIT/ML 3 ML VIAL SQ PRN (19:21)
--- NOTE | 2022-03-01 19:30 | NUR ---
RN/NOTE REPORT RECEIVED FROM DAY RN. PATIENT INTUBATED LAYING ON THE BED NO SIGNS OF DISTRESS. ALL VSS. SR, VOIDING VIA RAIN CATHETER. DIET NPO. SKIN INTACT. BLLE EDEMA. IV L HAND #18G, LAC #18G, CINTIA PICC. DRIPS PROPOFOL 50MEQ, GUERO 0.2 MEQ, TKO 10ML/HR. ALL SAFETY FALL PRECAUTIONS IN PLACE BED IN LOWEST POSITION, BED LOCK ON, SIDE RAILS UP, BED LOCK ON, CALL LIGHT WITHIN REACH, NURSE SITTING IN FRONT OF THE ROOM. WILL CONTINUE TO MONITOR.
[2022-03-01] MEDS: IV NS 0.9% 250 ML IV PRN (19:32)
[2022-03-01] MEDS: IPRATROPIUM NEB FS 0.5 MG/2.5 ML AMPUL.NEB NEB SCH (19:41)
--- NOTE | 2022-03-01 20:44 | NUR ---
RECEIVED PT INTUBATED 7.5 ETT SECURED AT 26CM AT THE LIP. NO RESP DISTRESS NOTED. PT TOLERATING VENT SETTINGS. CONTINUE TO MONITOR. Addendum: 03/01/22 at 6 by PORTER GOMEZ RT Amended: Links added.
[2022-03-02] VITALS (73 sets, daily range): BP systolic 77–150; BP diastolic 58–88
[2022-03-02] MEDS: BLOOD SUGAR DIAGNOSTIC 1 EACH STRIP IN SCH ×4 (00:43→17:49)
[2022-03-02] MEDS: PIPERACILLIN /TAZOBACTAM 3.375 G in IV D5W 50 ML IV SCH ×4 (00:44→18:43)
[2022-03-02] MEDS: IPRATROPIUM NEB FS 0.5 MG/2.5 ML AMPUL.NEB NEB SCH ×6 (01:04→23:53)
[2022-03-02] MEDS: PROPOFOL 100 ML IV PRN ×8 (01:34→21:54)
[2022-03-02 05:16] LABS: BASOPHILS % (AUTO) 0.4 % (0.0-2.0); EOSINOPHILS % (AUTO) 3.1 % (0.0-6.0); HEMATOCRIT 46 % (39-51); HEMOGLOBIN 15.4 g/dL (13.5-17.5); LYMPHOCYTES # (AUTO) 1.3 K/uL (0.8-4.8); LYMPHOCYTES % (AUTO) 15.4 % (20.0-44.0); MEAN CORPUSCULAR HGB CONC 33 g/dl (31.0-36.0); MEAN CORPUSCULAR VOLUME 94 fL (80-96); MONOCYTES # (AUTO) 0.7 K/uL (0.1-1.30); MONOCYTES % (AUTO) 8.5 % (2.0-12.0); NEUTROPHILS # (AUTO) 6.1 K/uL (1.8-8.9); NEUTROPHILS % (AUTO) 72.6 % (43.0-81.0); PLATELET COUNT (AUTO) 86 K/uL (150-450); RED BLOOD CELL COUNT(AUTO) 4.93 MIL/uL (4.5-6.0); WHITE BLOOD COUNT (AUTO) 8.4 K/uL (4.3-11.0)
[2022-03-02 05:57] LABS: ALANINE AMINOTRANSFERASE 17 U/L (12-78); ALBUMIN 2.7 g/dL (3.4-5.0); ALKALINE PHOSPHATASE 59 U/L (46-116); ASPARTATE AMINOTRANSFERASE 16 U/L (15-37); BILIRUBIN,TOTAL 0.8 mg/dL (0.2-1.0); CALCIUM, SERUM 8.5 mg/dL (8.5-10.1); CARBON DIOXIDE 34 mmol/L (21-32); CHLORIDE 100 mmol/L (98-107); CREATININE 1.4 mg/dL (0.6-1.3); GLUCOSE 124 mg/dL (74-106); MAGNESIUM 1.6 mg/dL (1.8-2.4); POTASSIUM 3.7 mmol/L (3.5-5.1); SODIUM SERUM 140 mmol/L (136-145); TOTAL PROTEIN, SERUM 6.3 g/dL (6.4-8.2); UREA NITROGEN, BLOOD 25 mg/dL (7-18)
[2022-03-02] MEDS: INSULIN REGULAR, HUMAN 100 UNIT/ML 3 ML VIAL SQ PRN ×3 (06:01→17:52)
--- NOTE | 2022-03-02 07:22 | NUR ---
ICU/RN REPORRT GIVEN TO DAY RN. PATIENT STABLE NO SIGNS OF DISTRESS. ALL QUESTIONS ANSWERED.
--- NOTE | 2022-03-02 07:32 | NUR ---
RN OPENING NOTES RECIEVED REPORT FROM NIGHTSHIFT RN. PATIENT INTUBATED, TOLERATING SETTINGS WELL. SEDATED ON PROPOFOL.MARKER ASSEMBLER READING SINUS RHTHYM. RAIN CATHETER ATTACHED DRAINING CLEAR YELLOW URINE. SKIN INTACT. IV ACCESS ON LEFT HAND 18 GAUGE, LEFT ANTECUBITAL 18 GAUGE AND PICC LINE ON RIGHT UPPER ARM. ALL IV ACCESS PATENT AND FLUSHING WITH NO RESISTANCE. BIKLATERASL SOFT WRIST RESITRAINTS NOTED, CIRCULATION WNL. SAFETY MEASURES IMPLEMENTED, BED IN LOWEST LOCKED POSITION, SIDE RAILS UP TIMES 4, CALL LIGHT WITHIN REACH. WILL CONTINUE PLAN OF CARE AND ANTICIPATE NEEDS.
[2022-03-02] MEDS ORDERED: POTASSIUM CHLORIDE 20 MEQ POWDER PACKET NG SCH (08:00)
[2022-03-02] MEDS: ATORVASTATIN 40 MG TABLET PO SCH (08:23)
[2022-03-02] MEDS: METHIMAZOLE (5MG) 5 MG TABLET PO SCH (08:23)
[2022-03-02] MEDS: EZETIMIBE 10 MG TABLET PO SCH (08:23)
[2022-03-02] MEDS: LINAGLIPTIN 5 MG TABLET PO SCH (08:23)
[2022-03-02] MEDS: COLCHICINE 0.6 MG TABLET PO SCH (08:23)
[2022-03-02] MEDS: TAMSULOSIN 0.4 MG CAP.SR.24H PO SCH (08:23)
[2022-03-02] MEDS: FUROSEMIDE 40 MG/4 ML VIAL IV SCH ×3 (08:23→15:10)
[2022-03-02] MEDS: CLOTRIMAZOLE 1% 15 GM TUBE TP SCH ×2 (08:25→16:47)
[2022-03-02] MEDS: RIVAROXABAN 10 MG TABLET PO SCH (08:25)
[2022-03-02] MEDS ORDERED: Medication Not On Formulary EA (Umeclidinium Brm/Vilanterol Tr (Anoro Ellipta 62.5-25 Mc INH SCH (09:00)
[2022-03-02] MEDS: IV D5/ 0.9% NACL 1,000 ML IV PRN ×2 (10:26→22:54)
[2022-03-02] MEDS: methylPREDNISolone SOD SUCC 125 MG/2ML VIAL IV SCH ×2 (11:03→21:05)
[2022-03-02 11:39] LABS: ABG BASE EXCESS 7.3 mmol/L; ABG OXYGEN SATURATION 95.6 % (92.0-98.5); ABG PH 7.478 (7.350-7.450); ABG PO2 72.7 mmHg (75.0-100.0); AaDO2 234.3 mmHg; COHb 1.2 % (0.5-1.5); MetHb 0.2 % (0.0-1.5); O2Hb 94.3 % (94.0-97.0); PEEP,BG 5 cm H2O; SITE, ABG Right Radial; VT, ABG 500 mL
[2022-03-02] MEDS: ALBUTEROL HALF STRENGTH 1.25 MG/3 ML VIAL.NEB NEB SCH ×4 (11:58→23:53)
[2022-03-02] MEDS: Magnesium 1GM/D5W 100ML PREMIX 100 ML IV SCH ×2 (14:40→15:44)
[2022-03-02] MEDS ORDERED: NEUTRA PHOS 1 POWD.PACKET GT ONE (15:00)
[2022-03-02] MEDS: PHENYLEPHRINE 100 MG in IV NS 0.9% 240 ML IV PRN (15:37)
--- NOTE | 2022-03-02 16:31 | NUR ---
APS REPORT #[id number] FOR POSSIBLE HOSPICE FRAUD.
[2022-03-02] MEDS: VANCOMYCIN 1.5 GM in IV D5W 500 ML IV SCH (16:46)
--- NOTE | 2022-03-02 19:01 | NUR ---
RN CLOSING NOTE HAND OFF REPORT GIVEN TO NIGHTSHIFT RN FOR CONTINUATION OF CARE. VITAL SIGNS STABLE.
--- NOTE | 2022-03-02 20:29 | NUR ---
RCVD PT ORALLY INTUBATED 7.5 ETT SECURED AT 26CM AT THE LIP LINE . Q4 BREATHING TX GIVEN , NO ADVERSE REACTION NOTED. VENT PLUGGED INTO RED OUTLET, VENT ALARMS ON AND AUDIBLE. NO RESP DISTRESS NOTED. PT TOLERATING VENT SETTINGS. WILL CONTINUE TO MONITOR T/O SHIFT..
[2022-03-03] VITALS (93 sets, daily range): BP systolic 73–165; BP diastolic 42–93
[2022-03-03] MEDS: PIPERACILLIN /TAZOBACTAM 3.375 G in IV D5W 50 ML IV SCH ×4 (00:04→17:57)
[2022-03-03] MEDS: BLOOD SUGAR DIAGNOSTIC 1 EACH STRIP IN SCH ×4 (00:05→18:06)
[2022-03-03] MEDS: IV NS 0.9% 250 ML IV PRN (00:26)
[2022-03-03] MEDS: INSULIN REGULAR, HUMAN 100 UNIT/ML 3 ML VIAL SQ PRN ×5 (00:33→18:13)
[2022-03-03] MEDS: PROPOFOL 100 ML IV PRN ×4 (00:35→08:27)
[2022-03-03] MEDS: ALBUTEROL HALF STRENGTH 1.25 MG/3 ML VIAL.NEB NEB SCH ×6 (03:38→23:40)
[2022-03-03] MEDS: IPRATROPIUM NEB FS 0.5 MG/2.5 ML AMPUL.NEB NEB SCH ×6 (03:38→23:40)
[2022-03-03 04:48] LABS: BASOPHILS % (AUTO) 0.2 % (0.0-2.0); EOSINOPHILS % (AUTO) 0.1 % (0.0-6.0); HEMATOCRIT 45 % (39-51); HEMOGLOBIN 15.1 g/dL (13.5-17.5); LYMPHOCYTES # (AUTO) 0.4 K/uL (0.8-4.8); LYMPHOCYTES % (AUTO) 4.3 % (20.0-44.0); MEAN CORPUSCULAR HGB CONC 34 g/dl (31.0-36.0); MEAN CORPUSCULAR VOLUME 93 fL (80-96); MONOCYTES # (AUTO) 0.2 K/uL (0.1-1.30); NEUTROPHILS # (AUTO) 8.9 K/uL (1.8-8.9); NEUTROPHILS % (AUTO) 93.4 % (43.0-81.0); PLATELET COUNT (AUTO) 91 K/uL (150-450); RED BLOOD CELL COUNT(AUTO) 4.84 MIL/uL (4.5-6.0); WHITE BLOOD COUNT (AUTO) 9.5 K/uL (4.3-11.0)
[2022-03-03 05:17] LABS: ALANINE AMINOTRANSFERASE 9 U/L (12-78); ALBUMIN 2.5 g/dL (3.4-5.0); ALKALINE PHOSPHATASE 55 U/L (46-116); ASPARTATE AMINOTRANSFERASE 13 U/L (15-37); BILIRUBIN,TOTAL 0.6 mg/dL (0.2-1.0); CALCIUM, SERUM 8.3 mg/dL (8.5-10.1); CARBON DIOXIDE 31 mmol/L (21-32); CHLORIDE 97 mmol/L (98-107); CREATININE 1.7 mg/dL (0.6-1.3); PHOSPHORUS 1.9 mg/dL (2.5-4.9); SODIUM SERUM 136 mmol/L (136-145); TOTAL PROTEIN, SERUM 6.4 g/dL (6.4-8.2); UREA NITROGEN, BLOOD 27 mg/dL (7-18)
[2022-03-03 05:55] LABS: BASOPHILS % (MANUAL) 0 % (0.0-2.0); EOSINOPHILS % (MANUAL) 0 % (0-4); LYMPHOCYTES % (MANUAL) 6 % (16-48); MONOCYTES % (MANUAL) 3 % (0-11.0); NEUTROPHILS % (MANUAL) 91 (42-76)
[2022-03-03 06:06] LABS: GLUCOSE 376 mg/dL (74-106)
--- NOTE | 2022-03-03 07:25 | NUR ---
ICU/RN NOTE REPORT GIVEN TO DAY NURSE. PATIENT STABLE NO SIGNS OF DISTRESS. ALL QUESTIONS ANSWERED.
[2022-03-03] MEDS ORDERED: POTASSIUM PHOSPHATE MM 15 MMOL in IV NS 0.9% 250 ML IV SCH (09:00)
[2022-03-03] MEDS: LINAGLIPTIN 5 MG TABLET PO SCH (09:38)
[2022-03-03] MEDS: methylPREDNISolone SOD SUCC 125 MG/2ML VIAL IV SCH ×2 (09:38→21:10)
[2022-03-03] MEDS: METHIMAZOLE (5MG) 5 MG TABLET PO SCH (09:38)
[2022-03-03] MEDS: ATORVASTATIN 40 MG TABLET PO SCH (09:39)
[2022-03-03] MEDS: TAMSULOSIN 0.4 MG CAP.SR.24H PO SCH (09:39)
[2022-03-03] MEDS: EZETIMIBE 10 MG TABLET PO SCH (09:39)
[2022-03-03] MEDS: RIVAROXABAN 10 MG TABLET PO SCH (09:40)
[2022-03-03] MEDS: CLOTRIMAZOLE 1% 15 GM TUBE TP SCH ×2 (09:41→17:57)
[2022-03-03] MEDS: COLCHICINE 0.6 MG TABLET PO SCH (09:59)
[2022-03-03] MEDS ORDERED: POTASSIUM CL. PREMIX PERIPHER. 50 ML IV SCH (12:00)
[2022-03-03] MEDS ORDERED: DC PROPOFOL WHEN EXTUBATED XX PRN (12:00)
--- NOTE | 2022-03-03 12:14 | NUR ---
DR. TSE AT THE UNIT AND MADE AWARE OF THE INCREASED HR 110-130s, SINUS TACHY; NO NEW ORDER MADE; CHARGE NURSE AWARE.
[2022-03-03] MEDS ORDERED: GLUCERNA 1.2 1,000 ML BOTTLE NG PRN ×2 (12:30)
--- NOTE | 2022-03-03 13:00 | NUR ---
pt extubated per md order placed on 4lpm n/c zero resp. distress noted. strong cough able to clear airway
--- NOTE | 2022-03-03 13:00 | NUR ---
PATIENT S/P EXTUBATION; OGT REMOVED PER CHARGE NURSE; ON NASAL CANNULA AT 4LPM.
[2022-03-03 13:07] LABS: ABG BASE EXCESS 7.2 mmol/L; ABG OXYGEN SATURATION 96.8 % (92.0-98.5); ABG PCO2 54.9 mmHg (35.0-45.0); ABG PH 7.409 (7.350-7.450); ABG PO2 89.9 mmHg (75.0-100.0); AaDO2 204.8 mmHg; COHb 0.9 % (0.5-1.5); MetHb 0.2 % (0.0-1.5); O2Hb 95.7 % (94.0-97.0); PEEP,BG 5 cm H2O; SITE, ABG Right Radial; VENT MODE, BG SIMV PSV 15; VT, ABG 500 mL
[2022-03-03] MEDS: POTASSIUM CL. PREMIX PERIPHER. 50 ML IV SCH ×4 (14:31→17:42)
[2022-03-03] MEDS: PHENYLEPHRINE 100 MG in IV NS 0.9% 240 ML IV PRN (15:45)
[2022-03-03] MEDS: VANCOMYCIN 1.5 GM in IV D5W 500 ML IV SCH (15:47)
--- NOTE | 2022-03-03 16:05 | NUR ---
CHARGE NURSE MADE AWARE THAT PT REMAINS SINUS TACH, CHARGE NURSE STATES" THAT IS OKAY."
[2022-03-03] MEDS ORDERED: K PHOS NEUTRAL 250 MG TABLET PO ONE (17:30)
[2022-03-04] VITALS (34 sets, daily range): BP systolic 80–132; BP diastolic 52–90
[2022-03-04] MEDS: INSULIN REGULAR, HUMAN 100 UNIT/ML 3 ML VIAL SQ PRN ×5 (00:02→21:58)
[2022-03-04] MEDS: ALBUTEROL HALF STRENGTH 1.25 MG/3 ML VIAL.NEB NEB SCH ×6 (03:34→23:36)
[2022-03-04] MEDS: IPRATROPIUM NEB FS 0.5 MG/2.5 ML AMPUL.NEB NEB SCH ×6 (03:34→23:36)
[2022-03-04 04:43] LABS: BASOPHILS % (AUTO) 0.1 % (0.0-2.0); HEMATOCRIT 46 % (39-51); HEMOGLOBIN 14.8 g/dL (13.5-17.5); LYMPHOCYTES # (AUTO) 0.6 K/uL (0.8-4.8); LYMPHOCYTES % (AUTO) 4.3 % (20.0-44.0); MEAN CORPUSCULAR HGB CONC 33 g/dl (31.0-36.0); MEAN CORPUSCULAR VOLUME 93 fL (80-96); MONOCYTES # (AUTO) 0.5 K/uL (0.1-1.30); MONOCYTES % (AUTO) 3.1 % (2.0-12.0); NEUTROPHILS # (AUTO) 13.5 K/uL (1.8-8.9); NEUTROPHILS % (AUTO) 92.5 % (43.0-81.0); PLATELET COUNT (AUTO) 102 K/uL (150-450); RED BLOOD CELL COUNT(AUTO) 4.91 MIL/uL (4.5-6.0); WHITE BLOOD COUNT (AUTO) 14.5 K/uL (4.3-11.0)
[2022-03-04 05:03] LABS: CALCIUM, SERUM 8.7 mg/dL (8.5-10.1); CARBON DIOXIDE 36 mmol/L (21-32); CHLORIDE 104 mmol/L (98-107); CREATININE 1.6 mg/dL (0.6-1.3); GLUCOSE 218 mg/dL (74-106); PHOSPHORUS 4.9 mg/dL (2.5-4.9); POTASSIUM 3.9 mmol/L (3.5-5.1); SODIUM SERUM 147 mmol/L (136-145); UREA NITROGEN, BLOOD 32 mg/dL (7-18)
[2022-03-04] MEDS: PIPERACILLIN /TAZOBACTAM 3.375 G in IV D5W 50 ML IV SCH ×3 (06:01)
[2022-03-04] MEDS: BLOOD SUGAR DIAGNOSTIC 1 EACH STRIP IN SCH ×5 (06:01→21:58)
--- NOTE | 2022-03-04 07:30 | NUR ---
RN NOTES PT FOUND SEMI FOWLERS DISPLAYING NO S/S OF DISTRESS, PT ENDORSES NO PAIN AND IS BREATHING EVEN AND UNLABORED ON 5L O2 NC. R UA PICC IS PATIENT AND INTACT. RAIN CATH RESERVOIR IS BELOW PATIENT DRAINING BY GRAVITY. RN WILL CONTINUE CARE PLAN AND ANTICIPATE NEEDS. SAFETY MEASURES IN PLACE, BED LOCKED AND IN LOWEST POSITION, SIDE RAILS UPX2, CALL LIGHT WITHIN REACH, BED ALARM ARMED.
[2022-03-04] MEDS: LINAGLIPTIN 5 MG TABLET PO SCH (08:56)
[2022-03-04] MEDS: EZETIMIBE 10 MG TABLET PO SCH (08:56)
[2022-03-04] MEDS: methylPREDNISolone SOD SUCC 125 MG/2ML VIAL IV SCH ×2 (08:57→21:59)
[2022-03-04] MEDS: METHIMAZOLE (5MG) 5 MG TABLET PO SCH (08:57)
[2022-03-04] MEDS: TAMSULOSIN 0.4 MG CAP.SR.24H PO SCH (08:57)
[2022-03-04] MEDS: ATORVASTATIN 40 MG TABLET PO SCH (08:57)
[2022-03-04] MEDS: COLCHICINE 0.6 MG TABLET PO SCH (09:00)
[2022-03-04] MEDS: RIVAROXABAN 10 MG TABLET PO SCH (09:00)
[2022-03-04] MEDS: CLOTRIMAZOLE 1% 15 GM TUBE TP SCH ×2 (09:01→17:05)
--- NOTE | 2022-03-04 11:59 | NUR ---
PATIENT TRANSFER PER DR ORDER, PT DOWNGRADED FROM ICU TO TELE. PT PLACED ON PORTABLE MONITOR AND OXYGEN. BELONGINGS CHECKED AND REVIEWED. SBAR AND CHART BROUGHT. PT TRANSPORTED VIA HOSPITAL BED ACCOMPANIED BY PRIMARY RN AND ALTON MICHAEL. NO COMPLICATIONS DURING TRANSPORT. RN, PER REQUEST, GAVE BEDSIDE REPORT TO ALTON KOWALSKI. PT ENDORSED IN STABLE CONDITION FOR WENDY. ALL QUESTIONS ANSWERED.
[2022-03-04] MEDS: PIPERACILLIN /TAZOBACTAM 3.375 G in IV D5W 100 ML IV SCH ×2 (15:11→21:58)
[2022-03-04] MEDS: VANCOMYCIN 1.5 GM in IV D5W 500 ML IV SCH (17:31)
--- NOTE | 2022-03-04 18:27 | NUR ---
RN NOTE PT NOTED WITH LABORED BREATHING AND REPORTING SOB. PT PLACED ON 8L O2 SIMPLE MASK. O2 SAT 93%.
--- NOTE | 2022-03-04 19:30 | NUR ---
RN NOTE PATIENT IN BED, ON SEMIFOWLER'S, AAO X 4, MACANESE SPEAKING, UNDERSTANDS SIMPLE ST LUCIAN, BREATHING EVEN AND UNLABORED, SATURATION AT 95% ON 8L VIA SIMPLE MASK, ST ON THE MONITOR, HR IS 115. IV LINE AT LAC 18G, L HAND 18G, AND CINTIA PICC LINE PATENT AND FLUSHING WELL, NO S/S OF INFECTION, SALINE LOCKED. RAIN CATH DRAINING TO A CLEAR, YELLOW OUTPUT. SAFETY MEASURES IN PLACE, BED IS LOCKED AND AT LOWEST POSITION, BED ALARM ON, SIDE RAILS UP X 2, CALL LIGHT WITHIN REACH OF PATIENT. WILL CONT TO MONITOR AND CARRY OUT MD ORDERS.
[2022-03-04] MEDS ORDERED: DEXTROSE 50%-WATER 50 ML DISP.SYRIN IV PRN (20:00)
[2022-03-05] VITALS: BP 112/80
[2022-03-05] MEDS: IPRATROPIUM NEB FS 0.5 MG/2.5 ML AMPUL.NEB NEB SCH ×6 (03:30→23:17)
[2022-03-05] MEDS: ALBUTEROL HALF STRENGTH 1.25 MG/3 ML VIAL.NEB NEB SCH ×6 (03:30→23:17)
[2022-03-05 04:00] VITALS: BP 101/60
[2022-03-05] MEDS: PIPERACILLIN /TAZOBACTAM 3.375 G in IV D5W 100 ML IV SCH ×3 (04:49→21:31)
--- NOTE | 2022-03-05 07:00 | NUR ---
RN NOTE RECEIVED PATIENT IN BED RESTING ALERT ORIENTED X4 URDU SPEAKING,ON NASAL CANNULA 6L O2:92% IV SITE ARE CINTIA PICC LINE AND LAC,LEFT HAND INTACT PATENT,RAIN CATH IN PLACE URINE DRAINING CLOUDY AND BLOODY BY GRAVITY,SAFETY MEASURE IMPLEMENT BED IN LOW POSITION AND LOCKED CALL LIGHT WITHIN REACH CONTINUE TO MONITOR
[2022-03-05 07:03] LABS: BASOPHILS % (AUTO) 0.3 % (0.0-2.0); HEMATOCRIT 48 % (39-51); HEMOGLOBIN 15.4 g/dL (13.5-17.5); LYMPHOCYTES # (AUTO) 0.5 K/uL (0.8-4.8); LYMPHOCYTES % (AUTO) 3.8 % (20.0-44.0); MEAN CORPUSCULAR HGB CONC 32 g/dl (31.0-36.0); MEAN CORPUSCULAR VOLUME 94 fL (80-96); MONOCYTES # (AUTO) 0.4 K/uL (0.1-1.30); MONOCYTES % (AUTO) 2.9 % (2.0-12.0); NEUTROPHILS # (AUTO) 11.4 K/uL (1.8-8.9); PLATELET COUNT (AUTO) 106 K/uL (150-450); RED BLOOD CELL COUNT(AUTO) 5.13 MIL/uL (4.5-6.0); WHITE BLOOD COUNT (AUTO) 12.2 K/uL (4.3-11.0)
[2022-03-05 07:11] LABS: CALCIUM, SERUM 9.1 mg/dL (8.5-10.1); CARBON DIOXIDE 37 mmol/L (21-32); CHLORIDE 103 mmol/L (98-107); CREATININE 1.5 mg/dL (0.6-1.3); GLUCOSE 255 mg/dL (74-106); SODIUM SERUM 143 mmol/L (136-145); UREA NITROGEN, BLOOD 37 mg/dL (7-18)
[2022-03-05 08:00] VITALS: BP 125/80
[2022-03-05] MEDS: BLOOD SUGAR DIAGNOSTIC 1 EACH STRIP IN SCH ×4 (08:26→23:34)
[2022-03-05] MEDS: COLCHICINE 0.6 MG TABLET PO SCH (08:31)
[2022-03-05] MEDS: ATORVASTATIN 40 MG TABLET PO SCH (08:31)
[2022-03-05] MEDS: METHIMAZOLE (5MG) 5 MG TABLET PO SCH (08:31)
[2022-03-05] MEDS: RIVAROXABAN 10 MG TABLET PO SCH (08:32)
[2022-03-05] MEDS: EZETIMIBE 10 MG TABLET PO SCH (08:32)
[2022-03-05] MEDS: LINAGLIPTIN 5 MG TABLET PO SCH (08:32)
[2022-03-05] MEDS: methylPREDNISolone SOD SUCC 125 MG/2ML VIAL IV SCH ×2 (08:32→21:31)
[2022-03-05] MEDS: TAMSULOSIN 0.4 MG CAP.SR.24H PO SCH (08:36)
[2022-03-05] MEDS: CLOTRIMAZOLE 1% 15 GM TUBE TP SCH ×2 (08:36→17:13)
[2022-03-05] MEDS: INSULIN REGULAR, HUMAN 100 UNIT/ML 3 ML VIAL SQ PRN ×4 (08:41→23:36)
--- NOTE | 2022-03-05 08:44 | NUR ---
RT PT DID NOT WEAR BIPAP LAST NIGHT, REFUSED TXSs & Abg on 6l NC saturation 92% on continous pulse ox,
[2022-03-05 12:00] VITALS: BP 124/86
[2022-03-05] MEDS: DIGOXIN INJ 0.5 MG/2 ML AMPUL IV SCH ×2 (12:11→17:11)
[2022-03-05] MEDS: VANCOMYCIN 1.5 GM in IV D5W 500 ML IV SCH (15:29)
[2022-03-05 16:00] VITALS: BP 123/87
[2022-03-05 16:11] LABS: ABG BASE EXCESS 6.1 mmol/L; ABG OXYGEN SATURATION 94.9 % (92.0-98.5); ABG PCO2 77.5 mmHg (35.0-45.0); ABG PH 7.287 (7.350-7.450); AaDO2 117.1 mmHg; COHb 0.9 % (0.5-1.5); MetHb 0.2 % (0.0-1.5); O2Hb 93.9 % (94.0-97.0); SITE, ABG Right Radial; VENT MODE, BG 6L NC
--- NOTE | 2022-03-05 18:32 | NUR ---
RN NOTE PATIENT REMAINS ALERT ORIENTED X4 SETSWANA SPEAKING ON 5L OXYGEN VIA NASAL CANNULA,O2:96% NO SOB NOT ACUTE DISTRESS NOTED ALL DUE MEDS GIVEN MD ORDERED KEPT CLEAN AND DRY ALL THE TIME,KEPT COMFORTABLE,KEPT CALL LIGHT WITHIN REACH,RAIN CATH IN PLACE URINE CLOUDY AND BLOODY,WILL ENDORSE NEXT COMING SHIFT FOR CONTINUATION OF CARE.
--- NOTE | 2022-03-05 19:25 | NUR ---
RN OPENING NOTES RECEIVED PATIENT ON BED, A/0 X 4. AWAKE, VERBALLY RESPONSIVE. ON NASAL CANULA @ 5LPM SATING AT 94%. WITH CINTIA PICC LINE, LAC # 18 AND LEFT HAND #18 PERIPHERAL LINE, PATENT, INTACT, FLUSHED WITH NS. NO S/S OF INFILTRATION NOTED. RAIN CATHETER PATENT INTACT DRAINING CLEAR YELLOW URINE VIA GRAVITY. REPOSITION EVERY 2 HRS. ALL SAFETY PRECAUTION PROVIDED, BED IN LOWEST POSITION, LOCKED. BED ALARM ARMED. CALL LIGHT WITH IN REACH. CONTINUE TO MONITOR.
--- NOTE | 2022-03-05 19:26 | NUR ---
RT Patient on 5L nasal cannula. SPO2 96% on initial assessment. High HR baseline. First Q4 neb tx given and tolerated with no adverse reactions. Patient said they want to be put on BiPAP at 2300.
[2022-03-05 20:00] VITALS: BP 112/77
--- NOTE | 2022-03-05 23:30 | NUR ---
Patient placed on Bipap (noc) as ordered: RR 12, 15/5. FiO2 set to 40%. Tolerating well with an SPO2 97%. Large full face mask used. Pt appears comfortable and does not resist or remove mask. RN aware.
[2022-03-06] VITALS: BP 137/85
[2022-03-06] MEDS: DIGOXIN INJ 0.5 MG/2 ML AMPUL IV SCH (00:25)
[2022-03-06] MEDS: ALBUTEROL HALF STRENGTH 1.25 MG/3 ML VIAL.NEB NEB SCH ×6 (03:34→23:55)
[2022-03-06] MEDS: IPRATROPIUM NEB FS 0.5 MG/2.5 ML AMPUL.NEB NEB SCH ×6 (03:34→23:55)
[2022-03-06 04:00] VITALS: BP 136/96
[2022-03-06] MEDS: PIPERACILLIN /TAZOBACTAM 3.375 G in IV D5W 100 ML IV SCH ×3 (04:24→20:31)
--- NOTE | 2022-03-06 06:04 | NUR ---
Patient removed from Bipap and placed back on 5L NC with humidifier. SPO2 94%.
--- NOTE | 2022-03-06 06:07 | NUR ---
RN NOTES PATIENT REFUSED TO CHANGED THE LINEN AND TO BE CLEANED, EXPLAINED RISKS AND BENEFITS OFFERED 3X, STILL REFUSED.
[2022-03-06 07:03] LABS: EOSINOPHILS % (AUTO) 0.1 % (0.0-6.0); HEMATOCRIT 48 % (39-51); HEMOGLOBIN 15.2 g/dL (13.5-17.5); LYMPHOCYTES # (AUTO) 0.8 K/uL (0.8-4.8); LYMPHOCYTES % (AUTO) 6.6 % (20.0-44.0); MEAN CORPUSCULAR HGB CONC 32 g/dl (31.0-36.0); MEAN CORPUSCULAR VOLUME 94 fL (80-96); MONOCYTES # (AUTO) 0.7 K/uL (0.1-1.30); MONOCYTES % (AUTO) 6.3 % (2.0-12.0); PLATELET COUNT (AUTO) 114 K/uL (150-450); RED BLOOD CELL COUNT(AUTO) 5.08 MIL/uL (4.5-6.0); WHITE BLOOD COUNT (AUTO) 11.5 K/uL (4.3-11.0)
[2022-03-06 07:15] LABS: CALCIUM, SERUM 9.1 mg/dL (8.5-10.1); CREATININE 1.3 mg/dL (0.6-1.3); POTASSIUM 4.9 mmol/L (3.5-5.1)
--- NOTE | 2022-03-06 07:15 | NUR ---
RN OPENING NOTES RECEIVED PATIENT ON BED, A/0 X 4. AWAKE, VERBALLY RESPONSIVE. ON NASAL CANULA @ 5LPM SATING AT 94%. WITH CINTIA PICC LINE, LAC # 18 AND LEFT HAND #18 PERIPHERAL LINE, PATENT, INTACT, FLUSHED WITH NS. NO S/S OF INFILTRATION NOTED. RAIN CATHETER PATENT INTACT DRAINING LYDIA URINE VIA GRAVITY. ALL SAFETY PRECAUTION IN PLACE, BED IN LOWEST POSITION, LOCKED. BED ALARM ARMED. CALL LIGHT WITH IN REACH. WILL CONTINUE TO MONITOR
[2022-03-06 08:00] VITALS: BP_SYST 117; BP_SYST 169; BP_DIAS 77; BP_DIAS 85
[2022-03-06] MEDS: BLOOD SUGAR DIAGNOSTIC 1 EACH STRIP IN SCH ×4 (08:21→22:19)
[2022-03-06] MEDS: methylPREDNISolone SOD SUCC 125 MG/2ML VIAL IV SCH ×2 (09:57→20:30)
[2022-03-06] MEDS: TAMSULOSIN 0.4 MG CAP.SR.24H PO SCH (09:58)
[2022-03-06] MEDS: LINAGLIPTIN 5 MG TABLET PO SCH (09:58)
[2022-03-06] MEDS: COLCHICINE 0.6 MG TABLET PO SCH (09:58)
[2022-03-06] MEDS: INSULIN REGULAR, HUMAN 100 UNIT/ML 3 ML VIAL SQ PRN ×4 (09:58→22:19)
[2022-03-06] MEDS: METHIMAZOLE (5MG) 5 MG TABLET PO SCH (09:58)
[2022-03-06] MEDS: DILTIAZEM HCL CD 240 MG PO SCH (09:59)
[2022-03-06] MEDS: EZETIMIBE 10 MG TABLET PO SCH (09:59)
[2022-03-06] MEDS: RIVAROXABAN 10 MG TABLET PO SCH (10:01)
[2022-03-06] MEDS: CLOTRIMAZOLE 1% 15 GM TUBE TP SCH ×2 (10:02→17:00)
[2022-03-06] MEDS: ATORVASTATIN 40 MG TABLET PO SCH (10:02)
[2022-03-06 12:00] VITALS: BP 114/63
[2022-03-06 16:00] VITALS: BP 117/76
--- NOTE | 2022-03-06 19:30 | NUR ---
RN CLOSING NOTES RECEIVED PATIENT ON BED, A/0 X 4. AWAKE, VERBALLY RESPONSIVE. ON NASAL CANULA @ 5LPM SATING AT 96%. WITH CINTIA PICC LINE, LAC # 18 AND LEFT HAND #18 PERIPHERAL LINE, PATENT, INTACT, FLUSHED WITH NS. NO S/S OF INFILTRATION NOTED. RAIN CATHETER PATENT INTACT DRAINING LYDIA URINE VIA GRAVITY. ALL SAFETY PRECAUTIONS IN PLACE, BED IN LOWEST POSITION, LOCKED. BED ALARM ARMED. CALL LIGHT WITH IN REACH. WILL ENDORSE CONTINUITY OF CARE TO TRAM DRIVER NURSE
--- NOTE | 2022-03-06 19:35 | NUR ---
RN OPENING NOTES RECEIVED PATIENT IN BED, AWAKE, A/0 X 4 AND VERBALLY RESPONSIVE. PORTUGUESE SPEAKING. ON O2 AT @ 5L/MIN VIA N/C. AND NOCTURNAL BIPAP AND PT TOLERATED WELL. IV ACCESSES ON CINTIA PICC LINE, LAC # 18 AND LEFT HAND #18 SALINE LOCK, INTACT AND PATENT. NO S/S OF INFILTRATIONS. NO C/O PAIN OR DISCOMFORT. NO ACUTE DISTRESS. RAIN CATHETER IN PLACE. DRAINING BY GRAVITY. NOTED LYDIA COLOR URINE. ALL SAFETY MEASURES IN PLACE. BED IN LOWEST POSITION AND LOCKED. BED ALARM ON. SIDE RAILS UP X 2, PLACE CALL LIGHT WITH IN REACH. WILL CONTINUE TO MONITOR.
[2022-03-06 20:00] VITALS: BP 113/79
--- NOTE | 2022-03-06 22:20 | NUR ---
RN NOTES: PT'S BLOOD SUGAR 223. 4 UNITS OF REGULAR INSULIN GIVEN. NO S/S OF HYPER/HYPOGLYCEMIA. WILL CONTINUE TO MONITOR
[2022-03-07] VITALS: BP 121/88
[2022-03-07 04:00] VITALS: BP 121/75
[2022-03-07] MEDS: IPRATROPIUM NEB FS 0.5 MG/2.5 ML AMPUL.NEB NEB SCH ×6 (04:18→23:50)
[2022-03-07] MEDS: ALBUTEROL HALF STRENGTH 1.25 MG/3 ML VIAL.NEB NEB SCH ×6 (04:18→23:50)
[2022-03-07] MEDS: PIPERACILLIN /TAZOBACTAM 3.375 G in IV D5W 100 ML IV SCH ×3 (05:03→20:10)
--- NOTE | 2022-03-07 06:40 | NUR ---
RN CLOSING NOTES PATIENT IN BED, AWAKE, A/0 X 4 AND VERBALLY RESPONSIVE. AZERI/TAJIK SPEAKING. ON O2 AT @ 5L/MIN VIA N/C. AND NOCTURNAL BIPAP AND PT TOLERATED WELL. O2 SAT 94%. IV ACCESSES ON CINTIA PICC LINE, LAC # 18 AND LEFT HAND #18 SALINE LOCK, INTACT AND PATENT. NO S/S OF INFILTRATIONS. NO C/O PAIN OR DISCOMFORT. NO ACUTE DISTRESS. RAIN CATHETER IN PLACE. DRAINING BY GRAVITY. NOTED LYDIA COLOR URINE. ALL DUE MEDS GIVEN ORDERED. ALL SAFETY MEASURES IN PLACE. BED IN LOWEST POSITION AND LOCKED. BED ALARM ON. SIDE RAILS UP X 2, PLACE CALL LIGHT WITH IN REACH. WILL ENDORSE TO MORNING SHIFT NURSE.
[2022-03-07 07:25] LABS: BASOPHILS % (AUTO) 0.1 % (0.0-2.0); HEMATOCRIT 50 % (39-51); HEMOGLOBIN 15.8 g/dL (13.5-17.5); LYMPHOCYTES # (AUTO) 0.4 K/uL (0.8-4.8); LYMPHOCYTES % (AUTO) 4.5 % (20.0-44.0); MEAN CORPUSCULAR HGB CONC 32 g/dl (31.0-36.0); MEAN CORPUSCULAR VOLUME 94 fL (80-96); MONOCYTES # (AUTO) 0.3 K/uL (0.1-1.30); NEUTROPHILS # (AUTO) 8.7 K/uL (1.8-8.9); NEUTROPHILS % (AUTO) 92.4 % (43.0-81.0); PLATELET COUNT (AUTO) 114 K/uL (150-450); RED BLOOD CELL COUNT(AUTO) 5.25 MIL/uL (4.5-6.0); WHITE BLOOD COUNT (AUTO) 9.4 K/uL (4.3-11.0)
[2022-03-07 07:30] LABS: CREATININE 1.3 mg/dL (0.6-1.3); POTASSIUM 4.9 mmol/L (3.5-5.1)
--- NOTE | 2022-03-07 07:30 | NUR ---
RN OPENING NOTE PATIENT IS IN BED, AWAKE ALERT AND ORIENTED X 4. ALBANIAN/[place]IZEN OF [place] SPEAKING, TRANSLATION PROVIDED BY SOULEYMANE DANG. WITH OXYGEN VIA NASAL CANNULA AT 4L/MIN. SINUS RHYTHM ON COLOR MIXER. DENIES PAIN, BREATHING UNLABORED AND NOT IN ANY FORM OF DISTRESS. RAIN CATHETER INTACT AND ATTACHED TO URINE BAG DRAINING TO A DARK YELLOW COLORED URINE. RIGHT UPPER PICC LINE AND LEFT ANTECUBITAL AND LEFT HAND IV SALINE LOCK INTACT AND PATENT. BED IS LOCKED IN LOWEST POSITION, 3 SIDE RAILS UP, CALL LIGHT WITHIN REACH. WILL CONTINUE TO MONITOR THROUGHOUT SHIFT.
[2022-03-07] MEDS: BLOOD SUGAR DIAGNOSTIC 1 EACH STRIP IN SCH ×4 (07:58→22:31)
[2022-03-07 08:00] VITALS: BP 125/84
[2022-03-07] MEDS: CLOTRIMAZOLE 1% 15 GM TUBE TP SCH ×3 (09:00→16:07)
[2022-03-07] MEDS: methylPREDNISolone SOD SUCC 125 MG/2ML VIAL IV SCH ×2 (09:34→20:10)
[2022-03-07] MEDS: ATORVASTATIN 40 MG TABLET PO SCH (09:34)
[2022-03-07] MEDS: TAMSULOSIN 0.4 MG CAP.SR.24H PO SCH (09:34)
[2022-03-07] MEDS: COLCHICINE 0.6 MG TABLET PO SCH (09:35)
[2022-03-07] MEDS: METHIMAZOLE (5MG) 5 MG TABLET PO SCH (09:35)
[2022-03-07] MEDS: DILTIAZEM HCL CD 240 MG PO SCH (09:35)
[2022-03-07] MEDS: EZETIMIBE 10 MG TABLET PO SCH (09:35)
[2022-03-07] MEDS: LINAGLIPTIN 5 MG TABLET PO SCH (09:35)
[2022-03-07] MEDS: RIVAROXABAN 10 MG TABLET PO SCH (09:36)
[2022-03-07] MEDS: INSULIN REGULAR, HUMAN 100 UNIT/ML 3 ML VIAL SQ PRN ×4 (09:37→22:34)
[2022-03-07] MEDS ORDERED: IOHEXOL-350 100 ML VIAL IV ONE (10:07)
[2022-03-07] MEDS ORDERED: IV NS 0.9% 250 ML IV ONE (10:07)
[2022-03-07] MEDS ORDERED: CT SWABBABLE VALVE TRANS SET 1 EA INFUS.SET MC ONE (10:07)
[2022-03-07] MEDS: METOPROLOL TARTRATE INJ 5 MG/5 ML AMPUL IVP PRN ×8 (10:30→11:05)
--- NOTE | 2022-03-07 10:30 | NUR ---
RN NOTE PATIENT LEFT THE UNIT FOR CT ANGIOGRAM PROCEDURE, IN STABLE CONDITION.
[2022-03-07] MEDS ORDERED: METOPROLOL TARTRATE INJ 5 MG/5 ML AMPUL ONE ×2 (10:42→10:55)
[2022-03-07] MEDS ORDERED: NITROGLYCERIN 0.4 MG/TAB BOTTLE ONE (10:42)
--- NOTE | 2022-03-07 11:20 | NUR ---
MICROSOFT DYNAMICS AX DEVELOPER RN PT IN CT1 FOR CTCA, 40MG METOPROLOL GIVEN, HEART RATE REMAINS IN HIGH 90'S. CALLED , UPDATES GIVEN. TLO ORDERS RECEIVED FOR 20MG DILTIAZEM PIV ONE TIME. MEDICATION ADMINISTERED, MONITORING VITALS (HR AND BP). WILL CONTINUE TO MONITOR AND COMPLETE CTCA
[2022-03-07] MEDS ORDERED: NITROGLYCERIN 0.4 MG/TAB BOTTLE SL PRN (11:30)
[2022-03-07] MEDS ORDERED: DILTIAZEM HCL 50 MG IV IV ONE (11:30)
[2022-03-07 12:00] VITALS: BP 120/50
--- NOTE | 2022-03-07 13:00 | NUR ---
RN NOTE RECEIVED PATIENT FROM CT SCAN POST ANGIOGRAM, IN STABLE CONDITION. WILL CONTINUE TO MONITOR.
[2022-03-07 16:00] VITALS: BP 117/72
--- NOTE | 2022-03-07 19:02 | NUR ---
RN CLOSING NOTE PATIENT REMAINED STABLE THROUGHOUT SHIFT. TOLERATES O2 VIA NASAL CANNULA AT 4L/MIN, BREATHING UNLABORED AND NOT IN ANY FORM OF DISTRESS. RAIN CATHETER REMAINS INTACT. IV LINE REMAINS INTACT. ALL HOSPITAL PRECAUTIONS IN PLACE. WILL ENDORSE TO CLAY MILLER NURSE.
--- NOTE | 2022-03-07 19:30 | NUR ---
FIELD UNDERWRITER OPENING NOTE RECEIVED PT FROM MEJIA FOR WENDY. PATIENT IN BED, AWAKE, ALERT AND ORIENTED X 4. IRISH SPEAKING ONLY. WITH O2 THERAPY VIA NASAL CANNULA AT 4L/MIN, TOLERATING WELL. TELE MONITOR SHOWS SR WITH HR OF >90 BPM. DENIES PAIN, BREATHING UNLABORED AND NOT IN ANY FORM OF DISTRESS UPON ASSESSMENT. RIGHT UPPER PICC LINE AND LEFT ANTECUBITAL SALINE LOCK INTACT AND PATENT. RAIN CATHETER INTACT AND ATTACHED TO URINE BAG DRAINING TO A DARK YELLOW URINE. ALL SAFETY MEASURES IN PLACE: BED LOCKED IN LOWEST POSITION, SIDE RAILS UP X 3, CALL LIGHT WITHIN REACH. WILL CONTINUE TO MONITOR THROUGHOUT SHIFT.
--- NOTE | 2022-03-07 19:50 | NUR ---
RT NOTE HHN TX GIVEN, NO ADVERSE REACTIONS NOTED. PT WILL BE PLACED ON BIPAP AT A LATER TIME. NO RESPIRATORY DISTRESS NOTED.
[2022-03-07 20:00] VITALS: BP 149/99
[2022-03-07] MEDS ORDERED: MAG HYDROX/AL HYDROX/SIMETH 30 ML UDC PO PRN (21:30)
[2022-03-08] VITALS: BP 138/76
[2022-03-08 04:00] VITALS: BP 140/85
[2022-03-08] MEDS: IPRATROPIUM NEB FS 0.5 MG/2.5 ML AMPUL.NEB NEB SCH ×6 (04:02→23:32)
[2022-03-08] MEDS: ALBUTEROL HALF STRENGTH 1.25 MG/3 ML VIAL.NEB NEB SCH ×6 (04:02→23:32)
[2022-03-08] MEDS: PIPERACILLIN /TAZOBACTAM 3.375 G in IV D5W 100 ML IV SCH ×3 (04:18→20:52)
[2022-03-08 06:22] LABS: BASOPHILS % (AUTO) 0.1 % (0.0-2.0); HEMATOCRIT 49 % (39-51); HEMOGLOBIN 15.7 g/dL (13.5-17.5); LYMPHOCYTES # (AUTO) 0.5 K/uL (0.8-4.8); LYMPHOCYTES % (AUTO) 4.8 % (20.0-44.0); MEAN CORPUSCULAR HGB CONC 32 g/dl (31.0-36.0); MEAN CORPUSCULAR VOLUME 93 fL (80-96); MONOCYTES # (AUTO) 0.4 K/uL (0.1-1.30); MONOCYTES % (AUTO) 4.4 % (2.0-12.0); NEUTROPHILS % (AUTO) 90.7 % (43.0-81.0); PLATELET COUNT (AUTO) 115 K/uL (150-450); RED BLOOD CELL COUNT(AUTO) 5.22 MIL/uL (4.5-6.0); WHITE BLOOD COUNT (AUTO) 9.9 K/uL (4.3-11.0)
--- NOTE | 2022-03-08 06:25 | NUR ---
RN CLOSING NOTE PT REMAINED STABLE THROUGHOUT THE NIGHT. VS STABLE. DUE MEDS GIVEN. NEEDS ATTENDED TO. TURNED AND REPOSITIONED. WILL ENDORSE TO AM SHIFT NURSE FOR WENDY.
[2022-03-08 07:37] LABS: CALCIUM, SERUM 9.3 mg/dL (8.5-10.1); CARBON DIOXIDE 37 mmol/L (21-32); CHLORIDE 102 mmol/L (98-107); CREATININE 1.4 mg/dL (0.6-1.3); GLUCOSE 207 mg/dL (74-106); POTASSIUM 4.6 mmol/L (3.5-5.1); SODIUM SERUM 141 mmol/L (136-145); UREA NITROGEN, BLOOD 34 mg/dL (7-18)
[2022-03-08 08:00] VITALS: BP 129/85
[2022-03-08] MEDS: BLOOD SUGAR DIAGNOSTIC 1 EACH STRIP IN SCH ×4 (09:02→21:17)
[2022-03-08] MEDS: TAMSULOSIN 0.4 MG CAP.SR.24H PO SCH (09:02)
[2022-03-08] MEDS: ATORVASTATIN 40 MG TABLET PO SCH (09:03)
[2022-03-08] MEDS: COLCHICINE 0.6 MG TABLET PO SCH (09:03)
[2022-03-08] MEDS: METHIMAZOLE (5MG) 5 MG TABLET PO SCH (09:03)
[2022-03-08] MEDS: LINAGLIPTIN 5 MG TABLET PO SCH (09:03)
[2022-03-08] MEDS: EZETIMIBE 10 MG TABLET PO SCH (09:04)
[2022-03-08] MEDS: DILTIAZEM HCL CD 240 MG PO SCH (09:04)
[2022-03-08] MEDS: RIVAROXABAN 10 MG TABLET PO SCH (09:06)
[2022-03-08] MEDS: INSULIN REGULAR, HUMAN 100 UNIT/ML 3 ML VIAL SQ PRN ×4 (09:08→21:21)
[2022-03-08] MEDS: methylPREDNISolone SOD SUCC 125 MG/2ML VIAL IV SCH (09:17)
[2022-03-08] MEDS: CLOTRIMAZOLE 1% 15 GM TUBE TP SCH ×2 (09:44→17:48)
[2022-03-08 12:00] VITALS: BP 118/83
[2022-03-08 12:06] LABS: ABG BASE EXCESS 5.3 mmol/L; ABG PCO2 54.2 mmHg (35.0-45.0); ABG PH 7.389 (7.350-7.450); COHb 0.7 % (0.5-1.5); MetHb 0.6 % (0.0-1.5); O2Hb 91.2 % (94.0-97.0); SITE, ABG Right Radial
[2022-03-08 16:00] VITALS: BP 119/73
[2022-03-08] MEDS: LIDOCAINE 5% (PATCH) 1 EA PATCH TP SCH (17:47)
--- NOTE | 2022-03-08 18:25 | NUR ---
RN NOTE PT RESTING IN BED, AWAKE ALERT AND RESPONSIVE. IN CONT O2 VIA NC @6L. NOT IN RESPI DISTRESS. WITH IV ACCESS ON CINTIA PICC, LAC G18. CONT IN PUREE DIET. PT ABLE TO AMBULATE WITH ASSIST. DUE MEDICATIONS GIVEN. AM/PM CARE RENDERED. SAFETY MEASURES MAINTAINED.
--- NOTE | 2022-03-08 19:30 | NUR ---
OIL DISPATCHER OPENING NOTE RECEIVED PT FROM ANGIE FOR WENDY. PATIENT IN BED, AWAKE, ALERT AND ORIENTED X 4. ROMANIAN SPEAKING ONLY. WITH 4L/MIN O2 THERAPY VIA NASAL CANNULA, TOLERATING WELL. TELE MONITOR SHOWS SR WITH HR OF >90 BPM. O2 SAT AT >95%. DENIES PAIN, BREATHING IS EVEN AND UNLABORED AND NO S/SX OF ACUTE RESPI DISTRESS NOTED UPON ASSESSMENT. RIGHT UPPER PICC LINE AND LEFT ANTECUBITAL SALINE LOCK, INTACT AND PATENT. RAIN CATHETER INTACT AND ATTACHED TO URINE BAG DRAINING TO A YELLOW COLORED URINE BY GRAVITY. ALL SAFETY MEASURES IN PLACE: BED LOCKED IN LOWEST POSITION, SIDE RAILS UP X 3, CALL LIGHT WITHIN REACH. WILL CONTINUE TO MONITOR THROUGHOUT SHIFT.
[2022-03-08 20:00] VITALS: BP 142/82
--- NOTE | 2022-03-08 23:32 | NUR ---
PLACED PT ON NOC BIPAP 15/5, RATE 12,FIO2 30%, RN PILLO NOTIFIED. Q4 BREATHING TX GIVEN, NO ADVERSE REACTION NOTED. WILL CONTINUE TO MONITOR PT T/O SHIFT.
[2022-03-09] VITALS: BP 125/72
[2022-03-09 04:00] VITALS: BP 132/84
[2022-03-09] MEDS: ALBUTEROL HALF STRENGTH 1.25 MG/3 ML VIAL.NEB NEB SCH ×6 (04:05→23:29)
[2022-03-09] MEDS: IPRATROPIUM NEB FS 0.5 MG/2.5 ML AMPUL.NEB NEB SCH ×6 (04:05→23:29)
[2022-03-09] MEDS: PIPERACILLIN /TAZOBACTAM 3.375 G in IV D5W 100 ML IV SCH ×3 (04:25→20:38)
--- NOTE | 2022-03-09 05:00 | NUR ---
PT REMOVED FROM NOC BIPAP, PLACED ON 3L NC. SPO2 94% .
--- NOTE | 2022-03-09 05:57 | NUR ---
RN NOTE PT REMAINED STABLE THROUGHOUT THE NIGHT. ALL VS STABLE. DUE MEDS GIVEN. NEEDS ATTENDED TO. TELE MONITOR SHOWS SR WITH HR >90. WILL ENDORSE TO AM SHIFT NURSE FOR WENDY.
--- NOTE | 2022-03-09 07:10 | NUR ---
RN NOTE RECEIVED PATIENT IN BED RESTING ALERT ORIETNED X4 VERBALLY RESPONSIVE ON 3L OXYGEN VIA NASAL CANNULA O2:92% IV SITE IS ON RIGHT UPPER ARM PICC LINE AND LEFT AC INTACT PATENT, ON RAIN CATH IN PLACE URINE DRAINING YELLOW CLOUDY BY GRAVITY,SAFETY MEASURE IMPLEMENT BED IN LOW POSITION AND LOCKED,HEAD OF THE BED ELEVATED CALL LIGHT WITHIN REACH CONTINUE TO MONITOR.
[2022-03-09 07:46] LABS: CREATININE 1.2 mg/dL (0.6-1.3); POTASSIUM 4.3 mmol/L (3.5-5.1)
[2022-03-09] MEDS: BLOOD SUGAR DIAGNOSTIC 1 EACH STRIP IN SCH ×4 (07:47→21:11)
[2022-03-09 08:00] VITALS: BP 126/91
[2022-03-09 08:12] LABS: BASOPHILS % (AUTO) 0.2 % (0.0-2.0); EOSINOPHILS % (AUTO) 0.1 % (0.0-6.0); HEMATOCRIT 47 % (39-51); HEMOGLOBIN 15.1 g/dL (13.5-17.5); LYMPHOCYTES # (AUTO) 0.6 K/uL (0.8-4.8); LYMPHOCYTES % (AUTO) 5.5 % (20.0-44.0); MEAN CORPUSCULAR HGB CONC 32 g/dl (31.0-36.0); MEAN CORPUSCULAR VOLUME 92 fL (80-96); MONOCYTES # (AUTO) 0.8 K/uL (0.1-1.30); MONOCYTES % (AUTO) 6.9 % (2.0-12.0); NEUTROPHILS # (AUTO) 10.1 K/uL (1.8-8.9); NEUTROPHILS % (AUTO) 87.3 % (43.0-81.0); PLATELET COUNT (AUTO) 122 K/uL (150-450); RED BLOOD CELL COUNT(AUTO) 5.07 MIL/uL (4.5-6.0); WHITE BLOOD COUNT (AUTO) 11.6 K/uL (4.3-11.0)
[2022-03-09] MEDS: RIVAROXABAN 10 MG TABLET PO SCH (08:31)
[2022-03-09] MEDS: methylPREDNISolone SOD SUCC 40 MG/ML VIAL IV SCH (08:32)
[2022-03-09] MEDS: METHIMAZOLE (5MG) 5 MG TABLET PO SCH (08:32)
[2022-03-09] MEDS: LINAGLIPTIN 5 MG TABLET PO SCH (08:33)
[2022-03-09] MEDS: TAMSULOSIN 0.4 MG CAP.SR.24H PO SCH (08:33)
[2022-03-09] MEDS: ATORVASTATIN 40 MG TABLET PO SCH (08:34)
[2022-03-09] MEDS: COLCHICINE 0.6 MG TABLET PO SCH (08:34)
[2022-03-09] MEDS: DILTIAZEM HCL CD 240 MG PO SCH (08:51)
[2022-03-09] MEDS: CLOTRIMAZOLE 1% 15 GM TUBE TP SCH ×2 (09:36→17:00)
[2022-03-09] MEDS ORDERED: BUMETANIDE INJ 8 MG in IV NS 0.9% 48 ML IV ONE (10:00)
[2022-03-09] MEDS: EZETIMIBE 10 MG TABLET PO SCH (10:07)
[2022-03-09 12:00] VITALS: BP 125/75
[2022-03-09] MEDS: INSULIN REGULAR, HUMAN 100 UNIT/ML 3 ML VIAL SQ PRN ×3 (12:04→21:16)
[2022-03-09 16:00] VITALS: BP 137/73
--- NOTE | 2022-03-09 18:54 | NUR ---
RN NOTE PATIENT REMAINS ALERT ORIENTED X4 VERBALLY RESPONSIVE ON 3L OXYGEN VIA NASAL CANNULA O2:93% IV SITE IS ON RIGHT UPPER ARM PICC LINE INTACT PATENT NO SOB NOT ACUTE DISTRESS NOTED ALL DUE MED GIVEN MD ORDERED KEPT CLEAN AND DRY ALL THE TIME,KEPT CALL LIGHT WITHIN REACH,WILL ENDORSE NEXT COMING SHIFT FOR CONTINUATION OF CARE.
--- NOTE | 2022-03-09 19:30 | NUR ---
MARKETING ASSOCIATE OPENING NOTE RECEIVED PT FROM JESS FOR WENDY. PATIENT IN BED, AWAKE, ALERT AND ORIENTED X 4. GEORGIAN SPEAKING. WITH 3L O2 THERAPY VIA NASAL CANNULA, TOLERATING WELL. TELE MONITOR SHOWS SR WITH HR OF >90 BPM. O2 SAT AT >95%. DENIES PAIN, BREATHING IS EVEN AND UNLABORED AND NO S/SX OF ACUTE RESPI DISTRESS NOTED UPON ASSESSMENT. RIGHT UPPER PICC LINE NOTED, PATENT AND INTACT INFUSING NS TKO. RAIN CATHETER NOTED ATTACHED TO URINE BAG DRAINING TO A YELLOW URINE BY GRAVITY WITH TINGE OF BLOOD PRESENT. ALL SAFETY MEASURES IN PLACE: BED LOCKED IN LOWEST POSITION, SIDE RAILS UP X 2, CALL LIGHT WITHIN REACH. WILL CONTINUE TO MONITOR T/O SHIFT.
[2022-03-09] MEDS: ACETAMINOPHEN 325 MG TABLET PO PRN (19:37)
[2022-03-09 20:00] VITALS: BP 119/65
--- NOTE | 2022-03-09 23:47 | NUR ---
PT REFUSED NOCTURNAL BIPAP , ALTON FERRO NOTIFIED. SPO2 98% ON 3L NC. NO RESPIRATORY DISTRESS NOTED AT THIS TIME. WILL CONTINUE TO MONITOR T/O SHIFT.
[2022-03-10] VITALS: BP 120/77
[2022-03-10] MEDS: ACETAMINOPHEN 325 MG TABLET PO PRN (01:14)
[2022-03-10] MEDS: ALBUTEROL HALF STRENGTH 1.25 MG/3 ML VIAL.NEB NEB SCH ×3 (03:06→11:30)
[2022-03-10] MEDS: IPRATROPIUM NEB FS 0.5 MG/2.5 ML AMPUL.NEB NEB SCH ×3 (03:06→11:30)
[2022-03-10 04:00] VITALS: BP 112/67
[2022-03-10] MEDS: PIPERACILLIN /TAZOBACTAM 3.375 G in IV D5W 100 ML IV SCH ×2 (04:11→13:25)
--- NOTE | 2022-03-10 06:38 | NUR ---
RN CLOSING NOTE ALL DUE MEDS GIVEN. NEEDS ATTENDED TO. PT TOLERATING O2 VIA NC AT 3L/MIN, SATING AT >95%. TURNED AND REPOSITIONED. WILL ENDORSE TO AM SHIFT NURSE FOR WENDY.
[2022-03-10 06:52] LABS: BASOPHILS % (AUTO) 0.1 % (0.0-2.0); EOSINOPHILS % (AUTO) 0.2 % (0.0-6.0); HEMATOCRIT 47 % (39-51); HEMOGLOBIN 15.1 g/dL (13.5-17.5); LYMPHOCYTES # (AUTO) 0.6 K/uL (0.8-4.8); LYMPHOCYTES % (AUTO) 5.1 % (20.0-44.0); MEAN CORPUSCULAR HGB CONC 32 g/dl (31.0-36.0); MEAN CORPUSCULAR VOLUME 93 fL (80-96); MONOCYTES % (AUTO) 8.7 % (2.0-12.0); NEUTROPHILS # (AUTO) 10.2 K/uL (1.8-8.9); NEUTROPHILS % (AUTO) 85.9 % (43.0-81.0); PLATELET COUNT (AUTO) 137 K/uL (150-450); RED BLOOD CELL COUNT(AUTO) 5.04 MIL/uL (4.5-6.0); WHITE BLOOD COUNT (AUTO) 11.9 K/uL (4.3-11.0)
--- NOTE | 2022-03-10 07:30 | NUR ---
RN OPENING NOTE PATIENT IS IN BED AWAKE, ALERT AND ORIENTED X 4, SWAZI SPEAKING BUT ABLE TO UNDERSTAND A FEW LITHUANIAN WORDS. WITH O2 VIA NASAL CANNULA AT 3L/MIN, BREATHING UNLABORED AND NOT IN ANY FORM OF DISTRESS. SINUS RHYTHM ON CLIENT EVALUATOR. BED IS LOCKED IN LOWEST POSITION, 3 SIDE RAILS UP, CALL LIGHT WITHIN REACH, WILL CONTINUE TO MONITOR THROUGHOUT SHIFT.
[2022-03-10 07:46] LABS: ALANINE AMINOTRANSFERASE 35 U/L (12-78); ALBUMIN 2.8 g/dL (3.4-5.0); ALKALINE PHOSPHATASE 50 U/L (46-116); ASPARTATE AMINOTRANSFERASE 15 U/L (15-37); BILIRUBIN,TOTAL 0.7 mg/dL (0.2-1.0); CALCIUM, SERUM 8.8 mg/dL (8.5-10.1); CHLORIDE 102 mmol/L (98-107); CREATININE 1.7 mg/dL (0.6-1.3); GLUCOSE 170 mg/dL (74-106); MAGNESIUM 2.2 mg/dL (1.8-2.4); PHOSPHORUS 3.5 mg/dL (2.5-4.9); POTASSIUM 3.9 mmol/L (3.5-5.1); SODIUM SERUM 145 mmol/L (136-145); TOTAL PROTEIN, SERUM 6.1 g/dL (6.4-8.2); UREA NITROGEN, BLOOD 45 mg/dL (7-18)
[2022-03-10 07:49] LABS: CARBON DIOXIDE 45 mmol/L (21-32)
[2022-03-10 08:00] VITALS: BP 116/75
[2022-03-10] MEDS: methylPREDNISolone SOD SUCC 40 MG/ML VIAL IV SCH (08:28)
[2022-03-10] MEDS: BLOOD SUGAR DIAGNOSTIC 1 EACH STRIP IN SCH ×2 (08:28→12:03)
[2022-03-10] MEDS: METHIMAZOLE (5MG) 5 MG TABLET PO SCH (08:29)
[2022-03-10] MEDS: LINAGLIPTIN 5 MG TABLET PO SCH (08:30)
[2022-03-10] MEDS: TAMSULOSIN 0.4 MG CAP.SR.24H PO SCH (08:30)
[2022-03-10] MEDS: EZETIMIBE 10 MG TABLET PO SCH (08:30)
[2022-03-10] MEDS: DILTIAZEM HCL CD 240 MG PO SCH (08:30)
[2022-03-10] MEDS: COLCHICINE 0.6 MG TABLET PO SCH (08:30)
[2022-03-10] MEDS: ATORVASTATIN 40 MG TABLET PO SCH (08:30)
[2022-03-10] MEDS: RIVAROXABAN 10 MG TABLET PO SCH (08:32)
[2022-03-10] MEDS: INSULIN REGULAR, HUMAN 100 UNIT/ML 3 ML VIAL SQ PRN ×2 (08:33→12:34)
[2022-03-10] MEDS: CLOTRIMAZOLE 1% 15 GM TUBE TP SCH (08:35)
[2022-03-10] MEDS ORDERED: DILT240C88 PO (10:25)
[2022-03-10] MEDS ORDERED: BUME1TAB8 PO (10:31)
[2022-03-10] MEDS ORDERED: PRED20TA PO (10:35)
[2022-03-10 12:00] VITALS: BP 122/81
--- NOTE | 2022-03-10 15:29 | NUR ---
RN NOTE PATIENT IS BEING PROCESSED FOR TRANSFER TO [facility]. HOWEVER, PATIENT DECIDED TO GO HOME AGAINST MEDICAL ADVICE. DR. MAGUIRE MADE AWARE. AMA FORM SIGNED.
--- NOTE | 2022-03-10 16:16 | NUR ---
RN CLOSING NOTE PATIENT IS DISCHARGED TO HOME AGAINST MEDICAL ADVICE. DISCHARGE PACKET GIVEN AND ALL FORMS SIGNED. PICC LINE AND RAIN CATHETER DISCONTINUED ORDERED. PATIENT IS ACCOMPANIED TO LOBBY VIA WHEEL CHAIR WITH PORTABLE OXYGEN VIA NASAL CANNULA AT 3L/MIN, IN STABLE DISPOSITION, AND WITH THE FOLLOWING V/S: T 97.5, HR 103, RR 20, O2 SAT 93%, BP 143/89. PATIENT LEFT THE HOSPITAL VIA PERSONAL CAR ACCOMPANIED BY CAREGIVER MARYLIN MCKINNEY.
[2022-03-10] MEDS ORDERED: acetaZOLAMIDE SODIUM 500 MG/VIAL VIAL IV ONE (17:00)
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
== END 2022-03-10 20:18 | disposition left against medical advice (07) | DRG 208 ==
LOC: ER 12:13 → ICU 15:24 → TELE1 03-04 11:58
PROVIDERS: ADMIT Nurse Practitioner Acute Care; ATTEND Internal Medicine
PROC: 5A1945Z Respiratory Ventilation, 24-96 Consecutive Hours (ICD-10-PCS; principal; 2022-03-01)
PROC: 0BH18EZ Insertion of Endotracheal Airway into Trachea, Via Natural or Artificial Opening Endoscopic (ICD-10-PCS; 2022-03-01)
PROC: 02HV33Z Insertion of Infusion Device into Superior Vena Cava, Percutaneous Approach (ICD-10-PCS; 2022-03-01)
PROC: B548ZZA Ultrasonography of Superior Vena Cava, Guidance (ICD-10-PCS; 2022-03-01)
PROC: 5A09357 Assistance with Respiratory Ventilation, Less than 24 Consecutive Hours, Continuous Positive Airway Pressure (ICD-10-PCS; 2022-03-05)
DX: J15.9 Unspecified bacterial pneumonia (principal); I50.33 Acute on chronic diastolic (congestive) heart failure; N17.0 Acute kidney failure with tubular necrosis; J96.21 Acute and chronic respiratory failure with hypoxia; J96.22 Acute and chronic respiratory failure with hypercapnia; I13.0 Hypertensive heart and chronic kidney disease with heart failure and stage 1 through stage 4 chronic kidney disease, or unspecified chronic kidney disease; E44.0 Moderate protein-calorie malnutrition; J44.0 Chronic obstructive pulmonary disease with (acute) lower respiratory infection; E66.2 Morbid (severe) obesity with alveolar hypoventilation; Z68.41 Body mass index [BMI] 40.0-44.9, adult; E87.0 Hyperosmolality and hypernatremia; E87.3 Alkalosis; Z20.822 Contact with and (suspected) exposure to COVID-19; I25.10 Atherosclerotic heart disease of native coronary artery without angina pectoris; E03.9 Hypothyroidism, unspecified; E78.5 Hyperlipidemia, unspecified; K21.9 Gastro-esophageal reflux disease without esophagitis; Z85.528 Personal history of other malignant neoplasm of kidney; Z95.1 Presence of aortocoronary bypass graft; Z90.5 Acquired absence of kidney; Z87.891 Personal history of nicotine dependence; Z95.2 Presence of prosthetic heart valve; Z98.890 Other specified postprocedural states; Z99.81 Dependence on supplemental oxygen; Z79.51 Long term (current) use of inhaled steroids; Z79.84 Long term (current) use of oral hypoglycemic drugs; Z79.01 Long term (current) use of anticoagulants; Z74.01 Bed confinement status; N40.0 Benign prostatic hyperplasia without lower urinary tract symptoms; E88.09 Other disorders of plasma-protein metabolism, not elsewhere classified; E11.22 Type 2 diabetes mellitus with diabetic chronic kidney disease; N18.9 Chronic kidney disease, unspecified; E05.90 Thyrotoxicosis, unspecified without thyrotoxic crisis or storm; I35.0 Nonrheumatic aortic (valve) stenosis; T50.1X5A Adverse effect of loop [high-ceiling] diuretics, initial encounter; Y92.009 Unspecified place in unspecified non-institutional (private) residence as the place of occurrence of the external cause; E86.1 Hypovolemia; E87.6 Hypokalemia; E83.39 Other disorders of phosphorus metabolism
CPT/HCPCS: 31720; 36415; 36569; 36600; 71045-TC; 75574; 80048-TC; 80053-TC; 80076-TC; 80202-TC; 82803-TC; 82962-TC; 83605-TC; 83735-TC; 83880; 84100-TC; 84478-TC; 84484-TC; 85025-TC; 85378-TC; 85730-TC; 87081-TC; 92526; 92611-TC; 94002-TC; 94003-TC; 94760-TC; 94799-TC; 99082-TC; A6403; C9803; G0378; J1120; J1160; J1815; J1940; J2370; J2543; J2920; J2930; J3370; J3475; J3480; J3490; J7042; J7050; J7060; J7070; Q9967

== ENCOUNTER 2022-04-13 11:43 | Inpatient (IN) | payer MEDICARE, OTHER ==
[~2022-04-13] VITALS: Ht 167.6 cm; Wt 118.4 kg
[~2022-04-13 11:43] MED LIST changes: +BUME1TAB8 PO; +DILT240C88 PO; -DOXY100T2 PO; -METH4TAB3 PO; +PRED20TA PO
--- NOTE | 2022-04-13 11:55 | NUR ---
SAMY RA39 From Home "SOB/O2 dependent 3-4L/hypoxic on arrival 84 [id number]". PLACED ON BED, AAOX4, DYSPNEIC RR-25, SATURATING AT 88% WITH 3LIT O2. TACHYCARDIC IA-118
[2022-04-13] MEDS ORDERED: methylPREDNISolone SOD SUCC 125 MG/2ML VIAL IV ONE (12:00)
[2022-04-13] MEDS ORDERED: ALBUTEROL SULFATE 8 GM HFA.AER.AD NEB ONE (12:00)
[2022-04-13] MEDS ORDERED: IPRATROPIUM NEB FS 0.5 MG/2.5 ML AMPUL.NEB NEB ONE (12:00)
--- NOTE | 2022-04-13 12:00 | NUR ---
MOVE SHEET SUBMITTED.
[2022-04-13] MEDS ORDERED: ALBUTEROL FS 2.5 MG/3 ML VIAL.NEB ONE (12:01)
[2022-04-13] MEDS ORDERED: IPRATROPIUM NEB FS 0.5 MG/2.5 ML AMPUL.NEB ONE (12:01)
[2022-04-13] MEDS ORDERED: methylPREDNISolone SOD SUCC 125 MG/2ML VIAL ONE (12:04)
[2022-04-13] MEDS ORDERED: Magnesium 1GM/D5W 100ML PREMIX 200 ML IV ONE (12:05)
[2022-04-13] MEDS: Magnesium 1GM/D5W 100ML PREMIX 100 ML IV SCH ×2 (12:10→13:10)
--- NOTE | 2022-04-13 12:17 | NUR ---
SWAB FOR COVID19 SENT TO LAB
[2022-04-13] MEDS ORDERED: ALBUTEROL FS 2.5 MG/3 ML VIAL.NEB NEB ONE (12:30)
[2022-04-13 12:47] LABS: BASOPHILS # (AUTO) 0.1 K/uL (0.0-0.2); BASOPHILS % (AUTO) 0.6 % (0.0-2.0); EOSINOPHILS % (AUTO) 0.7 % (0.0-6.0); HEMATOCRIT 41 % (39-51); HEMOGLOBIN 13.3 g/dL (13.5-17.5); LYMPHOCYTES # (AUTO) 1.3 K/uL (0.8-4.8); LYMPHOCYTES % (AUTO) 12.5 % (20.0-44.0); MEAN CORPUSCULAR HGB CONC 33 g/dl (31.0-36.0); MEAN CORPUSCULAR VOLUME 90 fL (80-96); MONOCYTES # (AUTO) 1.1 K/uL (0.1-1.30); MONOCYTES % (AUTO) 10.3 % (2.0-12.0); NEUTROPHILS # (AUTO) 8.2 K/uL (1.8-8.9); NEUTROPHILS % (AUTO) 75.9 % (43.0-81.0); PLATELET COUNT (AUTO) 128 K/uL (150-450); RED BLOOD CELL COUNT(AUTO) 4.52 MIL/uL (4.5-6.0); WHITE BLOOD COUNT (AUTO) 10.8 K/uL (4.3-11.0)
[2022-04-13 13:00] LABS: BILIRUBIN,TOTAL 0.6 mg/dL (0.2-1.0); CALCIUM, SERUM 9.2 mg/dL (8.5-10.1); CREATININE 1.3 mg/dL (0.6-1.3); TOTAL PROTEIN, SERUM 6.9 g/dL (6.4-8.2)
[2022-04-13] MEDS ORDERED: FUROSEMIDE 40 MG/4 ML VIAL IV ONE (13:00)
[2022-04-13] MEDS ORDERED: GLIM4TAB37 PO (13:06)
[2022-04-13] MEDS ORDERED: OMEP1CAP25 PO (13:06)
[2022-04-13 13:08] LABS: POTASSIUM 3.9 mmol/L (3.5-5.1)
--- NOTE | 2022-04-13 13:15 | NUR ---
critical lab result reported to dr. lunsford
[2022-04-13] MEDS ORDERED: FUROSEMIDE 40 MG/4 ML VIAL ONE (13:18)
[2022-04-13] MEDS ORDERED: ZOLPIDEM TARTRATE 5 MG TABLET PO PRN (14:00)
[2022-04-13] MEDS ORDERED: MAG HYDROX/AL HYDROX/SIMETH 30 ML UDC PO PRN (14:00)
[2022-04-13] MEDS ORDERED: ONDANSETRON HCL/PF 4 MG/2 ML VIAL IVP PRN (14:00)
[2022-04-13] MEDS ORDERED: Z GUARD REMEDY 4 OZ OINT TP PRN (14:00)
--- NOTE | 2022-04-13 14:15 | NUR ---
X-RAY TECH AT BEDSIDE
--- NOTE | 2022-04-13 15:50 | NUR ---
REPORT DAVE RAHMAN RN ROOM 107 FOR WENDY
--- NOTE | 2022-04-13 16:00 | NUR ---
rn notes: pt admitted from ER with dx of hypoxic respiratory failure, alert and oriented x 4, Ugandan/Estonian speaking, able to make needs known, on O2 via nasal cannula satting 95%, skin intact, has left ac saline lock, patent and flushing well, bed kept in low and locked position, call light within reach, will monitor
[2022-04-13] MEDS ORDERED: Medication Not On Formulary EA (Icosapent Ethyl (Vascepa) 2 GM) PO SCH (17:00)
[2022-04-13] MEDS: BLOOD SUGAR DIAGNOSTIC 1 EACH STRIP VI SCH ×2 (17:53→22:11)
[2022-04-13] MEDS: INSULIN REGULAR, HUMAN 100 UNIT/ML 3 ML VIAL SQ PRN (18:14)
--- NOTE | 2022-04-13 19:30 | NUR ---
RN NOTE PATIENT IN BED AND SLEEPING. PT IS MONTSERRATIAN AND SERBIAN SPEAKING. IN NO ACUTE DISTRESS. ST ON THE MONITOR HR IS 114. PT ON NC 2LPM. SAFETY MEASURES IN PLACE, BED IS LOCKED AND AT LOWEST POSITION, HOB ELEVATED, WILL CONT TO MONITOR AND REASSESS.
--- NOTE | 2022-04-13 19:30 | NUR ---
PRIMER INSERTING MACHINE ADJUSTER CLOSING NOTES: Patient in bed awake no signs of distress. On NC 2L tolerating well. O2 sat 94-98%. Patient is AO x4. Tele reading ST Has LAc saline lock.All due meds given. Vital signs within normal limits. All needs met. Kept clean and comfortable. Safety measures reinforced. Call light within reach. Bed locked and on lowest position. Will endorse to shift coordinator nurse.
[2022-04-13 20:00] VITALS: BP 124/71
[2022-04-13] MEDS: ALBUTEROL FS 2.5 MG/0.5 ML VIAL.NEB NEB SCH (20:09)
[2022-04-13] MEDS: IPRATROPIUM NEB FS 0.5 MG/2.5 ML AMPUL.NEB NEB SCH (20:09)
[2022-04-13] MEDS: *INSULIN REGULAR(HUMULIN R)HUM 100 UNIT/ML VIAL SQ PRN (21:46)
[2022-04-13] MEDS: ACETAMINOPHEN 325 MG TABLET PO PRN (21:54)
[2022-04-13 22:00] VITALS: BP 106/73
[2022-04-14] VITALS (26 sets, daily range): BP systolic 79–145; BP diastolic 36–90
[2022-04-14] MEDS: ALBUTEROL FS 2.5 MG/0.5 ML VIAL.NEB NEB SCH ×4 (01:22→19:51)
[2022-04-14] MEDS: IPRATROPIUM NEB FS 0.5 MG/2.5 ML AMPUL.NEB NEB SCH ×4 (01:22→19:51)
[2022-04-14 04:41] LABS: ABG BASE EXCESS 9.3 mmol/L; ABG OXYGEN SATURATION 91.5 % (92.0-98.5); ABG PCO2 96.3 mmHg (35.0-45.0); ABG PH 7.245 (7.350-7.450); ABG PO2 69.2 mmHg (75.0-100.0); AaDO2 105.3 mmHg; COHb 1.3 % (0.5-1.5); MetHb 0.1 % (0.0-1.5); O2Hb 90.2 % (94.0-97.0); SITE, ABG Right Radial; VENT MODE, BG SM
--- NOTE | 2022-04-14 04:42 | NUR ---
ABG DONE. RN NOTIFIED WITH THE RESULT.
--- NOTE | 2022-04-14 04:46 | NUR ---
RN NOTE ABG RESULTED, PCO2 96.3, DR SENIOR WAS NOTIFIED, ORDERS RECEIVED TO PLACE PT ON BIPAP AND TRANSFER TO ICU. FAMILY WAS MADE AWARE.
--- NOTE | 2022-04-14 05:05 | NUR ---
RN NOTE PATIENT TRANSFERRED TO ICU VIA ACLS PROTOCOL, REPORT GIVEN TO YOLI DANG FOR CONTINUATION OF CARE
--- NOTE | 2022-04-14 05:14 | NUR ---
PT TRANSFERRED TO ICU AND PLACED ON BIPAP PER KIRTI CELL TUBER HAND.
--- NOTE | 2022-04-14 07:05 | NUR ---
RN NOTES RECEIVED PT ON BED, RESPONDS TO VERBAL STIMULI, ON BIPAP, TOLERATING THE SETTING WELL, O2 SAT IN LOWE 90'S , IV SITE CDI, SR UP x3, CALL LIGHT WITHIN EASY REACH, BED LOCKED AND IN LOWEST POSITION, CONTINUE TO MONITOR .
[2022-04-14 07:17] LABS: BASOPHILS % (AUTO) 0.1 % (0.0-2.0); EOSINOPHILS % (AUTO) 0.3 % (0.0-6.0); HEMATOCRIT 41 % (39-51); HEMOGLOBIN 13.3 g/dL (13.5-17.5); LYMPHOCYTES # (AUTO) 0.8 K/uL (0.8-4.8); LYMPHOCYTES % (AUTO) 7.5 % (20.0-44.0); MEAN CORPUSCULAR HGB CONC 33 g/dl (31.0-36.0); MEAN CORPUSCULAR VOLUME 91 fL (80-96); MONOCYTES # (AUTO) 0.4 K/uL (0.1-1.30); MONOCYTES % (AUTO) 4.3 % (2.0-12.0); NEUTROPHILS % (AUTO) 87.8 % (43.0-81.0); PLATELET COUNT (AUTO) 137 K/uL (150-450); RED BLOOD CELL COUNT(AUTO) 4.47 MIL/uL (4.5-6.0); WHITE BLOOD COUNT (AUTO) 10.2 K/uL (4.3-11.0)
[2022-04-14 07:45] LABS: CALCIUM, SERUM 9.1 mg/dL (8.5-10.1); CHLORIDE 100 mmol/L (98-107); CREATININE 1.5 mg/dL (0.6-1.3); GLUCOSE 194 mg/dL (74-106); MAGNESIUM 2.5 mg/dL (1.8-2.4); PHOSPHORUS 4.1 mg/dL (2.5-4.9); POTASSIUM 4.4 mmol/L (3.5-5.1); SODIUM SERUM 143 mmol/L (136-145); UREA NITROGEN, BLOOD 32 mg/dL (7-18)
[2022-04-14 07:48] LABS: CARBON DIOXIDE 42 mmol/L (21-32)
[2022-04-14] MEDS: INSULIN REGULAR, HUMAN 100 UNIT/ML 3 ML VIAL SQ PRN (08:13)
[2022-04-14] MEDS: BLOOD SUGAR DIAGNOSTIC 1 EACH STRIP VI SCH ×4 (08:13→22:53)
[2022-04-14] MEDS: PANTOPRAZOLE 40 MG TABLET.DR PO SCH (08:27)
[2022-04-14] MEDS: EZETIMIBE 10 MG TABLET PO SCH (08:28)
[2022-04-14] MEDS: METHIMAZOLE (5MG) 5 MG TABLET PO SCH (08:28)
[2022-04-14] MEDS: ATORVASTATIN 40 MG TABLET PO SCH (08:28)
[2022-04-14] MEDS: GLIMEPIRIDE 4 MG TABLET PO SCH (08:28)
[2022-04-14] MEDS: TAMSULOSIN 0.4 MG CAP.SR.24H PO SCH (08:28)
[2022-04-14] MEDS: RIVAROXABAN 10 MG TABLET PO SCH (08:28)
[2022-04-14] MEDS: FUROSEMIDE 40 MG/4 ML VIAL IV SCH ×3 (08:36→16:43)
[2022-04-14] MEDS: LINAGLIPTIN 5 MG TABLET PO SCH (08:36)
[2022-04-14 08:55] LABS: THYROID STIMULATING HORMONE 0.202 uIU/mL (0.358-3.74)
[2022-04-14] MEDS: DILTIAZEM HCL CD 240 MG PO SCH (08:58)
[2022-04-14] MEDS: COLCHICINE 0.6 MG TABLET PO SCH (08:58)
[2022-04-14] MEDS ORDERED: Medication Not On Formulary EA (Umeclidinium Brm/Vilanterol Tr (Anoro Ellipta 62.5-25 Mc INH SCH (09:00)
[2022-04-14] MEDS ORDERED: acetaZOLAMIDE SODIUM 500 MG/VIAL VIAL IV SCH (12:00)
--- NOTE | 2022-04-14 12:30 | NUR ---
RN NOTES DR MAGUIRE NOTIFED REGARDING BMP RESULTS . NO NEW ORDER GIVEN , CONTINUE INSULIN WM PROTOCAL PER MD ORDER. Addendum: 04/14/22 at 1626 by MANISHA HOSKINS RN PLEASE DISREGARD ABOVE CHARTING ,CHARTED ON WRONG PT
--- NOTE | 2022-04-14 13:00 | NUR ---
RN NOTES PT FULLY AWAKE , WANTS TO GET OUT OF THE BED,
--- NOTE | 2022-04-14 13:15 | NUR ---
RN NOTES PT WANTS BIPAP OFF, PLACED ON 5 L O2 N/C. O2 SAT WNL, PT OUT OF BED TO CHAIR, CONTINUE TO MONITOR
--- NOTE | 2022-04-14 15:00 | NUR ---
RN NOTES ABG DONE , DR GARDNER NOTIFED REGARDING THE ABG RESULTS, PT REMAINES ON 5L O2 N/C , PER MD ORDER , CONTINUE TO MONITOR
[2022-04-14 15:51] LABS: ABG BASE EXCESS 13.2 mmol/L; ABG OXYGEN SATURATION 88.9 % (92.0-98.5); ABG PCO2 69.2 mmHg (35.0-45.0); ABG PH 7.396 (7.350-7.450); ABG PO2 54.6 mmHg (75.0-100.0); COHb 1.1 % (0.5-1.5); MetHb 0.2 % (0.0-1.5); O2Hb 87.7 % (94.0-97.0); SITE, ABG Left Radial; VENT MODE, BG nasal cannula
--- NOTE | 2022-04-14 16:24 | NUR ---
ALTON NOTES DR MAGUIRE NOTIFED REGARDING BMP RESULTS, NO NEW ORDER GIVEN . Addendum: 04/14/22 at 1626 by MANISHA HOSKINS RN PLEASE DISREGARD ABOVE CHARTING ,CHARTED ON WRONG PT
--- NOTE | 2022-04-14 18:00 | NUR ---
RN NOTES PT REMAINS ON 5 LO O2 N/C , OUT OF BED TO CHAIR x2, ON THIS SHIFT, TOLERATED AT THE ACTIVITY WELL, ABLE TO USE URINAL , SUPPORTIVE FAMILY AT THE BEDSIDE, SR UP X3, BED LOCKED AND IN LOWEST POSITION, WILL ENDORSE TO FUSE MAKER NURSE FOR CONTINUITY OF CARE .
--- NOTE | 2022-04-14 19:00 | NUR ---
RN NOTES RECEIVED PT IN BED, RESPONDS TO VERBAL STIMULI, SPEAKS NIGERIEN AND SOME MALAY. ON NC 5L TOLERATING THE SETTING WELL, O2 SAT IN LOWE 90'S , TELE MONITOR READING SR-ST, IV SITE LAC #20G, INTACT AND PATENT, SIDE RAILS UP x3, CALL LIGHT WITHIN EASY REACH, BED LOCKED AND IN LOWEST POSITION, CONTINUE TO MONITOR .
[2022-04-14] MEDS: ACETAMINOPHEN 325 MG TABLET PO PRN (20:14)
[2022-04-14] MEDS ORDERED: NOREPINEPHRINE 8MG/250ML RTU 250 ML IV ONE (22:14)
[2022-04-14] MEDS: *INSULIN REGULAR(HUMULIN R)HUM 100 UNIT/ML VIAL SQ PRN (22:55)
[2022-04-14] MEDS: NOREPINEPHRINE 8 MG in IV NS 0.9% 242 ML IV PRN (23:48)
[2022-04-15] VITALS (99 sets, daily range): BP systolic 64–151; BP diastolic 32–112
[2022-04-15] MEDS: IPRATROPIUM NEB FS 0.5 MG/2.5 ML AMPUL.NEB NEB SCH ×4 (01:33→19:52)
[2022-04-15] MEDS: ALBUTEROL FS 2.5 MG/0.5 ML VIAL.NEB NEB SCH ×4 (01:33→19:52)
[2022-04-15 05:04] LABS: EOSINOPHILS % (AUTO) 0.2 % (0.0-6.0); HEMATOCRIT 40 % (39-51); HEMOGLOBIN 12.9 g/dL (13.5-17.5); LYMPHOCYTES # (AUTO) 1.5 K/uL (0.8-4.8); MEAN CORPUSCULAR HGB CONC 32 g/dl (31.0-36.0); MEAN CORPUSCULAR VOLUME 92 fL (80-96); MONOCYTES # (AUTO) 1.1 K/uL (0.1-1.30); MONOCYTES % (AUTO) 7.4 % (2.0-12.0); NEUTROPHILS # (AUTO) 12.5 K/uL (1.8-8.9); NEUTROPHILS % (AUTO) 82.4 % (43.0-81.0); PLATELET COUNT (AUTO) 148 K/uL (150-450); RED BLOOD CELL COUNT(AUTO) 4.38 MIL/uL (4.5-6.0); WHITE BLOOD COUNT (AUTO) 15.1 K/uL (4.3-11.0)
[2022-04-15 05:29] LABS: ALANINE AMINOTRANSFERASE 13 U/L (12-78); ALKALINE PHOSPHATASE 58 U/L (46-116); ASPARTATE AMINOTRANSFERASE 13 U/L (15-37); BILIRUBIN,TOTAL 0.4 mg/dL (0.2-1.0); CARBON DIOXIDE 38 mmol/L (21-32); CHLORIDE 101 mmol/L (98-107); CREATININE 1.6 mg/dL (0.6-1.3); GLUCOSE 195 mg/dL (74-106); MAGNESIUM 2.2 mg/dL (1.8-2.4); PHOSPHORUS 3.2 mg/dL (2.5-4.9); POTASSIUM 3.5 mmol/L (3.5-5.1); SODIUM SERUM 143 mmol/L (136-145); TOTAL PROTEIN, SERUM 6.9 g/dL (6.4-8.2); UREA NITROGEN, BLOOD 42 mg/dL (7-18)
--- NOTE | 2022-04-15 07:01 | NUR ---
RN CLOSING NOTES PT IN BED, ON NC 4-5L TOLERATING THE SETTING WELL, O2 SAT IN LOWE 90'S , TELE MONITOR READING SR-ST, IV SITE LAC #20G, AND LHAND #22G, RUNNING LEVO AT 0.1MCG/KG/MIN. SIDE RAILS UP x3, CALL LIGHT WITHIN EASY REACH, BED LOCKED AND IN LOWEST POSITION, WILL ENDORSE TO MORNING SHIFT FOR CONTINUE OF CARE.
--- NOTE | 2022-04-15 07:13 | NUR ---
ICU/RN PT RECEIVED IN BED, RESTING. PT ON 5L O2 NC, SAT BETWEEN 82 AND 90%, PT REFUSING BIPAP OVERNIGHT. LEFT AC 20G AND LEFT HAND 22G IN PLACE RUNNING LEVOPHED AT 0.1MCG/KG/MIN. BP STABLE. BED LOCKED AND IN LOWEST POSITION, CALL LIGHT WITHIN REACH, 3 SIDE RAILS UP.
[2022-04-15] MEDS: BLOOD SUGAR DIAGNOSTIC 1 EACH STRIP VI SCH ×4 (07:30→21:22)
[2022-04-15] MEDS: DILTIAZEM HCL CD 240 MG PO SCH (08:16)
[2022-04-15] MEDS: METHIMAZOLE (5MG) 5 MG TABLET PO SCH (08:22)
[2022-04-15] MEDS: COLCHICINE 0.6 MG TABLET PO SCH (08:22)
[2022-04-15] MEDS: TAMSULOSIN 0.4 MG CAP.SR.24H PO SCH (08:22)
[2022-04-15] MEDS: ATORVASTATIN 40 MG TABLET PO SCH (08:22)
[2022-04-15] MEDS: EZETIMIBE 10 MG TABLET PO SCH (08:22)
[2022-04-15] MEDS: GLIMEPIRIDE 4 MG TABLET PO SCH (08:22)
[2022-04-15] MEDS: LINAGLIPTIN 5 MG TABLET PO SCH (08:23)
[2022-04-15] MEDS: INSULIN REGULAR, HUMAN 100 UNIT/ML 3 ML VIAL SQ PRN ×4 (08:26→21:22)
[2022-04-15] MEDS: PANTOPRAZOLE 40 MG TABLET.DR PO SCH (08:28)
[2022-04-15] MEDS: RIVAROXABAN 10 MG TABLET PO SCH (08:28)
[2022-04-15] MEDS: NOREPINEPHRINE 8 MG in IV NS 0.9% 242 ML IV PRN ×2 (09:09→19:02)
[2022-04-15] MEDS: ACETAMINOPHEN 325 MG TABLET PO PRN (10:00)
--- NOTE | 2022-04-15 10:00 | NUR ---
PRODUCT SAFETY TEST ENGINEER PT REPORTING BACK PAIN, TYLENOL GIVEN.
--- NOTE | 2022-04-15 13:40 | NUR ---
ICU/RN MIDLINE INSERTED IN RIGHT UA. LINE NURSE UNABLE TO PLACE PICC LINE.
--- NOTE | 2022-04-15 18:59 | NUR ---
ICU/RN PT REMAINS IN BED, RESTING. PT ON 4L O2 NC WITH NO SIGNS OF LABORED BREATHING AT THIS TIME SAT 90% ON BEDSIDE MONITOR, SINUS RHYTHM. LEFT AC 20G, LEFT HAND 22G AND RIGHT UA MIDLINE IN PLACE RUNNING LEVO AT 0.1MCG/KG/MIN, BP STABLE. PT AGREES TO WEAR BIPAP OVERNIGHT, VELVET CUTTER RN NOTIFIED. BED LOCKED AND IN LOWEST POSITION, CALL LIGHT WITHIN REACH, 3 SIDE RAILS UP.
--- NOTE | 2022-04-15 19:10 | NUR ---
RN NOTES RECEIVED REPORT FROM MORNING RN. PATIENT IN BED A/O X4 DUTCH SPEAKING. ON NASAL CANULA AT 4LPM SATING 92%. WITH IV ACCESS AT L AC #20, L HAND #22, R UA MIDLINE PATENT RUNNING LEVO 0.1 MCG/KG/MIN. ALL SAFETY MEASURES IN PLACE AT ALL TIMES. HOB ELEVATED. CALL LIGHT WITHIN REACH. WILL CLOSELY MONITOR THE PATIENT
--- NOTE | 2022-04-15 21:30 | NUR ---
RN NOTES RT HOOKED PATIENT ON BIPAP ORDERED. PATIENT AGREED TO BE ON NOCTURNAL BIPAP. CLOSELY MONITOR THE PATIENT
[2022-04-16] VITALS (88 sets, daily range): BP systolic 77–148; BP diastolic 34–88
[2022-04-16] MEDS: ALBUTEROL FS 2.5 MG/0.5 ML VIAL.NEB NEB SCH ×4 (01:57→20:01)
[2022-04-16] MEDS: IPRATROPIUM NEB FS 0.5 MG/2.5 ML AMPUL.NEB NEB SCH ×4 (01:57→20:01)
[2022-04-16 05:19] LABS: BASOPHILS % (AUTO) 0.4 % (0.0-2.0); EOSINOPHILS % (AUTO) 1.2 % (0.0-6.0); HEMATOCRIT 39 % (39-51); HEMOGLOBIN 12.6 g/dL (13.5-17.5); LYMPHOCYTES # (AUTO) 1.3 K/uL (0.8-4.8); LYMPHOCYTES % (AUTO) 12.7 % (20.0-44.0); MEAN CORPUSCULAR HGB CONC 32 g/dl (31.0-36.0); MEAN CORPUSCULAR VOLUME 92 fL (80-96); MONOCYTES # (AUTO) 1.1 K/uL (0.1-1.30); MONOCYTES % (AUTO) 10.2 % (2.0-12.0); NEUTROPHILS % (AUTO) 75.5 % (43.0-81.0); PLATELET COUNT (AUTO) 138 K/uL (150-450); RED BLOOD CELL COUNT(AUTO) 4.21 MIL/uL (4.5-6.0); WHITE BLOOD COUNT (AUTO) 10.5 K/uL (4.3-11.0)
[2022-04-16 05:34] LABS: CALCIUM, SERUM 8.8 mg/dL (8.5-10.1); CREATININE 1.3 mg/dL (0.6-1.3); POTASSIUM 3.7 mmol/L (3.5-5.1)
[2022-04-16] MEDS: NOREPINEPHRINE 8 MG in IV NS 0.9% 242 ML IV PRN (06:26)
--- NOTE | 2022-04-16 07:12 | NUR ---
RN NOTES PT REMAINS IN BED, RESTING. PT ON 4L O2 NC WITH NO SIGNS OF LABORED BREATHING AT THIS TIME SAT 94% ON BEDSIDE MONITOR, SINUS TACH. LEFT AC 20G, LEFT HAND 22G AND RIGHT UA MIDLINE IN PLACE RUNNING LEVO AT 0.1MCG/KG/MIN, BP STABLE. PT ON BIPAP FROM 22;30- 5AM [id number] WELL. BED LOCKED AND IN LOWEST POSITION, CALL LIGHT WITHIN REACH, FREQUENT VISUAL MONITORING RENDERED. WILL ENDORSED TO MORNING SHIFT FOR WENDY
[2022-04-16] MEDS: ACETAMINOPHEN 325 MG TABLET PO PRN (07:16)
[2022-04-16] MEDS: BLOOD SUGAR DIAGNOSTIC 1 EACH STRIP VI SCH ×4 (07:32→21:26)
[2022-04-16] MEDS: LINAGLIPTIN 5 MG TABLET PO SCH (08:13)
[2022-04-16] MEDS: ATORVASTATIN 40 MG TABLET PO SCH (08:13)
[2022-04-16] MEDS: COLCHICINE 0.6 MG TABLET PO SCH (08:13)
[2022-04-16] MEDS: TAMSULOSIN 0.4 MG CAP.SR.24H PO SCH (08:13)
[2022-04-16] MEDS: PANTOPRAZOLE 40 MG TABLET.DR PO SCH (08:13)
[2022-04-16] MEDS: METHIMAZOLE (5MG) 5 MG TABLET PO SCH (08:13)
[2022-04-16] MEDS: GLIMEPIRIDE 4 MG TABLET PO SCH (08:13)
[2022-04-16] MEDS: EZETIMIBE 10 MG TABLET PO SCH (08:13)
[2022-04-16] MEDS: INSULIN REGULAR, HUMAN 100 UNIT/ML 3 ML VIAL SQ PRN ×2 (08:15→11:48)
[2022-04-16] MEDS: RIVAROXABAN 10 MG TABLET PO SCH (08:16)
[2022-04-16] MEDS: DILTIAZEM HCL CD 240 MG PO SCH (08:16)
--- NOTE | 2022-04-16 10:24 | NUR ---
ICU/RN PT REPORTING PAIN OF 7-8/10 FROM HIS BACK. MORPHINE IVP OFFERED PER PRN ORDER FOR SEVERE PAIN. PT REFUSES MORPHINE.
[2022-04-16] MEDS: MORPHINE SULFATE INJ 2 MG/ML DISP.SYRIN IV PRN ×3 (12:11→21:17)
--- NOTE | 2022-04-16 17:49 | NUR ---
ICU/RN SUGAR 139. PT REFUSED INSULIN WITH DINER.
--- NOTE | 2022-04-16 20:47 | NUR ---
TEXTILE ARTIST OPENING NOTE PT RECEIVED IN BED, AWAKE, A&O X3-4, [place]-SPEAKING, CALM, COOPERATIVE. PT ON 4L NC WITH CURRENT O2SAT OF 98%; NO S/S OF RESP DISTRESS, NO SOB OR COUGH, NON-LABORED AND EQUAL BREATHING. PT ATTACHED TO EXTERNAL MONITOR, ST WITH HR OF 114. LEFT HAND 20G AND CINTIA MIDLINE INTACT AND PATENT, FLUSHES EASILY WITH NO RESISTANCE; LEVO AT 0.02 MCG. BED IN LOWEST POSITION, CALL LIGHT WITHIN REACH, SIDE RAILS UP X2. WILL CONTINUE TO MONITOR THROUGHOUT THE NIGHT.
--- NOTE | 2022-04-16 21:17 | NUR ---
RN NOTE PT REPORTS OF A 6/10 BACK PAIN; PT REQUESTS FOR MORPHINE. PT ADMINISTERED MORPHINE 2 MG IV. WILL MONITOR FOR EFFECTIVENESS.
[2022-04-17] VITALS (37 sets, daily range): BP systolic 85–140; BP diastolic 50–75
[2022-04-17] MEDS: IPRATROPIUM NEB FS 0.5 MG/2.5 ML AMPUL.NEB NEB SCH ×4 (01:46→20:01)
[2022-04-17] MEDS: ALBUTEROL FS 2.5 MG/0.5 ML VIAL.NEB NEB SCH ×4 (01:46→20:01)
[2022-04-17 04:37] LABS: BASOPHILS % (AUTO) 0.5 % (0.0-2.0); EOSINOPHILS % (AUTO) 2.3 % (0.0-6.0); HEMATOCRIT 37 % (39-51); HEMOGLOBIN 11.9 g/dL (13.5-17.5); LYMPHOCYTES # (AUTO) 1.4 K/uL (0.8-4.8); LYMPHOCYTES % (AUTO) 16.7 % (20.0-44.0); MEAN CORPUSCULAR HGB CONC 32 g/dl (31.0-36.0); MEAN CORPUSCULAR VOLUME 93 fL (80-96); MONOCYTES # (AUTO) 0.7 K/uL (0.1-1.30); NEUTROPHILS # (AUTO) 5.8 K/uL (1.8-8.9); NEUTROPHILS % (AUTO) 71.5 % (43.0-81.0); PLATELET COUNT (AUTO) 129 K/uL (150-450); RED BLOOD CELL COUNT(AUTO) 3.97 MIL/uL (4.5-6.0); WHITE BLOOD COUNT (AUTO) 8.2 K/uL (4.3-11.0)
[2022-04-17 05:04] LABS: CALCIUM, SERUM 8.9 mg/dL (8.5-10.1); CREATININE 1.2 mg/dL (0.6-1.3); MAGNESIUM 2.2 mg/dL (1.8-2.4); PHOSPHORUS 3.8 mg/dL (2.5-4.9)
--- NOTE | 2022-04-17 07:21 | NUR ---
DIRECTOR OF WEB MARKETING CLOSING NOTE PT REMAINS IN BED, ASLEEP BUT EASILY AROUSABLE, A&O X4, [place]-SPEAKING, CALM, COOPERATIVE. CONTINUES TO BE ON BIPAP; RT YET TO TAKE PT OFF BIPAP, O2SAT IN THE HIGH 90S; NO S/S OF RESP DISTRESS, NO SOB OR COUGH, NON-LABORED AND EQUAL BREATHING. ATTACHED TO EXTERNAL MONITOR, NOTED TO HAVE BIGEMINY, PVCS AND PACS; HR HIGH 120. LEVO REMAINS AT 0.02 MCG/HR; TOLERATING WELL. ALL DUE MEDS ADMINISTERED DURING THE NIGHT. BED IN LOWEST POSITION, CALL LIGHT WITHIN REACH, SIDE RAILS UP X2. WILL ENDORSE TO DAYSHIFT NURSE TO CONTINUE CARE.
--- NOTE | 2022-04-17 07:23 | NUR ---
JOB ESTIMATOR OPENING NOTE PT RECEIVED IN BED, SLEEPING A&O X3-4, CROATIAN-SPEAKING, ON BYPASS WITH CURRENT O2SAT OF 98%; NO S/S OF RESP DISTRESS, NO SOB OR COUGH, NON-LABORED AND EQUAL BREATHING. PT ATTACHED TO EXTERNAL MONITOR, ST WITH HR OF 105. LEFT HAND 20G AND CINTIA MIDLINE INTACT AND PATENT, FLUSHES EASILY WITH NO RESISTANCE; LEVO AT 0.02 MCG. BED IN LOWEST POSITION, CALL LIGHT WITHIN REACH, SIDE RAILS UP X2. WILL CONTINUE TO MONITOR THROUGHOUT THE NIGHT.
[2022-04-17] MEDS: BLOOD SUGAR DIAGNOSTIC 1 EACH STRIP VI SCH ×4 (07:41→22:22)
[2022-04-17] MEDS: COLCHICINE 0.6 MG TABLET PO SCH (08:49)
[2022-04-17] MEDS: PANTOPRAZOLE 40 MG TABLET.DR PO SCH (08:50)
[2022-04-17] MEDS: TAMSULOSIN 0.4 MG CAP.SR.24H PO SCH (08:50)
[2022-04-17] MEDS: ATORVASTATIN 40 MG TABLET PO SCH (08:50)
[2022-04-17] MEDS: LINAGLIPTIN 5 MG TABLET PO SCH (08:50)
[2022-04-17] MEDS: GLIMEPIRIDE 4 MG TABLET PO SCH (08:50)
[2022-04-17] MEDS: EZETIMIBE 10 MG TABLET PO SCH (08:50)
[2022-04-17] MEDS: RIVAROXABAN 10 MG TABLET PO SCH (08:52)
[2022-04-17] MEDS: METHIMAZOLE (5MG) 5 MG TABLET PO SCH (08:52)
[2022-04-17] MEDS: ACETAMINOPHEN 325 MG TABLET PO PRN ×2 (09:36→19:39)
[2022-04-17] MEDS ORDERED: IBUPROFEN 600 MG TABLET PO PRN (11:30)
[2022-04-17] MEDS: *INSULIN REGULAR(HUMULIN R)HUM 100 UNIT/ML VIAL SQ PRN ×2 (11:31→22:23)
--- NOTE | 2022-04-17 13:45 | NUR ---
report was given to the RN DIONICIO
--- NOTE | 2022-04-17 17:24 | NUR ---
RN NOTES ACCUCHECK DONE. BS 60 MG/DL. DINNER TRAY SERVED. GAVE APPLE JUICE AND PUDDING
--- NOTE | 2022-04-17 18:00 | NUR ---
RN NOTES REFUSED REPEAT ACCUCHECK
--- NOTE | 2022-04-17 18:29 | NUR ---
RN NOTES PATIENT RESTING COMFORTABLY. POST DINNER. NOT IN ANY DISTRESS. PM CARE DONE EARLIER. O2 SAT AT >95%. DENIES PAIN AT THIS TIME. INDEPENDENT OF BED MOBILITY. SAFETY MEASURES IN PLACE. BED LOW AND LOCKED. WILL ENDORSE TO NEXT SHIFT FOR WENDY. Addendum: 04/17/22 at 1831 by DIONICIO BLANCO RN ADDENDUM ALL NEEDS MET AT THIS TIME
--- NOTE | 2022-04-17 19:45 | NUR ---
RN NOTES: PT C/O MILD PAIN ON BACK. TYLENOL 325 MG 2 TABS GIVEN ORDERED. WILL CONTINUE TO MONITOR
[2022-04-17] MEDS: DEXTROSE 50%-WATER 50 ML DISP.SYRIN IV PRN (22:27)
--- NOTE | 2022-04-17 22:30 | NUR ---
RN NOTES: PT'S BLOOD SUGAR 49. PT ALERT/ORIENTED. NO S/S OF HYPER/HYPOGLYCEMIA NOTED. DEXTROSE GIVEN PER PRN ORDERED. ORANGE JUICE GIVEN WITH SUGAR. WILL CONTINUE TO MONITOR
[2022-04-17] MEDS: MORPHINE SULFATE INJ 2 MG/ML DISP.SYRIN IV PRN (22:38)
--- NOTE | 2022-04-17 22:50 | NUR ---
RN NOTES: PT'S C/O SEVERE PAIN ON BACK. MORPHINE GIVEN PER PRN ORDERED. PT TOLERATED WELL. WILL CONTINUE TO MONITOR
--- NOTE | 2022-04-17 23:10 | NUR ---
RN NOTES: BLOOD SUGAR 157. NO S/S OF HYPER/HYPOGLYCEMIA. WILL CONTINUE TO MONITOR
[2022-04-18] VITALS (25 sets, daily range): BP systolic 99–142; BP diastolic 52–81
[2022-04-18] MEDS: IPRATROPIUM NEB FS 0.5 MG/2.5 ML AMPUL.NEB NEB SCH ×4 (01:51→20:14)
[2022-04-18] MEDS: ALBUTEROL FS 2.5 MG/0.5 ML VIAL.NEB NEB SCH ×4 (01:51→20:14)
[2022-04-18] MEDS: MORPHINE SULFATE INJ 2 MG/ML DISP.SYRIN IV PRN ×4 (04:42→18:39)
--- NOTE | 2022-04-18 04:49 | NUR ---
RN NOTES: PT'S C/O SEVERE PAIN ON BACK. MORPHINE GIVEN PER PRN ORDERED. PT TOLERATED WELL. WILL CONTINUE TO MONITOR
[2022-04-18 05:16] LABS: BASOPHILS % (AUTO) 0.4 % (0.0-2.0); EOSINOPHILS % (AUTO) 2.5 % (0.0-6.0); HEMATOCRIT 37 % (39-51); HEMOGLOBIN 12.1 g/dL (13.5-17.5); LYMPHOCYTES # (AUTO) 1.3 K/uL (0.8-4.8); LYMPHOCYTES % (AUTO) 16.2 % (20.0-44.0); MEAN CORPUSCULAR HGB CONC 32 g/dl (31.0-36.0); MEAN CORPUSCULAR VOLUME 93 fL (80-96); MONOCYTES # (AUTO) 0.7 K/uL (0.1-1.30); MONOCYTES % (AUTO) 8.7 % (2.0-12.0); NEUTROPHILS # (AUTO) 5.9 K/uL (1.8-8.9); NEUTROPHILS % (AUTO) 72.2 % (43.0-81.0); PLATELET COUNT (AUTO) 136 K/uL (150-450); RED BLOOD CELL COUNT(AUTO) 4.05 MIL/uL (4.5-6.0); WHITE BLOOD COUNT (AUTO) 8.2 K/uL (4.3-11.0)
[2022-04-18 05:23] LABS: CREATININE 1.3 mg/dL (0.6-1.3); MAGNESIUM 2.4 mg/dL (1.8-2.4); PHOSPHORUS 4.2 mg/dL (2.5-4.9)
--- NOTE | 2022-04-18 06:51 | NUR ---
FLASH WELDING MACHINE OPERATOR OPENING NOTE PT IN BED, SLEEPING WITH NOCTURNAL BIPAP. A/0 X3-4, DANISH-SPEAKING. PT TOLERATED WELL. IV ACCESS ON LEFT HAND 20G AND CINTIA MIDLINE INTACT AND PATENT. NO S/S OF INFILTRATIONS. NO C/O PAIN AT THIS MOMENT. NO ACUTE DISTRESS. LEVO OFF. ALL DUE MEDS GIVEN ORDERED. ALL SAFETY MEASURES IN PLACE. BED IN LOWEST POSITION AND LOCKED. PLACE CALL LIGHT WITHIN REACH, SIDE RAILS UP X2. WILL ENDORSE TO MORNING SHIFT NURSE.
[2022-04-18] MEDS: BLOOD SUGAR DIAGNOSTIC 1 EACH STRIP VI SCH ×4 (08:29→22:45)
[2022-04-18] MEDS ORDERED: FUROSEMIDE 20 MG/2 ML VIAL IV SCH (09:00)
[2022-04-18] MEDS: METHIMAZOLE (5MG) 5 MG TABLET PO SCH (09:22)
[2022-04-18] MEDS: ATORVASTATIN 40 MG TABLET PO SCH (09:23)
[2022-04-18] MEDS: LINAGLIPTIN 5 MG TABLET PO SCH (09:25)
[2022-04-18] MEDS: EZETIMIBE 10 MG TABLET PO SCH (09:25)
[2022-04-18] MEDS: RIVAROXABAN 10 MG TABLET PO SCH (09:25)
[2022-04-18] MEDS: PANTOPRAZOLE 40 MG TABLET.DR PO SCH (09:26)
[2022-04-18] MEDS: TAMSULOSIN 0.4 MG CAP.SR.24H PO SCH (09:26)
[2022-04-18] MEDS: GLIMEPIRIDE 4 MG TABLET PO SCH (09:26)
[2022-04-18] MEDS: COLCHICINE 0.6 MG TABLET PO SCH (09:30)
[2022-04-18 16:05] LABS: ABG BASE EXCESS 4.3 mmol/L; ABG OXYGEN SATURATION 87.7 % (92.0-98.5); ABG PCO2 66.3 mmHg (35.0-45.0); ABG PH 7.309 (7.350-7.450); ABG PO2 54.9 mmHg (75.0-100.0); AaDO2 87.4 mmHg; COHb 1.1 % (0.5-1.5); MetHb 0.1 % (0.0-1.5); O2Hb 86.6 % (94.0-97.0); SITE, ABG Left Radial
--- NOTE | 2022-04-18 19:00 | NUR ---
to room 324-2 from ICUplaced on tel and he is ST 106 02 n/c sats 96% he is smiling and able to talk w/o becoming SOB noted on his scalp toward the back of his head pustuals non open dry he is obese needing assist to get into bed and have a nurse to lift his legs
[2022-04-19] VITALS (8 sets, daily range): BP systolic 106–146; BP diastolic 63–78
[2022-04-19] MEDS: ALBUTEROL FS 2.5 MG/0.5 ML VIAL.NEB NEB SCH ×4 (00:48→19:41)
[2022-04-19] MEDS: IPRATROPIUM NEB FS 0.5 MG/2.5 ML AMPUL.NEB NEB SCH ×4 (00:48→19:41)
--- NOTE | 2022-04-19 04:58 | NUR ---
closing notes: alert and orientated x4 from ICU at 1900 04/18 placed on TELE showing ST 130 at that time last night This am his HR is 99 beats per minute he is asleep and CPAP on He went to sleep approx 2300 and slept thru the night no SOB no C/P weight this AM Bedscale 266 LBS
[2022-04-19] MEDS: MORPHINE SULFATE INJ 2 MG/ML DISP.SYRIN IV PRN (06:22)
[2022-04-19] MEDS: DEXTROSE 50%-WATER 50 ML DISP.SYRIN IV PRN (06:23)
[2022-04-19 06:46] LABS: BASOPHILS % (AUTO) 0.4 % (0.0-2.0); EOSINOPHILS % (AUTO) 3.6 % (0.0-6.0); HEMATOCRIT 37 % (39-51); LYMPHOCYTES % (AUTO) 12.4 % (20.0-44.0); MEAN CORPUSCULAR HGB CONC 32 g/dl (31.0-36.0); MEAN CORPUSCULAR VOLUME 93 fL (80-96); MONOCYTES # (AUTO) 0.8 K/uL (0.1-1.30); MONOCYTES % (AUTO) 9.7 % (2.0-12.0); NEUTROPHILS # (AUTO) 6.1 K/uL (1.8-8.9); NEUTROPHILS % (AUTO) 73.9 % (43.0-81.0); PLATELET COUNT (AUTO) 145 K/uL (150-450); RED BLOOD CELL COUNT(AUTO) 3.99 MIL/uL (4.5-6.0); WHITE BLOOD COUNT (AUTO) 8.3 K/uL (4.3-11.0)
--- NOTE | 2022-04-19 06:50 | NUR ---
am accucheck 0600 blood sugar 44 after juice blood sugar 56 he didn't want any more juice or milk via IV 250 ml D10 W GIVEN SITTING ON THE EDGE OF THE BED WORRIEND ABOUT THE OUSTULA ON HIS HEAD .
[2022-04-19] MEDS: BLOOD SUGAR DIAGNOSTIC 1 EACH STRIP VI SCH ×4 (06:54→21:56)
--- NOTE | 2022-04-19 07:33 | NUR ---
RN OPENING NOTE RECEIVED PATIENT SITTING IN BED, ALERT AND ORIENTED X4. AFEBRILE AND NOT ON ANY FORM OF ACUTE DISTRESS. BREATHING EVEN AND NON LABORED. NO C/O PAIN OR DISCOMFORT. WITH IV ACCESS ON RIGHT UPPER ARM MIDLINE. MONITORED FOR ANY S/SX. OF HYPO/HYPERGLYCEMIA. SAFETY MEASURES IN PLACE. KEPT BED IN LOCKED AND IN LOW POSITION TO REDUCE INJURY. ADVISED TO USE THE CALL LIGHT WHEN IN NEED OF ASSISTANCE.
[2022-04-19 07:40] LABS: CALCIUM, SERUM 9.1 mg/dL (8.5-10.1); CREATININE 1.1 mg/dL (0.6-1.3); MAGNESIUM 2.3 mg/dL (1.8-2.4); PHOSPHORUS 3.7 mg/dL (2.5-4.9); POTASSIUM 4.1 mmol/L (3.5-5.1)
[2022-04-19] MEDS: PANTOPRAZOLE 40 MG TABLET.DR PO SCH (08:52)
[2022-04-19] MEDS: TAMSULOSIN 0.4 MG CAP.SR.24H PO SCH (08:52)
[2022-04-19] MEDS: ATORVASTATIN 40 MG TABLET PO SCH (08:53)
[2022-04-19] MEDS: COLCHICINE 0.6 MG TABLET PO SCH (08:53)
[2022-04-19] MEDS: EZETIMIBE 10 MG TABLET PO SCH (08:53)
[2022-04-19] MEDS: METHIMAZOLE (5MG) 5 MG TABLET PO SCH (08:53)
[2022-04-19] MEDS: RIVAROXABAN 10 MG TABLET PO SCH (08:56)
[2022-04-19] MEDS: LINAGLIPTIN 5 MG TABLET PO SCH (08:58)
[2022-04-19] MEDS: GLIMEPIRIDE 4 MG TABLET PO SCH (08:58)
--- NOTE | 2022-04-19 09:00 | NUR ---
RN NOTE HELD TRAJENTA AND GLIMEPIRIDE D/T EPISODES OF HYPOGLYCEMIA.
[2022-04-19] MEDS ORDERED: BUMETANIDE INJ 8 MG in IV NS 0.9% 48 ML IV ONE (10:00)
--- NOTE | 2022-04-19 11:59 | NUR ---
RN NOTE BG AT 77, NO S/SX. OF HYPOGLYCEMIA. OFFERED OJ AND NO INSULIN WAS GIVEN
--- NOTE | 2022-04-19 13:21 | NUR ---
RN NOTE RECHECKED BG-118, NO S/SX. OF HYPO/HYPERGLYCEMIA.
[2022-04-19] MEDS: MAGNESIUM HYDROXIDE 30 ML UDC PO PRN (15:16)
--- NOTE | 2022-04-19 18:33 | NUR ---
RN CLOSING NOTE PATIENT IN BED, WITH HOB ELEVATED, ALERT AND ORIENTED X4. ABLE TO COMMUNICATE NEEDS WITH THE STAFFS. AFEBRILE AND NOT IN ANY FORM OF ACUTE DISTRESS. ON O2 INHALATION VIA NASAL CANNULA AT 2LPM. WITH IV ACCESS ON RIGHT UPPER ARM. ON TELE SHOWING ST 130 AT TIMES. MONITORED FOR ANY S/SX. OF HYPO/HYPERGLYCEMIA. STAT KUB X-RAY DONE AND AWAITING FOR RESULT. MEDICATED ORDERED. SAFETY MEASURES IN PLACE. KEPT BED IN LOCKED AND IN LOW POSITION. SIDE RAILS UP. ADVISED TO USE CALL LIGHT WHEN IN NEED OF ASSISTANCE. ALL NURSING NEEDS ATTENDED.
--- NOTE | 2022-04-19 19:02 | NUR ---
RN NOTE RELAYED ABDOMINAL AND KUB XRAY RESULT TO DR. AHN AND AWAITING FOR RESPONSE. ENDORSED TO INCOMING SHIFT.
[2022-04-19] MEDS ORDERED: LACTULOSE 10 G/15 ML UDC (PYXIS) PO ONE (19:30)
--- NOTE | 2022-04-19 20:15 | NUR ---
UPSCALE SECURITY OFFICER OPENING NOTES PATIENT AWAKE IN BED, ALERT/ORIENTED X 4, PT PRIMARILY SRI LANKAN SPEAKING BUT ABLE TO MAKE NEEDS KNOWN. PT STABLE ON 2 LPM OF OXYGEN VIA NASAL CANNULA, NO S/S OF DISTRESS OR SOB NOTED, BREATHING EVEN AND UNLABORED. PATIENT ON EXTERNAL HAZMAT CDL A DRIVER READING SINUS TACHY WITH PAC'S, HR: 126, PER DAYSHIFT MD AWARE OF HIGH HR, ORDERED CARDIZEM TO BE STARTED SHIFT. CINTIA MIDLINE INTACT AND SALINE LOCKED. SAFETY MEASURES IN PLACE: CALL LIGHT WITHIN REACH, SIDE RAILS UP X 2, BED LOCKED IN LOWEST POSITION, BED ALARM ON. WILL CONTINUE TO MONITOR PATIENT
[2022-04-19] MEDS: DILTIAZEM HCL CD 240 MG PO SCH (20:43)
[2022-04-19] MEDS: *INSULIN REGULAR(HUMULIN R)HUM 100 UNIT/ML VIAL SQ PRN (22:00)
[2022-04-20] VITALS: BP 116/68
[2022-04-20] MEDS: IPRATROPIUM NEB FS 0.5 MG/2.5 ML AMPUL.NEB NEB SCH ×4 (02:03→19:58)
[2022-04-20] MEDS: ALBUTEROL FS 2.5 MG/0.5 ML VIAL.NEB NEB SCH ×4 (02:03→19:58)
[2022-04-20 04:00] VITALS: BP 115/63
[2022-04-20] MEDS: ACETAMINOPHEN 325 MG TABLET PO PRN (04:46)
[2022-04-20 06:01] LABS: BASOPHILS % (AUTO) 0.4 % (0.0-2.0); EOSINOPHILS % (AUTO) 2.9 % (0.0-6.0); HEMATOCRIT 37 % (39-51); HEMOGLOBIN 12.1 g/dL (13.5-17.5); LYMPHOCYTES # (AUTO) 1.1 K/uL (0.8-4.8); LYMPHOCYTES % (AUTO) 12.9 % (20.0-44.0); MEAN CORPUSCULAR HGB CONC 33 g/dl (31.0-36.0); MEAN CORPUSCULAR VOLUME 92 fL (80-96); MONOCYTES # (AUTO) 0.8 K/uL (0.1-1.30); MONOCYTES % (AUTO) 9.4 % (2.0-12.0); NEUTROPHILS # (AUTO) 6.5 K/uL (1.8-8.9); NEUTROPHILS % (AUTO) 74.4 % (43.0-81.0); PLATELET COUNT (AUTO) 161 K/uL (150-450); RED BLOOD CELL COUNT(AUTO) 4.04 MIL/uL (4.5-6.0); WHITE BLOOD COUNT (AUTO) 8.7 K/uL (4.3-11.0)
[2022-04-20] MEDS: BLOOD SUGAR DIAGNOSTIC 1 EACH STRIP VI SCH ×4 (06:46→22:16)
[2022-04-20] MEDS: INSULIN REGULAR, HUMAN 100 UNIT/ML 3 ML VIAL SQ PRN ×3 (06:47→17:25)
--- NOTE | 2022-04-20 07:31 | NUR ---
RN OPENING NOTE PATIENT AWAKE IN BED, ALERT AND INTERACTIVE, PT PRIMARILY TOGOLESE SPEAKING BUT ABLE TO MAKE SOME NEEDS KNOWN. PT STABLE ON 2 LPM OF OXYGEN VIA NASAL CANNULA, 97% O2 SATS, NO S/S OF DISTRESS OR SOB NOTED, BREATHING EVEN AND UNLABORED. PATIENT ON EXTERNAL OVERHEAD CRANE TRUCK LOADER READING SINUS TACHY AT 105, CINTIA MIDLINE INTACT . SAFETY MEASURES IN PLACE: CALL LIGHT WITHIN REACH, SIDE RAILS UP X 2, BED LOCKED IN LOWEST POSITION, BED ALARM ON. WILL CONTINUE TO MONITOR PATIENT / ASSIST
--- NOTE | 2022-04-20 07:33 | NUR ---
PAINTING SUPERVISOR CLOSING NOTE PATIENT AWAKE IN BED, ALERT/ORIENTED X 4, PT PRIMARILY BENINESE SPEAKING BUT ABLE TO MAKE BASIC NEEDS KNOWN. PT STABLE ON 2 LPM OF OXYGEN VIA NASAL CANNULA, NO S/S OF DISTRESS OR SOB NOTED, BREATHING EVEN AND UNLABORED. PATIENT ON EXTERNAL WATER CHEMIST READING SINUS TACHY, HR: 108. CINTIA MIDLINE INTACT AND SALINE LOCKED. MEDICATIONS GIVEN ORDERED, PT NEEDS MET THROUGHOUT SHIFT. PATIENT HAD 1 LARGE BOWEL MOVEMENT. SAFETY MEASURES IN PLACE: CALL LIGHT WITHIN REACH, SIDE RAILS UP X 2, BED LOCKED IN LOWEST POSITION, BED ALARM ON. ENDORSED TO DAYSHIFT NURSE FOR CONTINUITY OF CARE
[2022-04-20 07:48] LABS: ALBUMIN 2.8 g/dL (3.4-5.0); BILIRUBIN,TOTAL 0.4 mg/dL (0.2-1.0); CALCIUM, SERUM 9.3 mg/dL (8.5-10.1); CREATININE 1.3 mg/dL (0.6-1.3); MAGNESIUM 2.2 mg/dL (1.8-2.4); PHOSPHORUS 3.4 mg/dL (2.5-4.9); POTASSIUM 3.8 mmol/L (3.5-5.1); TOTAL PROTEIN, SERUM 6.6 g/dL (6.4-8.2)
[2022-04-20 08:00] VITALS: BP 106/50
[2022-04-20] MEDS: EZETIMIBE 10 MG TABLET PO SCH (08:22)
[2022-04-20] MEDS: METHIMAZOLE (5MG) 5 MG TABLET PO SCH (08:22)
[2022-04-20] MEDS: LINAGLIPTIN 5 MG TABLET PO SCH (08:22)
[2022-04-20] MEDS: TAMSULOSIN 0.4 MG CAP.SR.24H PO SCH (08:23)
[2022-04-20] MEDS: DILTIAZEM HCL CD 240 MG PO SCH (08:23)
[2022-04-20] MEDS: RIVAROXABAN 10 MG TABLET PO SCH (08:23)
[2022-04-20] MEDS: PANTOPRAZOLE 40 MG TABLET.DR PO SCH (08:23)
[2022-04-20] MEDS: ATORVASTATIN 40 MG TABLET PO SCH (08:23)
[2022-04-20] MEDS: COLCHICINE 0.6 MG TABLET PO SCH (08:23)
[2022-04-20] MEDS: GLIMEPIRIDE 4 MG TABLET PO SCH (08:24)
--- NOTE | 2022-04-20 08:30 | NUR ---
RN NOTE- PT WEAKNESS , GENERAL MALAISE, ASSISTED UP IN BED , REPOSITIONED, MED COMPLIANT , REFUSES CXR
--- NOTE | 2022-04-20 10:25 | NUR ---
RN NOTE- ASKED PT TO GET CXR,PT REFUSED AGAIN. EXPLAINED BENEFITS.
[2022-04-20 12:00] VITALS: BP 108/60
[2022-04-20] MEDS: HYDROCODONE/APAP 5/325MG TABLET PO PRN ×2 (12:29→22:23)
[2022-04-20 16:00] VITALS: BP 104/65
--- NOTE | 2022-04-20 18:36 | NUR ---
RN CLOSING NOTE- UNCHANGED, PATIENT AWAKE IN BED, ALERT AND INTERACTIVE, PT PRIMARILY PAKISTANI SPEAKING BUT ABLE TO MAKE SOME NEEDS KNOWN. PT STABLE ON 2 LPM OF OXYGEN VIA NASAL CANNULA, 95% O2 SATS, NO S/S OF DISTRESS OR SOB NOTED, BREATHING EVEN AND UNLABORED. PATIENT ON EXTERNAL MANUFACTURING INSPECTOR READING SINUS TACHY AT 100, CINTIA MIDLINE INTACT . SAFETY MEASURES IN PLACE: CALL LIGHT WITHIN REACH, SIDE RAILS UP X 2, BED LOCKED IN LOWEST POSITION, BED ALARM ON. WILL CONTINUE TO MONITOR PATIENT / ASSIST
--- NOTE | 2022-04-20 19:30 | NUR ---
PROJECTOR BOOTH OPERATOR OPENING NOTES RECEIVED PATIENT LAYING IN BED AWAKE. A/O X4, TRISTANIAN SPEAKING. RN ANI TRANSLATED FOR PATIENT. ON O2 AT 2LPM VIA NASAL CANULA, BREATHING EVEN AND NON-LABORED. NOT IN APPARENT DISTRESS. DENIES PAIN AT THIS TIME. ON TELE MONITOR READING SINUS TACHYCARDIA AT 102 BPM. HAS RIGHT UPPER ARM MIDLINE AND SALINE LOCKED. NO S/S OF INFILTRATION NOTED. SAFETY PRECAUTIONS IN PLACE: BED LOW AND LOCKED, SIDE RAILS UP X2, CALL LIGHT WITHIN REACH. WILL CONTINUE POC.
[2022-04-20 20:13] VITALS: BP 127/102
[2022-04-20] MEDS: *INSULIN REGULAR(HUMULIN R)HUM 100 UNIT/ML VIAL SQ PRN (22:16)
--- NOTE | 2022-04-20 22:25 | NUR ---
ATTENDANCE OFFICER NOTES PATIENT C/O LOWER BACK PAIN 11/25. PRN NORCO 5-325 GIVEN AND TOLERATED WELL.
[2022-04-21] VITALS: BP 115/64
[2022-04-21] MEDS: IPRATROPIUM NEB FS 0.5 MG/2.5 ML AMPUL.NEB NEB SCH ×4 (02:05→20:52)
[2022-04-21] MEDS: ALBUTEROL FS 2.5 MG/0.5 ML VIAL.NEB NEB SCH ×4 (02:05→20:52)
[2022-04-21 04:33] VITALS: BP 109/71
[2022-04-21] MEDS: MORPHINE SULFATE INJ 2 MG/ML DISP.SYRIN IV PRN ×3 (05:18→19:58)
--- NOTE | 2022-04-21 05:18 | NUR ---
BUILDINGS AND GROUNDS SUPERINTENDENT NOTES PATIENT C/O PAIN ON HIS SCALP 03/27. CRYING AND AGITATED. ADMINISTERED PRN MORPHINE SULFATE 2MG. TOLERATED WELL. WILL CONTINUE TO MONITOR.
[2022-04-21 05:54] LABS: BASOPHILS # (AUTO) 0.1 K/uL (0.0-0.2); BASOPHILS % (AUTO) 0.6 % (0.0-2.0); EOSINOPHILS % (AUTO) 3.1 % (0.0-6.0); HEMATOCRIT 36 % (39-51); HEMOGLOBIN 11.8 g/dL (13.5-17.5); LYMPHOCYTES # (AUTO) 1.2 K/uL (0.8-4.8); LYMPHOCYTES % (AUTO) 12.2 % (20.0-44.0); MEAN CORPUSCULAR HGB CONC 33 g/dl (31.0-36.0); MEAN CORPUSCULAR VOLUME 91 fL (80-96); MONOCYTES % (AUTO) 9.9 % (2.0-12.0); NEUTROPHILS # (AUTO) 7.3 K/uL (1.8-8.9); NEUTROPHILS % (AUTO) 74.2 % (43.0-81.0); PLATELET COUNT (AUTO) 167 K/uL (150-450); RED BLOOD CELL COUNT(AUTO) 3.97 MIL/uL (4.5-6.0); WHITE BLOOD COUNT (AUTO) 9.8 K/uL (4.3-11.0)
[2022-04-21 06:24] LABS: CALCIUM, SERUM 9.3 mg/dL (8.5-10.1); CHLORIDE 103 mmol/L (98-107); CREATININE 1.2 mg/dL (0.6-1.3); GLUCOSE 78 mg/dL (74-106); MAGNESIUM 2.2 mg/dL (1.8-2.4); PHOSPHORUS 3.5 mg/dL (2.5-4.9); POTASSIUM 4.1 mmol/L (3.5-5.1); SODIUM SERUM 144 mmol/L (136-145); UREA NITROGEN, BLOOD 21 mg/dL (7-18)
[2022-04-21 06:33] LABS: CARBON DIOXIDE 40 mmol/L (21-32)
[2022-04-21] MEDS: INSULIN REGULAR, HUMAN 100 UNIT/ML 3 ML VIAL SQ PRN ×3 (06:38→16:33)
[2022-04-21] MEDS: BLOOD SUGAR DIAGNOSTIC 1 EACH STRIP VI SCH ×4 (06:38→22:08)
--- NOTE | 2022-04-21 06:58 | NUR ---
SALES SERVICE COORDINATOR CLOSING NOTES PATIENT LAYING IN BED ASLEEP, EASY TO AROUSE. A/O X4. ABLE TO MAKE SOME NEEDS KNOWN. NO SOB OR NOTED. ON O2 AT 2LPM VIA NASAL CANULA. NOT IN ACUTE DISTRESS. NO C/O PAIN OR DISCOMFORT. AFEBRILE. ON TELE MONITOR READING SINUS TACHYCARDIA AT 103 BPM. HAS RIGHT UPPER ARM MIDLINE AND SALINE LOCKED. INTACT, PATENT AND FLUSHING. ALL DUE MEDS GIVEN AND NEEDS ATTENDED. SAFETY PRECAUTIONS MAINTAINED. WILL ENDORSE TO NEXT SHIFT FOR WENDY.
--- NOTE | 2022-04-21 07:45 | NUR ---
RN OPENING NOTE-PT AMBULATING IN ROOM, ALERT AND INTERACTIVE, PT PRIMARILY CENTRAL AFRICAN SPEAKING. NEEDS ATTENDED. PT STABLE ON 2 LPM OF OXYGEN VIA NASAL CANNULA, 97% O2 SATS, NO S/S OF DISTRESS OR SOB NOTED, BREATHING EVEN AND UNLABORED. PATIENT ON EXTERNAL HEALTH PROGRAM MANAGER READING SINUS TACHY AT 83, CINTIA MIDLINE INTACT . WOUND CARE AT BEDSIDE. 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 . PT HAS DECADES HX W THIS. SAFETY MEASURES IN PLACE: CALL LIGHT WITHIN REACH, SIDE RAILS UP X 2, BED LOCKED IN LOWEST POSITION, BED ALARM ON. WILL CONTINUE TO MONITOR PATIENT / ASSIST
[2022-04-21] MEDS: HYDROCODONE/APAP 5/325MG TABLET PO PRN (08:01)
[2022-04-21 08:14] VITALS: BP 114/68
[2022-04-21] MEDS: EZETIMIBE 10 MG TABLET PO SCH (08:29)
[2022-04-21] MEDS: METHIMAZOLE (5MG) 5 MG TABLET PO SCH (08:29)
[2022-04-21] MEDS: TAMSULOSIN 0.4 MG CAP.SR.24H PO SCH (08:29)
[2022-04-21] MEDS: ATORVASTATIN 40 MG TABLET PO SCH (08:30)
[2022-04-21] MEDS: DILTIAZEM HCL CD 240 MG PO SCH (08:30)
[2022-04-21] MEDS: LINAGLIPTIN 5 MG TABLET PO SCH (08:30)
[2022-04-21] MEDS: COLCHICINE 0.6 MG TABLET PO SCH (08:30)
[2022-04-21] MEDS: PANTOPRAZOLE 40 MG TABLET.DR PO SCH (08:30)
[2022-04-21] MEDS: RIVAROXABAN 10 MG TABLET PO SCH (08:31)
--- NOTE | 2022-04-21 08:43 | NUR ---
WOUND CARE CONSULT: PT SEEN FOR SCALP LESIONS WITH DRAINAGE ON PILLOW. 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 DR MENDES CALLED FOR PLASTIC SURGERY CONSULT. IN AGREEMENT WITH PLAN OF CARE.
[2022-04-21 16:50] VITALS: BP 112/60
--- NOTE | 2022-04-21 18:37 | NUR ---
RN CLOSING NOTE-PT AMBULATING IN ROOM, ALERT AND INTERACTIVE, PT PRIMARILY DUTCH SPEAKING. NEEDS ATTENDED. PT STABLE ON 2 LPM OF OXYGEN VIA NASAL CANNULA, 97% O2 SATS, NO S/S OF DISTRESS OR SOB NOTED, BREATHING EVEN AND NON LABORED. PATIENT ON EXTERNAL PORCELAIN FINISH SPRAYER READING SINUS TACHY AT 83, CINTIA MIDLINE INTACT. TREPONEMA ANTIBODIES CHECK TOMORROW MORNING. SAFETY MEASURES IN PLACE: CALL LIGHT WITHIN REACH, SIDE RAILS UP X 2, BED LOCKED IN LOWEST POSITION, BED ALARM ON. WILL CONTINUE TO MONITOR PATIENT / ASSIST
--- NOTE | 2022-04-21 19:30 | NUR ---
eliza rn opening received patient in bed, a/ox4, Citizen Of [place] speaking, CHANELLE RN brought in room to translate. Patient c/o 7/10 pain at this time-- will medicated. no s/s of apparent distress on 2lpm of o2 via nc. tele monitor reading sr with PAC 97bpm. patient has distended stomach. walker noted at bedside. CINTIA midline in saline lock. call light within reach, re-oriented and encouraged with the use of call light. safety in place. will continue with the plan of care for patient.
[2022-04-21 20:00] VITALS: BP 127/78
--- NOTE | 2022-04-21 20:04 | NUR ---
noc rn note- omnicell discrepancy Patient c/o 12/25 burning pain on his back and scalp and pulled out Noco refused by patient and wanted Morphine instead. patient teaching about adverse effect of morphine done. unopened norco tab returned in omnicell. Given morphine as ordered PRN.
[2022-04-21] MEDS: MAGNESIUM HYDROXIDE 30 ML UDC PO PRN (22:01)
[2022-04-21] MEDS: *INSULIN REGULAR(HUMULIN R)HUM 100 UNIT/ML VIAL SQ PRN (22:09)
[2022-04-22] VITALS: BP 117/68
[2022-04-22] MEDS: ALBUTEROL FS 2.5 MG/0.5 ML VIAL.NEB NEB SCH ×4 (01:40→20:21)
[2022-04-22] MEDS: IPRATROPIUM NEB FS 0.5 MG/2.5 ML AMPUL.NEB NEB SCH ×4 (01:40→20:21)
[2022-04-22 04:00] VITALS: BP 118/74
[2022-04-22] MEDS: MORPHINE SULFATE INJ 2 MG/ML DISP.SYRIN IV PRN ×2 (04:03→08:40)
[2022-04-22 06:24] LABS: BASOPHILS # (AUTO) 0.1 K/uL (0.0-0.2); BASOPHILS % (AUTO) 0.6 % (0.0-2.0); EOSINOPHILS % (AUTO) 3.1 % (0.0-6.0); HEMATOCRIT 35 % (39-51); HEMOGLOBIN 11.6 g/dL (13.5-17.5); LYMPHOCYTES # (AUTO) 1.1 K/uL (0.8-4.8); LYMPHOCYTES % (AUTO) 12.6 % (20.0-44.0); MEAN CORPUSCULAR HGB CONC 33 g/dl (31.0-36.0); MEAN CORPUSCULAR VOLUME 92 fL (80-96); MONOCYTES # (AUTO) 0.9 K/uL (0.1-1.30); MONOCYTES % (AUTO) 9.9 % (2.0-12.0); NEUTROPHILS # (AUTO) 6.4 K/uL (1.8-8.9); NEUTROPHILS % (AUTO) 73.8 % (43.0-81.0); PLATELET COUNT (AUTO) 173 K/uL (150-450); RED BLOOD CELL COUNT(AUTO) 3.83 MIL/uL (4.5-6.0); WHITE BLOOD COUNT (AUTO) 8.7 K/uL (4.3-11.0)
[2022-04-22] MEDS: BLOOD SUGAR DIAGNOSTIC 1 EACH STRIP VI SCH ×4 (06:47→22:00)
[2022-04-22] MEDS: INSULIN REGULAR, HUMAN 100 UNIT/ML 3 ML VIAL SQ PRN ×2 (06:47→12:03)
[2022-04-22 06:54] LABS: CALCIUM, SERUM 9.1 mg/dL (8.5-10.1); CREATININE 1.1 mg/dL (0.6-1.3); MAGNESIUM 2.3 mg/dL (1.8-2.4); PHOSPHORUS 3.9 mg/dL (2.5-4.9)
--- NOTE | 2022-04-22 07:41 | NUR ---
noc rn closing note report given to honorio Mcleod for continuity of patient care.
--- NOTE | 2022-04-22 07:57 | NUR ---
RN OPENING NOTES PATIENT AWAKE IN BED RESTING, A/O X 4. NO S/S OF PAIN NOTED AT THIS TIME. ON 2L OXYGEN VIA NC, NO DISTRESS OR SHORTNESS OF BREATH NOTED. IV ACCESS CINTIA MIDLINE, INTACT, PATENT, FLUSHING WELL. PATIENT WITH EXTERNAL VETERINARY POULTRY INSPECTOR WITH CURRENT READING OF SR WITH PAC AND HR OF 88, NO CARDIAC DISTRESS NOTED AT THIS TIME. FALL AND SAFETY MEASURES IN PLACE, BED ALARM ON, BED IN LOW LOCK POSITION, CALL LIGHT AND TABLE WITHIN EASY REACH, SIDE RAILS UP X2. WILL CONTINUE TO MONITOR.
[2022-04-22 08:00] VITALS: BP 122/69
[2022-04-22] MEDS: LINAGLIPTIN 5 MG TABLET PO SCH (08:43)
[2022-04-22] MEDS: COLCHICINE 0.6 MG TABLET PO SCH (08:44)
[2022-04-22] MEDS: RIVAROXABAN 10 MG TABLET PO SCH (08:44)
[2022-04-22] MEDS: METHIMAZOLE (5MG) 5 MG TABLET PO SCH (08:45)
[2022-04-22] MEDS: DILTIAZEM HCL CD 240 MG PO SCH (08:45)
[2022-04-22] MEDS: TAMSULOSIN 0.4 MG CAP.SR.24H PO SCH (08:46)
[2022-04-22] MEDS: ATORVASTATIN 40 MG TABLET PO SCH (08:46)
[2022-04-22] MEDS: PANTOPRAZOLE 40 MG TABLET.DR PO SCH (08:46)
[2022-04-22] MEDS: EZETIMIBE 10 MG TABLET PO SCH (08:46)
[2022-04-22] MEDS: HYDROCODONE/APAP 5/325MG TABLET PO PRN (10:49)
[2022-04-22] MEDS: MAGNESIUM HYDROXIDE 30 ML UDC PO PRN (12:10)
[2022-04-22 16:00] VITALS: BP 114/58
--- NOTE | 2022-04-22 18:43 | NUR ---
RN CLOSING NOTES PATIENT AWAKE IN BED RESTING, A/O X 4. NO S/S OF PAIN NOTED AT THIS TIME. ON 2L OXYGEN VIA NC, NO DISTRESS OR SHORTNESS OF BREATH NOTED. IV ACCESS CINTIA MIDLINE, INTACT, PATENT, FLUSHING WELL. PATIENT WITH EXTERNAL ARMATURE WINDER REPAIR WITH CURRENT READING OF SR WITH PAC AND HR OF 96, NO CARDIAC DISTRESS NOTED AT THIS TIME. SCHEDULE MEDICATIONS ADMINISTERED. WOUND CARE IMPLEMENTED. FALL AND SAFETY MEASURES IN PLACE, BED ALARM ON, BED IN LOW LOCK POSITION, CALL LIGHT AND TABLE WITHIN EASY REACH, SIDE RAILS UP X2. WILL ENDORSE TO SOFTWARE CONFIGURATION ANALYST.
--- NOTE | 2022-04-22 19:30 | NUR ---
ASSEMBLY LEAD PERSON OPENING NOTE RECEIVED PT AWAKE IN CHAIR AT BEDSIDE. A/O X4, LATVIAN SPEAKING ONLY. PT ON O2 @ 2LPM VIA NC, SATURATING 94%. NO SOB OR S/S OF RESPIRATORY DISTRESS. BREATHING EVEN AND UNLABORED. ON EXTERNAL PROPERTY APPRAISER READING SR 96 BPM. IV ACCESS CINTIA MIDLINE, INTACT AND PATENT. SAFETY PRECAUTIONS IN PLACE. BED IN LOWEST LOCKED POSITION, HOB ELEVATED, SIDE RAILS UP X2, AND CALL LIGHT AND TABLE WITHIN REACH. ALL NEEDS MET AT THIS TIME.
[2022-04-22 20:00] VITALS: BP 108/61
[2022-04-23] VITALS: BP 109/73
[2022-04-23] MEDS: ALBUTEROL FS 2.5 MG/0.5 ML VIAL.NEB NEB SCH ×4 (02:08→20:17)
[2022-04-23] MEDS: IPRATROPIUM NEB FS 0.5 MG/2.5 ML AMPUL.NEB NEB SCH ×4 (02:08→20:17)
[2022-04-23 04:00] VITALS: BP 116/70
[2022-04-23] MEDS: BLOOD SUGAR DIAGNOSTIC 1 EACH STRIP VI SCH ×4 (06:33→22:32)
--- NOTE | 2022-04-23 06:44 | NUR ---
GLOVE TURNER AND FORMER CLOSING NOTE PT AWAKE IN CHAIR AT BEDSIDE. A/O X4, SINGAPOREAN SPEAKING ONLY. PT ON O2 @ 2LPM VIA NC, SATURATING 94%. NO SOB OR S/S OF RESPIRATORY DISTRESS. BREATHING EVEN AND UNLABORED. ON EXTERNAL BUSINESS MAIL ENTRY CLERK READING SR 98 BPM. IV ACCESS CINTIA MIDLINE, INTACT AND PATENT. PT KEPT REMOVING DRESSING ON HEAD, REPLACED X5, KEPT CLEAN AND DRY. ALL DUE MEDS GIVEN ORDERED. SAFETY PRECAUTIONS IN PLACE AT ALL TIMES. BED IN LOWEST LOCKED POSITION, HOB ELEVATED, SIDE RAILS UP X2, AND CALL LIGHT AND TABLE WITHIN REACH. ALL NEEDS MET AT THIS TIME AND WILL ENDORSE TO ONCOMING NURSE.
[2022-04-23 07:23] LABS: BASOPHILS % (AUTO) 0.5 % (0.0-2.0); EOSINOPHILS % (AUTO) 3.6 % (0.0-6.0); HEMATOCRIT 36 % (39-51); HEMOGLOBIN 11.6 g/dL (13.5-17.5); LYMPHOCYTES # (AUTO) 0.9 K/uL (0.8-4.8); LYMPHOCYTES % (AUTO) 11.1 % (20.0-44.0); MEAN CORPUSCULAR HGB CONC 32 g/dl (31.0-36.0); MEAN CORPUSCULAR VOLUME 92 fL (80-96); MONOCYTES # (AUTO) 0.8 K/uL (0.1-1.30); MONOCYTES % (AUTO) 10.2 % (2.0-12.0); NEUTROPHILS # (AUTO) 5.8 K/uL (1.8-8.9); NEUTROPHILS % (AUTO) 74.6 % (43.0-81.0); PLATELET COUNT (AUTO) 196 K/uL (150-450); WHITE BLOOD COUNT (AUTO) 7.7 K/uL (4.3-11.0)
[2022-04-23 07:28] LABS: CALCIUM, SERUM 9.2 mg/dL (8.5-10.1); CREATININE 1.3 mg/dL (0.6-1.3); MAGNESIUM 2.5 mg/dL (1.8-2.4); POTASSIUM 4.3 mmol/L (3.5-5.1)
--- NOTE | 2022-04-23 07:50 | NUR ---
RN OPENING NOTES PATIENT AWAKE IN BED RESTING, A/O X 4. NO S/S OF PAIN NOTED AT THIS TIME. ON 2L OXYGEN VIA NC, NO DISTRESS OR SHORTNESS OF BREATH NOTED. IV ACCESS CINTIA MIDLINE, INTACT, PATENT, FLUSHING WELL. PATIENT WITH EXTERNAL CREDIT HISTORIAN WITH CURRENT READING OF SR AND HR OF 98, NO CARDIAC DISTRESS NOTED AT THIS TIME. FALL AND SAFETY MEASURES IN PLACE, BED ALARM ON, BED IN LOW LOCK POSITION, CALL LIGHT AND TABLE WITHIN EASY REACH, SIDE RAILS UP X2. WILL CONTINUE TO MONITOR.
[2022-04-23 08:10] VITALS: BP 104/48
[2022-04-23] MEDS: RIVAROXABAN 10 MG TABLET PO SCH (08:33)
[2022-04-23] MEDS: COLCHICINE 0.6 MG TABLET PO SCH (08:35)
[2022-04-23] MEDS: LINAGLIPTIN 5 MG TABLET PO SCH (08:35)
[2022-04-23] MEDS: TAMSULOSIN 0.4 MG CAP.SR.24H PO SCH (08:35)
[2022-04-23] MEDS: ATORVASTATIN 40 MG TABLET PO SCH (08:35)
[2022-04-23] MEDS: PANTOPRAZOLE 40 MG TABLET.DR PO SCH (08:35)
[2022-04-23] MEDS: EZETIMIBE 10 MG TABLET PO SCH (08:36)
[2022-04-23] MEDS: METHIMAZOLE (5MG) 5 MG TABLET PO SCH (08:36)
[2022-04-23] MEDS: DILTIAZEM HCL CD 240 MG PO SCH (08:38)
[2022-04-23] MEDS: HYDROCODONE/APAP 5/325MG TABLET PO PRN ×2 (10:40→22:34)
[2022-04-23 12:00] VITALS: BP 141/85
[2022-04-23 16:00] VITALS: BP 137/78
[2022-04-23] MEDS: INSULIN REGULAR, HUMAN 100 UNIT/ML 3 ML VIAL SQ PRN (17:28)
--- NOTE | 2022-04-23 18:30 | NUR ---
RN CLOSING NOTES PATIENT AWAKE IN BED RESTING, A/O X 4. NO S/S OF PAIN NOTED AT THIS TIME. ON 2L OXYGEN VIA NC, NO DISTRESS OR SHORTNESS OF BREATH NOTED. IV ACCESS CINTIA MIDLINE, INTACT, PATENT, FLUSHING WELL. PATIENT WITH EXTERNAL TECHNOLOGY SOLUTIONS ARCHITECT WITH CURRENT READING OF ST WITH PAC AND HR OF 106, NO CARDIAC DISTRESS NOTED AT THIS TIME. SCHEDULE MEDICATIONS ADMINISTERED. WOUND CARE IMPLEMENTED. FALL AND SAFETY MEASURES IN PLACE, BED ALARM ON, BED IN LOW LOCK POSITION, CALL LIGHT AND TABLE WITHIN EASY REACH, SIDE RAILS UP X2. WILL ENDORSE TO HAULPAK DRIVER.
--- NOTE | 2022-04-23 19:30 | NUR ---
RELOCATION SERVICES SPECIALIST OPENING NOTES RECEIVED PATIENT SITTING ON BEDSIDE. A/O X4, AZERBAIJANI SPEAKING BUT ABLE TO UNDERSTAND SOME ETHIOPIAN. ON O2 AT 2LPM VIA NASAL CANULA. BREATHING EVEN AND NON-LABORED. NOT IN APPARENT DISTRESS. DENIES PAIN AT THIS TIME. ON TELE MONITOR READING SINUS TACHYCARDIA AT 105 BPM. HAS RIGHT UPPER ARM MIDLINE AND SALINE LOCKED. NO S/S OF INFILTRATION NOTED. ENCOURAGED TO USE URINAL AND CALL STAFF IF HE WILL AMBULATE USING HIS FWW. SAFETY PRECAUTIONS IN PLACE: BED LOW AND LOCKED, SIDE RAILS UP X2, CALL LIGHT WITHIN REACH. WILL CONTINUE POC.
[2022-04-23 20:00] VITALS: BP 159/95
[2022-04-23] MEDS: *INSULIN REGULAR(HUMULIN R)HUM 100 UNIT/ML VIAL SQ PRN (22:33)
--- NOTE | 2022-04-23 22:35 | NUR ---
TRANSFORMER MAKER NOTES PATIENT C/O LOWER BACK AND HEAD PAIN. ADMINISTERED PRN NORCO 5-325 AND TOLERATED WELL.
--- NOTE | 2022-04-23 23:57 | NUR ---
RT Pt placed on NOC BiPAP as ordered. RN aware.
[2022-04-24] VITALS: BP 128/69
[2022-04-24] MEDS: ALBUTEROL FS 2.5 MG/0.5 ML VIAL.NEB NEB SCH ×4 (02:15→20:51)
[2022-04-24] MEDS: IPRATROPIUM NEB FS 0.5 MG/2.5 ML AMPUL.NEB NEB SCH ×4 (02:15→20:51)
[2022-04-24 04:00] VITALS: BP 130/88
--- NOTE | 2022-04-24 07:20 | NUR ---
FIELD ACCOUNT MANAGER CLOSING NOTES PATIENT LAYING IN BED COMFORTABLY. ABLE TO VERBALIZE NEEDS. STABLE THROUGHOUT THE SHIFT. ON TELE MONITOR READING SINUS RHYTHM WITH PAC AT 97 BPM. ALL DUE MEDS GIVEN AND NEEDS ATTENDED. SAFETY PRECAUTIONS MAINTAINED. WILL ENDORSE TO NEXT SHIFT FOR WENDY.
--- NOTE | 2022-04-24 07:20 | NUR ---
ARMORED MACHINE OPERATOR OPENING NOTES RECEIVED PATIENT AWAKE IN BED. PATIENT IS A/O X4, ST HELENIAN AND GREEK SPEAKING ABLE TO UNDERSTAND SOME CITIZEN OF [place]. ABLE TO MAKE NEEDS KNOWN.ON O2 AT 2LPM VIA NASAL CANULA. BREATHING EVEN AND NON-LABORED. NOT IN APPARENT DISTRESS. NO PAIN AT THIS TIME. ON TELE MONITOR READING SINUS RHYTHM. RIGHT UPPER ARM MIDLINE INTACT AND SALINE LOCKED. NO S/S OF INFILTRATION NOTED. ALL SAFETY PRECAUTIONS IN PLACE: BED LOW AND LOCKED, SIDE RAILS UP X2, CALL LIGHT AND TABLE WITHIN REACH. WILL CONTINUE TO MONITOR CLOSELY.
[2022-04-24] MEDS: BLOOD SUGAR DIAGNOSTIC 1 EACH STRIP VI SCH ×4 (07:33→21:33)
[2022-04-24] MEDS: INSULIN REGULAR, HUMAN 100 UNIT/ML 3 ML VIAL SQ PRN ×2 (07:33→17:01)
[2022-04-24 08:00] VITALS: BP 129/69
[2022-04-24] MEDS: ATORVASTATIN 40 MG TABLET PO SCH (08:44)
[2022-04-24] MEDS: EZETIMIBE 10 MG TABLET PO SCH (08:44)
[2022-04-24] MEDS: PANTOPRAZOLE 40 MG TABLET.DR PO SCH (08:44)
[2022-04-24] MEDS: COLCHICINE 0.6 MG TABLET PO SCH (08:44)
[2022-04-24] MEDS: TAMSULOSIN 0.4 MG CAP.SR.24H PO SCH (08:44)
[2022-04-24] MEDS: METHIMAZOLE (5MG) 5 MG TABLET PO SCH (08:44)
[2022-04-24] MEDS: DILTIAZEM HCL CD 240 MG PO SCH (08:45)
[2022-04-24] MEDS: RIVAROXABAN 10 MG TABLET PO SCH (08:46)
[2022-04-24] MEDS: LINAGLIPTIN 5 MG TABLET PO SCH (08:51)
[2022-04-24 16:51] VITALS: BP 108/60
--- NOTE | 2022-04-24 19:47 | NUR ---
RN OPENING NOTES RECEIVED PT SITTING IN BEDSIDE CHAIR, AWAKE. AOx4, RWANDAN SPEAKING, TRANSLATED BY DAY RN. ON NC 2LPM AND TOLERATING WELL. NO SOB NOTED. NO S/SX OF RESPIRATORY DISTRESS NOTED. TELE MONITOR DETECTS SINUS RHYTHM WITH RATE OF 80. IV ACCESS IN CINTIA MIDLINE #18G. IV IS INTACT, PATENT, AND FLUSHING WELL. SAFETY PRECAUTIONS IN PLACE: BED IN LOWEST, LOCKED POSITION, SIDERAILS UPx2, AND BRAKES ON. TABLE AND CALL LIGHT WITHIN REACH. ALL NEEDS MET AT THIS TIME.
--- NOTE | 2022-04-24 19:56 | NUR ---
DIGGING MACHINE OPERATOR CLOSING NOTES PATIENT AWAKE IN BED. PATIENT IS A/O X4, EQUATORIAL GUINEAN AND VINCENTIAN SPEAKING ABLE TO UNDERSTAND SOME TANZANIAN. ABLE TO MAKE NEEDS KNOWN.ON O2 AT 2LPM VIA NASAL CANULA. BREATHING EVEN AND NON-LABORED. NOT IN APPARENT DISTRESS. NO PAIN AT THIS TIME. ON TELE MONITOR READING SINUS RHYTHM. RIGHT UPPER ARM MIDLINE INTACT AND SALINE LOCKED. NO S/S OF INFILTRATION NOTED. ALL DUE MEDS AND TREATMENT GIVEN ORDERED.ALL SAFETY PRECAUTIONS IN PLACE: BED LOW AND LOCKED, SIDE RAILS UP X2, CALL LIGHT AND TABLE WITHIN REACH. WILL ENDORSE FOR WENDY.
[2022-04-24 20:00] VITALS: BP 116/67
[2022-04-24] MEDS: HYDROCODONE/APAP 5/325MG TABLET PO PRN (20:37)
--- NOTE | 2022-04-24 20:38 | NUR ---
RN NOTES ADMINISTERED NORCO FOR BACK PAIN PER PT REQUEST. VS WNL.
[2022-04-24] MEDS: *INSULIN REGULAR(HUMULIN R)HUM 100 UNIT/ML VIAL SQ PRN (21:33)
[2022-04-25] VITALS: BP 105/66
[2022-04-25] MEDS: ALBUTEROL FS 2.5 MG/0.5 ML VIAL.NEB NEB SCH ×4 (02:01→20:05)
[2022-04-25] MEDS: IPRATROPIUM NEB FS 0.5 MG/2.5 ML AMPUL.NEB NEB SCH ×4 (02:01→20:05)
[2022-04-25 04:00] VITALS: BP 109/63
[2022-04-25] MEDS: BLOOD SUGAR DIAGNOSTIC 1 EACH STRIP VI SCH ×4 (06:31→22:21)
[2022-04-25] MEDS: INSULIN REGULAR, HUMAN 100 UNIT/ML 3 ML VIAL SQ PRN ×3 (06:32→17:35)
--- NOTE | 2022-04-25 06:54 | NUR ---
RN CLOSING NOTES PT SITTING IN BED, AWAKE. AOx4, SOLOMON ISLANDER SPEAKING. ON NC 3LPM AND TOLERATING WELL. NO SOB NOTED. NO S/SX OF RESPIRATORY DISTRESS NOTED. TELE MONITOR DETECTS SINUS RHYTHM WITH RATE OF 80. IV ACCESS IN CINTIA PICC LINE. IV IS INTACT, PATENT, AND FLUSHING WELL. ALL ORDERS CARRIED OUT. ALL NEEDS MET. PT KEPT CLEAN AND DRY. SAFETY PRECAUTIONS IN PLACE: BED IN LOWEST, LOCKED POSITION, SIDERAILS UPx2, AND BRAKES ON. TABLE AND CALL LIGHT WITHIN REACH. WILL ENDORSE TO ONCOMING SHIFT FOR WENDY.
--- NOTE | 2022-04-25 07:17 | NUR ---
RN OPENING NOTES RECEIVED PT IN BED , AWAKE. AOx4, MONTENEGRIN SPEAKING, ON NC 3LPM AND TOLERATING WELL. NO SOB NOTED. NO S/SX OF RESPIRATORY DISTRESS NOTED. TELE MONITOR DETECTS SINUS RHYTHM WITH RATE OF 70. IV ACCESS IN WES PICC LINE . IV IS INTACT, PATENT, AND FLUSHING WELL. SAFETY PRECAUTIONS IN PLACE: BED IN LOWEST, LOCKED POSITION, SIDERAILS UPx2, AND BRAKES ON. TABLE AND CALL LIGHT WITHIN REACH. WILL CONTINUE TO FALLOW POC
[2022-04-25 08:00] VITALS: BP 119/72
[2022-04-25] MEDS: METHIMAZOLE (5MG) 5 MG TABLET PO SCH (08:19)
[2022-04-25] MEDS: COLCHICINE 0.6 MG TABLET PO SCH (08:19)
[2022-04-25] MEDS: PANTOPRAZOLE 40 MG TABLET.DR PO SCH (08:20)
[2022-04-25] MEDS: TAMSULOSIN 0.4 MG CAP.SR.24H PO SCH (08:20)
[2022-04-25] MEDS: LINAGLIPTIN 5 MG TABLET PO SCH (08:20)
[2022-04-25] MEDS: EZETIMIBE 10 MG TABLET PO SCH (08:20)
[2022-04-25] MEDS: DILTIAZEM HCL CD 240 MG PO SCH (08:20)
[2022-04-25] MEDS: ATORVASTATIN 40 MG TABLET PO SCH (08:20)
[2022-04-25] MEDS: RIVAROXABAN 10 MG TABLET PO SCH (08:21)
--- NOTE | 2022-04-25 09:06 | NUR ---
RN NOTE PATIENT C/O LOW BACK PAIN 02/25 HYDROCODONE 5/325 1 TAB PO WAS GIVEN
[2022-04-25] MEDS: HYDROCODONE/APAP 5/325MG TABLET PO PRN ×2 (09:08→17:29)
[2022-04-25 09:31] LABS: BASOPHILS % (AUTO) 0.3 % (0.0-2.0); EOSINOPHILS % (AUTO) 1.2 % (0.0-6.0); HEMATOCRIT 40 % (39-51); HEMOGLOBIN 12.7 g/dL (13.5-17.5); LYMPHOCYTES # (AUTO) 0.5 K/uL (0.8-4.8); LYMPHOCYTES % (AUTO) 5.6 % (20.0-44.0); MEAN CORPUSCULAR HGB CONC 32 g/dl (31.0-36.0); MEAN CORPUSCULAR VOLUME 93 fL (80-96); MONOCYTES # (AUTO) 0.6 K/uL (0.1-1.30); NEUTROPHILS # (AUTO) 8.3 K/uL (1.8-8.9); NEUTROPHILS % (AUTO) 86.9 % (43.0-81.0); PLATELET COUNT (AUTO) 215 K/uL (150-450); WHITE BLOOD COUNT (AUTO) 9.6 K/uL (4.3-11.0)
[2022-04-25 09:37] LABS: CALCIUM, SERUM 9.2 mg/dL (8.5-10.1); CREATININE 1.3 mg/dL (0.6-1.3); MAGNESIUM 1.9 mg/dL (1.8-2.4); PHOSPHORUS 2.7 mg/dL (2.5-4.9); POTASSIUM 4.1 mmol/L (3.5-5.1)
[2022-04-25 12:01] VITALS: BP 107/66
[2022-04-25 16:00] VITALS: BP 163/83
--- NOTE | 2022-04-25 18:57 | NUR ---
RN CLOSING NOTES PT IS IN BED, AWAKE. AOx4, VENEZUELAN SPEAKING. ON NC 3LPM AND TOLERATING WELL. NO SOB NOTED. NO S/SX OF RESPIRATORY DISTRESS NOTED. TELE MONITOR DETECTS SINUS RHYTHM WITH RATE OF 77. IV ACCESS IN CINTIA PICC LINE. IV IS INTACT, PATENT, AND FLUSHING WELL. ALL ORDERS CARRIED OUT. ALL NEEDS MET. PT KEPT CLEAN AND DRY. SAFETY PRECAUTIONS IN PLACE: BED IN LOWEST, LOCKED POSITION, SIDERAILS UPx2, AND BRAKES ON. TABLE AND CALL LIGHT WITHIN REACH. WILL ENDORSE TO ONCOMING SHIFT FOR WENDY.
--- NOTE | 2022-04-25 19:45 | NUR ---
RN OPENING NOTES RECEIVED PT SITTING IN BEDSIDE CHAIR, AWAKE. AOx4, NAMIBIAN SPEAKING, TRANSLATED BY DAY RN. ON NC 3LPM AND TOLERATING WELL. NO SOB NOTED. NO S/SX OF RESPIRATORY DISTRESS NOTED. TELE MONITOR DETECTS SINUS RHYTHM WITH RATE OF 80. IV ACCESS IN CINTIA MIDLINE #18G. IV IS INTACT, PATENT, AND FLUSHING WELL. SAFETY PRECAUTIONS IN PLACE: BED IN LOWEST, LOCKED POSITION, SIDERAILS UPx2, AND BRAKES ON. TABLE AND CALL LIGHT WITHIN REACH. ALL NEEDS MET AT THIS TIME.
[2022-04-25 20:00] VITALS: BP 111/64
--- NOTE | 2022-04-25 22:10 | NUR ---
RN NOTES PER HIGH LIFT DRIVER, PATIENTS HEART RATE GOES UP TO 140. BLOOD PRESSURE STABLE. FLAKO WILLIAMSON, MADE AWARE. NO NEW ORDERS.
[2022-04-25] MEDS: *INSULIN REGULAR(HUMULIN R)HUM 100 UNIT/ML VIAL SQ PRN (22:21)
[2022-04-26] VITALS: BP 133/77
--- NOTE | 2022-04-26 01:06 | NUR ---
RN NOTES PATIENT REMOVED TUBING FROM BIPAP MASK. REQUESTED FOR IT TO BE TAKEN OFF SINCE HE HAD TO USE THE RESTROOM. PLACED ON NC 3LPM. PATIENT REFUSED TO HAVE BiPAP PLACED ONE AGAIN. RT MADE AWARE.
[2022-04-26] MEDS: ALBUTEROL FS 2.5 MG/0.5 ML VIAL.NEB NEB SCH ×3 (02:13→13:12)
[2022-04-26] MEDS: IPRATROPIUM NEB FS 0.5 MG/2.5 ML AMPUL.NEB NEB SCH ×3 (02:13→13:12)
[2022-04-26 04:00] VITALS: BP 111/72
--- NOTE | 2022-04-26 06:49 | NUR ---
RN CLOSING NOTES PT SITTING IN BED, ASLEEP, AWAKENS TO VERBAL STIMULI. AOx4, GABONESE SPEAKING, TRANSLATED BY DAY RN. ON NC 3LPM AND TOLERATING WELL. NO SOB NOTED. NO S/SX OF RESPIRATORY DISTRESS NOTED. TELE MONITOR DETECTS SINUS RHYTHM WITH RATE OF 80-140. IV ACCESS IN CINTIA PICC LINE. IV IS INTACT, PATENT, AND FLUSHING WELL. ALL ORDERS CARRIED OUT. ALL NEEDS MET. PT KEPT CLEAN AND DRY. SAFETY PRECAUTIONS IN PLACE: BED IN LOWEST, LOCKED POSITION, SIDERAILS UPx2, AND BRAKES ON. TABLE AND CALL LIGHT WITHIN REACH. WILL ENDORSE TO ONCOMING SHIFT FOR WENDY.
[2022-04-26] MEDS: BLOOD SUGAR DIAGNOSTIC 1 EACH STRIP VI SCH ×3 (06:53→17:34)
[2022-04-26] MEDS: INSULIN REGULAR, HUMAN 100 UNIT/ML 3 ML VIAL SQ PRN (06:53)
--- NOTE | 2022-04-26 07:30 | NUR ---
RN Receiving Report Patient AOx4 able to express his own concerns. Patient states he is ok, Prydeinig speaker. He is sitting up right on hospital bed performing personal care. No signs of distress or discomfort. Discussed plan of care, patient agrees. Will monitor and provide care as needed throughout shift. All safety precautions taken, call light and table within reach, bed at lowest position.
[2022-04-26 08:00] VITALS: BP 124/65
[2022-04-26] MEDS: EZETIMIBE 10 MG TABLET PO SCH (08:35)
[2022-04-26] MEDS: DILTIAZEM HCL CD 240 MG PO SCH (08:35)
[2022-04-26] MEDS: METHIMAZOLE (5MG) 5 MG TABLET PO SCH (08:36)
[2022-04-26] MEDS: COLCHICINE 0.6 MG TABLET PO SCH (08:36)
[2022-04-26] MEDS: PANTOPRAZOLE 40 MG TABLET.DR PO SCH (08:36)
[2022-04-26] MEDS: RIVAROXABAN 10 MG TABLET PO SCH (08:36)
[2022-04-26] MEDS: LINAGLIPTIN 5 MG TABLET PO SCH (08:37)
[2022-04-26] MEDS: ATORVASTATIN 40 MG TABLET PO SCH (08:37)
[2022-04-26] MEDS: HYDROCODONE/APAP 5/325MG TABLET PO PRN ×2 (08:41→18:44)
[2022-04-26] MEDS: TAMSULOSIN 0.4 MG CAP.SR.24H PO SCH (08:41)
[2022-04-26 16:00] VITALS: BP 126/77
[2022-04-26] MEDS ORDERED: ACET325T53 PO (17:44)
[2022-04-26] MEDS ORDERED: MAG30ORA PO (17:44)
[2022-04-26] MEDS ORDERED: METH5TAB70 PO (17:44)
[2022-04-26] MEDS ORDERED: EZET10TA32 PO (17:44)
[2022-04-26] MEDS ORDERED: DEXT50DI8 IV (17:44)
[2022-04-26] MEDS ORDERED: ALBU2.5V13 NEB (17:44)
[2022-04-26] MEDS ORDERED: ATOR40TA PO (17:44)
[2022-04-26] MEDS ORDERED: Tamsulosin PO (17:44)
[2022-04-26] MEDS ORDERED: Colchicine PO (17:44)
[2022-04-26] MEDS ORDERED: IPRA0.2S9 NEB (17:44)
[2022-04-26] MEDS ORDERED: PANT40TA49 PO (17:44)
[2022-04-26] MEDS ORDERED: IBUP-1955 PO (17:44)
[2022-04-26] MEDS ORDERED: LINA5TAB PO (17:44)
[2022-04-26] MEDS ORDERED: Z Guard Remedy TP (17:44)
[2022-04-26] MEDS ORDERED: Hydrocodone/Apap 5/325MG PO (17:44)
[2022-04-26] MEDS ORDERED: Blood Sugar Diagnostic VI (17:44)
[2022-04-26] MEDS ORDERED: RIVA10TA PO (17:44)
[2022-04-26] MEDS ORDERED: DILT240C88 PO (17:44)
--- NOTE | 2022-04-26 18:01 | NUR ---
RN closing report. Patient AOx4, Maldivian speaker. Communicated with Bharti/caregiver. Made patient aware of transfer arrangements made, patient verbalized agreement. Details provided to Bharti and she was able to relate information on patient cell phone/speaker. no incidents throughout shift. Patient remained safe, all medications administered as prescribed. All safety precautions taken, call light and table within reach
--- NOTE | 2022-04-26 19:33 | NUR ---
RN to RN report. Called Norma Chapman ph [phone] option 3, ext. [phone] Room# 2562 Provided report and current patients status to Benja
--- NOTE | 2022-04-26 20:27 | NUR ---
RN NOTE PT PICKED UP VIA AMBULANCE. ALL COPIES OF PAPERWORK PROVIDED. ALL PTS NEEDS MET.
== END 2022-04-26 20:30 | DRG 291 ==
LOC: ER 11:51 → TELE1 15:49 → ICU 04-14 04:55 → TELE 04-18 19:00
PROVIDERS: ADMIT Nurse Practitioner Acute Care; ATTEND Nurse Practitioner Acute Care
PROC: 5A09457 Assistance with Respiratory Ventilation, 24-96 Consecutive Hours, Continuous Positive Airway Pressure (ICD-10-PCS; principal; 2022-04-14)
DX: I13.0 Hypertensive heart and chronic kidney disease with heart failure and stage 1 through stage 4 chronic kidney disease, or unspecified chronic kidney disease (principal); I50.33 Acute on chronic diastolic (congestive) heart failure; J96.21 Acute and chronic respiratory failure with hypoxia; N17.0 Acute kidney failure with tubular necrosis; J96.22 Acute and chronic respiratory failure with hypercapnia; E87.3 Alkalosis; R57.9 Shock, unspecified; D68.59 Other primary thrombophilia; Z68.41 Body mass index [BMI] 40.0-44.9, adult; E66.2 Morbid (severe) obesity with alveolar hypoventilation; E44.0 Moderate protein-calorie malnutrition; E87.0 Hyperosmolality and hypernatremia; N18.9 Chronic kidney disease, unspecified; Z20.822 Contact with and (suspected) exposure to COVID-19; M19.90 Unspecified osteoarthritis, unspecified site; Z87.891 Personal history of nicotine dependence; Z95.2 Presence of prosthetic heart valve; Z95.1 Presence of aortocoronary bypass graft; I25.10 Atherosclerotic heart disease of native coronary artery without angina pectoris; Z86.79 Personal history of other diseases of the circulatory system; K21.9 Gastro-esophageal reflux disease without esophagitis; Z98.890 Other specified postprocedural states; T50.1X5A Adverse effect of loop [high-ceiling] diuretics, initial encounter; Y92.129 Unspecified place in nursing home as the place of occurrence of the external cause; Z79.899 Other long term (current) drug therapy; Z85.528 Personal history of other malignant neoplasm of kidney; Z99.81 Dependence on supplemental oxygen; Z90.5 Acquired absence of kidney; Z79.01 Long term (current) use of anticoagulants; Z79.84 Long term (current) use of oral hypoglycemic drugs; J44.9 Chronic obstructive pulmonary disease, unspecified; N40.0 Benign prostatic hyperplasia without lower urinary tract symptoms; E88.09 Other disorders of plasma-protein metabolism, not elsewhere classified; Z74.09 Other reduced mobility; Z79.51 Long term (current) use of inhaled steroids; I35.0 Nonrheumatic aortic (valve) stenosis; Z53.20 Procedure and treatment not carried out because of patient's decision for unspecified reasons; Z91.81 History of falling; W19.XXXA Unspecified fall, initial encounter; E05.90 Thyrotoxicosis, unspecified without thyrotoxic crisis or storm; E11.22 Type 2 diabetes mellitus with diabetic chronic kidney disease; E78.5 Hyperlipidemia, unspecified; A53.9 Syphilis, unspecified; B94.8 Sequelae of other specified infectious and parasitic diseases; L73.9 Follicular disorder, unspecified; E86.1 Hypovolemia
CPT/HCPCS: 36410; 36415; 36600; 71045-TC; 73521; 74018; 80048-TC; 80053-TC; 80061-TC; 82533; 82803-TC; 82962-TC; 83735-TC; 83880; 84100-TC; 84439-TC; 84443-TC; 84484-TC; 85025-TC; 86780; 87081-TC; 94002; 94660; 94799-TC; 97530-TC; 97535-TC; A6253; A6403; C9803; G0378; J1120; J1815; J1940; J2270; J2930; J3475; J3490; J7030; J7040; J7050; J7120